=== PATIENT | male | born 1965 | race Caucasian/White ===

== ENCOUNTER 2018-02-07 19:16 | Inpatient (IN) | payer OTHER ==
[~2018-02-07] VITALS: Ht 180.3 cm; Wt 134.0 kg
--- NOTE | 2018-02-07 19:42 | ED GENERAL ADULT ---
See Addendum History of Present Illness General Chief Complaint: General Adult Stated Complaint: SWOLLEN FEET/DISTENDED ABDOMEN,SOB,DIZZY Source: patient, family Exam Limitations: no limitations Vital Signs & Intake/Output Vital Signs & Intake/Output Vital Signs Date Time Temp Pulse Resp B/P B/P Pulse O2 O2 Flow FiO2 Mean Ox Delivery Rate 02/07 1959 Room Air 02/07 1938 97.9 79 18 172/99 92 Room Air Allergies Coded Allergies: No Known Allergies (02/07/18) Triage Note: PT TO ROOM 1 FROM EKG [place] FOR AFIB/AFLUTTER. PATIENT TO ER C/C 1 DAY HX OF N/V AND 3-4 DAY HX OF CONGESTION AND SOB. PATIENT APPEARS PALE. ABD DISTENDED. PT RECENTLY STARTED ON COUMADIN FOR AFIB DIAGOSED BY PCP Triage Nurses Notes Reviewed? yes HPI: Patient presents with increasing weakness and fatigue, occasional nausea and vomiting, occasional shortness of breath and occasional dyspnea on exertion, increasing pedal edema and occasional cough which is sometimes productive. Symptoms started a few days ago and have been increasing. The patient states he does. He just vomits everything that he eats or drinks. The last time he vomited was yesterday. Patient chronically sleeps on 2 pillows but has not had to increase those lately. Patient denies any chest pain or chest tightness. Patient's sister states that yesterday his legs were pain with edema and today they're slightly better but still not at their baseline. Patient was diagnosed with A. fib a few months ago and was recently started on Coumadin. His sisters noticed that he has been very pale lately. Patient has not noticed any dark color to his stool. Past History Travel History Traveled to [place] past 21 day No Medical History Any Pertinent Medical History? see below for history Cardiovascular: AFIB, hypertension, ?CHF Renal: "PROBLEMS" Psychiatric: depression Surgical History Surgical History: non-contributory Psychosocial History What is your primary language Ma[place] Tobacco Use: Never used ETOH Use: occasional use Illicit Drug Use: denies illicit drug use Family History Hx Contributory? No Review of Systems Review of Systems Constitutional: Reports: no symptoms. EENTM: Reports: no symptoms. Respiratory: Reports: see HPI, cough, short of breath. Cardiovascular: Reports: no symptoms. GI: Reports: see HPI, nausea, vomiting. Genitourinary: Reports: no symptoms. Musculoskeletal: Reports: see HPI. Skin: Reports: no symptoms. Neurological/Psychological: Reports: no symptoms. Hematologic/Endocrine: Reports: no symptoms. Immunologic/Allergic: Reports: no symptoms. All Other Systems: Reviewed and Negative Physical Exam Physical Exam General Appearance: well developed/nourished, alert, awake, anxious, moderate distress Head: atraumatic Eyes: Bilateral: PERRL, EOMI, pale conjunctivae. Ears, Nose, Throat: normal pharynx, normal ENT inspection, hearing grossly normal Neck: normal inspection, supple, full range of motion Respiratory: normal breath sounds, chest non-tender, no respiratory distress, lungs clear Cardiovascular: regular rate/rhythm, normal peripheral pulses Gastrointestinal: normal bowel sounds, soft, non-tender, no organomegaly Rectal: normal rectal tone, heme negative stool, BROWN STOOL Back: normal inspection Extremities: normal capillary refill, pedal edema Neurologic/Psych: no motor/sensory deficits, awake, alert, oriented x 3, normal mood/affect Skin: warm/dry, pallor Lymphatic: no anterior cervical bina Core Measures ACS in differential dx? Yes No ASA d/t Medical Contraindication CVA/TIA Diagnosis: No Sepsis Present: No Sepsis Focused Exam Completed? No Progress Differential Diagnoses I considered the following diagnoses in my evaluation of the patient: [ANEMIA, GI BLEED, AMI, ELECTROLYTE ABNORMALITY] Plan of Care: Orders Procedure Date/time Status Heart Healthy Diet 02/[address] ABD & PELVIS W/O IV CONTRAS 02/07 2049 Active ED Holding Orders 02/08 2044 Active Admit to inpatient 02/08 2044 Active Vital Signs 02/08 2044 Active Code Status 02/08 2044 Active Add-on Test (ER Only) 02/07 2031 Active TYPE & SCREEN (NOT X-MATCH) 02/07 1941 Active XRY-PORTABLE CHEST XRAY 02/07 1938 Active Telemetry/Technical Inspector 02/07 1938 Active TROPONIN LEVEL 02/07 1938 Complete PARTIAL THROMBOPLASTIN TIME 02/07 1938 Complete PROTHROMBIN TIME 02/07 1938 Complete COMPREHENSIVE METABOLIC PANEL 02/07 1938 Complete CBC WITHOUT DIFFERENTIAL 02/07 1938 Complete EKG 02/07 1923 Active Laboratory Tests 02/07/18 194: Anion Gap 22 H, Estimated GFR 5 L, BUN/Creatinine Ratio 12.4, Glucose 117 H, Calcium 7.4 L, Total Bilirubin 0.4, AST 11 L, ALT 31, Alkaline Phosphatase 63, Troponin I 0.02, Total Protein 5.7 L, Albumin 3.3 L, Globulin 2.4, Albumin/ Globulin Ratio 1.4, PT 24.8 H, INR 2.26 H, APTT 44 H, CBC w Diff NO MAN DIFF REQ, RBC 3.09 L, MCV 82.4, MCH 28.0, MCHC 33.9, RDW 16.3 H, MPV 8.5, Gran % 85.1 H, Lymphocytes % 5.5 L, Monocytes % 6.9, Eosinophils % 2.4, Basophils % 0.1, Absolute Granulocytes 10.3 H, Absolute Lymphocytes 0.7 L, Absolute Monocytes 0.8 H, Absolute Eosinophils 0.3, Absolute Basophils 0 Diagnostic Imaging: Viewed by Me: Radiology Read. Discussed w/RAD: Radiology Read. Initial ED EKG: SR, PACs, MISSED BEATS, NO ISCHEMIC CHANGES, NO OLD TO COMPARE Rhythm Strip: normal sinus rhythm Comments: Patient states that he had his kidney function checked a few weeks ago and it was not as high as it currently is. Patient has never required blood before. Departure Departure Disposition: STILL A PATIENT Condition: Guarded Clinical Impression Primary Impression: Symptomatic anemia Secondary Impressions: Acute on chronic renal failure Referrals: Rachael CANNON,Seth Melara (PCP/Family) Departure Forms: Customer Survey General Discharge Information Admission Note Spoke With: Kristie Stone MD Documentation of Exam: Documentation of any treatments & extenuating circumstances including Concerns Regarding Discharge (functional status, medication knowledge or non-compliance, living conditions, etc.) that warrant an admission rather than observation: [ TRANSFUSION, RENAL CONSULT, IV FLUIDS, OBTAIN OLD RECORDS, LIKE ADMISSION FOR > 48 HOURS] Critical Care Note Critical Care Note Critical Care Time: non-applicable
[2018-02-07 19:51] LABS: ABSOLUTE BASOPHIL COUNT 0 /CUMM (0.0-0.2); ABSOLUTE EOSINOPHIL COUNT 0.3 /CUMM (0.0-0.7); ABSOLUTE GRANULOCYTE CT 10.3 /CUMM (1.4-6.5); ABSOLUTE LYMPH COUNT 0.7 /CUMM (1.2-3.4); ABSOLUTE MONOCYTE COUNT 0.8 /CUMM (0.10-0.60); BASOPHIL % 0.1 % (0.0-2.0); EOSINOPHIL % 2.4 % (0-5); GRANULOCYTE % 85.1 % (42.2-75.2); HEMATOCRIT 25.4 % (42-52); MEAN CORPUSCULAR HGB CONC 33.9 G/DL (33.0-37.0); MEAN CORPUSCULAR VOLUME 82.4 FL (80.0-94.0); MEAN PLATELET VOLUME 8.5 FL (7.4-10.4); PLATELET COUNT 235 /CUMM (130-400); RBC DISTRIBUTION WIDTH 16.3 % (11.5-14.5); RED BLOOD CELL CT 3.09 /CUMM (4.70-6.10); WHITE BLOOD CELL COUNT 12.1 /CUMM (4.8-10.8)
[2018-02-07 19:59] LABS: PT 24.8 SEC (9.4-12.5); PTT 44 SEC (25-37)
--- NOTE | 2018-02-07 21:23 | History & Physical ---
ManishOrtega 02/07/182121: General Information and HPI MD Statement: I have seen and personally examined SAMRA PERALTA and documented this H&P. The patient is a 52 year old M who presented with a patient stated chief complaint of lethargy, lightheadedness, palpitation and short of breath for last couple of days.[]. Source of Information: patient, family Exam Limitations: no limitations History of Present Illness: 52 YO M with PMH of A.fib on coumadine, HTN, CKD and depression brought to ED by his sister with chief complain of lethargic, lightheadedness, palpitation and shortness of breath for last couple of days. Patient was accompanied with her sister who gave us most of his history. He reported that patient developed cold symptoms for 2 months back (in November 2017) and he traveled to [place]. On his way back from [place] he drove for 5 days. Since the patient developed a common cold symptoms he is feeling lethargic, short of breath and its progressively worsening. Patient also reported having dry cough intermittently since then. According to her sister for last couple of days he is feeling lightheaded and palpitation. Patient also reported that the last couple of days his leg swelling is progressively increasing. Patient also reported that he is using 3 pillows at nighttime for a long time otherwise he become short of breath if he sleeps flat. He also reported that he snores at night but he never been diagnosed with obstructive sleep apnea. Patient also endorsed that he can eat and drink but if he tried to drink water quickly he throws up. Patient also reported having bloating sensation for last couple of. Patient denied any chest pain, fever, chills, nausea, vomiting, sick contacts, lumps or bumps in neck, body rash, trauma, abdominal pain, diarrhea, constipation, melena, hematemesis and dysuria. Patient reported that he was diagnosed with A. fib 3 months back by his primary care physician and was sent to Dr. Small who put the patient on Coumadin. Patient also reported having bruise on the back. Patient is seen his [facility] Dr. Sky, [facility] for last couple of years due to kidney disease secondary to hypertension. Patient denied any blood transfusions in the past. ED course: Vitals: Temperature 97.9, pulse 79, respiratory rate 18, blood pressure 172/99, oxygen saturation 92% on room air Labs: WBC count 12.1, hemoglobin 8.6, hematocrit 25.4, please let count 235, sodium 145, potassium 4.6, BUN 133, creatinine 10.7, anion gap 22, BUN/ creatinine ratio 12.4, glucose 117, calcium 7.4, AST 11, ALT 31, alkaline phosphatase 63, troponin 0.02, total protein 5.7, albumin 3.3, globulin 2.4, PTT 24.8, INR 2.26, proBNP 68580 Allergies/Medications Allergies: Coded Allergies: No Known Allergies (02/07/18) Home Med list Amlodipine Besylate 10 MG TABLET 1 TAB PO DAILY HIGH BLOOD PRESSURE (Reported ) Citalopram Hydrobromide (Citalopram HBr) 10 MG TABLET 1 TAB PO DAILY ANXIETY (Reported) Clonidine HCl 0.1 MG TABLET 1 TAB PO QPM HIGH BLOOD PRESSURE (Reported) Metolazone 2.5 MG TABLET 1 TAB PO DAILY KIDNEY HEALTH (Reported) Metoprolol Tartrate 50 MG TABLET 1 TAB PO BID HIGH BLOOD PRESSURE (Reported) Torsemide 20 MG TABLET 1 TAB PO DAILY DIURETIC (Reported) Warfarin Sodium (Coumadin) 1 MG TABLET 1 TAB PO DAILY BLOOD THINNER (Reported ) 1 TAB THU- THURSDAY 0.5 TAB THU AND Past History Travel History Traveled to [place] past 21 day No Medical History Cardiovascular: AFIB, hypertension, ?CHF Renal: "PROBLEMS" Psychiatric: depression Surgical History Surgical History: non-contributory Past Family/Social History Psychosocial History ETOH Use: occasional use Illicit Drug Use: denies illicit drug use Review of Systems Review of Systems Constitutional: Reports: weakness. EENTM: Reports: no symptoms. Cardiovascular: Reports: see HPI. Respiratory: Reports: cough, short of breath. GI: Reports: bloating. Genitourinary: Reports: no symptoms. Musculoskeletal: Reports: no symptoms. Skin: Reports: see HPI. Neurological/Psychological: Reports: no symptoms. Hematologic/Endocrine: Reports: bruising. Exam & Diagnostic Data Last 24 Hrs of Vital Signs/I&O Vital Signs Date Time Temp Pulse Resp B/P B/P Pulse O2 O2 Flow FiO2 Mean Ox Delivery Rate 02/07 1959 Room Air 02/07 1938 97.9 79 18 172/99 92 Room Air Physical Exam General Appearance Alert, Oriented X3, Cooperative Skin No Rashes Skin Temp/Moisture Exam: Warm/Dry Sepsis Skin Exam (color): Normal for Ethnicity HEENT Atraumatic, PERRLA, EOMI Neck Supple Cardiovascular Normal S1, Normal S2 Lungs Normal Air Movement, B/L ronchi Abdomen Soft, No Tenderness Neurological Normal Speech, Strength at 5/5 X4 Ext, Normal Tone Extremities B/L pedal edema Last 24 Hrs of Labs/Jorden: Laboratory Tests 02/07/181940: Anion Gap 22 H, Estimated GFR 5 L, BUN/Creatinine Ratio 12.4, Glucose 117 H, Calcium 7.4 L, Total Bilirubin 0.4, AST 11 L, ALT 31, Alkaline Phosphatase 63, Troponin I 0.02, Total Protein 5.7 L, Albumin 3.3 L, Globulin 2.4, Albumin/ Globulin Ratio 1.4, PT 24.8 H, INR 2.26 H, APTT 44 H, CBC w Diff NO MAN DIFF REQ, RBC 3.09 L, MCV 82.4, MCH 28.0, MCHC 33.9, RDW 16.3 H, MPV 8.5, Gran % 85.1 H, Lymphocytes % 5.5 L, Monocytes % 6.9, Eosinophils % 2.4, Basophils % 0.1, Absolute Granulocytes 10.3 H, Absolute Lymphocytes 0.7 L, Absolute Monocytes 0.8 H, Absolute Eosinophils 0.3, Absolute Basophils 0 Assessment/Plan Assessment: 52 YO M with PMH of Denise on coumadine, HTN, CKD and depression brought to ED by his sister with chief complain of lethargic, lightheadedness, palpitation and shortness of breath for last couple of days. We will admit the patient on general medicine floor to treat for acute on chronic kidney injury, pneumonia and symptomatic anemia. Acute on chronic kidney injury: -Possibly due to dehydration considering low oral intake and use of diuretics. -Although the patient was given IV fluid in ED but we will start fluids considering his elevated proBNP although there is no clinical evidence of CHF and we can't give diuretics because of kidney injury. -Input and output -Avoid any nephrotoxic medications -Hold diuretics -Monitor BEP for greater BUN -Consult nephrology -Urine lites, urinalysis -Renal ultrasound to rule out obstructive uropathy -Metabolic acidosis due to acute on chronic kidney injury. -Get record from his [facility] Acute hypoxic respiratory failure due to CAP: -Patient's daughter reported that he desaturated to 80s, patient is maintaining saturation 92% on room air. -Supplemental oxygen to maintain saturation above 92% as needed -TRC nebulization as needed -IV ceftriaxone and azithromycin -Follow-up with blood culture -PE we'll be ruled out with bilateral leg Doppler study. Symptomatic anemia: -Could be multifactorial considering CKD and low intake or could be GI loss. -We'll guaiac all stools -CBC to monitor H&H -We will keep hemoglobin above 8 considering his cardiac status -Blood group and crossmatched. Transfuse if hemoglobin drops below 8. -Iron studies -Get records from his primary care physician -If his H&H drops significantly we will call GI to rule out upper or lower GI bleed. Bilateral leg swelling: -Could be multifactorial considering acute on chronic kidney, use of amlodipine, questionable CHF. -We will get record for his echocardiogram from his phlebotomy coordinator office -We will rule out DVT with Doppler study -Check TSH/free T4 History of A. fib: -We'll hold Coumadin for now until GI bleed is ruled out. -We will check INR -We will get records from his phlebotomy coordinator History of hypertension: -We will continue metoprolol, clonidine and amlodipine. History of anxiety/depression: -We will continue home medications DVT prophylaxis: -Mechanical and subcutaneous heparin CODE STATUS: -Full code As Ranked By This Provider Problem List: 1. Acute on chronic renal failure 2. Symptomatic anemia 3. Pneumonia 4. Acute respiratory failure with hypoxia Core Measures/Misc (08/09) Acute Coronary Syndrome ACS Diagnosis: No Congestive Heart Failure Congestive Heart Failure Diagnosis No Cerebrovascular Accident CVA/TIA Diagnosis: No VTE (View Protocol) VTE Risk Factors Age>40 No Mechanical VTE Prophylaxis d/t N/A MechProphylax Ordered No VTE Pharm Prophylaxis d/t NA PharmProphylax ordered Sepsis (View protocol) Sepsis Present: No Marilia Bond 02/08/18 0020: Resident Review Statement Resident Statement: examined this patient, discussed with financial services internship, agreed with financial services internship Other Findings: Patient is 52-year-old morbidly obese gentleman with past medical history significant for hypertension, CK D, chronic bilateral lower extremity edema , atrial fibrillation on anticoagulation and anxiety came in with chief complaint of worsening fatigue, shortness of breath, lethargy, dizziness and slightly worsening bilateral lower extremity edema, cough and cold-like symptoms for last couple of days. Patient traveled to [place] almost 3 months ago. He flew over third packed controlled back in 3-4 days. He had cold prior to that traveled. He was recently diagnosed with atrial fibrillation by his PCP and was started on Coumadin by Dr. Small. He also noticing easy bruising. He denied fever, chills, any significant weight changes, nausea, vomiting, abdominal pain, headache, blood in urine or stool or dark colored stools. He endorses that he is urinating fine without any complaints. He might be slightly dehydrated and drinking enough last couple of days. He uses 2 glucose to sleep on a denied any history of sleep apnea. He is compliant with his medications but never been admitted to hospital in the past. He had recent blood work with his [facility] Dr. Winters's but did not get a chance to revisit to discuss his labs. He's not sure of his creatinine. He has chronic kidney disease for almost 3-4 years but he was never been told that he is anemic. He never had colonoscopy done. Vital signs on admission were temperature 97.9, pulse 79, respiratory rate 18, blood pressure 172/99 and he was saturating 92% on room air. Labs were significant for WBC count 12.1, hemoglobin 8.6, hematocrit 25.4, platelet count 235, sodium 145, potassium 4.6, bicarbonate 16, anion gap 22, BUNs 133, creatinine 10.7, glucose 117, bilirubin 0.4, negative troponin, ABG showed 7.33/29/30/15 EKG showed atrial fibrillation with no acute ST-T wave changes Chest x-ray showed left upper lobe infiltrate and possible bibasilar area of infiltrate. CT abdomen and pelvis showed no suspicious fluid collection. Renal lesion represents cystic changes but solid lesions cannot be excluded. On examination Alert and oriented 3 Head atraumatic Neck supple no JVD Chest clear to auscultate Heart S1-S2 normal, irregularly irregular with no added sounds Abdomen obese, protuberant, nontender with normal bowel sounds Extremities showed bilateral 2+ pitting edema above knee No neurological deficit noted Assessment and plan 52-year-old morbidly rupees male with history of CK D, hypertension, atrial fibrillation and anxiety came in with worsening fatigue, dizziness, shortness of breath and cough. We will admit patient on general medical floor and we will address following problems Problem list 1. AK I CK D. At this point we don't have patient's baseline creatinine 2. Shortness of breath which could be multifactorial attributed by pneumonia, PE needs to be ruled out less likely and his anemia 3. Metabolic acidosis most likely due to trans-chronic renal failure 4. Symptomatic anemia most likely due to CK D but GI bleed needs to be ruled out 5. History of hypertension 6. History of atrial fibrillation on anticoagulation 7. History of anxiety Plan 1. We will admit patient on general medical floor. 2. Patient has elevated creatinine of 10.7 most likely is a KI on CK D but we don't have any baseline creatinine at this point. Patient was given IV fluid in emergency room to correct if any perianal cause as clinically he looks slightly dehydrated but given his very elevated proBNP we will hold off further fluids. We will check his urine lites and protein for renal causes.We will monitor strict intake and output and will check renal ultrasound to rule out any obstruction. We will also hold off any diuresis given very elevated creatinine and will watch him closely with daily basic electrolyte panel. 3 .We will request nephrology evaluation in a.m. 4. We will treat him with IV ceftriaxone and azithromycin for pneumonia. TRC and nebulization. We will keep oxygen saturation more than 90% and if needed supplemental oxygen. 5. We will hold any sick medications and we'll hold metolazone and torsemide. 6. Guaiac all stools. 7. We will hold warfarin for now till GI bleed we'll rule out. We will check INR daily. Patient already took his warfarin at home today. 8. We will request records from his PCP. 9. We will request recent echocardiogram for Dr. Small office at will request cardiology evaluation in a.m. 10. We will check iron studies, folate, vitamin B12 look for definitive cause of anemia. 11. Given his recent long travel and worsening shortness of breath it could be due to PE. We will do bilateral Doppler to rule out DVT. As his creatinine is elevated and we cannot give him contrast we can consider VQ scan to rule out PE which is less likely given his continue anticoagulation and therapeutic INR. Patient is full code Heart healthy diet We will hold anticoagulation given GI bleed but once is rule out we will start him on pharmacological DVT prophylaxis with Coumadin Chase CANNON, [facility] 02/08/18 0021: Attending MD Review Statement Attending Statement Attending MD Statement: examined this patient, discuss w/resident/PA/PARTS SALVAGER, agreed w/resident/PA/PARTS SALVAGER, discussed with family, reviewed images, amended to note Attending Assessment/Plan: 52 yo morbidly obese M with h/o HTN, CKD, Afib on coumadin, severe anxiety, is here for evaluation of worsening exertional dyspnea, weakness, fatigue and dizziness. Sister Laura at bedside provides details along with patient. Symptoms date back to November 2017 when he developed cold/congestion symptoms. He was treated with Z-jose, pro-air, medrol dose pack for bronchitis. His symptoms did not resolve completely. 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 Around that time, he traveled to [place] (5-hour flight) and drove cross country. Patient reports, he noticed his right leg was more swollen then his left leg at one point. He is on diuretics (torsemide, metolazone) which he reports taking for his leg swelling (unclear h/o CHF). He is compliant with his medications, urinates well, no hesitancy, frequency, dysuria or hematuria. Over the past 1 week, he has been more lethargic, fatigued and dizzy. He has a poor appetite. Continues to have an occasional dry cough and has noticed worsening exertional dyspnea. Sister checked O2 sats at home 80's on RA. He sleeps with 3 pillows, denies orthopnea or PND. His lower extremity edema had increased but seems better today. Sister notes he is more pale. Patient denies melena, heartburn, hematemesis or BRBPR. He did notice dried blood in his nares today. He denies nausea or vomiting, he feels nauseous only if he eats/ drinks too fast. He is at the age for colonoscopy, never had one prior. Reports easy bruising while on coumadin. Denies weight loss, fever or chills. C/o cramping sensation to his calf muscles. Denies trauma. He follows with Dr. Sky ([facility]). He is aware of 'kidney problems' but is unable to tell me about his baseline renal functions. He has been worked up with renal ultrasound, 24 hour urine testing, etc many years ago. He has never been anemic and has not received any blood transfusions. He had recent echo with Dr. Small was apparently normal. Vitals: afebrile, HR 60-70's, BP 141/82, sats 92% RA --> 96% on 3L. Exam: AAO, in no distress, pallor+, dry mucous membranes, Neck supple, Chest bibasilar rhonchi (R>L), Heart S1S2 regular, Abd soft, distended, obese, nontender, LE: 2-3+ pitting edema upto knees. Back: bruise noted to the left lower back. Labs: WBC 12.1, H/H 8.6/25.4 (Baseline not known), normocytic anemia, INR 2.26, K 4.6, bicarb 16, AG 22, BUN 133, creat 10.7 (baseline not known), glucose 117, Ca 7.4, LFTs normal, trop neg. ProBNP 12352. AB.33/29/70/15. Rectal exam: guaiac negative CXR: left upper lobe infiltrate and possible bibasilar areas of infiltrate. CT abd/pelvis: lung bases shows infiltrate of RML and bilateral lower lobes, small effusion on right, trace effusion on left. Areas of low density in the kidneys - ?cysts but solid lesion cannot be excluded. EKG: sinus rhythm with skipped beats and PACs, difficult to interpret cannot rule out underlying aflutter/fib. Assessment and plan: 1. Acute hypoxic respiratory failure in the setting of multilobar pneumonia (CAP ). Small pleural effusions with b/l LE edema and elevated proBNP, not in florid pulmonary edema however I cannot rule out CHF at this point. Clinically patient has dry mucous membranes and unable to assess JVD due to body habitus. Given recent travel and worsening LE edema, PE remains a concern patient is currently anticoagulated with coumadin. 2. MARJAN on CKD (baseline creatinine unknown) in the setting of diuretics, poor PO intake, cannot rule out CHF. 3. Symptomatic normocytic anemia 2/2 CKD vs iron deficiency 4. High AG metabolic acidosis with superimposed respiratory alkalosis 5. Hypocalcemia - corrected calcium is 8.0 6. Atrial fibrillation on coumadin (therapeutic INR) 7. Essential hypertension - Admit to General medicine - TRC nebs - Blood and sputum cultures - Check urine legionella and strep antigen - IV ceftriaxone and azithro - LE dopplers to rule out DVT - Unable to get CTA, consider VQ scan if suspicion for PE remains high. - Patient received 1 L normal saline in the ER. Clinically patient has dry mucous membranes but bilateral lower extremity edema and b/l small pleural effusions. We will hold off on further IV fluids, recheck renal functions. Holding off on diuresis given renal functions. - Monitor intake and output, daily weights - Hold torsemide and metolazone - Obtain renal ultrasound - Check urinalysis and urine lytes - Nephro consult - Avoid nephrotoxic meds - Obtain records from Dr. Sky (nephro) and Dr. Cano (PCP) - Check CK levels - Check TSH, free T4, HbA1c - Work up anemia guaiac all stools, check iron studies, B12, folic acid, retic count. - Type and crossmatch, transfuse if Hb < 8.0 - Consider GI consult in AM - Check EKG and troponin in AM. - Cardio consult (Dr. Small), please obtain most recent Echo results - Patient took his dose of coumadin today, recheck INR in AM. Will hold coumadin given anemia. - Resume metoprolol, clonidine, amlodipine and citalopram. DVT ppx therapeutic INR/ Alps. Full code.
--- NOTE | 2018-02-07 21:27 | CT SCAN REPORT ---
EXAMINATION: CT ABDOMEN AND PELVIS WITHOUT CONTRAST CLINICAL INFORMATION: Vomiting COMPARISON: None TECHNIQUE: Multidetector volumetric imaging was performed from the superior aspect of the liver through the pubic symphysis. Sagittal and coronal reformatted images were obtained on the technologist's workstation. Lung bases show areas of infiltrate right middle lobe and bilateral lower lobes. Small effusion on the right. Trace effusion on the left. This is a noncontrast study but the liver and spleen are grossly normal in morphology. Small amount of pericardial fluid is noted. Region the pancreas is within normal limits. The adrenal glands within normal limits. The bowel pattern appears nonobstructing here. No free fluid. There is no bulky adenopathy. Areas of low density in the kidneys. These may represent cysts but a solid lesion cannot be excluded especially in the lower pole on the right posterior and mid pole left anterior. Ultrasound would be recommended to exclude a solid lesion. In the pelvis there is no free fluid. Bowel pattern is nonobstructing. The appendix is felt to be within normal limits. IMPRESSION: No acute finding here. Bowel pattern is felt to be within normal limits. No suspicious fluid collection. Renal lesions as described which may represent cystic change but solid lesions cannot be excluded. Ultrasound would be recommended for definitive evaluation.
--- NOTE | 2018-02-07 22:17 | RADIOLOGY REPORT ---
EXAMINATION: XR PORTABLE CHEST CLINICAL INFORMATION: Chest pain COMPARISON: 12/17/2017 TECHNIQUE: Portable frontal view of the chest was obtained. FINDINGS: Left upper lobe infiltrate. Limited from body habitus. Basilar process on the left could not be excluded. Right lung demonstrating some mild medial basilar opacity. IMPRESSION: Findings consistent with Left upper lobe infiltrate and possible by basilar areas of infiltrate but evaluation here is limited due to patient body habitus. Continued follow-up recommended.
--- NOTE | 2018-02-07 22:50 | Admission Certification ---
Admission Certification Certification Statement - As attending physician, I certify that at the time of - admission, based on clinical presentation, severity of - symptoms, need for further diagnostic testing and - therapeutic interventions, and risk of adverse outcomes - without in-hospital treatment, in my clinical assessment, - this patient requires an acute hospital stay for a minimum - of two nights or longer. I have also considered psychsocial - factors such as support system, advanced age, financial - issues, cognitive issues, and failed out-patient treatments, - past re-admission history, safety of patient, and lack of - compliance as applicable. Specific rationale supporting this admission is: MARJAN on CKD, symptomatic anemia, acute hypoxic respiratory failure, multilobar pneumonia.
[2018-02-07] MEDS ORDERED: CITALOPRAM HBR10 MG PO (23:24)
[2018-02-07] MEDS ORDERED: COUMADIN1 M1 PO (23:25)
[2018-02-07] MEDS ORDERED: CLONIDINE HCL0.1 MG PO (23:26)
[2018-02-07] MEDS ORDERED: METOLAZONE2.5 M1 PO (23:27)
[2018-02-07] MEDS ORDERED: METOPROLOL TART50 M1 PO (23:27)
[2018-02-07] MEDS ORDERED: TORSEMIDE20 M1 PO (23:27)
[2018-02-07] MEDS ORDERED: AMLODIPINE BESY10 M1 PO (23:28)
[2018-02-08 00:23] VITALS: BP 130/80
[2018-02-08 06:51] VITALS: BP 140/88
--- NOTE | 2018-02-08 07:47 | PN- Housestaff ---
Kaitlin CANNON,Annetta 02/08/18 0747: Subjective Follow-up For: CKD Pneumonia Elevated ProBNP Inflammatory anemia HTN A.fib on anticoagulation Subjective: Seen and examined Patient reports feeling well. Denies any shortness of breath, chest pain. able to breath well on 3L of oxygen Review of Systems Constitutional: Reports: see HPI. Objective Last 24 Hrs of Vital Signs/I&O Vital Signs Date Time Temp Pulse Resp B/P B/P Pulse O2 O2 Flow FiO2 Mean Ox Delivery Rate 02/08 0651 97.7 107 22 140/88 94 Nasal 3.0L Cannula 02/08 0023 97.9 68 22 130/80 96 Nasal 3.0L Cannula 02/07 2330 95 Nasal 3.0L Cannula 02/07 2250 97.0 76 22 141/82 95 Room Air 02/07 1959 Room Air 02/07 1938 97.9 79 18 172/99 92 Room Air Intake & Output 02/08 0800 02/08 0000 02/07 1600 Intake Total 660 0 Output Total 725 Balance -65 0 Intake, IV 300 Intake, Oral 360 0 Output, Urine 725 Patient 132.024 kg 134.263 kg Weight Weight Bed scale Bed scale Measurement Method Physical Exam General Appearance: Alert, Oriented X3, Cooperative Skin: No Rashes, No Breakdown HEENT: Atraumatic, PERRLA, EOMI Neck: Supple Cardiovascular: Normal S1, Normal S2, No Murmurs Lungs: Normal Air Movement, decreased breath sounds at bases Abdomen: Normal Bowel Sounds, Soft, No Tenderness Neurological: Normal Speech, Strength at 5/5 X4 Ext, Normal Tone Extremities: No Clubbing, No Cyanosis, 4+ pitting edema Current Medications: Current Medications Sig/Milagros Start time Last Medication Dose Route Stop Time Status Admin Amlodipine Besylate 10 MG DAILY 02/08 1000 AC PO Azithromycin 500 MG DAILY 02/08 1000 AC Dextrose/Water 250 ML IV Azithromycin 500 MG ONCE ONE 02/07 2200 DC 02/07 Dextrose/Water 250 ML IV 02/07 Ceftriaxone Sodium 1,000 MG DAILY 02/08 1000 AC IV Ceftriaxone Sodium 0 .STK-MED ONE 02/07 2241 DC .ROUTE Ceftriaxone Sodium 1,000 MG ONCE ONE 02/07 2200 DC 02/07 IV 02/07 Citalopram 10 MG DAILY 02/08 1000 AC Hydrobromide PO Citalopram 10 MG ONCE ONE 02/085 DC 02/08 Hydrobromide PO 02/086 0327 Clonidine 0.1 MG QPM 02/08 2200 AC PO Influenza Virus 0.5 ML ONCE ONE 02/08 1000 CAN Vaccine IM 02/08 1001 Metoprolol Tartrate 50 MG BID 02/08 1000 AC PO Ramelteon 8 MG AT BEDTIME 02/07 2330 AC 02/08 PO 0014 Sodium Chloride 1,000 ML Q20H 02/07 2330 DC 02/08 IV 02/08 1929 0015 Sodium Chloride 1,000 ML BOLUS ONE 02/07 2200 DC 02/07 IV 02/07 225 224 Last 24 Hrs of Lab/Jorden Results Last 24 Hrs of Labs/Mics: Laboratory Tests 02/08/189: Urinalysis LIGHT H, Urine Color YEL, Urine Clarity CLEAR, Urine pH 6.0, Ur Specific [place] 1.020, Urine Protein >=300 H, Urine Ketones NEG, Urine Nitrite NEG, Urine Bilirubin NEG, Urine Urobilinogen 0.2, Ur Leukocyte Esterase NEG, Ur Microscopic SEDIMENT EXAMINED, Urine RBC 5-10 H, Urine WBC 5-10 H, Ur Epithelial Cells RARE, Hyaline Casts RARE H, Urine Mucus FEW, Micro UA Comment BUDDING YEAST H, Urine Hemoglobin SMALL H, Urine Glucose NEG 02/08/189: Ur Random Creatinine 70.9, Ur Random Sodium 57, Ur Random Potassium 27.8, Fraction Sodium Excret 5.9 H 02/07/182249: pH 7.33 L, pCO2 29 L, pO2 70 L, HCO3 15 L, ABG O2 Sat (Measured) 92.0 L, Carboxyhemoglobin 0.3 L, O2 Concentration % RA, O2 Delivery Method RA, Phlebotomy Draw Site LEFT RADIAL 02/07/181940: Anion Gap 22 H, Estimated GFR 5 L, BUN/Creatinine Ratio 12.4, Glucose 117 H, Hemoglobin A1c Pending, Calcium 7.4 L, Iron 35 L, TIBC 310, Ferritin 116.0, Total Bilirubin 0.4, AST 11 L, ALT 31, Alkaline Phosphatase 63, Creatine Kinase 145, Troponin I 0.02, Hoj-J-Wdnoctuycpk Pept 96486 H, Total Protein 5.7 L, Albumin 3.3 L, Globulin 2.4, Albumin/Globulin Ratio 1.4, Vitamin B12 842, Folate 12.0, PT 24.8 H, INR 2.26 H, APTT 44 H, D-Dimer High Sensitivty 306 H , CBC w Diff NO MAN DIFF REQ, RBC 3.09 L, MCV 82.4, MCH 28.0, MCHC 33.9, RDW 16.3 H, MPV 8.5, Gran % 85.1 H, Lymphocytes % 5.5 L, Monocytes % 6.9, Eosinophils % 2.4, Basophils % 0.1, Absolute Granulocytes 10.3 H, Absolute Lymphocytes 0.7 L, Absolute Monocytes 0.8 H, Absolute Eosinophils 0.3, Absolute Basophils 0 Microbiology 02/07 2242 BLOOD: Blood Culture - RECD 02/07 2242 BLOOD: Blood Culture - RECD Assessment/Plan Assessment: Patient is 52-year-old morbidly obese gentleman with past medical history significant for hypertension, CK D, chronic bilateral lower extremity edema , atrial fibrillation on anticoagulation and anxiety came in with chief complaint of worsening fatigue, shortness of breath, lethargy, dizziness and slightly worsening bilateral lower extremity edema, cough and cold-like symptoms for last couple of days. Patient traveled to [place] almost 3 months ago. He flew over third packed controlled back in 3-4 days. He had cold prior to that traveled. He was recently diagnosed with atrial fibrillation by his PCP and was started on Coumadin by Dr. Small. Vital signs on admission were temperature 97.9, pulse 79, respiratory rate 18, blood pressure 172/99 and he was saturating 92% on room air. Labs were significant for WBC count 12.1, hemoglobin 8.6, hematocrit 25.4, platelet count 235, sodium 145, potassium 4.6, bicarbonate 16, anion gap 22, BUNs 133, creatinine 10.7, glucose 117, bilirubin 0.4, negative troponin, ABG showed 7.33//30/15 EKG showed atrial fibrillation with no acute ST-T wave changes Chest x-ray showed left upper lobe infiltrate and possible bibasilar area of infiltrate. CT abdomen and pelvis showed no suspicious fluid collection. Renal lesion represents cystic changes but solid lesions cannot be excluded. Problem list 1. MARJAN on CKD. 2. PNA 3. Metabolic acidosis most likely due to trans-chronic renal failure 4. Inflammatory anemia 5. History of hypertension 6. History of atrial fibrillation on anticoagulation 7. 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 Requested records. we will monitor for now, given this has been going on chronically and patient had been adamant about dialysis. His renal ultrasound did reveal simple renal cysts without any obstruction. IV diuresis as needed, if oxygen requirement increases. * HbSAb * EPO and IV Iron for anemia * Monitor bep * IV lasix as needed PNA No smoking/h/o lung disease. On IV ceftriaxone and IV Azithromycin for now. F/u cultures. Low threshold to diuretics and repeat CXR if worsens. HTN continue amlodipine 10mg daily A.fib Continue Warfarin 1mg for anticoagulation. Continue metoprolol tartarate 50mg BID. NO fluids for now DVT prophylaxis warfarin code status full code Problem List: 1. Pneumonia 2. Acute on chronic renal failure 3. Symptomatic anemia Pain Ratin Pain Location: n/a Pain Goal: Pain 4 or less Pain Plan: tylenol Tomorrow's Labs & Rationales: bep, HbSAb Adam CANNON,Chastity 02/08/18 1116: Attending MD Review Statement Attending Statement Attending MD Statement: examined this patient, discuss w/resident/PA/MD DO [facility], agreed w/resident/PA/MD DO [facility], discussed with family, reviewed EMR data (avail), discussed with nursing, discussed with case mgmt, reviewed images, amended to note Attending Assessment/Plan: Patient seen and examined, still feels exhausted. Denies any aches or pains. Patient is a AO 3. Sister and on sitting at the bedside. Vital Signs Date Time Temp Pulse Resp B/P B/P Pulse O2 O2 Flow FiO2 Mean Ox Delivery Rate 02/08 1059 97.7 107 22 140/88 02/08 1059 97.7 107 22 140/88 02/08 0651 97.7 107 22 140/88 94 Nasal 3.0L Cannula 02/08 0023 97.9 68 22 130/80 96 Nasal 3.0L Cannula 02/07 2330 95 Nasal 3.0L Cannula 02/070 97.0 76 22 141/82 95 Room Air 02/07 1959 Room Air 02/07 1938 97.9 79 18 172/99 92 Room Air on exam; aox3, nad. cv; s1,s2, irregular resp; decreased bs at b/l bases. abd; soft, nt, bs+ ext; 1+ edema b/l Laboratory Tests 02/08 02/08 0745 0010 Chemistry Sodium (137 - 145 mmol/L) 143 Potassium (3.5 - 5.1 mmol/L) 4.6 Chloride (98 - 107 mmol/L) 108 H Carbon Dioxide (22 - 30 mmol/L) 14 L Anion Gap (5 - 16) 21 H BUN (9 - 20 mg/dL) 129 *H Creatinine (0.7 - 1.2 mg/dL) 10.4 *H Estimated GFR (>60 ml/min) 5 L BUN/Creatinine Ratio (7 - 25 %) 12.4 Troponin I (<0.11 ng/ml) < 0.01 Triglycerides (<150 mg/dL) 220 H Cholesterol (< 200 MG/DL) 199 LDL Cholesterol, Calc (65 - 129 mg/dL) 134 H HDL Cholesterol (40 - 60 mg/dL) 21 L Cholesterol/HDL Ratio (0.00 - 4.88 %) 9 H TSH (0.270 - 4.200 uIU/mL) 3.420 Free T4 (0.64 - 1.79 ng/dL) 0.73 Coagulation PT (9.4 - 12.5 SEC) 30.4 H INR (0.90 - 1.17) 2.76 H Hematology CBC w Diff NO MAN DIFF REQ WBC (4.8 - 10.8 /CUMM) 10.4 RBC (4.70 - 6.10 /CUMM) 2.75 L Hgb (14.0 - 18.0 G/DL) 7.6 L Hct (42 - 52 %) 22.6 L MCV (80.0 - 94.0 FL) 82.3 MCH (27.0 - 31.0 PG) 27.6 MCHC (33.0 - 37.0 G/DL) 33.5 RDW (11.5 - 14.5 %) 16.6 H Plt Count (130 - 400 /CUMM) 201 MPV (7.4 - 10.4 FL) 8.9 Gran % (42.2 - 75.2 %) 85.1 H Lymphocytes % (20.5 - 51.1 %) 6.1 L Monocytes % (1.7 - 9.3 %) 6.4 Eosinophils % (0 - 5 %) 2.1 Basophils % (0.0 - 2.0 %) 0.3 Absolute Granulocytes (1.4 - 6.5 /CUMM) 8.9 H Absolute Lymphocytes (1.2 - 3.4 /CUMM) 0.6 L Absolute Monocytes (0.10 - 0.60 /CUMM) 0.7 H Absolute Eosinophils (0.0 - 0.7 /CUMM) 0.2 Absolute Basophils (0.0 - 0.2 /CUMM) 0 Urines Urinalysis LIGHT H Urine Color (YEL,AMB,STR) YEL Urine Clarity (CLEAR) CLEAR Urine pH (5.0 - 8.0) 6.0 Ur Specific [place] (1.001 - 1.035) 1.020 Urine Protein (NEG,<30 MG/DL) >=300 H Urine Ketones (NEG) NEG Urine Nitrite (NEG) NEG Urine Bilirubin (NEG) NEG Urine Urobilinogen (0.1 - 1.0 EU/dl) 0.2 Ur Leukocyte Esterase (NEG) NEG Ur Microscopic SEDIMENT EXAMINED Urine RBC (0 - 5 /HPF) 5-10 H Urine WBC (0 - 2 /HPF) 5-10 H Ur Epithelial Cells (NONE,FEW) RARE Hyaline Casts (0/LPF) RARE H Urine Mucus (FEW,NONE) FEW Micro UA Comment BUDDING YEAST H Urine Hemoglobin (NEG) SMALL H Urine Glucose (N MG/DL) NEG 02/08 02/07 02/07 0010 0 1940 Blood Gas pH (7.35 - 7.45 PH) 7.33 L pCO2 (35 - 45 TORR) 29 L pO2 (80 - 100 TORR) 70 L HCO3 (21 - 28 MEQ/L) 15 L ABG O2 Sat (Measured) (>96.0 %) 92.0 L Carboxyhemoglobin (1.5 - 5.0 %) 0.3 L O2 Concentration % RA O2 Delivery Method RA Chemistry Sodium (137 - 145 mmol/L) 145 Potassium (3.5 - 5.1 mmol/L) 4.6 Chloride (98 - 107 mmol/L) 107 Carbon Dioxide (22 - 30 mmol/L) 16 L Anion Gap (5 - 16) 22 H BUN (9 - 20 mg/dL) 133 *H Creatinine (0.7 - 1.2 mg/dL) 10.7 *H Estimated GFR (>60 ml/min) 5 L BUN/Creatinine Ratio (7 - 25 %) 12.4 Glucose (65 - 99 mg/dL) 117 H Hemoglobin A1c (4.2 - 5.8 %) 5.7 Calcium (8.4 - 10.2 mg/dL) 7.4 L Iron (49 - 181 ug/dL) 35 L TIBC (261 - 462 ug/dL) 310 Ferritin (17.9 - 464 ng/mL) 116.0 Total Bilirubin (0.2 - 1.3 mg/dL) 0.4 AST (17 - 59 U/L) 11 L ALT (21 - 72 U/L) 31 Alkaline Phosphatase (< 127 U/L) 63 Creatine Kinase (55 - 170 U/L) 145 Troponin I (<0.11 ng/ml) 0.02 Jhz-R-Mjljghkedgl Pept (<125 pg/mL) 39056 H Total Protein (6.3 - 8.2 g/dL) 5.7 L Albumin (3.5 - 5.0 g/dL) 3.3 L Globulin (1.9 - 4.2 gm/dL) 2.4 Albumin/Globulin Ratio (1.1 - 2.2 %) 1.4 Vitamin B12 (239 - 931 pg/mL) 842 Folate (2.76 - 20.0 ng/mL) 12.0 Coagulation PT (9.4 - 12.5 SEC) 24.8 H INR (0.90 - 1.17) 2.26 H APTT (25 - 37 SEC) 44 H D-Dimer High Sensitivty (0 - 243 ng/ml) 306 H Hematology CBC w Diff NO MAN DIFF REQ WBC (4.8 - 10.8 /CUMM) 12.1 H RBC (4.70 - 6.10 /CUMM) 3.09 L Hgb (14.0 - 18.0 G/DL) 8.6 L Hct (42 - 52 %) 25.4 L MCV (80.0 - 94.0 FL) 82.4 MCH (27.0 - 31.0 PG) 28.0 MCHC (33.0 - 37.0 G/DL) 33.9 RDW (11.5 - 14.5 %) 16.3 H Plt Count (130 - 400 /CUMM) 235 MPV (7.4 - 10.4 FL) 8.5 Gran % (42.2 - 75.2 %) 85.1 H Lymphocytes % (20.5 - 51.1 %) 5.5 L Monocytes % (1.7 - 9.3 %) 6.9 Eosinophils % (0 - 5 %) 2.4 Basophils % (0.0 - 2.0 %) 0.1 Absolute Granulocytes (1.4 - 6.5 /CUMM) 10.3 H Absolute Lymphocytes (1.2 - 3.4 /CUMM) 0.7 L Absolute Monocytes (0.10 - 0.60 /CUMM) 0.8 H Absolute Eosinophils (0.0 - 0.7 /CUMM) 0.3 Absolute Basophils (0.0 - 0.2 /CUMM) 0 Miscellaneous Phlebotomy Draw Site LEFT RADIAL Urines Ur Random Creatinine (mg/dL) 70.9 Ur Random Sodium (30 - 90 mmol/L) 57 Ur Random Potassium (mmol/L) 27.8 Fraction Sodium Excret (<1% %) 5.9 H A/P; 52 y/o M with pmh sig for A.fib on coumadin, HTN, CKD and depression, presented with multiple complaints including dizziness, shortness of breath, lethargy and admitted with acute on chronic renal failure, need to look for possible venous thrombi embolism, bilateral extremity edema, anemia and community acquired pneumonia. Baseline creatinine and H&H unknown. 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 Nephrology consult is called. Currently getting treated with antibiotics. We'll follow-up on lower extremity venous Doppler ultrasound as well as VQ scan. Will monitor H&H. Please check stool for guaiac. Currently INR therapeutic. We'll dose Coumadin per home dosing. Patient will be seen by physical therapy. DVT px; INR therapeutic, pt on coumadin. D/W patient's sister at bedside.
[2018-02-08 08:30] LABS: ABSOLUTE BASOPHIL COUNT 0 /CUMM (0.0-0.2); ABSOLUTE EOSINOPHIL COUNT 0.2 /CUMM (0.0-0.7); ABSOLUTE GRANULOCYTE CT 8.9 /CUMM (1.4-6.5); ABSOLUTE LYMPH COUNT 0.6 /CUMM (1.2-3.4); ABSOLUTE MONOCYTE COUNT 0.7 /CUMM (0.10-0.60); BASOPHIL % 0.3 % (0.0-2.0); EOSINOPHIL % 2.1 % (0-5); GRANULOCYTE % 85.1 % (42.2-75.2); HEMATOCRIT 22.6 % (42-52); MEAN CORPUSCULAR HGB 27.6 PG (27.0-31.0); MEAN CORPUSCULAR HGB CONC 33.5 G/DL (33.0-37.0); MEAN CORPUSCULAR VOLUME 82.3 FL (80.0-94.0); MEAN PLATELET VOLUME 8.9 FL (7.4-10.4); PLATELET COUNT 201 /CUMM (130-400); PT 30.4 SEC (9.4-12.5); RBC DISTRIBUTION WIDTH 16.6 % (11.5-14.5); RED BLOOD CELL CT 2.75 /CUMM (4.70-6.10); WHITE BLOOD CELL COUNT 10.4 /CUMM (4.8-10.8)
--- NOTE | 2018-02-08 13:21 | Cons- Nephrology ---
General Information and HPI Consulting Request Date of Consult: 02/08/18 Requested By: Adam CANNON,Chastity History of Present Illness: Mr. Ponce is a 52 yo gentleman with longstanding HTN, chronic kidney disease ( probably stage 4-[address] Cano's office) who was admitted last night with 2-3 weeks of couph , increased edema, pneumonia and renal failure with a creatinine of 10.4. He is followed by Dr. Louie Sky (I have placed a call to him) from a renal standpoint and Dr. Cano as his PCP. I called Dr. Cano's office and he had a creatinine of 5.4 last August and 7.8 This past December ( Jan 19). He recently flew to [place] to drive his father back to [place] ( his mother about 9 mths ago). He wasn't feeling well with cough when he left and continued with the same on his return. His sister has been trying to get him to go to the hospital but he had been refusing. SHe finally convinced him to come to the hospital last night. Mr. Ponce denies NSAID use. He denies appetite change or N/V/D. Allergies/Medications Allergies: Coded Allergies: No Known Allergies (02/07/18) Home Med List: Amlodipine Besylate 10 MG TABLET 1 TAB PO DAILY HIGH BLOOD PRESSURE (Reported ) Citalopram Hydrobromide (Citalopram HBr) 10 MG TABLET 1 TAB PO DAILY ANXIETY (Reported) Clonidine HCl 0.1 MG TABLET 1 TAB PO QPM HIGH BLOOD PRESSURE (Reported) Metolazone 2.5 MG TABLET 1 TAB PO DAILY KIDNEY HEALTH (Reported) Metoprolol Tartrate 50 MG TABLET 1 TAB PO BID HIGH BLOOD PRESSURE (Reported) Torsemide 20 MG TABLET 1 TAB PO DAILY DIURETIC (Reported) Warfarin Sodium (Coumadin) 1 MG TABLET 1 TAB PO DAILY BLOOD THINNER (Reported ) 1 TAB THU- THURSDAY 0.5 TAB THU AND Current Medications: Current Medications Sig/Milagros Start time Last Medication Dose Route Stop Time Status Admin Amlodipine Besylate 10 MG DAILY 02/08 1000 AC 02/08 PO 1059 Azithromycin 500 MG DAILY 02/08 1000 AC 02/08 Dextrose/Water 250 ML IV 1101 Azithromycin 500 MG ONCE ONE 02/07 2200 DC 02/07 Dextrose/Water 250 ML IV 02/07 Ceftriaxone Sodium 1,000 MG DAILY 02/08 1000 AC 02/08 IV 1100 Ceftriaxone Sodium 0 .STK-MED ONE 02/07 2241 DC .ROUTE Ceftriaxone Sodium 1,000 MG ONCE ONE 02/070 DC 02/07 IV 02/07 Citalopram 10 MG DAILY 02/08 1000 AC 02/08 Hydrobromide PO 1059 Citalopram 10 MG ONCE ONE 02/08 0315 DC 02/08 Hydrobromide PO 02/08 0316 0327 Clonidine 0.1 MG QPM 02/08 2200 AC PO Influenza Virus 0.5 ML ONCE ONE 02/08 1000 CAN Vaccine IM 02/08 1001 Lorazepam 0.5 MG ONE ONE 02/08 1215 DC PO 02/08 1216 Metoprolol Tartrate 50 MG BID 02/08 1000 AC 02/08 PO 1059 Ramelteon 8 MG AT BEDTIME 02/07 2330 AC 02/08 PO 0014 Sodium Chloride 1,000 ML Q20H 02/07 2330 DC 02/08 IV 02/08 1929 0015 Sodium Chloride 1,000 ML BOLUS ONE 02/07 2200 DC 02/07 IV 02/07 Review of Systems Review of Systems: As in HPI cough SOB increased edema weakness no dysguesia, no N/V/D no fevers, chills, other systems negative. 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 Home Services at Home: None Smoking Status: Never Smoked ETOH Use: occasional use Illicit Drug Use: denies illicit drug use Exam & Diagnostic Data Vital Signs and I&O Pleasant M NAD 140/88 T 97.7 P 107 Wt 291 Skin neg rash Eyes anicteric ENT moist Lungs diminished bases, occ rhonchi Cor RRR Abd soft obsese Ext 1+edema Results Pertinent Lab Results: 143 / 108 / 129 / 4.6 / 14 / 10.4 \ Hg 7.6 MCV 82 Imaging/Other Studies: CXR NOE infiltrate CT Abd pelvis hypodense areas kidneys ? cysts no hydro Assessment/Plan Assessment/Recommendations Assessment: Mr. Ponce has advanced CKD V with a creatinine of 10.4 now. I placed a call to Dr. Sky and will discuss this with him when he returns my call but given a creatinine of 5.4 last August and 7.8 a month ago, I suspect much of the renal failure is chronic from hypertensive renal disease. That said, his uremic symtoms are mild (appetite preserved) and his main issue is his cough and NOE infiltrate for which he has been started on antibiotics. He is not dehydrated and I wonder if he is actually somewhat fluid overloaded. I discussed the possiblility of dialysis and dialysis modality with the patient (he is leaning toward center hemodialysis). I suspect much of his anemia is related to his kidney disease. He should have stool guiacs and his iron saturation is low (10%) although Ferritin is okay. Recommend: (A) Kidney disease Please send Hepatitis B S Ag/Ab with next bloodwork (AM labs okay) Will discuss with Dr. Sky and depending on clinical course may need to start dialysis in next few days (vs outpt f/u). (B) Anemia suspect much of this is related to CKD. Iron stores equivocal (low Fe sat, lowish MCV, nl ferritin). Guiac stools ? GI w/u - he is 52 in any case and should as some point have colonoscopy Start darbopoeitin 60 mcg SQ weekly Consider IV iron (Ferlicit 125 mg IV daily or Venofer 100 mg IV daily) x 1 gram (C) Volume - doubt volume depleted. No need for IVF. Okay to use lasix as needed. Thanks will follow. Chidi Pierre MD. Recommendations: .
[2018-02-08 14:26] VITALS: BP 132/60
--- NOTE | 2018-02-08 16:00 | ULTRASOUND REPORT ---
EXAMINATION: US RETROPERITONEAL COMPLETE (RENAL) CLINICAL INFORMATION: Acute renal failure.. COMPARISON: CT scan of the abdomen and pelvis dated 02/07/2018 TECHNIQUE: Real-time imaging of the kidneys and bladder. FINDINGS: RIGHT KIDNEY: 13.5 x 7.5 x 7.1 cm (SAG x AP x TRV). The kidney is normal in size, contour, and echogenicity. Renal cortical thickness is normal. No calculi or focal parenchymal lesions. No hydronephrosis. A cystic structure is present in the mid pole of the right kidney measuring 2.6 x 3.0 x 2.7 cm with an additional structure present in the lower pole measuring 1.3 x 1.2 x 1.6 cm, neither structure demonstrates vascular flow. LEFT KIDNEY: 11.5 x 6.8 x 6.4 cm (SAG x AP x TRV). The kidney is normal in size, contour, and echogenicity. Renal cortical thickness is normal. No calculi or focal parenchymal lesions. No hydronephrosis. Anechoic cystic structures are present in the mid region measuring 1.2 x 0.9 x 1.1 cm and in the lower pole measuring 2.4 x 2.6 x 1.9 cm, neither structure demonstrates vascular flow. BLADDER: Well-distended and normal. Bilateral ureteral jets are not observed. Prevoid bladder volume is 102 mL. Postvoid bladder volume is 0 mL. IMPRESSION: Simple bilateral renal cysts.
--- NOTE | 2018-02-08 16:25 | ULTRASOUND REPORT ---
EXAMINATION: US TRIPLEX OF LOWER EXTREMITIES, BILATERAL CLINICAL INFORMATION: Bilateral leg edema swelling COMPARISON: None TECHNIQUE: Color-flow triplex imaging with spectral analysis and compression Doppler were performed on the lower extremities. FINDINGS: Exam limited by patient's body habitus. Respiratory variation, normal compression and augmented flow are noted throughout the lower extremities. The visualized common femoral vein, superficial femoral vein, profunda femoral vein, popliteal vein and midcalf peroneal and posterior tibial venous segments show no evidence of deep venous thrombosis. There is no Lemos's cyst. IMPRESSION: Exam limited by patient's body habitus. Normal triplex scan without evidence of deep venous thrombosis involving the lower extremities.
[2018-02-08 21:45] VITALS: BP 126/82
[2018-02-09 05:59] VITALS: BP 100/60
--- NOTE | 2018-02-09 07:21 | PN- Housestaff ---
Kaitlin CANNON,Annetta 02/09/18 0721: Subjective Follow-up For: Pneumonia Subjective: Feels better today. Able to communicate well. 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 at bedside, discussed about various options for renal disease. Review of Systems Constitutional: Reports: see HPI. Objective Last 24 Hrs of Vital Signs/I&O Vital Signs Date Time Temp Pulse Resp B/P B/P Pulse O2 O2 Flow FiO2 Mean Ox Delivery Rate 02/09 0559 97.8 106 20 100/60 92 Room Air 02/09 0000 Nasal 3.0L Cannula 02/08 2145 97.6 108 20 126/82 93 02/08 2100 108 126/82 02/08 2100 108 126/82 02/08 1600 Nasal 3.0L Cannula 02/08 1426 97.7 100 20 132/60 98 Nasal 3.0L Cannula 02/08 1059 97.7 107 22 140/88 02/08 1059 97.7 107 22 140/88 02/08 0800 100 Nasal 3.0L Cannula Intake & Output 02/09 0800 02/09 0000 02/08 1600 Intake Total 100 350 Output Total 300 150 400 Balance -300 -50 -50 Intake, IV 290 Intake, Oral 100 60 Output, Urine 300 150 400 Physical Exam General Appearance: Alert, Oriented X3, Cooperative Skin: No Rashes, No Breakdown HEENT: Atraumatic, PERRLA, EOMI Neck: Supple Cardiovascular: Normal S1, Normal S2 Lungs: Normal Air Movement Abdomen: Normal Bowel Sounds, Soft, No Tenderness Neurological: Normal Speech Current Medications: Current Medications Sig/Milagros Start time Last Medication Dose Route Stop Time Status Admin Amlodipine Besylate 10 MG DAILY 02/08 1000 AC 02/09 PO 1012 Azithromycin 500 MG DAILY 02/08 1000 AC 02/09 Dextrose/Water 250 ML IV 1013 Ceftriaxone Sodium 1,000 MG DAILY 02/08 1000 AC 02/09 IV 1009 Citalopram 10 MG DAILY 02/08 1000 AC 02/09 Hydrobromide PO 1012 Clonidine 0.1 MG QPM 02/08 2200 AC 02/08 PO 2100 Epoetin Toribio 10,000 UNITS ONCE A WEEK 02/15 1000 AC SC Ferric Sodium 125 MG Q24H 02/08 1600 AC 02/08 Gluconate Complex IV 02/15 1659 1657 Sodium Chloride 100 ML Ferric Sodium 125 MG Q24H 02/08 1500 DC Gluconate Complex IV Sodium Chloride 100 ML Ferric Sodium 125 MG DAILY 02/08 1418 CAN Gluconate Complex IV Lorazepam 2 MG .STK-MED ONE 02/08 1304 DC IM 02/08 1305 Lorazepam 0.5 MG ONE ONE 02/08 1215 DC 02/08 PO 02/08 1216 1330 Melatonin 3 MG ONCE ONE 02/08 2330 DC 02/08 PO 02/08 2331 2322 Metoprolol Tartrate 50 MG BID 02/08 1000 AC 02/09 PO 1012 Ramelteon 8 MG AT BEDTIME 02/07 2330 AC 02/08 PO 2100 Warfarin Sodium 1 MG COUMADIN 1700 ONE 02/08 1815 DC 02/08 PO 02/08 181 1832 Last 24 Hrs of Lab/Jorden Results Last 24 Hrs of Labs/Mics: Laboratory Tests 02/09/18 0750: Anion Gap 20 H, Estimated GFR 5 L, BUN/Creatinine Ratio 12.1, PT 32.2 H, INR 2.92 H, CBC w Diff NO MAN DIFF REQ, RBC 2.71 L, MCV 82.3, MCH 27.5, MCHC 33.4, RDW 16.3 H, MPV 9.3, Gran % 82.8 H, Lymphocytes % 6.8 L, Monocytes % 8.0, Eosinophils % 2.0, Basophils % 0.4, Absolute Granulocytes 7.3 H, Absolute Lymphocytes 0.6 L, Absolute Monocytes 0.7 H, Absolute Eosinophils 0.2, Absolute Basophils 0, Hep Bs Antibody NONREACTIVE Assessment/Plan Assessment: Patient is 52-year-old morbidly obese gentleman with past medical history significant for hypertension, CK D, chronic bilateral lower extremity edema , atrial fibrillation on anticoagulation and anxiety came in with chief complaint of worsening fatigue, shortness of breath, lethargy, dizziness and slightly worsening bilateral lower extremity edema, cough and cold-like symptoms for last couple of days. Patient traveled to [place] almost 3 months ago. He flew over third packed controlled back in 3-4 days. He had cold prior to that traveled. He was recently diagnosed with atrial fibrillation by his PCP and was started on Coumadin by Dr. Small. Vital signs on admission were temperature 97.9, pulse 79, respiratory rate 18, blood pressure 172/99 and he was saturating 92% on room air. Labs were significant for WBC count 12.1, hemoglobin 8.6, hematocrit 25.4, platelet count 235, sodium 145, potassium 4.6, bicarbonate 16, anion gap 22, BUNs 133, creatinine 10.7, glucose 117, bilirubin 0.4, negative troponin, ABG showed 7./// EKG showed atrial fibrillation with no acute ST-T wave changes Chest x-ray showed left upper lobe infiltrate and possible bibasilar area of infiltrate. CT abdomen and pelvis showed no suspicious fluid collection. Renal lesion represents cystic changes but solid lesions cannot be excluded. Problem list 1. MARJAN on CKD. 2. PNA 3. Metabolic acidosis most likely due to trans-chronic renal failure 4. Inflammatory anemia 5. History of hypertension 6. History of atrial fibrillation on anticoagulation 7. 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 Requested records. we will monitor for now, given this has been going on chronically and patient had been adamant about dialysis. His renal ultrasound did reveal simple renal cysts without any obstruction. HbSab negative. Started on IV Iron and Epogen for inflammatory anemia. * He needs AVF placement as outpatient with . (he knew this ahead of time) * Monitor bep * Restarted on home diuretic regimen Torasemide 20mg daily and Metolazone 2.5mg daily. PNA No smoking/h/o lung disease. On IV ceftriaxone and IV Azithromycin for now. F/u cultures. Low threshold to diuretics and repeat CXR if worsens. HTN continue amlodipine 10mg daily A.fib Continue Warfarin 1mg for anticoagulation. Continue metoprolol tartarate 50mg BID. NO fluids for now DVT prophylaxis warfarin code status full code Problem List: 1. Pneumonia 2. Acute on chronic renal failure 3. Symptomatic anemia Pain Ratin Pain Location: n/a Pain Goal: Pain 4 or less Pain Plan: tylenol prn Tomorrow's Labs & Rationales: CBC to monitor H&H, BEP Chastity Medina MD 02/09/18 1159: Attending MD Review Statement Attending Statement Attending Statement: examined this patient, discuss w/resident/PA/MANAGER IN HOME, agreed w/resident/PA/MANAGER IN HOME, discussed with family, reviewed EMR data (avail), discussed with nursing, discussed with case mgmt, reviewed images, amended to note Attending Assessment/Plan: Patient seen and examined, overall feeling better. Patient's brother and aunt at bedside. Seen by nephrology and they recommended no emergent need for dialysis. Vital Signs Date Time Temp Pulse Resp B/P B/P Pulse O2 O2 Flow FiO2 Mean Ox Delivery Rate 02/09 0559 97.8 106 20 100/60 92 Room Air 02/09 0000 Nasal 3.0L Cannula 02/08 2145 97.6 108 20 126/82 93 02/08 2100 108 126/82 02/08 2100 108 126/82 02/08 1600 Nasal 3.0L Cannula 02/08 1426 97.7 100 20 132/60 98 Nasal 3.0L Cannula on exam; aox3, nad. cv; s1,s2, rrr resp; clear abd; soft, nt, bs+ ext; no edema. Laboratory Tests 02/09 0750 Chemistry Sodium (137 - 145 mmol/L) 144 Potassium (3.5 - 5.1 mmol/L) 4.6 Chloride (98 - 107 mmol/L) 109 H Carbon Dioxide (22 - 30 mmol/L) 15 L Anion Gap (5 - 16) 20 H BUN (9 - 20 mg/dL) 129 *H Creatinine (0.7 - 1.2 mg/dL) 10.7 *H Estimated GFR (>60 ml/min) 5 L BUN/Creatinine Ratio (7 - 25 %) 12.1 Coagulation PT (9.4 - 12.5 SEC) 32.2 H INR (0.90 - 1.17) 2.92 H Hematology CBC w Diff NO MAN DIFF REQ WBC (4.8 - 10.8 /CUMM) 8.9 RBC (4.70 - 6.10 /CUMM) 2.71 L Hgb (14.0 - 18.0 G/DL) 7.4 *L Hct (42 - 52 %) 22.3 L MCV (80.0 - 94.0 FL) 82.3 MCH (27.0 - 31.0 PG) 27.5 MCHC (33.0 - 37.0 G/DL) 33.4 RDW (11.5 - 14.5 %) 16.3 H Plt Count (130 - 400 /CUMM) 193 MPV (7.4 - 10.4 FL) 9.3 Gran % (42.2 - 75.2 %) 82.8 H Lymphocytes % (20.5 - 51.1 %) 6.8 L Monocytes % (1.7 - 9.3 %) 8.0 Eosinophils % (0 - 5 %) 2.0 Basophils % (0.0 - 2.0 %) 0.4 Absolute Granulocytes (1.4 - 6.5 /CUMM) 7.3 H Absolute Lymphocytes (1.2 - 3.4 /CUMM) 0.6 L Absolute Monocytes (0.10 - 0.60 /CUMM) 0.7 H Absolute Eosinophils (0.0 - 0.7 /CUMM) 0.2 Absolute Basophils (0.0 - 0.2 /CUMM) 0 Serology Hep Bs Antibody (NONREACTIVE) NONREACTIVE A/P; 52 y/o M with pmh sig for A.fib on coumadin, HTN, CKD and depression, presented with multiple complaints including dizziness, shortness of breath, lethargy and admitted with acute on chronic renal failure, need to look for possible venous thrombi embolism, bilateral extremity edema, anemia and community acquired pneumonia. As noted, nephrology recommends no emergent need for dialysis. Patient can follow-up with his own soft boarder and have the fistula placed as an outpatient. Creatinine remains in the 10 range. There is slight dropping H&H but almost at baseline. Lower extremity Doppler negative. We will follow-up on the VQ scan. Will continue IV antibiotics for the 24 hours and reassess in the morning. We'll follow-up on the cultures. Please try to taper her oxygen. PT evaluation has been ordered. If V/Q scan negative, will DC the heparin drip and start the patient on heparin subcutaneous for DVT prophylaxis.
[2018-02-09 09:34] LABS: PT 32.2 SEC (9.4-12.5)
[2018-02-09 09:37] LABS: ABSOLUTE BASOPHIL COUNT 0 /CUMM (0.0-0.2); ABSOLUTE EOSINOPHIL COUNT 0.2 /CUMM (0.0-0.7); ABSOLUTE GRANULOCYTE CT 7.3 /CUMM (1.4-6.5); ABSOLUTE LYMPH COUNT 0.6 /CUMM (1.2-3.4); ABSOLUTE MONOCYTE COUNT 0.7 /CUMM (0.10-0.60); HEMATOCRIT 22.3 % (42-52); PLATELET COUNT 193 /CUMM (130-400); RED BLOOD CELL CT 2.71 /CUMM (4.70-6.10)
[2018-02-09 09:51] LABS: BASOPHIL % 0.4 % (0.0-2.0); MEAN CORPUSCULAR HGB 27.5 PG (27.0-31.0); MEAN CORPUSCULAR HGB CONC 33.4 G/DL (33.0-37.0); MEAN CORPUSCULAR VOLUME 82.3 FL (80.0-94.0); MEAN PLATELET VOLUME 9.3 FL (7.4-10.4); RBC DISTRIBUTION WIDTH 16.3 % (11.5-14.5); WHITE BLOOD CELL COUNT 8.9 /CUMM (4.8-10.8)
--- NOTE | 2018-02-09 10:08 | PN- Nephrology ---
Assessment/Plan Nephrology Assessment: Doing better. No emergent need for dialysis. Doing better. Spoke to patient and brothers at length about his kidney disease (CKD 5) and need for dialysis in the near future with dialysis planning (fistula). Plans for discharge later this week noted. Without need for emergent dialysis okay to discharge when finished with IV treatment for pneumonia with f/u with Dr. Cano and Jose Daniel. Brothers or sister to go with patient when he sees Dr. Sky. Chidi Pierre MD. Suggestion: . Subjective Subjective: Pt comfortable feels better today. 2 brothers with patient today. I spoke with Dr. Sky yesterday. He had been speaking with Mr. Ponce about the need for dialyssis planning since last fall !!! (Mr Ponce told me he had never been told about dialysis before). Dr. Sky confirms that he would probably do better on HD given his reluctance to do things himself (as would be needed for PD). Objective Vital Signs and I&Os M NAD 126/82 106 97.8 Lungs clear Cor RRR Abd soft Ext tr edema Results Pertinent Lab Results: Laboratory Tests 02/09 02/08 0750 0745 Chemistry Sodium (137 - 145 mmol/L) Pending 143 Potassium (3.5 - 5.1 mmol/L) Pending 4.6 Chloride (98 - 107 mmol/L) Pending 108 H Carbon Dioxide (22 - 30 mmol/L) Pending 14 L Anion Gap (5 - 16) Pending 21 H BUN (9 - 20 mg/dL) Pending 129 *H Creatinine (0.7 - 1.2 mg/dL) Pending 10.4 *H Estimated GFR (>60 ml/min) 5 L BUN/Creatinine Ratio (7 - 25 %) Pending 12.4 Troponin I (<0.11 ng/ml) < 0.01 Triglycerides (<150 mg/dL) 220 H Cholesterol (< 200 MG/DL) 199 LDL Cholesterol, Calc (65 - 129 mg/dL) 134 H HDL Cholesterol (40 - 60 mg/dL) 21 L Cholesterol/HDL Ratio (0.00 - 4.88 %) 9 H TSH (0.270 - 4.200 uIU/mL) 3.420 Free T4 (0.64 - 1.79 ng/dL) 0.73 Coagulation PT (9.4 - 12.5 SEC) 32.2 H 30.4 H INR (0.90 - 1.17) 2.92 H 2.76 H Hematology CBC w Diff NO MAN DIFF REQ NO MAN DIFF REQ WBC (4.8 - 10.8 /CUMM) 8.9 10.4 RBC (4.70 - 6.10 /CUMM) 2.71 L 2.75 L Hgb (14.0 - 18.0 G/DL) 7.4 *L 7.6 L Hct (42 - 52 %) 22.3 L 22.6 L MCV (80.0 - 94.0 FL) 82.3 82.3 MCH (27.0 - 31.0 PG) 27.5 27.6 MCHC (33.0 - 37.0 G/DL) 33.4 33.5 RDW (11.5 - 14.5 %) 16.3 H 16.6 H Plt Count (130 - 400 /CUMM) 193 201 MPV (7.4 - 10.4 FL) 9.3 8.9 Gran % (42.2 - 75.2 %) 82.8 H 85.1 H Lymphocytes % (20.5 - 51.1 %) 6.8 L 6.1 L Monocytes % (1.7 - 9.3 %) 8.0 6.4 Eosinophils % (0 - 5 %) 2.0 2.1 Basophils % (0.0 - 2.0 %) 0.4 0.3 Absolute Granulocytes (1.4 - 6.5 /CUMM) 7.3 H 8.9 H Absolute Lymphocytes (1.2 - 3.4 /CUMM) 0.6 L 0.6 L Absolute Monocytes (0.10 - 0.60 /CUMM) 0.7 H 0.7 H Absolute Eosinophils (0.0 - 0.7 /CUMM) 0.2 0.2 Absolute Basophils (0.0 - 0.2 /CUMM) 0 0 Serology Hep Bs Antibody (NONREACTIVE) NONREACTIVE 02/08 02/08 02/07 0010 0010 2250 Blood Gas pH (7.35 - 7.45 PH) 7.33 L pCO2 (35 - 45 TORR) 29 L pO2 (80 - 100 TORR) 70 L HCO3 (21 - 28 MEQ/L) 15 L ABG O2 Sat (Measured) (>96.0 %) 92.0 L Carboxyhemoglobin (1.5 - 5.0 %) 0.3 L O2 Concentration % RA O2 Delivery Method RA Miscellaneous Phlebotomy Draw Site LEFT RADIAL Urines Urinalysis LIGHT H Urine Color (YEL,AMB,STR) YEL Urine Clarity (CLEAR) CLEAR Urine pH (5.0 - 8.0) 6.0 Ur Specific [place] (1.001 - 1.035) 1.020 Urine Protein (NEG,<30 MG/DL) >=300 H Urine Ketones (NEG) NEG Urine Nitrite (NEG) NEG Urine Bilirubin (NEG) NEG Urine Urobilinogen (0.1 - 1.0 EU/dl) 0.2 Ur Leukocyte Esterase (NEG) NEG Ur Microscopic SEDIMENT EXAMINED Urine RBC (0 - 5 /HPF) 5-10 H Urine WBC (0 - 2 /HPF) 5-10 H Ur Epithelial Cells (NONE,FEW) RARE Hyaline Casts (0/LPF) RARE H Urine Mucus (FEW,NONE) FEW Micro UA Comment BUDDING YEAST H Urine Hemoglobin (NEG) SMALL H Ur Random Creatinine (mg/dL) 70.9 Ur Random Sodium (30 - 90 mmol/L) 57 Ur Random Potassium (mmol/L) 27.8 Fraction Sodium Excret (<1% %) 5.9 H Urine Glucose (N MG/DL) NEG 02/07 1941 Chemistry Sodium (137 - 145 mmol/L) 145 Potassium (3.5 - 5.1 mmol/L) 4.6 Chloride (98 - 107 mmol/L) 107 Carbon Dioxide (22 - 30 mmol/L) 16 L Anion Gap (5 - 16) 22 H BUN (9 - 20 mg/dL) 133 *H Creatinine (0.7 - 1.2 mg/dL) 10.7 *H Estimated GFR (>60 ml/min) 5 L BUN/Creatinine Ratio (7 - 25 %) 12.4 Glucose (65 - 99 mg/dL) 117 H Hemoglobin A1c (4.2 - 5.8 %) 5.7 Calcium (8.4 - 10.2 mg/dL) 7.4 L Iron (49 - 181 ug/dL) 35 L TIBC (261 - 462 ug/dL) 310 Ferritin (17.9 - 464 ng/mL) 116.0 Total Bilirubin (0.2 - 1.3 mg/dL) 0.4 AST (17 - 59 U/L) 11 L ALT (21 - 72 U/L) 31 Alkaline Phosphatase (< 127 U/L) 63 Creatine Kinase (55 - 170 U/L) 145 Troponin I (<0.11 ng/ml) 0.02 [id number] Pept (<125 pg/mL) 98330 H Total Protein (6.3 - 8.2 g/dL) 5.7 L Albumin (3.5 - 5.0 g/dL) 3.3 L Globulin (1.9 - 4.2 gm/dL) 2.4 Albumin/Globulin Ratio (1.1 - 2.2 %) 1.4 Vitamin B12 (239 - 931 pg/mL) 842 Folate (2.76 - 20.0 ng/mL) 12.0 Coagulation PT (9.4 - 12.5 SEC) 24.8 H INR (0.90 - 1.17) 2.26 H APTT (25 - 37 SEC) 44 H D-Dimer High Sensitivty (0 - 243 ng/ml) 306 H Hematology CBC w Diff NO MAN DIFF REQ WBC (4.8 - 10.8 /CUMM) 12.1 H RBC (4.70 - 6.10 /CUMM) 3.09 L Hgb (14.0 - 18.0 G/DL) 8.6 L Hct (42 - 52 %) 25.4 L MCV (80.0 - 94.0 FL) 82.4 MCH (27.0 - 31.0 PG) 28.0 MCHC (33.0 - 37.0 G/DL) 33.9 RDW (11.5 - 14.5 %) 16.3 H Plt Count (130 - 400 /CUMM) 235 MPV (7.4 - 10.4 FL) 8.5 Gran % (42.2 - 75.2 %) 85.1 H Lymphocytes % (20.5 - 51.1 %) 5.5 L Monocytes % (1.7 - 9.3 %) 6.9 Eosinophils % (0 - 5 %) 2.4 Basophils % (0.0 - 2.0 %) 0.1 Absolute Granulocytes (1.4 - 6.5 /CUMM) 10.3 H Absolute Lymphocytes (1.2 - 3.4 /CUMM) 0.7 L Absolute Monocytes (0.10 - 0.60 /CUMM) 0.8 H Absolute Eosinophils (0.0 - 0.7 /CUMM) 0.3 Absolute Basophils (0.0 - 0.2 /CUMM) 0
[2018-02-09 11:53] LABS: GRANULOCYTE % 82.8 % (42.2-75.2)
[2018-02-09 14:20] VITALS: BP 136/80
--- NOTE | 2018-02-09 14:57 | NUCLEAR MEDICINE REPORT ---
EXAMINATION: PULMONARY VENTILATION PERFUSION STUDY CLINICAL INFORMATION: Elevated d-dimer, immobility. COMPARISON: No previous lung scan is available for comparison. A radiograph of the chest dated 02/07/2018 is available for comparison. TECHNIQUE: Serial gamma scintillation camera images were obtained over the posterior chest during the single breath, equilibrium rebreathing and washout of 23 mCi Xe 133 gas. The patient then received 3.8 mCi Tc-99m MAA intravenously and a 6-view perfusion study was performed. FINDINGS: Ventilation images: On the single breath and equilibrium images there is homogeneous distribution of gas bilaterally. During the washout phase there is no abnormal retention. Perfusion images: No segmental perfusion defects are present. There is homogeneous distribution of activity bilaterally. There are no focal anatomic appearing perfusion defects present. The cardiac silhouette appears dilated. IMPRESSION: Very low probability of pulmonary embolism. Cardiomegaly.
[2018-02-09 22:38] VITALS: BP 132/70
[2018-02-10 06:06] VITALS: BP 126/72
--- NOTE | 2018-02-10 07:18 | PN- Housestaff ---
Kaitlin CANNON,Annetta 02/10/18 0718: Subjective Follow-up For: Pneumonia MARJAN on CKD Subjective: seen and examined Feels better. Agreeable with follow up as outpatient. No pain/overnight issues. No bleeding. Review of Systems Constitutional: Reports: see HPI. Objective Last 24 Hrs of Vital Signs/I&O Vital Signs Date Time Temp Pulse Resp B/P B/P Pulse O2 O2 Flow FiO2 Mean Ox Delivery Rate 02/10 0606 98.0 108 20 126/72 92 Nasal 2.0L Cannula 02/10 0000 93 Nasal 2.0L Cannula 02/09 2332 102 18 93 Nasal 2.0L Cannula 02/09 2238 98.5 110 20 132/70 92 Room Air 02/09 2134 110 132/70 02/09 2134 110 132/70 02/09 1420 97.8 107 20 136/80 94 Room Air Intake & Output 02/10 0800 02/10 0000 02/09 1600 Intake Total 307 585 7280 Output Total 800 Balance 200 360 240 Intake, IV 120 Intake, Oral 378 738 5217 Number 0 Bowel Movements Output, Urine 800 Patient 87.09 kg Weight Physical Exam General Appearance: Alert, Oriented X3, Cooperative Skin: No Rashes, No Breakdown Skin Temp/Moisture Exam: Warm/Dry HEENT: Atraumatic, PERRLA, EOMI Neck: Supple, No JVD Cardiovascular: Normal S1, Normal S2 Lungs: Normal Air Movement, decrased breath sounds at bases Abdomen: Normal Bowel Sounds, Soft, No Tenderness Current Medications: Current Medications Sig/Milagros Start time Last Medication Dose Route Stop Time Status Admin Amlodipine Besylate 10 MG DAILY 02/08 1000 AC 02/10 PO 1016 Azithromycin 500 MG DAILY 02/08 1000 AC 02/10 Dextrose/Water 250 ML IV 1016 Ceftriaxone Sodium 1,000 MG DAILY 02/08 1000 AC 02/10 IV 1015 Citalopram 10 MG DAILY 02/08 1000 AC 02/10 Hydrobromide PO 1016 Clonidine 0.1 MG QPM 02/08 2200 AC 02/09 PO 2134 Epoetin Toribio 10,000 UNITS ONCE A WEEK 02/15 1000 AC SC Ferric Sodium 125 MG Q24H 02/08 1600 AC 02/09 Gluconate Complex IV 02/15 1659 1817 Sodium Chloride 100 ML Metolazone 2.5 MG DAILY 02/09 1545 AC 02/10 PO 1016 Metoprolol Tartrate 50 MG BID 02/08 1000 02/10 PO 1016 Patient Medication 1 ED ONE ONE 02/10 1030 RI Teaching ED 02/10 1031 Patient Medication 1 ED ONE ONE 02/09 1545 RI 02/09 [facility] ED 02/09 1546 1817 Ramelteon 8 MG AT BEDTIME 02/07 2330 AC 02/09 PO 2134 Torsemide 20 MG DAILY 02/09 1546 02/10 PO 1016 Warfarin Sodium 0.5 MG COUMADIN 1700 ONE 02/09 1700 RI 02/09 PO 02/09 1701 1701 Last 24 Hrs of Lab/Jorden Results Last 24 Hrs of Labs/Mics: Laboratory Tests 02/10/18 0800: Anion Gap 20 H, Estimated GFR 5 L, BUN/Creatinine Ratio 12.0, PT 28.6 H, INR 2.60 H, CBC w Diff NO MAN DIFF REQ, RBC 2.66 L, MCV 82.1, MCH 27.5, MCHC 33.5, RDW 16.0 H, MPV 9.1, Gran % 82.3 H, Lymphocytes % 6.3 L, Monocytes % 8.1, Eosinophils % 3.0, Basophils % 0.3, Absolute Granulocytes 7.1 H, Absolute Lymphocytes 0.5 L, Absolute Monocytes 0.7 H, Absolute Eosinophils 0.3, Absolute Basophils 0 Assessment/Plan Assessment: Patient is 52-year-old morbidly obese gentleman with PMH significant for HTN, CKD, chronic bilateral lower extremity edema , A.fib on anticoagulation and anxiety came in with chief complaint of worsening fatigue, shortness of breath, lethargy, dizziness and slightly worsening bilateral lower extremity edema, cough and cold-like symptoms for last couple of days. Patient traveled to [place] almost 3 months ago. [place] [facility] back in 3[place]4 days. He had cold prior to that traveled. He was recently diagnosed with atrial fibrillation by his PCP and was started on Coumadin by Dr. Small. Vital signs on admission were temperature 97.9, pulse 79, respiratory rate 18, blood pressure 172/99 and he was saturating 92% on room air. Labs were significant for WBC count 12.1, hemoglobin 8.6, hematocrit 25.4, platelet count 235, sodium 145, potassium 4.6, bicarbonate 16, anion gap 22, BUNs 133, creatinine 10.7, glucose 117, bilirubin 0.4, negative troponin. ABG showed 7.33/// EKG showed atrial fibrillation with no acute ST-T wave changes Chest x-ray showed left upper lobe infiltrate and possible bibasilar area of infiltrate. CT abdomen and pelvis showed no suspicious fluid collection. Renal lesion represents cystic changes but solid lesions cannot be excluded. Problem list 1. MARJAN on CKD. 2. PNA 3. Symptomatic anemia (secondary to chronic kidney disease) 4. History of hypertension 5. History of atrial fibrillation on anticoagulation 6. History of anxiety Plan Patient is 52-year-old morbidly obese gentleman with past medical history significant for hypertension, CK D, chronic bilateral lower extremity edema , atrial fibrillation on anticoagulation and anxiety came in with chief complaint of worsening fatigue, shortness of breath, lethargy, dizziness and slightly worsening bilateral lower extremity edema, cough and cold-like symptoms for last couple of days. Patient traveled to [place] almost 3 months ago. He flew over [facility] back in 3-4 days. He had cold prior to that traveled. He was recently diagnosed with atrial fibrillation by his PCP and was started on Coumadin by Dr. Small. Vital signs on admission were temperature 97.9, pulse 79, respiratory rate 18, blood pressure 172/99 and he was saturating 92% on room air. Labs were significant for WBC count 12.1, hemoglobin 8.6, hematocrit 25.4, platelet count 235, sodium 145, potassium 4.6, bicarbonate 16, anion gap 22, BUNs 133, creatinine 10.7, glucose 117, bilirubin 0.4, negative troponin, ABG showed 7.33// EKG showed atrial fibrillation with no acute ST-T wave changes Chest x-ray showed left upper lobe infiltrate and possible bibasilar area of infiltrate. CT abdomen and pelvis showed no suspicious fluid collection. Renal lesion represents cystic changes but solid lesions cannot be excluded. Problem list 1. MARJAN on CKD. 2. PNA 3. Metabolic acidosis most likely due to trans-chronic renal failure 4. Inflammatory anemia 5. History of hypertension 6. History of atrial fibrillation on anticoagulation 7. 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 Requested records. we will monitor for now, given this has been going on chronically and patient had been adamant about dialysis. His renal ultrasound did reveal simple renal cysts without any obstruction. HbSab negative. Started on IV Iron and Epogen for inflammatory anemia. * He needs AVF placement as outpatient with . (he knew this ahead of time) * Monitor bep * Restarted on home diuretic regimen Torasemide 20mg daily and Metolazone 2.5mg daily. Symtomatic Anemia He is desaturating to 86% on RA with ambulation requiring 2L, tachycardic. Iron studies represent inflammatory anemia. We will type and cross match, transfuse 1 unit of transfuse today. Recheck CBC tomorrow. We will recheck ambulatory saturations tomorrow. Possibly discharge. PNA No smoking/h/o lung disease. On IV ceftriaxone and IV Azithromycin day 4. F/u cultures. Low threshold to diuretics and repeat CXR if worsens. HTN continue amlodipine 10mg daily A.fib Continue Warfarin 1mg for anticoagulation. Continue metoprolol tartarate 50mg BID. NO fluids for now DVT prophylaxis warfarin code status full code Problem List: 1. Symptomatic anemia 2. Acute on chronic renal failure 3. Pneumonia Pain Ratin Pain Location: n/a Pain Goal: Pain 4 or less Pain Plan: tylenol prn Tomorrow's Labs & Rationales: cbc to monitor H&H BEP to monitor Electrolytes Adam CANNON,[facility] 02/10/18 1129: Attending MD Review Statement Attending Statement Attending MD Statement: examined this patient, discuss w/resident/PA/LIFE INSURANCE SALESPERSON, agreed w/resident/PA/LIFE INSURANCE SALESPERSON, reviewed EMR data (avail), discussed with nursing, discussed with case mgmt, reviewed images, amended to note Attending Assessment/Plan: Patient seen and examined, overall feeling much better. Still on oxygen. Denies any shortness of breath. Vital Signs Date Time Temp Pulse Resp B/P B/P Pulse O2 O2 Flow FiO2 Mean Ox Delivery Rate 02/10 1016 98.0 108 20 126/72 02/10 1016 98.0 108 20 126/72 02/10 0606 98.0 108 20 126/72 92 Nasal 2.0L Cannula 02/10 0000 93 Nasal 2.0L Cannula 02/09 2332 102 18 93 Nasal 2.0L Cannula 02/098 98.5 110 20 132/70 92 Room Air 02/094 110 132/70 02/09 2134 110 132/70 02/09 1420 97.8 107 20 136/80 94 Room Air on exam; aox3, nad. cv; s1,s2, rrr resp; clear abd; soft, nt, bs+ ext; trace edema. Laboratory Tests 02/10 0800 Chemistry Sodium (137 - 145 mmol/L) 142 Potassium (3.5 - 5.1 mmol/L) 4.5 Chloride (98 - 107 mmol/L) 108 H Carbon Dioxide (22 - 30 mmol/L) 15 L Anion Gap (5 - 16) 20 H BUN (9 - 20 mg/dL) 127 *H Creatinine (0.7 - 1.2 mg/dL) 10.6 *H Estimated GFR (>60 ml/min) 5 L BUN/Creatinine Ratio (7 - 25 %) 12.0 Coagulation PT (9.4 - 12.5 SEC) 28.6 H INR (0.90 - 1.17) 2.60 H Hematology CBC w Diff NO MAN DIFF REQ WBC (4.8 - 10.8 /CUMM) 8.6 RBC (4.70 - 6.10 /CUMM) 2.66 L Hgb (14.0 - 18.0 G/DL) 7.3 *L Hct (42 - 52 %) 21.8 L MCV (80.0 - 94.0 FL) 82.1 MCH (27.0 - 31.0 PG) 27.5 MCHC (33.0 - 37.0 G/DL) 33.5 RDW (11.5 - 14.5 %) 16.0 H Plt Count (130 - 400 /CUMM) 188 MPV (7.4 - 10.4 FL) 9.1 Gran % (42.2 - 75.2 %) 82.3 H Lymphocytes % (20.5 - 51.1 %) 6.3 L Monocytes % (1.7 - 9.3 %) 8.1 Eosinophils % (0 - 5 %) 3.0 Basophils % (0.0 - 2.0 %) 0.3 Absolute Granulocytes (1.4 - 6.5 /CUMM) 7.1 H Absolute Lymphocytes (1.2 - 3.4 /CUMM) 0.5 L Absolute Monocytes (0.10 - 0.60 /CUMM) 0.7 H Absolute Eosinophils (0.0 - 0.7 /CUMM) 0.3 Absolute Basophils (0.0 - 0.2 /CUMM) 0 A/P; 52 y/o M with pmh sig for A.fib on coumadin, HTN, CKD and depression, presented with multiple complaints including dizziness, shortness of breath, lethargy and admitted with acute on chronic renal failure, need to look for possible venous thrombi embolism, bilateral extremity edema, anemia and community acquired pneumonia. Will check ambulatory O2 sat. Determine if patient needs to go home with oxygen. Patient has chronic anemia from chronic disease. Guaiac stools have been negative. Patient currently getting IV infusion as well as Epogen shots which she should continue with his own tannery gummer. No evidence of active bleeding. INR therapeutic on Coumadin. Patient to follow-up with his own tannery gummer to get the dialysis process started. He will need an access for dialysis is also. Otherwise he can be discharged home today on oral antibiotics and will determine if he needs to be discharged on home oxygen. bleeding. INR therapeutic on Coumadin. Patient to follow-up with his own tannery gummer to get the dialysis process started. He will need an access for dialysis is also. Otherwise he can be discharged home today on oral antibiotics and will determine if he needs to be discharged on home oxygen.
--- NOTE | 2018-02-10 07:22 | Patient Discharge Instructions ---
Discharge Instructions General Discharge Information You were seen/treated for: Pneumonia Special Instructions: Please follow up with your PCP in a week Please follow up with your in a week Please follow up regarding obtaining AVfistula as outpatient Diet Recommended Diet: Renal Dialysis Activity Activity Self Limited: Yes Acute Coronary Syndrome Inclusion Criteria At DC or during hospital stay patient has or had the following: ACS DIAGNOSIS No Discharge Core Measures Meds if any: Prescribed or Continued at Discharge Meds if any: NOT Prescribed or Continued at Discharge Congestive Heart Failure Inclusion Criteria At DC or during hospital stay patient has or had the following: CHF DIAGNOSIS No Discharge Core Measures Meds if any: Prescribed or Continued at Discharge Meds if any: NOT Prescribed or Continued at Discharge Cerebrovascular accident Inclusion Criteria At DC or during hospital stay patient has or had the following: CVA/TIA Diagnosis No Discharge Core Measures Meds if any: Prescribed or Continued at Discharge Meds if any: NOT Prescribed or Continued at Discharge Venous thromboembolism Inclusion Criteria VTE Diagnosis No VTE Type NONE VTE Confirmed by (Test) NONE Discharge Core Measures - Per Current guidelines, there needs to be overlap - treatment for the first 5 days of Warfarin therapy. - If discharged on Warfarin prior to 5 days of - overlap therapy, the patient will need to be - assessed for post discharge needs including - *Post discharge parental anticoagulation - *Warfarin and/or parental anticoagulation education - *Follow up date to check INR post discharge At least 5 days overlap therapy as Inpatient No Meds if any: Prescribed or Continued at Discharge Note: Overlap Therapy is Warfarin and Anticoagulant Meds if any: NOT Prescribed or Continued at Discharge
--- NOTE | 2018-02-10 08:34 | PN- Nephrology ---
Assessment/Plan Nephrology Assessment: CKD 5 but without significant uremic symptoms Pneumonia better. He does not require dialysis now but will need it in the near future. Pt to f/u with Dr. Sky. He will need AVF creation and dialysis planning. Chidi Pierre MD Suggestion: . Subjective Subjective: Pt comfortable. Objective Vital Signs and I&Os M NAD 126/72 108 98 Lungs clear Cor RRR Abd soft N/T Ext neg edema Results Pertinent Lab Results: Laboratory Tests 02/10 02/09 0800 0750 Chemistry Sodium (137 - 145 mmol/L) Pending 144 Potassium (3.5 - 5.1 mmol/L) Pending 4.6 Chloride (98 - 107 mmol/L) Pending 109 H Carbon Dioxide (22 - 30 mmol/L) Pending 15 L Anion Gap (5 - 16) Pending 20 H BUN (9 - 20 mg/dL) Pending 129 *H Creatinine (0.7 - 1.2 mg/dL) Pending 10.7 *H Estimated GFR (>60 ml/min) 5 L BUN/Creatinine Ratio (7 - 25 %) Pending 12.1 Coagulation PT (9.4 - 12.5 SEC) Pending 32.2 H INR (0.90 - 1.17) Pending 2.92 H Hematology CBC w Diff Pending NO MAN DIFF REQ WBC (4.8 - 10.8 /CUMM) Pending 8.9 RBC (4.70 - 6.10 /CUMM) Pending 2.71 L Hgb (14.0 - 18.0 G/DL) Pending 7.4 *L Hct (42 - 52 %) Pending 22.3 L MCV (80.0 - 94.0 FL) Pending 82.3 MCH (27.0 - 31.0 PG) Pending 27.5 MCHC (33.0 - 37.0 G/DL) Pending 33.4 RDW (11.5 - 14.5 %) Pending 16.3 H Plt Count (130 - 400 /CUMM) Pending 193 MPV (7.4 - 10.4 FL) Pending 9.3 Gran % (42.2 - 75.2 %) 82.8 H Lymphocytes % (20.5 - 51.1 %) 6.8 L Monocytes % (1.7 - 9.3 %) 8.0 Eosinophils % (0 - 5 %) 2.0 Basophils % (0.0 - 2.0 %) 0.4 Absolute Granulocytes (1.4 - 6.5 /CUMM) 7.3 H Absolute Lymphocytes (1.2 - 3.4 /CUMM) 0.6 L Absolute Monocytes (0.10 - 0.60 /CUMM) 0.7 H Absolute Eosinophils (0.0 - 0.7 /CUMM) 0.2 Absolute Basophils (0.0 - 0.2 /CUMM) 0 Serology Hep Bs Antibody (NONREACTIVE) NONREACTIVE 02/08 02/08 0745 0010 Chemistry Sodium (137 - 145 mmol/L) 143 Potassium (3.5 - 5.1 mmol/L) 4.6 Chloride (98 - 107 mmol/L) 108 H Carbon Dioxide (22 - 30 mmol/L) 14 L Anion Gap (5 - 16) 21 H BUN (9 - 20 mg/dL) 129 *H Creatinine (0.7 - 1.2 mg/dL) 10.4 *H Estimated GFR (>60 ml/min) 5 L BUN/Creatinine Ratio (7 - 25 %) 12.4 Troponin I (<0.11 ng/ml) < 0.01 Triglycerides (<150 mg/dL) 220 H Cholesterol (< 200 MG/DL) 199 LDL Cholesterol, Calc (65 - 129 mg/dL) 134 H HDL Cholesterol (40 - 60 mg/dL) 21 L Cholesterol/HDL Ratio (0.00 - 4.88 %) 9 H TSH (0.270 - 4.200 uIU/mL) 3.420 Free T4 (0.64 - 1.79 ng/dL) 0.73 Coagulation PT (9.4 - 12.5 SEC) 30.4 H INR (0.90 - 1.17) 2.76 H Hematology CBC w Diff NO MAN DIFF REQ WBC (4.8 - 10.8 /CUMM) 10.4 RBC (4.70 - 6.10 /CUMM) 2.75 L Hgb (14.0 - 18.0 G/DL) 7.6 L Hct (42 - 52 %) 22.6 L MCV (80.0 - 94.0 FL) 82.3 MCH (27.0 - 31.0 PG) 27.6 MCHC (33.0 - 37.0 G/DL) 33.5 RDW (11.5 - 14.5 %) 16.6 H Plt Count (130 - 400 /CUMM) 201 MPV (7.4 - 10.4 FL) 8.9 Gran % (42.2 - 75.2 %) 85.1 H Lymphocytes % (20.5 - 51.1 %) 6.1 L Monocytes % (1.7 - 9.3 %) 6.4 Eosinophils % (0 - 5 %) 2.1 Basophils % (0.0 - 2.0 %) 0.3 Absolute Granulocytes (1.4 - 6.5 /CUMM) 8.9 H Absolute Lymphocytes (1.2 - 3.4 /CUMM) 0.6 L Absolute Monocytes (0.10 - 0.60 /CUMM) 0.7 H Absolute Eosinophils (0.0 - 0.7 /CUMM) 0.2 Absolute Basophils (0.0 - 0.2 /CUMM) 0 Urines Urinalysis LIGHT H Urine Color (YEL,AMB,STR) YEL Urine Clarity (CLEAR) CLEAR Urine pH (5.0 - 8.0) 6.0 Ur Specific [place] (1.001 - 1.035) 1.020 Urine Protein (NEG,<30 MG/DL) >=300 H Urine Ketones (NEG) NEG Urine Nitrite (NEG) NEG Urine Bilirubin (NEG) NEG Urine Urobilinogen (0.1 - 1.0 EU/dl) 0.2 Ur Leukocyte Esterase (NEG) NEG Ur Microscopic SEDIMENT EXAMINED Urine RBC (0 - 5 /HPF) 5-10 H Urine WBC (0 - 2 /HPF) 5-10 H Ur Epithelial Cells (NONE,FEW) RARE Hyaline Casts (0/LPF) RARE H Urine Mucus (FEW,NONE) FEW Micro UA Comment BUDDING YEAST H Urine Hemoglobin (NEG) SMALL H Urine Glucose (N MG/DL) NEG 02/08 02/07 02/07 0010 6940 1940 Blood Gas pH (7.35 - 7.45 PH) 7.33 L pCO2 (35 - 45 TORR) 29 L pO2 (80 - 100 TORR) 70 L HCO3 (21 - 28 MEQ/L) 15 L ABG O2 Sat (Measured) (>96.0 %) 92.0 L Carboxyhemoglobin (1.5 - 5.0 %) 0.3 L O2 Concentration % RA O2 Delivery Method RA Chemistry Sodium (137 - 145 mmol/L) 145 Potassium (3.5 - 5.1 mmol/L) 4.6 Chloride (98 - 107 mmol/L) 107 Carbon Dioxide (22 - 30 mmol/L) 16 L Anion Gap (5 - 16) 22 H BUN (9 - 20 mg/dL) 133 *H Creatinine (0.7 - 1.2 mg/dL) 10.7 *H Estimated GFR (>60 ml/min) 5 L BUN/Creatinine Ratio (7 - 25 %) 12.4 Glucose (65 - 99 mg/dL) 117 H Hemoglobin A1c (4.2 - 5.8 %) 5.7 Calcium (8.4 - 10.2 mg/dL) 7.4 L Iron (49 - 181 ug/dL) 35 L TIBC (261 - 462 ug/dL) 310 Ferritin (17.9 - 464 ng/mL) 116.0 Total Bilirubin (0.2 - 1.3 mg/dL) 0.4 AST (17 - 59 U/L) 11 L ALT (21 - 72 U/L) 31 Alkaline Phosphatase (< 127 U/L) 63 Creatine Kinase (55 - 170 U/L) 145 Troponin I (<0.11 ng/ml) 0.02 [id number] Pept (<125 pg/mL) 55133 H Total Protein (6.3 - 8.2 g/dL) 5.7 L Albumin (3.5 - 5.0 g/dL) 3.3 L Globulin (1.9 - 4.2 gm/dL) 2.4 Albumin/Globulin Ratio (1.1 - 2.2 %) 1.4 Vitamin B12 (239 - 931 pg/mL) 842 Folate (2.76 - 20.0 ng/mL) 12.0 Coagulation PT (9.4 - 12.5 SEC) 24.8 H INR (0.90 - 1.17) 2.26 H APTT (25 - 37 SEC) 44 H D-Dimer High Sensitivty (0 - 243 ng/ml) 306 H Hematology CBC w Diff NO MAN DIFF REQ WBC (4.8 - 10.8 /CUMM) 12.1 H RBC (4.70 - 6.10 /CUMM) 3.09 L Hgb (14.0 - 18.0 G/DL) 8.6 L Hct (42 - 52 %) 25.4 L MCV (80.0 - 94.0 FL) 82.4 MCH (27.0 - 31.0 PG) 28.0 MCHC (33.0 - 37.0 G/DL) 33.9 RDW (11.5 - 14.5 %) 16.3 H Plt Count (130 - 400 /CUMM) 235 MPV (7.4 - 10.4 FL) 8.5 Gran % (42.2 - 75.2 %) 85.1 H Lymphocytes % (20.5 - 51.1 %) 5.5 L Monocytes % (1.7 - 9.3 %) 6.9 Eosinophils % (0 - 5 %) 2.4 Basophils % (0.0 - 2.0 %) 0.1 Absolute Granulocytes (1.4 - 6.5 /CUMM) 10.3 H Absolute Lymphocytes (1.2 - 3.4 /CUMM) 0.7 L Absolute Monocytes (0.10 - 0.60 /CUMM) 0.8 H Absolute Eosinophils (0.0 - 0.7 /CUMM) 0.3 Absolute Basophils (0.0 - 0.2 /CUMM) 0 Miscellaneous Phlebotomy Draw Site LEFT RADIAL Urines Ur Random Creatinine (mg/dL) 70.9 Ur Random Sodium (30 - 90 mmol/L) 57 Ur Random Potassium (mmol/L) 27.8 Fraction Sodium Excret (<1% %) 5.9 H
[2018-02-10 08:48] LABS: PT 28.6 SEC (9.4-12.5)
[2018-02-10 09:04] LABS: ABSOLUTE BASOPHIL COUNT 0 /CUMM (0.0-0.2); ABSOLUTE MONOCYTE COUNT 0.7 /CUMM (0.10-0.60); GRANULOCYTE % 82.3 % (42.2-75.2); MEAN PLATELET VOLUME 9.1 FL (7.4-10.4)
[2018-02-10] MEDS ORDERED: AUGMENTIN 875-1 EACH PO (09:11)
[2018-02-10 09:15] LABS: ABSOLUTE EOSINOPHIL COUNT 0.3 /CUMM (0.0-0.7); ABSOLUTE GRANULOCYTE CT 7.1 /CUMM (1.4-6.5); ABSOLUTE LYMPH COUNT 0.5 /CUMM (1.2-3.4); BASOPHIL % 0.3 % (0.0-2.0); HEMATOCRIT 21.8 % (42-52); MEAN CORPUSCULAR HGB 27.5 PG (27.0-31.0); MEAN CORPUSCULAR HGB CONC 33.5 G/DL (33.0-37.0); MEAN CORPUSCULAR VOLUME 82.1 FL (80.0-94.0); PLATELET COUNT 188 /CUMM (130-400); RED BLOOD CELL CT 2.66 /CUMM (4.70-6.10); WHITE BLOOD CELL COUNT 8.6 /CUMM (4.8-10.8)
--- NOTE | 2018-02-10 10:22 | Discharge Summary ---
Visit Information Visit Dates Admission Date: 02/07/18 Discharge Date: 02/15/18 Hospital Course Course Attending Physician: Chastity Medina MD Primary Care Physician: Seth Cano MD Hospital Course: Patient is 52-year-old morbidly obese gentleman with PMH significant for HTN, CKD, chronic bilateral lower extremity edema , A.fib on anticoagulation and anxiety came in with chief complaint of worsening fatigue, shortness of breath, lethargy, dizziness and slightly worsening bilateral lower extremity edema, cough and cold-like symptoms for last couple of days. Patient traveled to [place] almost 3 months ago. He had cold prior to that traveled. He was recently diagnosed with atrial fibrillation by his PCP and was started on Coumadin by Dr. Small. Problem list 1. Community acquired pneumonia 2. Symptomatic anemia secondary to inflammatory anemia 3. MARJAN on CKD 4. Hypertension 5. Atrial fibrillation on anticoagulation 6. 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 Requested records. we will monitor for now, given this has been going on chronically and patient had been adamant about dialysis. His renal ultrasound did reveal simple renal cysts without any obstruction. HbSab negative. Started on IV Iron and Epogen for inflammatory anemia. Diuresed with IV lasix 100mg BID for the past few days as he got worse after 1 unit of transfusion. stable for discharge today. He needs AVF placement as outpatient with . (he knew this ahead of time). He is scheduled tomorrow. I personally called his office and informed that he got discharged. Symtomatic Anemia He is desaturating to 86% on RA with ambulation requiring 2L, tachycardic. Iron studies represent inflammatory anemia. Transfused 1 unit PRBC. H&H improved from 7.3/21 to 8.2/24. Community acquired pneumonia No smoking/h/o lung disease.. Negative cultures. Restarted home diuretic regimen. Increased oxygen requirement after a unit of transfusion. Completed 7 day course of antibiotics in the hospital. Despite treatment of pneumonia his oxygen requirement is really high, so discharged with home oxygen. HTN continue amlodipine 10mg daily A.fib Continue Warfarin 2mg for anticoagulation INR - 1.8 today. Continue metoprolol tartarate 50mg BID. DVT prophylaxis warfarin - INR-1.8. received 3mg dose today in the hospital. code status full code Complications: Pulmonary edema on day of discharge requiring IV lasix high dose for several days. Allergies: Coded Allergies: No Known Allergies (02/07/18) Significant Procedures: CT abdomen and pelvis on 02/07/18 IMPRESSION: No acute finding here. Bowel pattern is felt to be within normal limits. No suspicious fluid collection. Renal lesions as described which may represent cystic change but solid lesions cannot be excluded. Ultrasound would be recommended for definitive evaluation. CXR on 02/07/18 IMPRESSION: Findings consistent with Left upper lobe infiltrate and possible by basilar areas of infiltrate but evaluation here is limited due to patient body habitus. Continued follow-up recommended. VQ scan on 02/09/18 IMPRESSION: Very low probability of pulmonary embolism. Cardiomegaly. venous doppler on 02/08/18 IMPRESSION: Exam limited by patient's body habitus. Normal triplex scan without evidence of deep venous thrombosis involving the lower extremities. CXR on 02/11/18 IMPRESSION: Interval worsening of cardiogenic pulmonary edema. CXR on 02/12/18 IMPRESSION: Interval improvement since 02/11/2018, without complete resolution of presumed pulmonary edema. No new abnormalities Renal ultrasound on 02/08/18 FINDINGS: RIGHT KIDNEY: 13.5 x 7.5 x 7.1 cm (SAG x AP x TRV). The kidney is normal in size , contour, and echogenicity. Renal cortical thickness is normal. No calculi or focal parenchymal lesions. No hydronephrosis. A cystic structure is present in the mid pole of the right kidney measuring 2.6 x 3.0 x 2.7 cm with an additional structure present in the lower pole measuring 1.3 x 1.2 x 1.6 cm, neither structure demonstrates vascular flow. LEFT KIDNEY: 11.5 x 6.8 x 6.4 cm (SAG x AP x TRV). The kidney is normal in size, contour, and echogenicity. Renal cortical thickness is normal. No calculi or focal parenchymal lesions. No hydronephrosis. Anechoic cystic structures are present in the mid region measuring 1.2 x 0.9 x 1.1 cm and in the lower pole measuring 2.4 x 2.6 x 1.9 cm, neither structure demonstrates vascular flow. BLADDER: Well-distended and normal. Bilateral ureteral jets are not observed. Prevoid bladder volume is 102 mL. Postvoid bladder volume is 0 mL. IMPRESSION: Simple bilateral renal cysts. Disposition Summary Disposition Principal Diagnosis: Community acquired pneumonia Symptomatic anemia secondary to inflammatory anemia Additional Diagnosis: MARJAN on CKD Hypertension Atrial fibrillation on anticoagulation Anxiety Discharge Disposition: SNF Discharge Instructions General Discharge Information Code Status: Full Code Patient's Diet: renal dialysis diet Patient's Activity: as tolerated Follow-Up Instructions/Appts: Please follow up with your PCP in a week Please follow up with your Healthcare Liaison on thursday for AVF palcement Please follow up with INR levels as outpatient Medications at Discharge Discharge Medications: Continue taking these medications: Citalopram Hydrobromide (Citalopram HBr) 10 MG TABLET 1 Tablet ORAL DAILY Comments: Last Taken:02/15/18 Time:9am Warfarin Sodium (Coumadin) 1 MG TABLET 1 Tablet ORAL DAILY Instructions: 1 TAB THU- THURSDAY 0.5 TAB THU AND Comments: not given Clonidine HCl (Clonidine HCl) 0.1 MG TABLET 1 Tablet ORAL Every night Comments: Last Taken:02/14/18 Time:9pm Metoprolol Tartrate (Metoprolol Tartrate) 50 MG TABLET 1 Tablet ORAL TWICE DAILY Comments: Last Taken:02/15/18 Time:9am Torsemide (Torsemide) 20 MG TABLET 1 Tablet ORAL DAILY Comments: not given Metolazone (Metolazone) 2.5 MG TABLET 1 Tablet ORAL DAILY Comments: Last Taken:02/15/18 Time:9am Amlodipine Besylate (Amlodipine Besylate) 10 MG TABLET 1 Tablet ORAL DAILY Comments: Last Taken:02/15/18 Time:9am Start taking the following new medications: Ferrous Sulfate (Ferrous Sulfate) 325 MG (65 MG IRON) TABLET 1 Tablet ORAL DAILY Qty = 30 No Refills Comments: not given Copies To: Rachael CANNON,Seth Sky MD,Louie Martin Attending MD Review Statement Documenting Attending: Sean Harman MD Other Findings: The patient was seen by me only on the day of discharge. Agree with the plan of care as outlined.
[2018-02-10] MEDS ORDERED: AUGMENTIN 500-1 EACH PO (14:01)
[2018-02-10 14:48] VITALS: BP 137/83
[2018-02-10 18:45] VITALS: BP 130/88
[2018-02-10 19:07] VITALS: BP 120/86
[2018-02-10 22:39] VITALS: BP 128/76
[2018-02-11 06:33] VITALS: BP 130/70
--- NOTE | 2018-02-11 07:27 | PN- Housestaff ---
Kaitlin CANNON,Annetta 02/11/18 0727: Subjective Follow-up For: Community acquired pnumonia Symptomatic anemia MARJAN on CKD Subjective: seen and examined He is sleeping. Reports feeling congested and required more oxygen overnight. Denies any chest pain/runny nose. Review of Systems Constitutional: Reports: see HPI. Objective Last 24 Hrs of Vital Signs/I&O Vital Signs Date Time Temp Pulse Resp B/P B/P Pulse O2 O2 Flow FiO2 Mean Ox Delivery Rate 02/11 0633 97.5 73 20 130/70 94 Nasal 3.0L Cannula 02/11 0000 93 Nasal 3.0L Cannula 02/10 2239 97.6 105 20 128/76 93 Nasal 3.0L Cannula 02/10 212 101 120/86 02/10 212 101 120/86 02/10 1907 97.7 101 18 120/86 94 Nasal 2.0L Cannula 02/10 1845 98.3 100 18 130/88 95 Nasal 2.0L Cannula 02/10 1600 Nasal 2.0L Cannula 02/10 1448 97.5 83 20 137/83 95 Nasal 2.0L Cannula 02/10 1016 98.0 108 20 126/72 02/10 1016 98.0 108 20 126/72 02/10 0800 93 Nasal 2.0L Cannula Intake & Output 02/11 0800 02/11 0000 02/10 1600 Intake Total 360 710 250 Output Total Balance 360 710 250 Intake, Blood 350 Product Intake, IV 250 Intake, Oral 360 360 Number 1 Bowel Movements Patient 132.903 kg Weight Weight Bed scale Measurement Method Physical Exam General Appearance: Alert, Oriented X3, Cooperative, No Acute Distress Skin: No Rashes, No Breakdown HEENT: Atraumatic, PERRLA, EOMI Neck: Supple, No JVD Cardiovascular: Normal S1, Normal S2 Lungs: Clear to Auscultation, Normal Air Movement, fine crakles and decreased breath sounds at bases Abdomen: Normal Bowel Sounds, Soft, No Tenderness Neurological: Normal Gait, Normal Speech, Strength at 5/5 X4 Ext, Normal Tone, Sensation Intact Current Medications: Current Medications Sig/Milagros Start time Last Medication Dose Route Stop Time Status Admin Amlodipine Besylate 10 MG DAILY 02/08 1000 AC 02/10 PO 1016 Azithromycin 500 MG DAILY 02/08 1000 AC 02/10 Dextrose/Water 250 ML IV 1016 Ceftriaxone Sodium 1,000 MG DAILY 02/08 1000 AC 02/10 IV 1015 Citalopram 10 MG DAILY 02/08 1000 AC 02/10 Hydrobromide PO 1016 Clonidine 0.1 MG QPM 02/08 2200 AC 02/10 PO 212 Epoetin Toribio 10,000 UNITS ONCE A WEEK 02/15 1000 AC SC Ferric Sodium 125 MG Q24H 02/08 1600 AC 02/10 Gluconate Complex IV 02/15 1659 1632 Sodium Chloride 100 ML Metolazone 2.5 MG DAILY 02/09 1545 AC 02/10 PO 1016 Metoprolol Tartrate 50 MG BID 02/08 1000 AC 02/10 PO 2125 Patient Medication 1 ED ONE ONE 02/10 1030 DC Teaching ED 02/10 1031 Ramelteon 8 MG AT BEDTIME 02/07 2330 AC 02/11 PO 0200 Torsemide 20 MG DAILY 02/09 1546 AC 02/10 PO 1016 Last 24 Hrs of Lab/Jorden Results Last 24 Hrs of Labs/Mics: Laboratory Tests 02/11/18 0725: Sodium Pending, Potassium Pending, Chloride Pending, Carbon Dioxide Pending, Anion Gap Pending, BUN Pending, Creatinine Pending, BUN/Creatinine Ratio Pending , CBC w Diff NO MAN DIFF REQ, RBC 2.95 L, MCV 82.4, MCH 27.9, MCHC 33.9, RDW 15.4 H, MPV 8.9, Gran % 82.3 H, Lymphocytes % 6.0 L, Monocytes % 8.6, Eosinophils % 2.9, Basophils % 0.2, Absolute Granulocytes 7.9 H, Absolute Lymphocytes 0.6 L, Absolute Monocytes 0.8 H, Absolute Eosinophils 0.3, Absolute Basophils 0 Assessment/Plan Assessment: Patient is 52-year-old morbidly obese gentleman with PMH significant for HTN, CKD, chronic bilateral lower extremity edema , A.fib on anticoagulation and anxiety came in with chief complaint of worsening fatigue, shortness of breath, lethargy, dizziness and slightly worsening bilateral lower extremity edema, cough and cold-like symptoms for last couple of days. Patient traveled to [place] almost 3 months ago. He flew over [employer] [facility] back in 3-4 days. He had cold prior to that traveled. He was recently diagnosed with atrial fibrillation by his PCP and was started on Coumadin by Dr. Small. Vital signs on admission were temperature 97.9, pulse 79, respiratory rate 18, blood pressure 172/99 and he was saturating 92% on room air. Labs were significant for WBC count 12.1, hemoglobin 8.6, hematocrit 25.4, platelet count 235, sodium 145, potassium 4.6, bicarbonate 16, anion gap 22, BUNs 133, creatinine 10.7, glucose 117, bilirubin 0.4, negative troponin. ABG showed 7.33/29/30/15 EKG showed atrial fibrillation with no acute ST-T wave changes Chest x-ray showed left upper lobe infiltrate and possible bibasilar area of infiltrate. CT abdomen and pelvis showed no suspicious fluid collection. Renal lesion represents cystic changes but solid lesions cannot be excluded. Problem list 1. Community acquired pneumonia 2. Symptomatic anemia secondary to inflammatory anemia 3. MARJAN on CKD 4. History of hypertension 5. History of atrial fibrillation on anticoagulation 6. 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 Requested records. we will monitor for now, given this has been going on chronically and patient had been adamant about dialysis. His renal ultrasound did reveal simple renal cysts without any obstruction. HbSab negative. Started on IV Iron and Epogen for inflammatory anemia. * He needs AVF placement as outpatient with . (he knew this ahead of time) * Monitor bep * Cotinuing diuretic regimen Torasemide 20mg daily and Metolazone 2.5mg daily. * CXR did show increasing fluid in the lungs, additional dose of torasemide given one time. * Will keep in the hospital today. Symtomatic Anemia He is desaturating to 86% on RA with ambulation requiring 2L, tachycardic. Iron studies represent inflammatory anemia. * Transfused 1 unit PRBC * H&H improved from 7.3/21 to 8.2/24 * We will recheck ambulatory saturations today Community acquired pneumonia No smoking/h/o lung disease.. Negative cultures. Restarted home diuretic regimen. Increased oxygen requirement after a unit of transfusion. * On IV ceftriaxone and IV Azithromycin day 4 * Repeat CXR did show overload HTN continue amlodipine 10mg daily A.fib Continue Warfarin 1mg for anticoagulation. Continue metoprolol tartarate 50mg BID. NO fluids for now DVT prophylaxis warfarin code status full code Problem List: 1. Symptomatic anemia 2. Pneumonia 3. Acute on chronic renal failure Pain Ratin Pain Location: n/a Pain Goal: Pain 4 or less Pain Plan: tylenol prn Tomorrow's Labs & Rationales: pt for INR Chastity Medina MD 02/11/18 1300: Attending MD Review Statement Attending Statement Attending MD Statement: examined this patient, discuss w/resident/PA/ENTRY LEVEL ACCOUNT MANAGER, agreed w/resident/PA/ENTRY LEVEL ACCOUNT MANAGER, reviewed EMR data (avail), discussed with nursing, discussed with case mgmt, reviewed images, amended to note Attending Assessment/Plan: Patient seen and examined, he was feeling short of breath. According slightly more oxygen. Chest x-ray shows worsening pulmonary edema. Vital Signs Date Time Temp Pulse Resp B/P B/P Pulse O2 O2 Flow FiO2 Mean Ox Delivery Rate 02/11 1111 97.5 73 20 130/70 02/11 1111 97.5 73 20 130/70 02/11 0633 97.5 73 20 130/70 94 Nasal 3.0L Cannula 02/11 0000 93 Nasal 3.0L Cannula 02/10 2239 97.6 105 20 128/76 93 Nasal 3.0L Cannula 02/10 2125 101 120/86 02/10 212 101 120/86 02/10 1907 97.7 101 18 120/86 94 Nasal 2.0L Cannula 02/10 1845 98.3 100 18 130/88 95 Nasal 2.0L Cannula 02/10 1600 Nasal 2.0L Cannula 02/10 1448 97.5 83 20 137/83 95 Nasal 2.0L Cannula on exam; aox3, nad. cv; s1,s2, rrr resp; mild b/l basal crackles. abd; soft, nt, bs+ ext; trace edema. Laboratory Tests 02/11 02/11 0933 0725 Chemistry Sodium (137 - 145 mmol/L) 143 Potassium (3.5 - 5.1 mmol/L) 4.3 Chloride (98 - 107 mmol/L) 106 Carbon Dioxide (22 - 30 mmol/L) 15 L Anion Gap (5 - 16) 22 H BUN (9 - 20 mg/dL) 128 *H Creatinine (0.7 - 1.2 mg/dL) 10.8 *H Estimated GFR (>60 ml/min) 5 L BUN/Creatinine Ratio (7 - 25 %) 11.9 Coagulation PT (9.4 - 12.5 SEC) 22.7 H INR (0.90 - 1.17) 2.07 H Hematology CBC w Diff NO MAN DIFF REQ WBC (4.8 - 10.8 /CUMM) 9.6 RBC (4.70 - 6.10 /CUMM) 2.95 L Hgb (14.0 - 18.0 G/DL) 8.2 L Hct (42 - 52 %) 24.3 L MCV (80.0 - 94.0 FL) 82.4 MCH (27.0 - 31.0 PG) 27.9 MCHC (33.0 - 37.0 G/DL) 33.9 RDW (11.5 - 14.5 %) 15.4 H Plt Count (130 - 400 /CUMM) 183 MPV (7.4 - 10.4 FL) 8.9 Gran % (42.2 - 75.2 %) 82.3 H Lymphocytes % (20.5 - 51.1 %) 6.0 L Monocytes % (1.7 - 9.3 %) 8.6 Eosinophils % (0 - 5 %) 2.9 Basophils % (0.0 - 2.0 %) 0.2 Absolute Granulocytes (1.4 - 6.5 /CUMM) 7.9 H Absolute Lymphocytes (1.2 - 3.4 /CUMM) 0.6 L Absolute Monocytes (0.10 - 0.60 /CUMM) 0.8 H Absolute Eosinophils (0.0 - 0.7 /CUMM) 0.3 Absolute Basophils (0.0 - 0.2 /CUMM) 0 A/P; 52 y/o M with pmh sig for A.fib on coumadin, HTN, CKD and depression, presented with multiple complaints including dizziness, shortness of breath, lethargy and admitted with acute on chronic renal failure, need to look for possible venous thrombi embolism, bilateral extremity edema, anemia and community acquired pneumonia. Patient did receive a unit of transfusion yesterday secondary to dropping H&H. This morning he was feeling slightly short of breath and oxygen requirement increased. Chest x-ray showing worsening pulmonary edema. Patient will be given extra dose of diuretic. We'll keep him one more day because of this. We' ll continue to try to taper her oxygen. Continue the rest of the management. If improved and stable by tomorrow likely discharge home tomorrow. Please dose Coumadin according to INR today. Absolute Granulocytes (1.4 - 6.5 /CUMM) 7.9 H Absolute Lymphocytes (1.2 - 3.4 /CUMM) 0.6 L Absolute Monocytes (0.10 - 0.60 /CUMM) 0.8 H Absolute Eosinophils (0.0 - 0.7 /CUMM) 0.3 Absolute Basophils (0.0 - 0.2 /CUMM) 0 A/P; 52 y/o M with pmh sig for A.fib on coumadin, HTN, CKD and depression, presented with multiple complaints including dizziness, shortness of breath, lethargy and admitted with acute on chronic renal failure, need to look for possible venous thrombi embolism, bilateral extremity edema, anemia and community acquired pneumonia. Patient did receive a unit of transfusion yesterday secondary to dropping H&H. This morning he was feeling slightly short of breath and oxygen requirement increased. Chest x-ray showing worsening pulmonary edema. Patient will be given extra dose of diuretic. We'll keep him one more day because of this. We' ll continue to try to taper her oxygen. Continue the rest of the management. If improved and stable by tomorrow likely discharge home tomorrow. Please dose Coumadin according to INR today.
[2018-02-11 08:33] LABS: ABSOLUTE BASOPHIL COUNT 0 /CUMM (0.0-0.2); ABSOLUTE EOSINOPHIL COUNT 0.3 /CUMM (0.0-0.7); ABSOLUTE GRANULOCYTE CT 7.9 /CUMM (1.4-6.5); ABSOLUTE LYMPH COUNT 0.6 /CUMM (1.2-3.4); ABSOLUTE MONOCYTE COUNT 0.8 /CUMM (0.10-0.60); BASOPHIL % 0.2 % (0.0-2.0); EOSINOPHIL % 2.9 % (0-5); GRANULOCYTE % 82.3 % (42.2-75.2); HEMATOCRIT 24.3 % (42-52); MEAN CORPUSCULAR HGB 27.9 PG (27.0-31.0); MEAN CORPUSCULAR HGB CONC 33.9 G/DL (33.0-37.0); MEAN CORPUSCULAR VOLUME 82.4 FL (80.0-94.0); MEAN PLATELET VOLUME 8.9 FL (7.4-10.4); PLATELET COUNT 183 /CUMM (130-400); RBC DISTRIBUTION WIDTH 15.4 % (11.5-14.5); RED BLOOD CELL CT 2.95 /CUMM (4.70-6.10); WHITE BLOOD CELL COUNT 9.6 /CUMM (4.8-10.8)
[2018-02-11 09:58] LABS: PT 22.7 SEC (9.4-12.5)
[2018-02-11] MEDS ORDERED: FERROUS SULFAT325 M3 PO (10:29)
[2018-02-11] MEDS ORDERED: AUGMENTIN 500-1 EACH PO (10:30)
--- NOTE | 2018-02-11 10:33 | RADIOLOGY REPORT ---
EXAMINATION: XR CHEST CLINICAL INFORMATION: Increased oxygen requirement. Chest congestion. Evaluate for fluid overload or worsening pneumonia. COMPARISON: 02/07/2018 TECHNIQUE: 2 views of the chest were obtained. FINDINGS: Cardiomegaly. Interval worsening of bilateral perihilar airspace opacity, peribronchial interstitial thickening and septal thickening in both lungs. Findings are consistent with worsening pulmonary edema. There is a trace right pleural effusion. No pneumothorax or other significant interval change. IMPRESSION: Interval worsening of cardiogenic pulmonary edema.
[2018-02-11 14:08] VITALS: BP 130/60
[2018-02-11 22:50] VITALS: BP 112/60
[2018-02-12 06:44] VITALS: BP 100/70
--- NOTE | 2018-02-12 07:23 | PN- Housestaff ---
Kaitlin CANNON,Annetta 02/12/18 0723: Subjective Follow-up For: Community acquired pnumonia Symptomatic anemia MARJAN on CKD Subjective: seen and examined Sleeping after breakfast. No concerns, pain. Still feels congested. Review of Systems Constitutional: Reports: see HPI. Objective Last 24 Hrs of Vital Signs/I&O Vital Signs Date Time Temp Pulse Resp B/P B/P Pulse O2 O2 Flow FiO2 Mean Ox Delivery Rate 02/12 0644 97.6 104 20 100/70 95 Nasal 3.0L Cannula 02/12 0000 95 Nasal 3.0L Cannula 02/11 2250 98.3 102 20 112/60 95 Nasal 3.0L Cannula 02/11 2206 102 112/60 02/11 2206 102 112/60 02/11 1408 98.0 100 20 130/60 92 Nasal 3.0L Cannula 02/11 1111 97.5 73 20 130/70 02/11 1111 97.5 73 20 130/70 02/11 0800 93 Nasal 3.0L Cannula Intake & Output 02/12 0800 02/12 0000 02/11 1600 Intake Total 600 590 Output Total 550 Balance 600 590 -550 Intake, IV 110 Intake, Oral 600 480 Output, Urine 550 Patient 133.356 kg Weight Weight Bed scale Measurement Method Physical Exam General Appearance: Alert, Oriented X3, Cooperative Skin: No Rashes, No Breakdown Skin Temp/Moisture Exam: Warm/Dry HEENT: Atraumatic, PERRLA, EOMI Neck: Supple Cardiovascular: Normal S1, Normal S2, No Murmurs Lungs: Clear to Auscultation, Normal Air Movement Abdomen: Normal Bowel Sounds, Soft, No Tenderness Neurological: Normal Speech, Strength at 5/5 X4 Ext, Normal Tone Extremities: No Clubbing, No Cyanosis, No Edema Current Medications: Current Medications Sig/Milagros Start time Last Medication Dose Route Stop Time Status Admin Acetaminophen 650 MG ONCE ONE 02/12 0045 DC 02/12 PO 02/12 0046 0103 Amlodipine Besylate 10 MG DAILY 02/08 1000 AC 02/12 PO 1049 Citalopram 10 MG DAILY 02/08 1000 AC 02/12 Hydrobromide PO 1049 Clonidine 0.1 MG QPM 02/08 2200 AC 02/11 PO 220 Epoetin Toribio 10,000 UNITS ONCE A WEEK 02/15 1000 AC SC Ferric Sodium 125 MG Q24H 02/08 1600 AC 02/11 Gluconate Complex IV 02/15 1659 1743 Sodium Chloride 100 ML Furosemide 100 MG 7:30 AM, & 4:30 PM 02/12 1630 AC IV Metolazone 2.5 MG DAILY 02/09 1545 DC 02/12 PO 1049 Metoprolol Tartrate 50 MG BID 02/08 1000 AC 02/12 PO 1049 Ramelteon 8 MG AT BEDTIME 02/07 2330 AC 02/11 PO 2206 Torsemide 20 MG DAILY 02/09 1546 DC 02/12 PO 1049 Warfarin Sodium 1 MG COUMADIN 1700 ONE 02/11 1700 DC 02/11 PO 02/11 1701 1619 Last 24 Hrs of Lab/Jorden Results Last 24 Hrs of Labs/Mics: Laboratory Tests 02/12/18 0716: PT 21.0 H, INR 1.91 H Assessment/Plan Assessment: Patient is 52-year-old morbidly obese gentleman with PMH significant for HTN, CKD, chronic bilateral lower extremity edema , A.fib on anticoagulation and anxiety came in with chief complaint of worsening fatigue, shortness of breath, lethargy, dizziness and slightly worsening bilateral lower extremity edema, cough and cold-like symptoms for last couple of days. Patient traveled to [place] almost 3 months ago. He flew over [facility] back in 3-4 days. He had cold prior to that traveled. He was recently diagnosed with atrial fibrillation by his PCP and was started on Coumadin by Dr. Small. Vital signs on admission were temperature 97.9, pulse 79, respiratory rate 18, blood pressure 172/99 and he was saturating 92% on room air. Labs were significant for WBC count 12.1, hemoglobin 8.6, hematocrit 25.4, platelet count 235, sodium 145, potassium 4.6, bicarbonate 16, anion gap 22, BUNs 133, creatinine 10.7, glucose 117, bilirubin 0.4, negative troponin. ABG showed 7.33/// EKG showed atrial fibrillation with no acute ST-T wave changes Chest x-ray showed left upper lobe infiltrate and possible bibasilar area of infiltrate. CT abdomen and pelvis showed no suspicious fluid collection. Renal lesion represents cystic changes but solid lesions cannot be excluded. Problem list 1. Community acquired pneumonia 2. Symptomatic anemia secondary to inflammatory anemia 3. MARJAN on CKD 4. History of hypertension 5. History of atrial fibrillation on anticoagulation 6. 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 Requested records. we will monitor for now, given this has been going on chronically and patient had been adamant about dialysis. His renal ultrasound did reveal simple renal cysts without any obstruction. HbSab negative. Started on IV Iron and Epogen for inflammatory anemia. * He needs AVF placement as outpatient with . (he knew this ahead of time) * Monitor bep * Given pulm edema on CXR although improving, we will diurese patient with IV lasix 100mg BID for the next few days. Symtomatic Anemia He is desaturating to 86% on RA with ambulation requiring 2L, tachycardic. Iron studies represent inflammatory anemia. * Transfused 1 unit PRBC * H&H improved from 7.3/21 to 8.2/24 * We will recheck ambulatory saturations today Community acquired pneumonia No smoking/h/o lung disease.. Negative cultures. Restarted home diuretic regimen. Increased oxygen requirement after a unit of transfusion. * IV ceftriaxone and azithromycin - day 5. * Repeat CXR did show overload HTN continue amlodipine 10mg daily A.fib Continue Warfarin 2mg for anticoagulation INR - 1.91 today. Continue metoprolol tartarate 50mg BID. NO fluids for now DVT prophylaxis warfarin code status full code Problem List: 1. Symptomatic anemia 2. Acute on chronic renal failure 3. Pneumonia Pain Ratin Pain Location: n/a Pain Goal: Pain 4 or less Pain Plan: tylenol prn Tomorrow's Labs & Rationales: cbc, bep, PT to monitor H&H, renal function, INR Adam CANNON,Chastity 02/12/18 1110: Attending MD Review Statement Attending Statement Attending MD Statement: examined this patient, discuss w/resident/PA/HEAT AND FROST INSULATOR HELPER, agreed w/resident/PA/HEAT AND FROST INSULATOR HELPER, discussed with family, reviewed EMR data (avail), discussed with nursing, discussed with case mgmt, reviewed images, amended to note Attending Assessment/Plan: Patient seen and examined, still having difficulty with breathing. Still requiring quite a bit of oxygen. Seen by nephrology and they recommended starting the patient on IV Lasix. We'll stop the torsemide but will continue the metolazone as discussed with Dr. Pierre along with IV lasix. Vital Signs Date Time Temp Pulse Resp B/P B/P Pulse O2 O2 Flow FiO2 Mean Ox Delivery Rate 02/12 1049 97.6 104 20 100/02/12 1049 97.6 104 20 100/70 02/12 0644 97.6 104 20 100/ 95 Nasal 3.0L Cannula 02/12 0000 95 Nasal 3.0L Cannula 02/11 2250 98.3 102 20 112/60 95 Nasal 3.0L Cannula 02/11 2206 102 112/60 02/11 2206 102 112/60 02/11 1408 98.0 100 20 130/60 92 Nasal 3.0L Cannula on exam; aox3, nad. cv; s1,s2, rrr resp; b/l basal crackles. abd; soft, nt, bs+ ext; 2+ edema b/l Laboratory Tests 02/12 0716 Coagulation PT (9.4 - 12.5 SEC) 21.0 H INR (0.90 - 1.17) 1.91 H A/P; 52 y/o M with pmh sig for A.fib on coumadin, HTN, CKD and depression, presented with multiple complaints including dizziness, shortness of breath, lethargy and admitted with acute on chronic renal failure, need to look for possible venous thrombi embolism, bilateral extremity edema, anemia and community acquired pneumonia. Patient has developed fluid overload. Still requiring significant amount of O2. As discussed with nephrology, patient be started on IV Lasix in addition to by mouth metolazone.. The torsemide for now. Patient completed the course of his antibiotics. But monitor his renal function with increased diuretics. Continue other current meds and Ativan infusion. H&H was improved. Please dose Coumadin at 2 mg today and recheck INR in the morning. D/W patient's family at bedside.
--- NOTE | 2018-02-12 09:55 | PN- Nephrology ---
Assessment/Plan Nephrology Assessment: CKD 5. Fluid overloaded by exam and CXR. Rec: would use IV lasix (e.g. 100 mg IV bid) for a few days to correct volume overload then transition to oral diuretics (will need in vicinity of 80 mg lasix or 100 mg torsemide to see response given advanced kidney disease. If he does not respond to this (he should) he may require initiation of dialysis Chidi Pierre MD. Suggestion: . Subjective Subjective: Pt comfortable. Still desats without O2. Pt started on torsemide and metolazone. Objective Vital Signs and I&Os M NAD 100/70 104 97.4 Lung diminished bases Cor RRR Abd soft Ext 1+edema Results Pertinent Lab Results: Laboratory Tests 02/12 02/11 02/11 0716 0933 0725 Chemistry Sodium (137 - 145 mmol/L) 143 Potassium (3.5 - 5.1 mmol/L) 4.3 Chloride (98 - 107 mmol/L) 106 Carbon Dioxide (22 - 30 mmol/L) 15 L Anion Gap (5 - 16) 22 H BUN (9 - 20 mg/dL) 128 *H Creatinine (0.7 - 1.2 mg/dL) 10.8 *H Estimated GFR (>60 ml/min) 5 L BUN/Creatinine Ratio (7 - 25 %) 11.9 Coagulation PT (9.4 - 12.5 SEC) 21.0 H 22.7 H INR (0.90 - 1.17) 1.91 H 2.07 H Hematology CBC w Diff NO MAN DIFF REQ WBC (4.8 - 10.8 /CUMM) 9.6 RBC (4.70 - 6.10 /CUMM) 2.95 L Hgb (14.0 - 18.0 G/DL) 8.2 L Hct (42 - 52 %) 24.3 L MCV (80.0 - 94.0 FL) 82.4 MCH (27.0 - 31.0 PG) 27.9 MCHC (33.0 - 37.0 G/DL) 33.9 RDW (11.5 - 14.5 %) 15.4 H Plt Count (130 - 400 /CUMM) 183 MPV (7.4 - 10.4 FL) 8.9 Gran % (42.2 - 75.2 %) 82.3 H Lymphocytes % (20.5 - 51.1 %) 6.0 L Monocytes % (1.7 - 9.3 %) 8.6 Eosinophils % (0 - 5 %) 2.9 Basophils % (0.0 - 2.0 %) 0.2 Absolute Granulocytes (1.4 - 6.5 /CUMM) 7.9 H Absolute Lymphocytes (1.2 - 3.4 /CUMM) 0.6 L Absolute Monocytes (0.10 - 0.60 /CUMM) 0.8 H Absolute Eosinophils (0.0 - 0.7 /CUMM) 0.3 Absolute Basophils (0.0 - 0.2 /CUMM) 0 02/10 0800 Chemistry Sodium (137 - 145 mmol/L) 142 Potassium (3.5 - 5.1 mmol/L) 4.5 Chloride (98 - 107 mmol/L) 108 H Carbon Dioxide (22 - 30 mmol/L) 15 L Anion Gap (5 - 16) 20 H BUN (9 - 20 mg/dL) 127 *H Creatinine (0.7 - 1.2 mg/dL) 10.6 *H Estimated GFR (>60 ml/min) 5 L BUN/Creatinine Ratio (7 - 25 %) 12.0 Coagulation PT (9.4 - 12.5 SEC) 28.6 H INR (0.90 - 1.17) 2.60 H Hematology CBC w Diff NO MAN DIFF REQ WBC (4.8 - 10.8 /CUMM) 8.6 RBC (4.70 - 6.10 /CUMM) 2.66 L Hgb (14.0 - 18.0 G/DL) 7.3 *L Hct (42 - 52 %) 21.8 L MCV (80.0 - 94.0 FL) 82.1 MCH (27.0 - 31.0 PG) 27.5 MCHC (33.0 - 37.0 G/DL) 33.5 RDW (11.5 - 14.5 %) 16.0 H Plt Count (130 - 400 /CUMM) 188 MPV (7.4 - 10.4 FL) 9.1 Gran % (42.2 - 75.2 %) 82.3 H Lymphocytes % (20.5 - 51.1 %) 6.3 L Monocytes % (1.7 - 9.3 %) 8.1 Eosinophils % (0 - 5 %) 3.0 Basophils % (0.0 - 2.0 %) 0.3 Absolute Granulocytes (1.4 - 6.5 /CUMM) 7.1 H Absolute Lymphocytes (1.2 - 3.4 /CUMM) 0.5 L Absolute Monocytes (0.10 - 0.60 /CUMM) 0.7 H Absolute Eosinophils (0.0 - 0.7 /CUMM) 0.3 Absolute Basophils (0.0 - 0.2 /CUMM) 0
--- NOTE | 2018-02-12 13:46 | RADIOLOGY REPORT ---
EXAMINATION: XR CHEST CLINICAL INFORMATION: Follow up pulmonary edema. COMPARISON: Chest done on 02/11/2018. TECHNIQUE: 2 views of the chest were obtained. FINDINGS: There is improved aeration noted throughout both lung cha. There is, however, significant residual airspace disease identified at bilateral perihilar regions and both lower lobes. No new abnormalities. Persistent stable trace right-sided pleural effusion is noted. The cardiomediastinal silhouette is enlarged but stable. The visualized upper abdomen is unremarkable. IMPRESSION: Interval improvement since 02/11/2018, without complete resolution of presumed pulmonary edema. No new abnormalities.
[2018-02-12 14:58] VITALS: BP 118/64
[2018-02-12 22:29] VITALS: BP 130/80
[2018-02-13 06:20] VITALS: BP 124/68
[2018-02-13 08:47] LABS: PT 18.9 SEC (9.4-12.5)
[2018-02-13 08:48] LABS: ABSOLUTE BASOPHIL COUNT 0 /CUMM (0.0-0.2); ABSOLUTE EOSINOPHIL COUNT 0.4 /CUMM (0.0-0.7); ABSOLUTE GRANULOCYTE CT 9.4 /CUMM (1.4-6.5); ABSOLUTE LYMPH COUNT 0.6 /CUMM (1.2-3.4); BASOPHIL % 0.2 % (0.0-2.0); EOSINOPHIL % 3.8 % (0-5); GRANULOCYTE % 82.3 % (42.2-75.2); HEMATOCRIT 24.2 % (42-52); MEAN CORPUSCULAR HGB 28.3 PG (27.0-31.0); MEAN CORPUSCULAR VOLUME 83.2 FL (80.0-94.0); MEAN PLATELET VOLUME 8.9 FL (7.4-10.4); PLATELET COUNT 197 /CUMM (130-400); RBC DISTRIBUTION WIDTH 15.3 % (11.5-14.5); WHITE BLOOD CELL COUNT 11.5 /CUMM (4.8-10.8)
--- NOTE | 2018-02-13 09:11 | PN- Housestaff ---
[facility] Subjective Follow-up For: Acute on chronic kidney injury CAP Symptomatic anemia Complaints: no complaints Subjective: He was seen and examined today, lying on the bed, with no acute distress, and is a conical in place He reports that his overall status improving specially his breathing He knows that he needs dialysis at some point but he wants to discuss this option with his patient observer Review of Systems Constitutional: Reports: no symptoms. EENTM: Reports: no symptoms. Cardiovascular: Reports: no symptoms. Respiratory: Reports: no symptoms. Gastrointestinal: Reports: no symptoms. Genitourinary: Reports: no symptoms. Musculoskeletal: Reports: no symptoms. Skin: Reports: no symptoms. Neurological/Psychological: Reports: no symptoms. Objective Last 24 Hrs of Vital Signs/I&O Vital Signs Date Time Temp Pulse Resp B/P B/P Pulse O2 O2 Flow FiO2 Mean Ox Delivery Rate 02/14 620 98.4 103 20 124/68 95 Nasal Cannula 02/13 0000 96 Nasal 3.0L Cannula 02/129 98.6 100 20 130/80 96 Nasal Cannula 02/12 2050 100 130/80 02/12 2050 100 130/80 02/12 1555 Nasal 3.0L Cannula 02/12 1458 97.7 101 20 118/64 95 Nasal 3.0L Cannula 02/12 1049 97.6 104 20 100/70 02/12 1049 97.6 104 20 100/70 Intake & Output 02/13 1600 02/13 0800 02/13 0000 Intake Total 380 950 Output Total Balance 380 950 Intake, IV 250 Intake, Oral 380 700 Patient 295 lb Weight Weight Bed scale Measurement Method Physical Exam General Appearance: Alert, Oriented X3, Cooperative, No Acute Distress Cardiovascular: Regular Rate, Normal S1, Normal S2 Lungs: Normal Air Movement, bilateral expiratory wheezing Abdomen: Normal Bowel Sounds, Soft, No Tenderness Extremities: Normal Pulses, +1 edema Current Medications: Current Medications Sig/Milagros Start time Last Medication Dose Route Stop Time Status Admin Acetaminophen 650 MG ONCE ONE 02/12 2100 DC 02/12 PO 02/12 Amlodipine Besylate 10 MG DAILY 02/08 1000 AC 02/12 PO 1049 Azithromycin 500 MG Q24H 02/13 1600 AC Dextrose/Water 250 ML IV Azithromycin 500 MG Q24H 02/12 1358 DC 02/12 Dextrose/Water 250 ML IV 1540 Ceftriaxone Sodium 1,000 MG Q24H 02/13 1600 AC IV Ceftriaxone Sodium 1,000 MG DAILY 02/12 1358 DC 02/12 IV 1539 Citalopram 10 MG DAILY 02/08 1000 AC 02/12 Hydrobromide PO 1049 Clonidine 0.1 MG QPM 02/08 2200 AC 02/12 PO 205 Epoetin Toribio 10,000 UNITS ONCE A WEEK 02/15 1000 AC SC Ferric Sodium 125 MG Q24H 02/08 1600 AC 02/12 Gluconate Complex IV 02/15 1659 1728 Sodium Chloride 100 ML Furosemide 100 MG 7:30 AM, & 4:30 PM 02/12 1630 AC 02/13 IV 0818 Metolazone 2.5 MG DAILY 02/09 1545 DC 02/12 PO 1049 Metoprolol Tartrate 50 MG BID 02/08 1000 AC 02/12 PO 2049 Patient Medication 1 ED ONE ONE 02/12 1500 DC 02/12 Teaching ED 02/12 1501 1539 Ramelteon 8 MG ONCE ONE 02/13 0045 DC 02/13 PO 02/13 0046 0046 Ramelteon 8 MG AT BEDTIME 02/07 2330 AC 02/11 PO 2206 Torsemide 20 MG DAILY 02/09 1546 DC 02/12 PO 1049 Warfarin Sodium 2 MG COUMADIN 1700 02/12 1700 DC 02/12 PO 02/12 2359 1647 Last 24 Hrs of Lab/Jorden Results Last 24 Hrs of Labs/Mics: Laboratory Tests 02/13/18 0730: Sodium Pending, Potassium Pending, Chloride Pending, Carbon Dioxide Pending, Anion Gap Pending, BUN Pending, Creatinine Pending, BUN/Creatinine Ratio Pending , PT 18.9 H, INR 1.72 H, CBC w Diff Pending, WBC Pending, RBC Pending, Hgb Pending, Hct Pending, MCV Pending, MCH Pending, MCHC Pending, RDW Pending, Plt Count Pending, MPV Pending Assessment/Plan Assessment: Patient is 52-year-old morbidly obese gentleman with PMH significant for HTN, CKD, chronic bilateral lower extremity edema , A.fib on anticoagulation and anxiety came in with chief complaint of worsening fatigue, shortness of breath, lethargy, dizziness and slightly worsening bilateral lower extremity edema, cough and cold-like symptoms for last couple of days. Patient traveled to [place] almost 3 months ago. He [facility] back [facility]-4 days. He had cold prior to that traveled. He was recently diagnosed with atrial fibrillation by his PCP and was started on Coumadin by Dr. Small. Problem list 1. Community acquired pneumonia 2. Symptomatic anemia secondary to inflammatory anemia 3. MARJAN on CKD 4. History of hypertension 5. History of atrial fibrillation on anticoagulation 6. 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 Requested records. we will monitor for now, given this has been going on chronically and patient had been adamant about dialysis. His renal ultrasound did reveal simple renal cysts without any obstruction. HbSab negative. Started on IV Iron and Epogen for inflammatory anemia. * He needs AVF placement as outpatient with . (he knew this ahead of time) * Creatinine today is 10.7, BUN 1:30, which is remain elevated over the last few days. We'll check BEP tomorrow * Will continue diureses with IV lasix 100mg BID for now and assess the need based on his clinical status and nephrology recommendation. Symtomatic Anemia He is desaturating to 86% on RA with ambulation requiring 2L, tachycardic. Iron studies represent inflammatory anemia. * Transfused 1 unit PRBC * H&H improved from 7.3/ to 8.2/ * We will recheck ambulatory saturations today Community acquired pneumonia No smoking/h/o lung disease.. Negative cultures. Restarted home diuretic regimen. Increased oxygen requirement after a unit of transfusion. * IV ceftriaxone and azithromycin - day 5. * Repeat CXR did show overload HTN continue amlodipine 10mg daily A.fib Continue Warfarin 2mg for anticoagulation INR - 1.91 today. Continue metoprolol tartarate 50mg BID. NO fluids for now DVT prophylaxis warfarin code status full code Problem List: 1. Pneumonia 2. Acute on chronic renal failure 3. Symptomatic anemia Pain Ratin Pain Location: - Alt Method for Pain Treatment: Other(free text) Pain Goal: Remain pain free Pain Plan: - Tomorrow's Labs & Rationales: bep, cbc DVT/Prophylaxis: mechanical, pharmacological Adam CANNON,[facility] 02/13/18 1259: Attending MD Review Statement Attending Statement Attending MD Statement: examined this patient, discuss w/resident/PA/PRIMER BOXER, agreed w/resident/PA/PRIMER BOXER, reviewed EMR data (avail), discussed with nursing, discussed with case mgmt, reviewed images, amended to note Attending Assessment/Plan: Patient seen and examined, feels okay. Still requiring oxygen. Feels congested in the nose. Has a slight leukocytosis today. Afebrile. Remains on IV Lasix. We should continue his metolazone also. We will check strict intake and output. Patient remains on antibiotics and will complete her total of seven-day course. Continue the rest of the medications. Creatinine remained stable on current dose of diuretics, will continue to monitor. INR is subtherapeutic. Please dose Coumadin at 3 mg today and check INR in the morning. H&H remained stable.
[2018-02-13 14:31] VITALS: BP 144/80
[2018-02-13 22:34] VITALS: BP 156/90
[2018-02-14 06:20] VITALS: BP 148/80
[2018-02-14 08:29] LABS: ABSOLUTE BASOPHIL COUNT 0 /CUMM (0.0-0.2); ABSOLUTE EOSINOPHIL COUNT 0.4 /CUMM (0.0-0.7); ABSOLUTE GRANULOCYTE CT 7.9 /CUMM (1.4-6.5); ABSOLUTE LYMPH COUNT 0.7 /CUMM (1.2-3.4); ABSOLUTE MONOCYTE COUNT 0.9 /CUMM (0.10-0.60); BASOPHIL % 0.3 % (0.0-2.0); EOSINOPHIL % 3.9 % (0-5); GRANULOCYTE % 79.3 % (42.2-75.2); HEMATOCRIT 23.5 % (42-52); MEAN CORPUSCULAR HGB 28.7 PG (27.0-31.0); MEAN CORPUSCULAR HGB CONC 34.2 G/DL (33.0-37.0); MEAN CORPUSCULAR VOLUME 83.9 FL (80.0-94.0); MEAN PLATELET VOLUME 8.6 FL (7.4-10.4); PLATELET COUNT 183 /CUMM (130-400); RED BLOOD CELL CT 2.81 /CUMM (4.70-6.10); WHITE BLOOD CELL COUNT 9.9 /CUMM (4.8-10.8)
[2018-02-14 09:01] LABS: PT 19.7 SEC (9.4-12.5)
--- NOTE | 2018-02-14 10:11 | PN- Housestaff ---
[facility] 02/14/18 1010: Subjective Follow-up For: Acute on chronic kidney injury CAP Symptomatic anemia Complaints: no complaints Subjective: He was seen and examined today, lying on the bed, with no acute distress. He reports that his overall status improving specially his breathing. He knows that he needs dialysis at some point but he wants to discuss this option with his surveillance supervisor Review of Systems Constitutional: Reports: no symptoms. EENTM: Reports: no symptoms. Cardiovascular: Reports: no symptoms. Respiratory: Reports: short of breath. Gastrointestinal: Reports: no symptoms. Genitourinary: Reports: no symptoms. Musculoskeletal: Reports: no symptoms. Skin: Reports: no symptoms. Neurological/Psychological: Reports: no symptoms. Objective Last 24 Hrs of Vital Signs/I&O Vital Signs Date Time Temp Pulse Resp B/P B/P Pulse O2 O2 Flow FiO2 Mean Ox Delivery Rate 02/14 1006 64 128/64 02/14 1006 64 128/64 02/14 0620 98.1 87 20 148/80 92 Nasal Cannula 02/14 0000 92 Nasal 3.0L Cannula 02/13 2234 97.8 91 20 156/90 92 Nasal 3.0L Cannula 02/13 2128 91 156/90 02/13 1431 98.7 114 20 144/80 96 02/13 1044 124/68 02/13 1044 125/68 Intake & Output 02/14 1600 02/14 0800 02/14 0000 Intake Total 250 610 Output Total Balance 250 610 Intake, IV 10 10 Intake, Oral 240 600 Patient 134.518 kg Weight Physical Exam General Appearance: Alert, Oriented X3, Cooperative, No Acute Distress Skin: No Rashes, No Breakdown Skin Temp/Moisture Exam: Warm/Dry Sepsis Skin Exam (color): Normal for Ethnicity HEENT: Atraumatic, PERRLA, EOMI, NASAL CANNULA Neck: Supple, No JVD Lymphatic: Cervical nl Cardiovascular: Regular Rate, Normal S1, Normal S2 Lungs: Clear to Auscultation, Normal Air Movement, OCCASIONAL WHEEZES Abdomen: Normal Bowel Sounds Neurological: Normal Speech Extremities: 1+ EDEMA Last 24 Hrs of Lab/Jorden Results Last 24 Hrs of Labs/Mics: Laboratory Tests 02/14/18 0741: Anion Gap 20 H, Estimated GFR 5 L, BUN/Creatinine Ratio 12.1, PT 19.7 H, INR 1.80 H, CBC w Diff NO MAN DIFF REQ, RBC 2.81 L, MCV 83.9, MCH 28.7, MCHC 34.2, RDW 16.0 H, MPV 8.6, Gran % 79.3 H, Lymphocytes % 7.2 L, Monocytes % 9.3, Eosinophils % 3.9, Basophils % 0.3, Absolute Granulocytes 7.9 H, Absolute Lymphocytes 0.7 L, Absolute Monocytes 0.9 H, Absolute Eosinophils 0.4, Absolute Basophils 0 Assessment/Plan Assessment: Patient is 52-year-old morbidly obese gentleman with PMH significant for HTN, CKD, chronic bilateral lower extremity edema , A.fib on anticoagulation and anxiety came in with chief complaint of worsening fatigue, shortness of breath, lethargy, dizziness and slightly worsening bilateral lower extremity edema, cough and cold-like symptoms for last couple of days. Patient traveled to [place] almost 3 months ago. He flew over [facility] back in 3-4 days. He had cold prior to that traveled. He was recently diagnosed with atrial fibrillation by his PCP and was started on Coumadin by Dr. Small. Problem list 1. Community acquired pneumonia 2. Symptomatic anemia secondary to inflammatory anemia 3. MARJAN on CKD 4. History of hypertension 5. History of atrial fibrillation on anticoagulation 6. History of anxiety MARJAN on CKD He had been following since 2009 for HTNsive nephropathy. Requested records. we will monitor for now, given this has been going on chronically and patient had been adamant about dialysis. His renal ultrasound did reveal simple renal cysts without any obstruction. HbSab negative. Started on IV Iron and Epogen for inflammatory anemia. * He needs AVF placement as outpatient with . (he knew this ahead of time) * Will continue diureses with IV lasix 100mg BID and metolazone for now and assess the need based on his clinical status and nephrology recommendation. * Nephrology input appreciated Symtomatic Anemia He is desaturating to 86% on RA with ambulation requiring 2L, tachycardic. Iron studies represent inflammatory anemia. * Transfused 1 unit PRBC * H&H improved from 7.3/21 to 8.2/24 * We will recheck ambulatory saturations today Community acquired pneumonia No smoking/h/o lung disease.. Negative cultures. Restarted home diuretic regimen. Increased oxygen requirement after a unit of transfusion. * IV ceftriaxone and azithromycin - finished 5 days of abx * Repeat CXR did show overload HTN continue amlodipine 10mg daily A.fib Continue Warfarin 2mg for anticoagulation INR - 1.91 today. Continue metoprolol tartarate 50mg BID. NO fluids for now DVT prophylaxis warfarin code status full code Problem List: 1. Pneumonia 2. Acute respiratory failure with hypoxia 3. Symptomatic anemia Pain Ratin Pain Location: NA Pain Goal: Remain pain free Pain Plan: PRN TYLENOL Tomorrow's Labs & Rationales: CBC.. ANEMIA CMP..RENAL FAILURE Adam CANNON,[facility] 02/14/18 1232: Attending MD Review Statement Attending Statement Attending MD Statement: examined this patient, discuss w/resident/PA/[employer]PERINT[employer]ENT [employer], agreed w/resident/PA/[employer], reviewed EMR data (avail), discussed with nursing, discussed with case mgmt, reviewed images, amended to note Attending Assessment/Plan: Patient seen and examined, feeling better today with his breathing. Vital Signs Date Time Temp Pulse Resp B/P B/P Pulse O2 O2 Flow FiO2 Mean Ox Delivery Rate 02/14 1006 64 128/64 02/14 1006 64 128/64 02/14 0620 98.1 87 20 148/80 92 Nasal Cannula 02/14 0000 92 Nasal 3.0L Cannula 02/13 2234 97.8 91 20 156/90 92 Nasal 3.0L Cannula 02/13 2128 91 156/90 02/13 1431 98.7 114 20 144/80 96 on exam; aox3, nad. cv; s1,s2, rrr resp; clear but decraesed at b/l bases. abd; soft, nt, bs+ ext; 1+ edema. Laboratory Tests 02/14 0741 Chemistry Sodium (137 - 145 mmol/L) 143 Potassium (3.5 - 5.1 mmol/L) 4.2 Chloride (98 - 107 mmol/L) 106 Carbon Dioxide (22 - 30 mmol/L) 17 L Anion Gap (5 - 16) 20 H BUN (9 - 20 mg/dL) 131 *H Creatinine (0.7 - 1.2 mg/dL) 10.8 *H Estimated GFR (>60 ml/min) 5 L BUN/Creatinine Ratio (7 - 25 %) 12.1 Coagulation PT (9.4 - 12.5 SEC) 19.7 H INR (0.90 - 1.17) 1.80 H Hematology CBC w Diff NO MAN DIFF REQ WBC (4.8 - 10.8 /CUMM) 9.9 RBC (4.70 - 6.10 /CUMM) 2.81 L Hgb (14.0 - 18.0 G/DL) 8.1 L Hct (42 - 52 %) 23.5 L MCV (80.0 - 94.0 FL) 83.9 MCH (27.0 - 31.0 PG) 28.7 MCHC (33.0 - 37.0 G/DL) 34.2 RDW (11.5 - 14.5 %) 16.0 H Plt Count (130 - 400 /CUMM) 183 MPV (7.4 - 10.4 FL) 8.6 Gran % (42.2 - 75.2 %) 79.3 H Lymphocytes % (20.5 - 51.1 %) 7.2 L Monocytes % (1.7 - 9.3 %) 9.3 Eosinophils % (0 - 5 %) 3.9 Basophils % (0.0 - 2.0 %) 0.3 Absolute Granulocytes (1.4 - 6.5 /CUMM) 7.9 H Absolute Lymphocytes (1.2 - 3.4 /CUMM) 0.7 L Absolute Monocytes (0.10 - 0.60 /CUMM) 0.9 H Absolute Eosinophils (0.0 - 0.7 /CUMM) 0.4 Absolute Basophils (0.0 - 0.2 /CUMM) 0 A/P: 52 y/o M with pmh sig for A.fib on coumadin, HTN, CKD and depression, presented with multiple complaints including dizziness, shortness of breath, lethargy and admitted with acute on chronic renal failure, bilateral lower extremity edema, fluid overload and community-acquired pneumonia. Patient will be completing total of seven-day course of antibiotics. He was started on IV Lasix per nephrology recommendations secondary to patient developing fluid overload and hypoxia. So far diuresing well and creatinine remaining stable. Keep him on IV diuresis for another 24 hours. We'll continue the metolazone. Continue the rest of the medications. Please dose Coumadin at 4 mg today and recheck INR in the morning.
[2018-02-14 15:09] VITALS: BP 146/72
[2018-02-14 22:15] VITALS: BP 130/60
[2018-02-15 06:20] VITALS: BP 146/78
--- NOTE | 2018-02-15 07:35 | PN- Housestaff ---
See Addendum Subjective Follow-up For: Acute on chronic kidney injury CAP Symptomatic anemia Subjective: seen and examined Feeling much better. No overnight issues. Ready to go home. Review of Systems Constitutional: Reports: see HPI. Objective Last 24 Hrs of Vital Signs/I&O Vital Signs Date Time Temp Pulse Resp B/P B/P Pulse O2 O2 Flow FiO2 Mean Ox Delivery Rate 02/16 620 98.5 109 20 146/78 95 Nasal Cannula 02/15 0000 96 Nasal 2.5L Cannula 02/145 98.2 110 20 130/60 96 02/14 2151 110 130/60 02/14 1509 97.8 112 20 146/72 97 02/14 1006 64 128/64 02/14 1006 64 128/64 02/14 0800 95 Nasal 2.5L Cannula Intake & Output 02/15 0800 02/15 0000 02/14 1600 Intake Total 250 900 Output Total Balance 250 900 Intake, IV 10 100 Intake, Oral 240 800 Patient 133.98 kg Weight Weight Bed scale Measurement Method Physical Exam General Appearance: Alert, Oriented X3, Cooperative, No Acute Distress Skin: No Rashes, No Breakdown Skin Temp/Moisture Exam: Warm/Dry HEENT: Atraumatic, PERRLA, EOMI Neck: Supple, No JVD Cardiovascular: Normal S1, Normal S2, No Murmurs Lungs: Clear to Auscultation, Normal Air Movement Abdomen: Normal Bowel Sounds, Soft, No Tenderness Neurological: Normal Gait, Normal Speech, Strength at 5/5 X4 Ext, Normal Tone, Sensation Intact Extremities: No Clubbing, No Cyanosis Current Medications: Current Medications Sig/Milagros Start time Last Medication Dose Route Stop Time Status Admin Amlodipine Besylate 10 MG DAILY 02/08 1000 DCD 02/15 PO 0829 Azithromycin 500 MG Q24H 02/13 1600 DC 02/14 Dextrose/Water 250 ML IV 1848 Ceftriaxone Sodium 1,000 MG Q24H 02/13 1600 DC 02/14 IV 1721 Citalopram 10 MG DAILY 02/08 1000 DCD 02/15 Hydrobromide PO 0828 Clonidine 0.1 MG QPM 02/08 2200 DCD 02/14 PO 2151 Epoetin Toribio 10,000 UNIT ONCE A WEEK 02/15 1000 DCD 02/15 SC 0958 Ferric Sodium 125 MG Q24H 02/08 1600 DCD 02/14 Gluconate Complex IV 02/15 1659 1719 Sodium Chloride 100 ML Furosemide 100 MG 7:30 AM, & 4:30 PM 02/12 1630 DCD 02/15 IV 0828 Metolazone 2.5 MG DAILY 02/13 1259 DCD 02/15 PO 0828 Metoprolol Tartrate 50 MG BID 02/08 1000 DCD 02/15 PO 0829 Ramelteon 8 MG AT BEDTIME 02/07 2330 DCD 02/11 PO 2206 Warfarin Sodium 3 MG ONCE ONE 02/15 1300 DC 02/15 PO 02/15 1301 1346 Warfarin Sodium 4 MG COUMADIN 1700 ONE 02/14 1700 DC 02/14 PO 02/14 1701 1722 Last 24 Hrs of Lab/Jodren Results Last 24 Hrs of Labs/Mics: Laboratory Tests 02/15/18 0655: Anion Gap 19 H, Estimated GFR 5 L, BUN/Creatinine Ratio 12.6, PT 20.8 H, INR 1.90 H, CBC w Diff NO MAN DIFF REQ, RBC 2.80 L, MCV 83.5, MCH 28.9, MCHC 34.6, RDW 15.8 H, MPV 8.8, Gran % 77.9 H, Lymphocytes % 6.6 L, Monocytes % 10.1 H, Eosinophils % 5.0, Basophils % 0.4, Absolute Granulocytes 7.7 H, Absolute Lymphocytes 0.6 L, Absolute Monocytes 1.0 H, Absolute Eosinophils 0.5, Absolute Basophils 0 Assessment/Plan Assessment: Patient is 52-year-old morbidly obese gentleman with PMH significant for HTN, CKD, chronic bilateral lower extremity edema , A.fib on anticoagulation and anxiety came in with chief complaint of worsening fatigue, shortness of breath, lethargy, dizziness and slightly worsening bilateral lower extremity edema, cough and cold-like symptoms for last couple of days. Patient traveled to [place] almost 3 months ago. He flew over [facility] back in 3-4 days. He had cold prior to that traveled. He was recently diagnosed with atrial fibrillation by his PCP and was started on Coumadin by Dr. Small. Problem list 1. Community acquired pneumonia 2. Symptomatic anemia secondary to inflammatory anemia 3. MARJAN on CKD 4. History of hypertension 5. History of atrial fibrillation on anticoagulation 6. 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 Requested records. we will monitor for now, given this has been going on chronically and patient had been adamant about dialysis. His renal ultrasound did reveal simple renal cysts without any obstruction. HbSab negative. Started on IV Iron and Epogen for inflammatory anemia. Diuresed with IV lasix 100mg BID for the past few days. stable for discharge today. He needs AVF placement as outpatient with . (he knew this ahead of time). He is scheduled tomorrow. I personally called his office and informed that he got discharged. Symtomatic Anemia He is desaturating to 86% on RA with ambulation requiring 2L, tachycardic. Iron studies represent inflammatory anemia. Transfused 1 unit PRBC. H&H improved from 7.3/ to 8.2/ Community acquired pneumonia No smoking/h/o lung disease.. Negative cultures. Restarted home diuretic regimen. Increased oxygen requirement after a unit of transfusion. Completed 7 day course of antibiotics. HTN continue amlodipine 10mg daily A.fib Continue Warfarin 2mg for anticoagulation INR - 1.91 today. Continue metoprolol tartarate 50mg BID. DVT prophylaxis warfarin - INR-1.8. received 3mg dose today in the hospital. code status full code Problem List: 1. Acute on chronic renal failure 2. Symptomatic anemia 3. Pneumonia Pain Ratin Pain Location: n/a Pain Goal: Pain 4 or less Pain Plan: tyelnol prn Tomorrow's Labs & Rationales: none.
[2018-02-15 08:02] LABS: ABSOLUTE BASOPHIL COUNT 0 /CUMM (0.0-0.2); ABSOLUTE EOSINOPHIL COUNT 0.5 /CUMM (0.0-0.7); ABSOLUTE GRANULOCYTE CT 7.7 /CUMM (1.4-6.5); ABSOLUTE LYMPH COUNT 0.6 /CUMM (1.2-3.4); BASOPHIL % 0.4 % (0.0-2.0); GRANULOCYTE % 77.9 % (42.2-75.2); HEMATOCRIT 23.3 % (42-52); MEAN CORPUSCULAR HGB 28.9 PG (27.0-31.0); MEAN CORPUSCULAR HGB CONC 34.6 G/DL (33.0-37.0); MEAN CORPUSCULAR VOLUME 83.5 FL (80.0-94.0); MEAN PLATELET VOLUME 8.8 FL (7.4-10.4); PLATELET COUNT 187 /CUMM (130-400); RBC DISTRIBUTION WIDTH 15.8 % (11.5-14.5); WHITE BLOOD CELL COUNT 9.9 /CUMM (4.8-10.8)
[2018-02-15 08:20] LABS: PT 20.8 SEC (9.4-12.5)
[2018-02-15 08:29] VITALS: BP 146/78
== END 2018-02-15 14:32 | disposition home health service (06) | DRG 193 ==
LOC: ERH 19:16 → 2NA 20:44 → ERHI 20:44 → ENRESERV 21:59 → ENTRNSPT 22:34 → EDTRNSPTSTS 22:39 → EDTRNSPT 22:44 → 2NA 22:58 → CMPTRNSPT 23:08 → 2NA 02-08 08:32 → ENPENDDIS 02-15 12:02 → ENTRNSPT 02-15 14:06 → EDTRNSPT 02-15 14:10 → EDTRNSPTSTS 02-15 14:10 → CMPTRNSPT 02-15 14:28 → 2NA 02-15 14:32
PROVIDERS: Emergency Medicine; Internal Medicine; Student in an Organized Health Care Education/Training Program
PROC: 30233N1 Transfusion of Nonautologous Red Blood Cells into Peripheral Vein, Percutaneous Approach (ICD-10-PCS; principal; 2018-02-10)
DX: J18.9 Pneumonia, unspecified organism (principal); J96.01 Acute respiratory failure with hypoxia; I12.0 Hypertensive chronic kidney disease with stage 5 chronic kidney disease or end stage renal disease; N17.9 Acute kidney failure, unspecified; E87.3 Alkalosis; I48.2 Chronic atrial fibrillation; E66.01 Morbid (severe) obesity due to excess calories; E87.2 Acidosis; E83.51 Hypocalcemia; N18.5 Chronic kidney disease, stage 5; Z68.41 Body mass index [BMI] 40.0-44.9, adult; Z79.01 Long term (current) use of anticoagulants; F32.9 Major depressive disorder, single episode, unspecified; D64.9 Anemia, unspecified; R22.43 Localized swelling, mass and lump, lower limb, bilateral; E87.70 Fluid overload, unspecified; D63.1 Anemia in chronic kidney disease
CPT/HCPCS: 2NAP; 84133; 84300; 36415; 36592; 71045; 71046; 74176; 76775; 78582; 81001; 82436; 82570; 86920; 87040; 93005; 93010; 93970; A9540; A9558; J0456; J0696; J0885-EC; J1940; J3490; J7060; P9016

== ENCOUNTER 2018-02-28 02:59 | Inpatient (IN) | payer OTHER ==
[~2018-02-28] VITALS: Ht 180.3 cm; Wt 119.5 kg
[~2018-02-28 02:59] MED LIST: AMLODIPINE BESY10 M1 PO; AUGMENTIN 500-1 EACH PO; AUGMENTIN 875-1 EACH PO; CITALOPRAM HBR10 MG PO; CLONIDINE HCL0.1 MG PO; COUMADIN1 M1 PO; FERROUS SULFAT325 M3 PO; METOLAZONE2.5 M1 PO; METOPROLOL TART50 M1 PO; TORSEMIDE20 M1 PO
--- NOTE | 2018-02-28 03:19 | ED DYSPNEA/ASTHMA COMPLAINT ---
History of Present Illness General Chief Complaint: Chest Pain Stated Complaint: CP,DIFF BREATHING Source: patient, family, old records Exam Limitations: no limitations Vital Signs & Intake/Output Vital Signs & Intake/Output Vital Signs Date Time Temp Pulse Resp B/P B/P Pulse O2 O2 Flow FiO2 Mean Ox Delivery Rate 02/28 0510 140 02/287 129 136/68 02/29 312 97.6 123 28 149/90 88 Room Air Room Air 02/28 031 88 Room Air Allergies Coded Allergies: No Known Allergies (02/07/18) Reconcile Medications Amlodipine Besylate 10 MG TABLET 1 TAB PO DAILY HIGH BLOOD PRESSURE (Reported ) Citalopram Hydrobromide (Citalopram HBr) 10 MG TABLET 1 TAB PO DAILY ANXIETY (Reported) Clonidine HCl 0.1 MG TABLET 1 TAB PO QPM HIGH BLOOD PRESSURE (Reported) Ferrous Sulfate 325 MG (65 MG IRON) TABLET 1 TAB PO DAILY BLOOD HEALTH Metolazone 2.5 MG TABLET 1 TAB PO DAILY KIDNEY HEALTH (Reported) Metoprolol Tartrate 50 MG TABLET 1 TAB PO BID HIGH BLOOD PRESSURE (Reported) Sevelamer Carbonate (Renvela) 800 MG TABLET 2 TAB PO TID ESRD (Reported) Torsemide 20 MG TABLET 1 TAB PO DAILY DIURETIC (Reported) Warfarin Sodium (Coumadin) 1 MG TABLET 1 TAB PO DAILY BLOOD THINNER (Reported ) 1 TAB THU- THURSDAY 0.5 TAB THU AND Core Measure Meds Pre-Hospital coumadin Triage Note: 52yo MALE TO RM 2 FROM [place] W/CO SOB, CP THAT BEGAN 20MIN AGO. STATES SOB BEGAN 1999 AND HE "TRIED HIS HOME . "RECENT ADMISSION FOR CHF AND HAS BEEN OFF O2 SINCE GOING HOME" Triage Nurses Notes Reviewed? yes Onset: Just prior to arrival Duration: hour(s):, constant, continues in ED Timing: recent history Severity: moderate, severe Activities at Onset: rest Prior Episodes/Possible Cause: occasional episodes Modifying Factors: Improves With: rest, other (oxygen). Worsens With: movement. Associated Symptoms: cough, chest pain, weakness HPI: 4 days prior to admission patient reports recurrence of productive cough. 1 day prior to admission patient reports not taking his daily meds. 5 hours prior to admission patient complains of increasing shortness of breath substernal chest discomfort described as tight nonradiating constant. Shortness of breath is improved with use of oxygen that he discontinue 10 days ago. He denies fever chills nausea vomiting diarrhea abdominal pain headache dysuria rash bleeding.. Past History Travel History Traveled to [place] past 21 day No Medical History Any Pertinent Medical History? 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 No Review of Systems Review of Systems Constitutional: Reports: see HPI. EENTM: Reports: no symptoms. Respiratory: Reports: see HPI, cough, short of breath, sputum production. Cardiovascular: Reports: see HPI, chest pain. GI: Reports: no symptoms. Genitourinary: Reports: no symptoms. Musculoskeletal: Reports: no symptoms. Skin: Reports: no symptoms. Neurological/Psychological: Reports: no symptoms. Hematologic/Endocrine: Reports: no symptoms. Immunologic/Allergic: Reports: no symptoms. All Other Systems: Reviewed and Negative Physical Exam Physical Exam General Appearance: well developed/nourished, alert, awake, moderate distress, obese Head: atraumatic, normal appearance Eyes: Bilateral: normal appearance, PERRL, EOMI. Ears, Nose, Throat: normal pharynx, normal ENT inspection, hearing grossly normal Neck: normal inspection, supple, full range of motion, no midline tenderness Respiratory: normal breath sounds, chest non-tender, decreased breath sounds, crackles Cardiovascular: regular rate/rhythm, normal peripheral pulses, tachycardia, norml femoral pulses equa Peripheral Pulses: 4+ carotid (R), 4+ carotid (L) Gastrointestinal: normal bowel sounds, soft, non-tender, no organomegaly Extremities: normal capillary refill, pedal edema, no ligament instability Neurologic/Psych: no motor/sensory deficits, awake, alert, oriented x 3, normal mood/affect, accountant budget II-XII nml as tested Skin: intact, normal color, warm/dry Lymphatic: no anterior cervical bina Core Measures ACS in differential dx? Yes No ASA d/t Pharmacological CI CVA/TIA Diagnosis No Sepsis Present: No Sepsis Focused Exam Completed? No Progress Differential Diagnosis: bronchitis, CHF, COPD, pneumonia Plan of Care: Orders Procedure Date/time Status Renal Dialysis Diet 02/28 B Active TROPONIN LEVEL 02/28 1500 Active EKG 02/28 1500 Active TROPONIN LEVEL 02/28 0900 Active EKG 02/28 0900 Active Intake & Output 02/28 0551 Active RAPID VIRAL INFLUENZA A 02/28 0530 Active Lab Add-on Test 02/28 0450 Active Pathway - chart 02/28 044 Active House Staff 02/28 0445 Active LOWER RESPIRATORY CULTURE 02/28 044 Active URINALYSIS 02/28 0445 Complete Code Status 02/28 0445 Active Patient Data 02/28 0439 Active OXYGEN SETUP (GEN) 02/28 0416 Active Saline Lock 02/28 0416 Active Admit to inpatient 02/28 0416 Active Vital Signs 02/28 0416 Active Activity/Ambulation 02/28 0416 Active BLOOD CULTURE 02/28 0416 Active Code Status 02/28 0416 Complete BLOOD CULTURE 02/28 0322 Active PHOSPHORUS 02/28 0313 Complete XRY-PORTABLE CHEST XRAY 02/28 0310 Complete TROPONIN LEVEL 02/28 0310 Complete PROTHROMBIN TIME 02/28 0310 Complete MAGNESIUM 02/28 0310 Complete LIPASE 02/28 0310 Complete D-DIMER 02/28 0310 Complete COMPREHENSIVE METABOLIC PANEL 02/28 0310 Complete CBC WITHOUT DIFFERENTIAL 02/28 0310 Complete B-TYPE NATRIURETIC PEP (BNP) 02/28 0310 Complete AMYLASE 02/28 0310 Complete EKG 02/28 0300 Active TRC EVALUATION (GEN) 02/28 UNK Active VTE Mechanical Prophylaxis 02/28 UNK Active Current Medications Sig/Milagros Start time Last Medication Dose Stop Time Status Admin Azithromycin 500 MG ONCE ONE 02/28 615 UNVr (Zithromax) 02/28 0714 Dextrose/Water 250 ML (D5W) Diltiazem HCl 125 MG Q24H 02/28 0615 UNVr (Cardizem DRIP) Sodium Chloride 100 ML (Normal Saline 0.9%) Laboratory Tests 02/28/18 0550: Urine Color YEL, Urine Clarity CLEAR, Urine pH 6.0, Ur Specific Social Circle 1.025, Urine Protein >=300 H, Urine Ketones NEG, Urine Nitrite NEG, Urine Bilirubin NEG, Urine Urobilinogen 0.2, Ur Leukocyte Esterase NEG, Ur Microscopic SEDIMENT EXAMINED, Urine RBC 1-3, Urine WBC 5-10 H, Urine Bacteria MANY H, Urine Hemoglobin SMALL H, Urine Glucose NEG 02/28/18 0313: Anion Gap 24 H, Estimated GFR 5 L, BUN/Creatinine Ratio 13.1, Glucose 104 H, Calcium 7.7 L, Phosphorus > 13.0 H, Magnesium 1.9, Total Bilirubin 0.6, AST 18 , ALT 45, Alkaline Phosphatase 101, Troponin I 0.01, [id number] Pept 11074.0 H, Total Protein 6.4, Albumin 3.3 L, Globulin 3.1, Albumin/Globulin Ratio 1.1, Amylase 170 H, Lipase 752 H, PT 19.8 H, INR 1.81 H, D-Dimer High Sensitivty 472 H, CBC w Diff NO MAN DIFF REQ, RBC 2.99 L, MCV 84.4, MCH 27.6, MCHC 32.7 L, RDW 16.4 H, MPV 8.1, Gran % 82.6 H, Lymphocytes % 5.7 L, Monocytes % 7.6, Eosinophils % 3.9, Basophils % 0.2, Absolute Granulocytes 9.5 H, Absolute Lymphocytes 0.7 L, Absolute Monocytes 0.9 H, Absolute Eosinophils 0.5, Absolute Basophils 0 Microbiology 02/28 0530 NASOPHARYN: Influenza Virus A & B Rapid Smear - ORD 02/28 045 BLOOD: Blood Culture - RECD 02/28 445 LOWER RESP: Respiratory Culture - ORD 02/28 445 LOWER RESP: Gram Stain - ORD 02/28 0340 BLOOD: Blood Culture - RECD Diagnostic Imaging: Viewed by Me: Radiology Read. Discussed w/RAD: Radiology Read. CXR Impression: Interstitial prominence with increased bibasilar opacities. This could represent interstitial edema with alveolar edema. Pneumonia also a consideration. Initial ED EKG: AFIB, nonspecific ST T wave chg Prior EKG: changed Rhythm Strip: atrial fibrillation Departure Departure Time of Disposition: 438 Disposition: STILL A PATIENT Condition: Fair Clinical Impression Primary Impression: ESRD needing dialysis Secondary Impressions: Atrial fibrillation with rapid ventricular response, Elevated amylase and lipase, Pneumonia Referrals: Rachael CANNON,Seth Melara (PCP/Family) Departure Forms: Customer Survey General Discharge Information Admission Note Spoke With: Hever Webber MD Documentation of Exam: Documentation of any treatments & extenuating circumstances including Concerns Regarding Discharge (functional status, medication knowledge or non-compliance, living conditions, etc.) that warrant an admission rather than observation: Cardiac monitoring supplemental oxygen serial lab exam follow cultures IV antibiotics IV diuresis renal evaluation medication adjustment continuing care discharge planning Critical Care Note Critical Care Note Critical Care Time: 30-74 min (45)
[2018-02-28 03:24] LABS: ABSOLUTE BASOPHIL COUNT 0 /CUMM (0.0-0.2); ABSOLUTE EOSINOPHIL COUNT 0.5 /CUMM (0.0-0.7); ABSOLUTE GRANULOCYTE CT 9.5 /CUMM (1.4-6.5); ABSOLUTE LYMPH COUNT 0.7 /CUMM (1.2-3.4); ABSOLUTE MONOCYTE COUNT 0.9 /CUMM (0.10-0.60); BASOPHIL % 0.2 % (0.0-2.0); EOSINOPHIL % 3.9 % (0-5); GRANULOCYTE % 82.6 % (42.2-75.2); HEMATOCRIT 25.3 % (42-52); MEAN CORPUSCULAR HGB 27.6 PG (27.0-31.0); MEAN CORPUSCULAR HGB CONC 32.7 G/DL (33.0-37.0); MEAN CORPUSCULAR VOLUME 84.4 FL (80.0-94.0); MEAN PLATELET VOLUME 8.1 FL (7.4-10.4); PLATELET COUNT 264 /CUMM (130-400); RBC DISTRIBUTION WIDTH 16.4 % (11.5-14.5); RED BLOOD CELL CT 2.99 /CUMM (4.70-6.10); WHITE BLOOD CELL COUNT 11.5 /CUMM (4.8-10.8)
[2018-02-28 03:35] LABS: PT 19.8 SEC (9.4-12.5)
--- NOTE | 2018-02-28 04:10 | RADIOLOGY REPORT ---
EXAMINATION: XR PORTABLE CHEST CLINICAL INFORMATION: Shortness of breath. COMPARISON: 02/12/2018 TECHNIQUE: Portable frontal view of the chest was obtained. FINDINGS: Lung volumes are low. There are bibasilar opacities present which appear increased from prior. Interstitial prominence. No pleural effusion or pneumothorax. The cardiomediastinal silhouette remains prominent. IMPRESSION: Interstitial prominence with increased bibasilar opacities. This could represent interstitial edema with alveolar edema. Pneumonia also a consideration.
--- NOTE | 2018-02-28 04:42 | History & Physical ---
Will Willis MD 02/28/18 0441: General Information and HPI MD Statement: I have seen and personally examined SAMRA PERALTA and documented this H&P. The patient is a 52 year old M who presented with a patient stated chief complaint of chest pain, cough, and dyspnea. Source of Information: patient, old records Exam Limitations: no limitations History of Present Illness: 52 year old male with past medical history significant for morbid obesity, hypertension, end stage renal disease from hypertensive nephropathy, atrial fibrillation on coumadin, chronic bilateral lower extremity edema, and recently discharged for community acquired pneumonia and symptomatic anemia requiring one unit blood transfusion presents with complaints of chest pain, cough, shortness of breath and hypoxia. The patient was doing well after discharge. He was discharged on supplemental oxygen but responded well to diuresis and was able to wean off oxygen a week after discharge. His lower extremity edema was improving until Thursday morning, the patient forgot to take his daily medications because he had company over. He subsequently developed dyspnea at rest, productive cough, and chest pain. The describes the chest pain originally at right sided mid axillary line and pleuritic in nature worsened with coughing and deep breathing. He developed a cough was productive of clear/white mucous suddenly today. He states he had two episodes of emesis today, vomited up mucous he was coughing. After vomiting, his chest pain moved from right sided to retrosternal , described as sharp, nonradiating, similar to indigestion. He denies any nausea or abdominal pain. He denies any orthopnea, fevers, chills, rhinorrhea, sore throat, nasal congestion or post nasal drip. In the emergency department, he went into rapid atrial fibrillation and was given 10mg IV cardizem, in addition to sublingual nitroglycerin, vancomycin, ceftazidime, pepcid, reglan, furosemide, and metolazone. The patient was admitted to telemetry for further management. Allergies/Medications Allergies: Coded Allergies: No Known Allergies (02/07/18) Compliance With Home Meds: FAIR Past History Travel History Traveled to [place] past 21 day No Medical History Neurological: NONE EENT: NONE Cardiovascular: AFIB, hypertension, ?CHF Respiratory: NONE Gastrointestinal: NONE Hepatic: NONE Renal: ESRD Musculoskeletal: NONE Psychiatric: depression Endocrine: NONE Blood Disorders: NONE Cancer(s): NONE HOG GRADER/Reproductive: NONE History of MRSA: No History of VRE: No History of CDIFF: No Surgical History Surgical History: none Past Family/Social History Psychosocial History Services at Home: None Functional Ability ADLs Independent: dressing, eating, toileting, bathing. Ambulation: independent Review of Systems Review of Systems Constitutional: Denies: chills, diaphoresis, fever, malaise. EENTM: Reports: no symptoms. Cardiovascular: Reports: chest pain, peripheral edema. Denies: palpitations, syncope. Respiratory: Reports: cough, short of breath, sputum production. GI: Reports: bloating, distention, vomiting. Denies: constipation, diarrhea, nausea. Genitourinary: Reports: frequency. Denies: dysuria. Musculoskeletal: Reports: no symptoms. Skin: Reports: no symptoms. Neurological/Psychological: Reports: no symptoms. Hematologic/Endocrine: Reports: no symptoms. Immunologic/Allergic: Reports: no symptoms. All Other Systems: Reviewed and Negative Exam & Diagnostic Data Last 24 Hrs of Vital Signs/I&O Vital Signs Date Time Temp Pulse Resp B/P B/P Pulse O2 O2 Flow FiO2 Mean Ox Delivery Rate 02/28 0357 129 136/68 02/28 031 97.6 123 28 149/90 88 Room Air Room Air 02/28 0310 88 Room Air Intake & Output 02/28 0800 02/28 0000 02/27 1600 Intake Total Output Total Balance Patient 129.274 kg Weight Physical Exam General Appearance Alert, Oriented X3, Cooperative, Moderate Distress, moderate respiratory distress, tachypnea RR 26, on 2.5L NC o2 Skin Temp/Moisture Exam: Warm/Dry Sepsis Skin Exam (color): Normal for Ethnicity Neck Supple, No JVD Cardiovascular irregularly irregular, tachycardic, no murmurs, exam limited by RVR Lungs diminished bibasilar, transmitted upper airway sounds Abdomen Normal Bowel Sounds, Soft, No Tenderness, No Masses, distended but soft, tympany on percussion Extremities No Clubbing, No Cyanosis, Normal Pulses, some lower extremity edema but mild pitting Sepsis Peripheral Pulse Location: Radial Sepsis Peripheral Pulse Exam: Normal Sepsis Cap Refill Exam: <2 Sec Last 24 Hrs of Labs/Jorden: Laboratory Tests 02/28/18 0313: Anion Gap 24 H, Estimated GFR 5 L, BUN/Creatinine Ratio 13.1, Glucose 104 H, Calcium 7.7 L, Magnesium 1.9, Total Bilirubin 0.6, AST 18, ALT 45, Alkaline Phosphatase 101, Troponin I 0.01, Kdz-[id number]-Cudrdmjgjza Pept 58390.0 H, Total Protein 6.4, Albumin 3.3 L, Globulin 3.1, Albumin/Globulin Ratio 1.1, Amylase 170 H, Lipase 752 H, PT 19.8 H, INR 1.81 H, D-Dimer High Sensitivty 472 H, CBC w Diff NO MAN DIFF REQ, RBC 2.99 L, MCV 84.4, MCH 27.6, MCHC 32.7 L, RDW 16.4 H, MPV 8.1, Gran % 82.6 H, Lymphocytes % 5.7 L, Monocytes % 7.6, Eosinophils % 3.9, Basophils % 0.2, Absolute Granulocytes 9.5 H, Absolute Lymphocytes 0.7 L, Absolute Monocytes 0.9 H, Absolute Eosinophils 0.5, Absolute Basophils 0 Microbiology 02/28 0416 BLOOD: Blood Culture - ORD 02/28 034 BLOOD: Blood Culture - RECD Diagnostic Data EKG Results sinus tachycardia, HR 140s, qtc 490 CXR Results Lung volumes are low. There are bibasilar opacities present which appear increased from prior. Interstitial prominence. No pleural effusion or pneumothorax. The cardiomediastinal silhouette remains prominent. Assessment/Plan Assessment: 52 year old male with past medical history significant for morbid obesity, hypertension, end stage renal disease from hypertensive nephropathy, atrial fibrillation on coumadin, chronic bilateral lower extremity edema, and recently discharged for community acquired pneumonia and symptomatic anemia requiring one unit blood transfusion presents with complaints of chest pain, cough, shortness of breath and hypoxia for one day after missing his daily medications. Atypical pleuritic chest pain: Check serial troponins and EKGs to evaluate for myocardial ischemia Cardiology consultation (Staci) Check echocardiogram or obtain records if performed recently Rapid atrial fibrillation: Given 10mg diltiazem in the ED with improved rate control Start diltiazem gtt at 2.5mg/hr Resume metoprolol 50mg PO BID Continue coumadin, goal INR 2-3 High anion gap metabolic acidosis: Likely secondary to renal insufficiency Serum bicarbonate 12, lower than all previous blood work Patient refusing arterial blood gas Check VBG for pH Start sodium bicarbonate Discussed with nephrology Acute hypoxemic respiratory failure: Multifactorial-health care associated pneumonia, volume overload, and atrial fibrillation Probable respiratory compensation for severe metabolic acidosis Given ceftazidime and vancomycin (renally dosed) in the ED Pneumonia less likely-afebrile, nonpurulent, recently treated with azithro/ ceftriaxone Low threshold to discontinue antibiotics Follow up blood and sputum cultures Check strep pneumo and legionella urinary antigens Check x-ray two views vs CT chest-previous chest x-rays more suggestive of overload Continue supplemental oxygen TRC evaluation/nebulizers ESRD: Nephrology consultation Start phosphate binder and sodium bicarbonate Awaiting fistula surgery with vascular surgery in [place] for planned hemodialysis May need inpatient HD for refractory metabolic acidosis and tachypnea with overload Continue diuresis with Abdominal distention: Amylase and lipase elevated No complaints of abdominal pain currently Repeats LFTs, amylase, and lipase Consider RUQ ultrasound Hypertension: Continue clonidine and metoprolol Continue diuretics-torsemide and metolazone Renal dialysis diet DVT ppx-on coumadin Full code As Ranked By This Provider Problem List: 1. Acute respiratory failure with hypoxia 2. ESRD needing dialysis Core Measures/Misc (08/09) Acute Coronary Syndrome ACS Diagnosis: No Congestive Heart Failure Congestive Heart Failure Diagnosis Yes Last Known EF % 0 (unknown) No KIA/ARB d/t Renal Failure/Azotemia Cerebrovascular Accident CVA/TIA Diagnosis: No VTE (View Protocol) VTE Risk Factors Age>40 No Mechanical VTE Prophylaxis d/t N/A MechProphylax Ordered No VTE Pharm Prophylaxis d/t NA PharmProphylax ordered Sepsis (View protocol) Sepsis Present: No Hever Webber MD 02/28/18 0524: General Information and HPI Allergies/Medications Home Med list Amlodipine Besylate 10 MG TABLET 1 TAB PO DAILY HIGH BLOOD PRESSURE (Reported ) Citalopram Hydrobromide (Citalopram HBr) 10 MG TABLET 1 TAB PO DAILY ANXIETY (Reported) Clonidine HCl 0.1 MG TABLET 1 TAB PO QPM HIGH BLOOD PRESSURE (Reported) Ferrous Sulfate 325 MG (65 MG IRON) TABLET 1 TAB PO DAILY BLOOD HEALTH Metolazone 2.5 MG TABLET 1 TAB PO DAILY KIDNEY HEALTH (Reported) Metoprolol Tartrate 50 MG TABLET 1 TAB PO BID HIGH BLOOD PRESSURE (Reported) Sevelamer Carbonate (Renvela) 800 MG TABLET 2 TAB PO TID ESRD (Reported) Torsemide 20 MG TABLET 1 TAB PO DAILY DIURETIC (Reported) Warfarin Sodium (Coumadin) 1 MG TABLET 1 TAB PO DAILY BLOOD THINNER (Reported ) 1 TAB THU- THURSDAY 0.5 TAB THU AND Attending MD Review Statement Attending Statement Attending MD Statement: examined this patient, discuss w/resident/PA/BALCONY WORKER, agreed w/resident/PA/BALCONY WORKER, reviewed EMR data (avail) Attending Assessment/Plan: Mr. Peralta is a 52 year old morbidly obese male with hypertension, ESRD (patient is supposed to be evaluated by vas sx for fistula), A. Fib on metoprolol and coumadin, chronic bilateral lower extremity edema, and recently discharged for community acquired pneumonia and symptomatic anemia requiring one unit blood transfusion 2 weeks ago presents with complaints of chest pain, cough, shortness of breath and hypoxia. Found to be in rapid A. Fib. Patient appears to be overwhelmed and has not been taking any medications for the past 2 days. On examination - BP - 148/90, HR of 130, RR of 28. patient appears to be in mild respiratory distress. Awake, alert. Cardiovascular - s1, s2 tachycardic irregular, Bilateral expiratory wheeze on respiratory examination, no focal neurological deficits noted, abdomen soft, non tender, pulses bilaterally intact Assessment 1. Acute Hypoxic respiratory failure - HCAP/ Volume overload 2. A. fib with a rapid ventricular rate with chest pain - on coumadin 3. Elevated anion gap metabolic acidosis 4. ESRD - waiting for Vascular surgery evaluation for fistula 5. Anxiety Plan Continue with oxygen supplementation. Low threshold for Bipap initiation and ICU transfer Recommend ABG, patient refuses - will obtain VBG to assess for compensation. Trend serial troponins and EKG - Cardiology consultation Initiate Cardizem infusion. Continue with current diuretic doses of Metolazone and Torsemide Treat HCAP and cover for atypicals for now - Vanc, Ceftaz and Azithro. Abx can be dc'd once more stable. TRC evaluation Will discuss with Nephrology - start NaHCO3 tablets Continue with coumadin. Respiratory distress provoked by anxiety - low doses ativan helpful [facility] 02/28/[facility] 0708: Resident Review Statement Resident Statement: examined this patient, discussed with manager international, agreed with manager international Other Findings: HPI 52/M with PMHx of HTN, ESRD, A.fib on warfarin, who was discharged 2 weeks ago after he was treated for CAP with ceftriaxone and azithromycin, presented today complaining of one day of SOB, cough productive of white-yellow sputum and substernal chest pain. Pain is sharp, nonradiating, worse with cough and to watch and does not change with change in position. The patient had 2 episodes of nonbloody mucousy vomiting one prior to ED visit and the second one while in the ED. The patient reports feeling anxious and had a panic attack while in the ED. Vitals and physical exam on admission: BP 140s/90s, HR 120s-140s, RR 28, saturating lower 90 on 2 L oxygen. Physical Exam: A & O X3, mildly distressed and morbid obese. CVS: Regular, normal S1/S2, 2/6 systolic murmur without rubs or gallops. Resp diffuse scattered wheezing and rhonchi with diminished air entry over lung bilaterally. Abd soft, nondistended, nontender X4. LE no edema or cyanosis Labs and imaging on admission: Leukocytosis up to 11.5, H&H 8.3 and 25, INR 1.8(subtherapeutic). Sodium, potassium, and magnesium are within normal limits. Very mild corrected calcium 8.1. Creatinine 11.2 and BUN 147. Anion gap 24 and carbon dioxide 12. BNP 54257 (but ESRD), amylase 170 and lipase 752. CXR: Interstitial prominence with increased bibasilar opacities. This could represent interstitial edema with alveolar edema. Pneumonia also a consideration. Assessment: Patient presents with a pleuritic sharp chest pain, he has cough productive of white-yellow sputum. Based on chest pain quality it's unlikely to be ACS. X- ray cannot exclude pneumonia. He was given 1 dose of IV vancomycin and cefazolin in the ED. The patient is a afebrile with mild leukocytosis and indeterminant chest x-ray. He is in A. fib with RVR. Unlikely volume overloaded as he reports significant polyuria and resolved lower extremity edema. Pulmonary edema on x-ray possibly secondary to A. fib with RVR. By controlling A.fib pulmonary edema should resolved and if not, he still makes urine and diuretics can be employed until dialysis recommended by nephrology( HD was planed in 2 weeks). Tachypnea most likely is a respiratory compensation for anion gap metabolic acidosis (ESRD). Even hard to accomplish in the presence of pulmonary edema ( less Co2 wash out), in turn more tachypnea. By administrating bicarb blood Ph should correct, less need for compensation, tachypnea improves, so respiratory failure improves. The patient may be has infection process going, If hospital HAP pneumonia to be consider, we may need CT chest to further evaluate presenting indeterminant chest x-ray, in order to justify placing ESRD patient on the risk of side effects that comes with such strong antibiotics (eg vanco on ESRD). The pleuritic chest pain may be 2/2 infection process or possibly just costochondritis caused by cough. Pericarditis is possible but unlikely given no rub on physical exam and position independent chest pain, however uremia pericarditis need to be ruled out, so echo and cardio consult warranted. Plan #Atypical pleuritic chest pain * Monitoring telemetry and rule out ACS * Echocardiogram * Cardiology consult * Pain management as needed #Acute hypoxemic respiratory failure * Already received IV Vanco, ceftaz, and azithromycin in the ED * May benefit from CT chest given indeterminant chest x-ray before continuing abx * Flu, strep and Legionella urine * TRC evaluation/nebulizers * Check Vanco level before continuing vancomycin if the plan is to continue #Atrial fibrillation with RVR with subtherapeutic INR * Patient did not take his medication on the day prior to admission * Cardizem drip at straight 5 mg * Continue metoprolol 50 mg twice a day * Dose coumadin 1.5 mg once followed by 1 mg daily dose after confirming the need for brandy cath placement in am first. * INR daily ESRD with high anion gap metabolic acidosis * VBG bc pt refused ABG * Continue diuretics-torsemide 20mg/d and metolazone * Strict I/Os and daily weights * Sodium bicarbonate 150 meq in D5W @ rate of 60 ml/h as understood from nephrology over the phon * Continue sevelamer carbonate * Repeat BEP in 12 hours * Nephrology consult placed #Hypertension * Continue clonidine * Continue amlodipine #And anxiety/panic attacks * Received Ativan in the ED for panic attack * Continue home dose of citalopram -NPO -DVT ppx-on coumadin -Full code
[2018-02-28] MEDS ORDERED: RENVELA800 M1 PO (05:49)
[2018-02-28 07:08] VITALS: BP 154/90
--- NOTE | 2018-02-28 08:47 | PN- Housestaff ---
Maira Armenta 02/28/18 0846: Subjective Follow-up For: ESRD with anion gap metabolic acidosis ACute hypoxic resp failure A fib with RVR HTN anxiety Subjective: Patient feels better than yesterday however his numbers look worse. He has a pericardial rub on examination, a suspicion for uremic pericarditis. Plan is to urgently place yomaira cath today and do hemodialysis. Patient denies any SOB, Chest pain, abdominal discomfort etc. Review of Systems Constitutional: Reports: see HPI. Cardiovascular: Reports: see HPI. Respiratory: Reports: see HPI. Objective Last 24 Hrs of Vital Signs/I&O Vital Signs Date Time Temp Pulse Resp B/P B/P Pulse O2 O2 Flow FiO2 Mean Ox Delivery Rate 02/28 1756 98.7 121 20 162/94 97 Nasal 3.5L Cannula 02/28 1345 98.0 107 22 158/90 93 Nasal Cannula 02/28 1100 Nasal 3.0L Cannula 02/28 1000 107 158/90 02/28 0800 94 Nasal 3.0L Cannula 02/28 0708 98.3 125 24 154/90 92 Nasal 2.0L Cannula 02/28 0705 Nasal 3.0L Cannula 02/28 0510 140 02/28 0357 129 136/68 02/28 0312 97.6 123 28 149/90 88 Room Air Room Air 02/28 0310 88 Room Air Intake & Output 02/28 1600 08 0800 02/28 0000 Intake Total 200 350 Output Total 450 350 Balance -250 0 Intake, IV 150 Intake, Oral 200 200 Output, Urine 450 350 Patient 133.356 kg Weight Weight Reported by Patient Measurement Method Physical Exam General Appearance: Alert, Oriented X3, Mild Distress Skin: No Rashes HEENT: Atraumatic Neck: Supple Cardiovascular: irregular, cardiac rub Lungs: b/l crackles Abdomen: Normal Bowel Sounds, Soft, No Tenderness Extremities: b/llower ext edema Current Medications: Current Medications Sig/Milagros Start time Last Medication Dose Route Stop Time Status Admin Amlodipine Besylate 10 MG DAILY 02/28 1000 AC PO Azithromycin 500 MG ONCE ONE 02/28 615 DC 02/28 Dextrose/Water 250 ML IV 02/28 0714 1121 Ceftazidime 0 .STK-MED ONE 02/29 440 DC .ROUTE Ceftazidime 1,000 MG ONCE ONE 02/28 430 DC 02/28 IV 02/28 043 0519 Citalopram 10 MG DAILY 02/28 1000 AC 02/28 Hydrobromide PO 1035 Clonidine 0.1 MG QPM 02/28 2200 AC PO Diltiazem HCl 0 .STK-MED ONE 02/28 0628 DC .ROUTE Diltiazem HCl 0 .STK-MED ONE 02/28 06 DC .ROUTE Diltiazem HCl 125 MG Q24H 02/28 0615 AC 02/28 Sodium Chloride 100 ML IV 0635 Diltiazem HCl 0 .STK-MED ONE 02/28 0514 DC .ROUTE Diltiazem HCl 10 MG ONCE ONE 02/28 0445 DC 02/28 IV PUSH 02/28 044 0510 Epoetin Toribio 6,000 UNIT ONE ONE 02/28 1500 DC IV 02/28 1501 Famotidine 0 .STK-MED ONE 02/28 0441 DC IV Famotidine 20 MG ONCE ONE 02/28 0430 DC 02/28 IV 02/28 043 0442 Fentanyl Citrate 0 .STK-MED ONE 02/28 1237 DC .ROUTE Ferrous Sulfate 325 MG DAILY 02/28 1000 AC 02/28 PO 1035 Furosemide 100 MG ONCE ONE 02/28 0930 CAN IV 02/28 0931 Furosemide 0 .STK-MED ONE 02/28 0440 DC IV Furosemide 80 MG ONCE ONE 02/28 0430 DC 02/28 IV 02/28 0431 0445 Guaifenesin 600 MG Q12 02/28 1000 AC 02/28 PO 1035 Heparin Sodium 0 .STK-MED ONE 02/28 1213 DC (Porcine) IV Lidocaine 0 .STK-MED ONE 02/28 1232 DC .ROUTE Lidocaine 0 .STK-MED ONE 02/28 1213 DC .ROUTE Lorazepam 1 MG ONCE ONE 02/28 0500 DC 02/28 IV 02/28 0501 0446 Lorazepam 0 .STK-MED ONE 02/28 0454 DC .ROUTE Metoclopramide HCl 0 .STK-MED ONE 02/28 044 DC .ROUTE Metoclopramide HCl 10 MG ONCE ONE 02/28 0430 DC 02/28 IV 02/28 0431 0442 Metolazone 2.5 MG DAILY 02/28 1000 AC PO Metolazone 5 MG ONCE ONE 02/28 0430 DC 02/28 PO 02/28 043 0510 Metoprolol Tartrate 50 MG BID 02/28 1000 AC PO Nitroglycerin 0.4 MG ONCE ONE 02/28 0345 DC 02/28 SL 02/28 034 0333 Ondansetron HCl 4 MG ONCE ONE 02/28 0345 DC 02/28 IV 02/28 034 0338 Ondansetron HCl 0 .STK-MED ONE 02/28 0342 DC .ROUTE Phytonadione 5 MG DAILY 02/28 1100 DC 02/28 PO 02/28 1101 1119 Phytonadione 10 MG ONCE ONE 02/28 1000 CAN IM 02/28 1001 Sevelamer Carbonate 1,600 MG TID 02/28 1000 AC 02/28 PO 1035 Sodium Bicarbonate 150 MEQ Q16H 02/28 0630 AC 02/28 Dextrose/Water 1,000 ML IV 1122 Torsemide 20 MG DAILY 02/28 1000 AC PO Vancomycin HCl 0 .STK-MED ONE 02/28 0441 DC .ROUTE Vancomycin HCl 1,500 MG ONCE ONE 02/28 0430 DC 02/28 Dextrose/Water 250 ML IV 02/28 0559 0535 Last 24 Hrs of Lab/Jorden Results Last 24 Hrs of Labs/Mics: Laboratory Tests 02/28/18 1821: CBC w Diff Pending, WBC Pending, RBC Pending, Hgb Pending, Hct Pending, MCV Pending, MCH Pending, MCHC Pending, RDW Pending, Plt Count Pending, MPV Pending 02/28/18 1500: Anion Gap 20 H, Estimated GFR 5 L, BUN/Creatinine Ratio 13.0, Calcium 7.3 L, CBC w Diff Cancelled, WBC Cancelled, RBC Cancelled, Hgb Cancelled, Hct Cancelled , MCV Cancelled, MCH Cancelled, MCHC Cancelled, RDW Cancelled, Plt Count Cancelled, MPV Cancelled 02/28/18 1500: Sodium Cancelled, Potassium Cancelled, Chloride Cancelled, Carbon Dioxide Cancelled, Anion Gap Cancelled, BUN Cancelled, Creatinine Cancelled, BUN/ Creatinine Ratio Cancelled, Phosphorus Cancelled, Troponin I Cancelled, CBC w Diff NO MAN DIFF REQ, RBC 2.55 L, MCV 84.3, MCH 28.0, MCHC 33.2, RDW 16.3 H, MPV 8.6, Gran % 86.1 H, Lymphocytes % 3.7 L, Monocytes % 9.7 H, Eosinophils % 0, Basophils % 0.5, Absolute Granulocytes 8.5 H, Absolute Lymphocytes 0.4 L, Absolute Monocytes 0.9 H, Absolute Eosinophils 0, Absolute Basophils 0 02/28/18 1030: Bicarbonate Actual 11 L, Mixed VBG pH 7.22 L, Mixed VBG pCO2 26 L, Mixed VBG O2 Saturation 47 H, O2 Concentration % 3L, O2 Delivery Method NC, Phlebotomy Draw Site RIGHT RADIAL 02/28/18 0910: Troponin I 0.01 02/28/18 0550: Urine Color YEL, Urine Clarity CLEAR, Urine pH 6.0, Ur Specific [place] 1.025, Urine Protein >=300 H, Urine Ketones NEG, Urine Nitrite NEG, Urine Bilirubin NEG, Urine Urobilinogen 0.2, Ur Leukocyte Esterase NEG, Ur Microscopic SEDIMENT EXAMINED, Urine RBC 1-3, Urine WBC 5-10 H, Urine Bacteria MANY H, Urine Hemoglobin SMALL H, Urine Glucose NEG 02/28/18 0313: Anion Gap 24 H, Estimated GFR 5 L, BUN/Creatinine Ratio 13.1, Glucose 104 H, Calcium 7.7 L, Phosphorus 13.1 H, Magnesium 1.9, Total Bilirubin 0.6, AST 18, ALT 45, Alkaline Phosphatase 101, Troponin I 0.01, Pdy-U-Rcjzwsfdqko Pept 90918.0 H, Total Protein 6.4, Albumin 3.3 L, Globulin 3.1, Albumin/Globulin Ratio 1.1, Amylase 170 H, Lipase 752 H, PT 19.8 H, INR 1.81 H, D-Dimer High Sensitivty 472 H, CBC w Diff NO MAN DIFF REQ, RBC 2.99 L, MCV 84.4, MCH 27.6, MCHC 32.7 L, RDW 16.4 H, MPV 8.1, Gran % 82.6 H, Lymphocytes % 5.7 L, Monocytes % 7.6, Eosinophils % 3.9, Basophils % 0.2, Absolute Granulocytes 9.5 H, Absolute Lymphocytes 0.7 L, Absolute Monocytes 0.9 H, Absolute Eosinophils 0.5, Absolute Basophils 0, Hep Bs Antigen NONREACTIVE Microbiology 02/28 0620 NASOPHARYN: Influenza Virus A & B Rapid Smear - COMP 02/28 450 BLOOD: Blood Culture - RECD 02/28 445 LOWER RESP: Respiratory Culture - COLB 04/08 0445 LOWER RESP: Gram Stain - COLB 02/28 0340 BLOOD: Blood Culture - RECD Assessment/Plan Assessment: Patient is 52 year old with PMH of HTN, ESRD, Hypertensive nephropathy, a fib on coumadein, b/l lower ext edema, was recently discharged for CAP and anemia requiring blood transfusion. He recently was hospitalized for pneumonia here at [facility]. He was also noted to be volume overloaded at that time. He was discharged on metolazone and torsemide to control his volume status. Likewise, he saw Dr. Sky within the last week with regards to planning for dialysis. Assessment and Plan Patient will have urgent dialysis done today, will continue cardizem and bicarb drip for now. Nephrology and Cardiology consult service on board, Will continue broad spectruma ntibiotics for now Patient had elevated lipases which was concerning, he has no recent etoh intake history, discussed with nephrology regarding starting of ringer lactate but the optimum treatment would be to continue with the current fluids right now. Tylenol for pain prn Will continue torsemide, sevelamer, metoprolol 50 BID, Metolazone tab, clonidine , citalopram, amlodipine Continue to monitor closely. DVT ppx ALPS Full code Problem List: 1. Acute on chronic renal failure 2. Pneumonia Pain Ratin Pain Location: abdomen Pain Goal: Pain 4 or less Pain Plan: tylenol prn Tomorrow's Labs & Rationales: cbc bep Nerissa Linton 02/28/18 1057: Attending MD Review Statement Attending Statement Attending MD Statement: examined this patient, discuss w/resident/PA/[employer]UFACT[employer]ING MILLWRIGHT, agreed w/resident/PA/MANUFACTURING MILLWRIGHT, discussed with family, reviewed EMR data (avail), discussed with nursing, discussed with case mgmt, reviewed images, amended to note Attending Assessment/Plan: 52 o/m with Acute renal failure with ESRD needing emergent dialysis. Nephrology consulted and patient found to have pericardial friction rub. Cr 11.2 and BUN 147. K 4.7 INR 1.8 on coumadin. Patient received vit K 5 mg. IR consulted for emergent dialysis catheter placement. Plan is to obtain dialysis today. Follow nephrology recommendation.
--- NOTE | 2018-02-28 09:04 | Cons- Nephrology ---
General Information and HPI Consulting Request Date of Consult: 02/28/18 Requested By: Hever Webber MD Reason for Consult: Worsening chronic kidney disease Source of Information: patient, old records Exam Limitations: poor historian History of Present Illness: This 52-year-old gentleman has a history of chronic kidney disease for which he is followed by Dr. Louie Sky. He says he is aware of his progressive kidney failure for the last 2 years. He recently was hospitalized for pneumonia here at [facility]. He was also noted to be volume overloaded at that time. He was discharged on metolazone and torsemide to control his volume status. Likewise, he saw Dr. Sky within the last week with regards to planning for dialysis. He had been seen by Dr. Chidi Pierre on his previous visit to [facility]. Dr. Pierre had discussed the patient's case with Dr. Sky. Apparently, the patient's serum creatinine was 5.4 last fall. In spite of assertions to the contrary by the patient, Dr. Sky has been speaking to the patient about dialysis since last fall. The patient has an appointment in the near future for placement of an aVF. He now arrives, his chief complaint being of shortness of breath. He likewise was found to be tachycardic with atrial fibrillation and a rapid ventricular response. He is been on anticoagulation for the atrial fibrillation which was discovered when he went for a [employer] examination. He also complains of flank pain that then radiated to his chest. It is mild in character nothing seems to make it worse nor nothing seems to make it better. He otherwise denies nausea or vomiting. He tells me he ate breakfast this morning. He denies shortness of breath. With regards to the chest pain he denies any initiating or exacerbating factors nor any relieving factors. In speaking with the patient's sister as well as Dr. Sky, the patient does minimize symptoms. Allergies/Medications Allergies: Coded Allergies: No Known Allergies (02/07/18) Home Med List: Amlodipine Besylate 10 MG TABLET 1 TAB PO DAILY HIGH BLOOD PRESSURE (Reported ) Citalopram Hydrobromide (Citalopram HBr) 10 MG TABLET 1 TAB PO DAILY ANXIETY (Reported) Clonidine HCl 0.1 MG TABLET 1 TAB PO QPM HIGH BLOOD PRESSURE (Reported) Ferrous Sulfate 325 MG (65 MG IRON) TABLET 1 TAB PO DAILY BLOOD HEALTH Metolazone 2.5 MG TABLET 1 TAB PO DAILY KIDNEY HEALTH (Reported) Metoprolol Tartrate 50 MG TABLET 1 TAB PO BID HIGH BLOOD PRESSURE (Reported) Sevelamer Carbonate (Renvela) 800 MG TABLET 2 TAB PO TID ESRD (Reported) Torsemide 20 MG TABLET 1 TAB PO DAILY DIURETIC (Reported) Warfarin Sodium (Coumadin) 1 MG TABLET 1 TAB PO DAILY BLOOD THINNER (Reported ) 1 TAB THU- THURSDAY 0.5 TAB THU AND Current Medications: Current Medications Sig/Milagros Start time Last Medication Dose Route Stop Time Status Admin Amlodipine Besylate 10 MG DAILY 02/28 1000 AC PO Azithromycin 500 MG ONCE ONE 02/28 615 DC Dextrose/Water 250 ML IV 02/28 714 Ceftazidime 0 .STK-MED ONE 02/29 440 DC .ROUTE Ceftazidime 1,000 MG ONCE ONE 02/28 430 DC 02/28 IV 02/28 431 0519 Citalopram 10 MG DAILY 02/28 1000 AC Hydrobromide PO Clonidine 0.1 MG QPM 02/28 2200 AC PO Diltiazem HCl 0 .STK-MED ONE 02/29 628 DC .ROUTE Diltiazem HCl 0 .STK-MED ONE 02/28 627 DC .ROUTE Diltiazem HCl 125 MG Q24H 02/28 615 AC 02/28 Sodium Chloride 100 ML IV 0635 Diltiazem HCl 0 .STK-MED ONE 02/28 514 DC .ROUTE Diltiazem HCl 10 MG ONCE ONE 02/28 445 DC 02/28 IV PUSH 02/28 446 05 Famotidine 0 .STK-MED ONE 02/28 441 DC IV Famotidine 20 MG ONCE ONE 02/28 430 DC 02/28 IV 02/28 431 044 Ferrous Sulfate 325 MG DAILY 02/28 1000 AC PO Furosemide 0 .STK-MED ONE 02/29 440 DC IV Furosemide 80 MG ONCE ONE 02/28 430 DC 02/28 IV 02/28 431 044 Guaifenesin 600 MG Q12 02/28 1000 AC PO Lorazepam 1 MG ONCE ONE 02/28 0500 DC 02/28 IV 02/28 501 044 Lorazepam 0 .STK-MED ONE 02/28 454 DC .ROUTE Metoclopramide HCl 0 .STK-MED ONE 02/28 441 DC .ROUTE Metoclopramide HCl 10 MG ONCE ONE 02/28 430 DC 02/28 IV 02/28 431 044 Metolazone 2.5 MG DAILY 02/28 1000 AC PO Metolazone 5 MG ONCE ONE 02/28 430 DC 02/28 PO 02/28 431 0510 Metoprolol Tartrate 50 MG BID 02/28 1000 AC PO Nitroglycerin 0.4 MG ONCE ONE 02/28 034 DC 02/28 SL 02/28 346 0333 Ondansetron HCl 4 MG ONCE ONE 02/28 345 DC 02/28 IV 02/28 346 0338 Ondansetron HCl 0 .STK-MED ONE 02/28 342 DC .ROUTE Sevelamer Carbonate 1,600 MG TID 02/28 1000 AC PO Sodium Bicarbonate 150 MEQ Q16H 02/28 0630 AC Dextrose/Water 1,000 ML IV Torsemide 20 MG DAILY 02/28 1000 AC PO Vancomycin HCl 0 .STK-MED ONE 02/28 441 DC .ROUTE Vancomycin HCl 1,500 MG ONCE ONE 02/28 430 DC 02/28 Dextrose/Water 250 ML IV 02/28 0559 0535 Past History Travel History Traveled to [place] past 21 day No Medical History Blood Transfusion Hx: Yes Neurological: NONE EENT: NONE Cardiovascular: AFIB, hypertension, ?CHF Respiratory: NONE Gastrointestinal: NONE Hepatic: NONE Renal: ESRD Musculoskeletal: NONE Psychiatric: depression Endocrine: NONE Blood Disorders: NONE Cancer(s): NONE UPPER DOUBLER/Reproductive: NONE Surgical History Surgical History: 1 Psychosocial History Where Do You Live? Home Services at Home: None Smoking Status: Never Smoked Functional Ability ADLs Independent: dressing, eating, toileting, bathing. Ambulation: independent Exam & Diagnostic Data Vital Signs and I&O Vital Signs Date Time Temp Pulse Resp B/P B/P Pulse O2 O2 Flow FiO2 Mean Ox Delivery Rate 02/29 708 98.3 125 24 154/90 92 Nasal 2.0L Cannula 02/28 705 Nasal 3.0L Cannula 02/28 510 140 02/28 357 129 136/68 02/29 312 97.6 123 28 149/90 88 Room Air Room Air 02/28 031 88 Room Air Intake & Output 02/28 02/28 0400 Intake Total 350 Output Total 350 Balance 0 Intake, IV 150 Intake, Oral 200 Output, Urine 350 Patient 294 lb 285 lb Weight Weight Reported by Patient Measurement Method Physical Exam General Appearance: well developed/nourished, alert, awake, mild distress, obese Head: atraumatic, normal appearance Eyes: Bilateral: PERRL, EOMI, pale conjunctivae, abnormal EOM, lid inflammation. Neck: normal inspection, supple, because of his anatomy it is difficult to assess JVD Respiratory: normal breath sounds Cardiovascular: regular rate/rhythm, edema, murmur, normal peripheral pulses, tachycardia, femoral pulses palpitated, Rub Gastrointestinal: normal bowel sounds, soft, obese protuberant Back: normal inspection, normal range of motion Extremities: normal inspection, normal range of motion, no edema Neurologic/Psych: no motor/sensory deficits, awake, alert Cranial Nerves: normal hearing, normal speech, PERRL Skin: intact, pallor Lymphatic: adenopathy Results Pertinent Lab Results: Laboratory Tests 02/28 02/28 0550 0313 Chemistry Sodium (137 - 145 mmol/L) 144 Potassium (3.5 - 5.1 mmol/L) 4.4 Chloride (98 - 107 mmol/L) 109 H Carbon Dioxide (22 - 30 mmol/L) 12 L Anion Gap (5 - 16) 24 H BUN (9 - 20 mg/dL) 147 *H Creatinine (0.7 - 1.2 mg/dL) 11.2 *H Estimated GFR (>60 ml/min) 5 L BUN/Creatinine Ratio (7 - 25 %) 13.1 Glucose (65 - 99 mg/dL) 104 H Calcium (8.4 - 10.2 mg/dL) 7.7 L Phosphorus (2.5 - 4.5 mg/dL) > 13.0 H Magnesium (1.6 - 2.3 mg/dL) 1.9 Total Bilirubin (0.2 - 1.3 mg/dL) 0.6 AST (17 - 59 U/L) 18 ALT (21 - 72 U/L) 45 Alkaline Phosphatase (< 127 U/L) 101 Troponin I (<0.11 ng/ml) 0.01 Sdy-L-Tvcoqxytlsm Pept (<125 pg/mL) 66916.0 H Total Protein (6.3 - 8.2 g/dL) 6.4 Albumin (3.5 - 5.0 g/dL) 3.3 L Globulin (1.9 - 4.2 gm/dL) 3.1 Albumin/Globulin Ratio (1.1 - 2.2 %) 1.1 Amylase (30 - 110 U/L) 170 H Lipase (23 - 300 U/L) 752 H Coagulation PT (9.4 - 12.5 SEC) 19.8 H INR (0.90 - 1.17) 1.81 H D-Dimer High Sensitivty (0 - 243 ng/ml) 472 H Hematology CBC w Diff NO MAN DIFF REQ WBC (4.8 - 10.8 /CUMM) 11.5 H RBC (4.70 - 6.10 /CUMM) 2.99 L Hgb (14.0 - 18.0 G/DL) 8.3 L Hct (42 - 52 %) 25.3 L MCV (80.0 - 94.0 FL) 84.4 MCH (27.0 - 31.0 PG) 27.6 MCHC (33.0 - 37.0 G/DL) 32.7 L RDW (11.5 - 14.5 %) 16.4 H Plt Count (130 - 400 /CUMM) 264 MPV (7.4 - 10.4 FL) 8.1 Gran % (42.2 - 75.2 %) 82.6 H Lymphocytes % (20.5 - 51.1 %) 5.7 L Monocytes % (1.7 - 9.3 %) 7.6 Eosinophils % (0 - 5 %) 3.9 Basophils % (0.0 - 2.0 %) 0.2 Absolute Granulocytes (1.4 - 6.5 /CUMM) 9.5 H Absolute Lymphocytes (1.2 - 3.4 /CUMM) 0.7 L Absolute Monocytes (0.10 - 0.60 /CUMM) 0.9 H Absolute Eosinophils (0.0 - 0.7 /CUMM) 0.5 Absolute Basophils (0.0 - 0.2 /CUMM) 0 Serology Hep Bs Antigen (NONREACTIVE) NONREACTIVE Urines Urine Color (YEL,AMB,STR) YEL Urine Clarity (CLEAR) CLEAR Urine pH (5.0 - 8.0) 6.0 Ur Specific [place] (1.001 - 1.035) 1.025 Urine Protein (NEG,<30 MG/DL) >=300 H Urine Ketones (NEG) NEG Urine Nitrite (NEG) NEG Urine Bilirubin (NEG) NEG Urine Urobilinogen (0.1 - 1.0 EU/dl) 0.2 Ur Leukocyte Esterase (NEG) NEG Ur Microscopic SEDIMENT EXAMINED Urine RBC (0 - 5 /HPF) 1-3 Urine WBC (0 - 2 /HPF) 5-10 H Urine Bacteria (NEG/NONE) MANY H Urine Hemoglobin (NEG) SMALL H Urine Glucose (N MG/DL) NEG Assessment/Plan Assessment/Recommendations Assessment: 1. Chronic kidney disease stage V not yet on hemodialysis presenting now with rapid atrial fibrillation. He also now has a rub although,very faint. This would mandate dialysis today. 2. Volume status. Although concerns are raised with regards to a pneumonic process in his lungs, to me this appears to be fluid overload. We'll plan 2 L of ultrafiltration along with his dialysis. 3. Atrial fibrillation on warfarin. Currently, would hold any warfarin at this point and given the fact he has a rough would not be in favor of beginning heparin for now Recommendations: 1. Hold Coumadin 2. He will require dialysis today. 3. He will then require daily hemodialysis. 4. Please save his left arm for creation of an access. 5. Patient was to see Dr. Balta Antonio with regards to creation of an access. It is not certain as to whether or not he has privileges here, will check.
[2018-02-28 13:45] VITALS: BP 158/90
--- NOTE | 2018-02-28 14:39 | ULTRASOUND REPORT ---
PROCEDURE: ULTRASOUND AND FLUOROSCOPICALLY GUIDED RIGHT INTERNAL JUGULAR VEIN TEMPORARY HEMODIALYSIS CATHETER PLACEMENT INTERVENTIONAL RADIOLOGIST: Karl Castro M.D. CLINICAL HISTORY: 52-year-old male with significantly elevated creatinine. Emergent dialysis is required. COMPARISON: Same day chest x-ray MEDICATION: - 1% lidocaine was used for local anesthetic. - 50 mg of fentanyl was administered intravenously by dedicated radiology nurse under my direct supervision. FLUOROSCOPY TIME: 1.7 minutes DOSE AREA PRODUCT: 32.6 mGy-m2 (milligray-meter squared) TECHNIQUE: Informed consent was obtained from the patient and his prior to the procedure. During this process, the procedure and potential alternatives were explained along with the intended outcome and benefits. The risks of the procedure, including the possibility of an unsuccessful procedure, as well as the risk of not doing the procedure were discussed. The patient and his were given the opportunity to ask questions regarding the procedure. A signed consent form which documents this discussion was placed in the medical record. Following informed consent the patient was placed supine on the fluoroscopic table. A timeout procedure was performed. The right neck and chest were prepped and draped in usual sterile fashion. All elements of maximal sterile barrier technique were followed including use of cap, mask, sterile gown, sterile gloves, a sterile full body drape and hand hygiene. The skin was prepared with 2% chlorhexidine for cutaneous antisepsis and sterile ultrasound preparation with sterile gel and probe cover was performed when applicable. Using ultrasound guidance the right internal jugular vein was localized. Ultrasound was utilized to assess the vascular structures for access. A standard puncture into the right internal jugular vein was performed with a Micro-Stick system. Over the wire dilatation was performed and a temporary hemodialysis catheter was advanced over the wire. Catheter terminates at the cavoatrial junction. Silk suture was utilized for catheter securement. A sterile dressing was placed. Both lumens flushed and aspirated easily. Hep-Lock was infused into both lumens. The patient tolerated the procedure well. The patient was transferred back to the floor in stable condition. ULTRASOUND-GUIDED VASCULAR ACCESS: Ultrasound was used to identify the right internal jugular vein. The right internal jugular vein was confirmed to be patent. Real time imaging confirmed needle access into the right internal jugular vein. An image was saved for permanent recording in PACS. IMPRESSION: Successful placement of temporary hemodialysis catheter via the right internal jugular vein.
--- NOTE | 2018-02-28 15:07 | Cons- Cardiology ---
General Information and HPI Consulting Request Date of Consult: 02/28/18 Requested By: Hever Webber MD Reason for Consult: Atrial fibrillation and atrial flutter History of Present Illness: The patient is a 52-year-old male with history of hypertension, end-stage renal disease from hypertensive nephropathy, paroxysmal atrial fibrillation on Coumadin, chronic diastolic heart failure who is followed in the office by Dr. Small. He presented with complaint of shortness of breath, cough and chest pain. The cough was productive of clear white sputum. The chest pain was a sharp substernal pain with no radiation which was moderate in severity. In the emergency department he was noted to be in atrial fibrillation with rapid ventricular rate. A diltiazem drip was started, for rate control, and he subsequently was noted to be in atrial flutter on telemetry. He was noted to have a pericardial friction rub. Given the presence of the wrap with his stage V chronic kidney disease, immediate dialysis was recommended by nephrology. A dialysis catheter was placed, and initial dialysis was performed today. He is currently feeling better and is pain-free. Allergies/Medications Allergies: Coded Allergies: No Known Allergies (02/07/18) Home Med List: Amlodipine Besylate 10 MG TABLET 1 TAB PO DAILY HIGH BLOOD PRESSURE (Reported ) Citalopram Hydrobromide (Citalopram HBr) 10 MG TABLET 1 TAB PO DAILY ANXIETY (Reported) Clonidine HCl 0.1 MG TABLET 1 TAB PO QPM HIGH BLOOD PRESSURE (Reported) Ferrous Sulfate 325 MG (65 MG IRON) TABLET 1 TAB PO DAILY BLOOD HEALTH Metolazone 2.5 MG TABLET 1 TAB PO DAILY KIDNEY HEALTH (Reported) Metoprolol Tartrate 50 MG TABLET 1 TAB PO BID HIGH BLOOD PRESSURE (Reported) Sevelamer Carbonate (Renvela) 800 MG TABLET 2 TAB PO TID ESRD (Reported) Torsemide 20 MG TABLET 1 TAB PO DAILY DIURETIC (Reported) Warfarin Sodium (Coumadin) 1 MG TABLET 1 TAB PO DAILY BLOOD THINNER (Reported ) 1 TAB THU- THURSDAY 0.5 TAB THU AND Current Medications: Current Medications Sig/Milagros Start time Last Medication Dose Route Stop Time Status Admin Acetaminophen 650 MG Q8P PRN 02/28 1830 AC PO Amlodipine Besylate 10 MG DAILY 02/28 1000 AC 02/28 PO 1822 Azithromycin 500 MG ONCE ONE 02/28 615 DC 02/28 Dextrose/Water 250 ML IV 02/28 0714 1121 Ceftazidime 0 .STK-MED ONE 02/28 0440 DC .ROUTE Ceftazidime 1,000 MG ONCE ONE 02/28 0430 DC 02/28 IV 02/28 043 0519 Citalopram 10 MG DAILY 02/28 1000 AC 02/28 Hydrobromide PO 1035 Clonidine 0.1 MG QPM 02/28 2200 AC PO Diltiazem HCl 0 .STK-MED ONE 02/28 06 DC .ROUTE Diltiazem HCl 0 .STK-MED ONE 02/28 06 DC .ROUTE Diltiazem HCl 125 MG Q24H 02/28 0615 AC 02/28 Sodium Chloride 100 ML IV 0635 Diltiazem HCl 0 .STK-MED ONE 02/28 0514 DC .ROUTE Diltiazem HCl 10 MG ONCE ONE 02/28 0445 DC 02/28 IV PUSH 02/28 0446 0510 Epoetin Toribio 6,000 UNIT ONE ONE 02/28 1500 DC IV 02/28 1501 Famotidine 0 .STK-MED ONE 02/28 0441 DC IV Famotidine 20 MG ONCE ONE 02/28 0430 DC 02/28 IV 02/28 0431 0442 Fentanyl Citrate 0 .STK-MED ONE 02/28 1237 DC .ROUTE Ferrous Sulfate 325 MG DAILY 02/28 1000 AC 02/28 PO 1035 Furosemide 100 MG ONCE ONE 02/28 0930 CAN IV 02/28 0931 Furosemide 0 .STK-MED ONE 02/28 0440 DC IV Furosemide 80 MG ONCE ONE 02/28 0430 DC 02/28 IV 02/28 0431 0445 Guaifenesin 600 MG Q12 02/28 1000 AC 02/28 PO 1035 Heparin Sodium 0 .STK-MED ONE 02/28 1213 DC (Porcine) IV Lidocaine 0 .STK-MED ONE 02/28 1232 DC .ROUTE Lidocaine 0 .STK-MED ONE 02/28 1213 DC .ROUTE Lorazepam 1 MG ONCE ONE 02/28 0500 DC 02/28 IV 02/28 0501 0446 Lorazepam 0 .STK-MED ONE 02/28 0454 DC .ROUTE Metoclopramide HCl 0 .STK-MED ONE 02/28 0441 DC .ROUTE Metoclopramide HCl 10 MG ONCE ONE 02/28 0430 DC 02/28 IV 02/28 0431 0442 Metolazone 2.5 MG DAILY 02/28 1000 AC 02/28 PO 1821 Metolazone 5 MG ONCE ONE 02/28 0430 DC 02/28 PO 02/28 0431 0510 Metoprolol Tartrate 50 MG BID 02/28 1000 AC PO Nitroglycerin 0.4 MG ONCE ONE 02/28 0345 DC 02/28 SL 02/28 0346 0333 Ondansetron HCl 4 MG ONCE ONE 02/28 0345 DC 02/28 IV 02/28 0346 0338 Ondansetron HCl 0 .STK-MED ONE 02/28 0342 DC .ROUTE Phytonadione 5 MG DAILY 02/28 1100 DC 02/28 PO 02/28 1101 1119 Phytonadione 10 MG ONCE ONE 02/28 1000 CAN IM 02/28 1001 Sevelamer Carbonate 1,600 MG TID 02/28 1000 AC 02/28 PO 1821 Sodium Bicarbonate 150 MEQ Q16H 02/28 0630 AC 02/28 Dextrose/Water 1,000 ML IV 1122 Torsemide 20 MG DAILY 02/28 1000 AC 02/28 PO 1821 Vancomycin HCl 0 .STK-MED ONE 02/28 0441 DC .ROUTE Vancomycin HCl 1,500 MG ONCE ONE 02/28 0430 DC 02/28 Dextrose/Water 250 ML IV 02/28 0559 0535 Review of Systems Review of Systems: No hemoptysis. No hematemesis. No nausea or vomiting Past History Travel History Traveled to [place] past 21 day No Medical History Blood Transfusion Hx: Yes Neurological: NONE EENT: NONE Cardiovascular: AFIB, hypertension, ?CHF Respiratory: NONE Gastrointestinal: NONE Hepatic: NONE Renal: ESRD Musculoskeletal: NONE Psychiatric: depression Endocrine: NONE Blood Disorders: NONE Cancer(s): NONE CAR EXAMINER/Reproductive: NONE Surgical History Surgical History: 1 Family History Relations & Conditions If Any: FATHER Coronary artery bypass graft MOTHER Pacemaker Psychosocial History Where Do You Live? Home Services at Home: None Smoking Status: Never Smoked Functional Ability ADLs Independent: dressing, eating, toileting, bathing. Ambulation: independent Exam & Diagnostic Data Vital Signs and I&O Vital Signs Date Time Temp Pulse Resp B/P B/P Pulse O2 O2 Flow FiO2 Mean Ox Delivery Rate 02/28 1822 120 162/94 02/28 1756 98.7 121 20 162/94 97 Nasal 3.5L Cannula 02/28 1345 98.0 107 22 158/90 93 Nasal Cannula 02/28 1100 Nasal 3.0L Cannula 02/28 1000 107 158/90 02/28 0800 94 Nasal 3.0L Cannula 02/28 0708 98.3 125 24 154/90 92 Nasal 2.0L Cannula 02/28 0705 Nasal 3.0L Cannula 02/28 0510 140 02/28 0357 129 136/68 02/28 0312 97.6 123 28 149/90 88 Room Air Room Air 02/28 0310 88 Room Air Intake & Output 02/28 1600 02/28 0802/28 0000 02/27 1600 02/27 0802/27 0000 Intake Total 200 350 Output Total 450 350 Balance -250 0 Intake, IV 150 Intake, Oral 200 200 Output, Urine 450 350 Patient 294 lb Weight Weight Reported by Patient Measurement Method Physical Exam: Gen: The patient is in no acute distress HEENT: Normal nose, ears, and oropharynx. Pupils equal bilaterally. Conjunctiva normal. Neck: Supple with no JVD, no masses, and no thyromegaly Lungs: Decreased breath sound with normal respiratory effort Heart: Irregular, S1, S2, 2/6 systolic, pericardial rub noted. 1+ peripheral edema, 2+ pulses in the lower extremities bilaterally Abdomen: Soft, nontender, no masses. No hepatomegaly. No splenomegaly Extremities: No clubbing or cyanosis. Normal muscle strength in the upper and lower extremities Skin: Normal skin turgor with no skin ulcers or lesions noted. Neuro: Cranial nerves intact. Sensation intact Psych: Alert and oriented x 3 with appropriate affect Labs/Jorden Results: Laboratory Tests 02/28 02/28 1821 1500 Chemistry Sodium (137 - 145 mmol/L) 143 Potassium (3.5 - 5.1 mmol/L) 4.5 Chloride (98 - 107 mmol/L) 107 Carbon Dioxide (22 - 30 mmol/L) 15 L Anion Gap (5 - 16) 20 H BUN (9 - 20 mg/dL) 146 *H Creatinine (0.7 - 1.2 mg/dL) 11.2 *H Estimated GFR (>60 ml/min) 5 L BUN/Creatinine Ratio (7 - 25 %) 13.0 Calcium (8.4 - 10.2 mg/dL) 7.3 L Hematology CBC w Diff NO MAN DIFF REQ Cancelled WBC (4.8 - 10.8 /CUMM) 9.6 Cancelled RBC (4.70 - 6.10 /CUMM) 2.66 L Cancelled Hgb (14.0 - 18.0 G/DL) 7.5 L Cancelled Hct (42 - 52 %) 22.5 L Cancelled MCV (80.0 - 94.0 FL) 84.5 Cancelled MCH (27.0 - 31.0 PG) 28.1 Cancelled MCHC (33.0 - 37.0 G/DL) 33.3 Cancelled RDW (11.5 - 14.5 %) 16.1 H Cancelled Plt Count (130 - 400 /CUMM) 210 Cancelled MPV (7.4 - 10.4 FL) 8.2 Cancelled Gran % (42.2 - 75.2 %) 83.8 H Lymphocytes % (20.5 - 51.1 %) 4.2 L Monocytes % (1.7 - 9.3 %) 10.6 H Eosinophils % (0 - 5 %) 1.1 Basophils % (0.0 - 2.0 %) 0.3 Absolute Granulocytes (1.4 - 6.5 /CUMM) 8.0 H Absolute Lymphocytes (1.2 - 3.4 /CUMM) 0.4 L Absolute Monocytes (0.10 - 0.60 /CUMM) 1.0 H Absolute Eosinophils (0.0 - 0.7 /CUMM) 0.1 Absolute Basophils (0.0 - 0.2 /CUMM) 0 02/28 02/28 02/28 1500 1030 0910 Blood Gas Bicarbonate Actual (22 - 26 MEQ/L) 11 L Mixed VBG pH (7.31 - 7.41 PH) 7.22 L Mixed VBG pCO2 (41 - 51 TORR) 26 L Mixed VBG O2 Saturation (35 - 45 TORR) 47 H O2 Concentration % 3L O2 Delivery Method NC Chemistry Sodium Cancelled Potassium Cancelled Chloride Cancelled Carbon Dioxide Cancelled Anion Gap Cancelled BUN Cancelled Creatinine Cancelled BUN/Creatinine Ratio Cancelled Phosphorus Cancelled Troponin I (<0.11 ng/ml) Cancelled 0.01 Hematology CBC w Diff NO MAN DIFF REQ WBC (4.8 - 10.8 /CUMM) 9.8 RBC (4.70 - 6.10 /CUMM) 2.55 L Hgb (14.0 - 18.0 G/DL) 7.1 *L Hct (42 - 52 %) 21.5 L MCV (80.0 - 94.0 FL) 84.3 MCH (27.0 - 31.0 PG) 28.0 MCHC (33.0 - 37.0 G/DL) 33.2 RDW (11.5 - 14.5 %) 16.3 H Plt Count (130 - 400 /CUMM) 180 MPV (7.4 - 10.4 FL) 8.6 Gran % (42.2 - 75.2 %) 86.1 H Lymphocytes % (20.5 - 51.1 %) 3.7 L Monocytes % (1.7 - 9.3 %) 9.7 H Eosinophils % (0 - 5 %) 0 Basophils % (0.0 - 2.0 %) 0.5 Absolute Granulocytes (1.4 - 6.5 /CUMM) 8.5 H Absolute Lymphocytes (1.2 - 3.4 /CUMM) 0.4 L Absolute Monocytes (0.10 - 0.60 /CUMM) 0.9 H Absolute Eosinophils (0.0 - 0.7 /CUMM) 0 Absolute Basophils (0.0 - 0.2 /CUMM) 0 Miscellaneous Phlebotomy Draw Site RIGHT RADIAL 02/28 02/28 0567 1849 Chemistry Sodium (137 - 145 mmol/L) 144 Potassium (3.5 - 5.1 mmol/L) 4.4 Chloride (98 - 107 mmol/L) 109 H Carbon Dioxide (22 - 30 mmol/L) 12 L Anion Gap (5 - 16) 24 H BUN (9 - 20 mg/dL) 147 *H Creatinine (0.7 - 1.2 mg/dL) 11.2 *H Estimated GFR (>60 ml/min) 5 L BUN/Creatinine Ratio (7 - 25 %) 13.1 Glucose (65 - 99 mg/dL) 104 H Calcium (8.4 - 10.2 mg/dL) 7.7 L Phosphorus (2.5 - 4.5 mg/dL) 13.1 H Magnesium (1.6 - 2.3 mg/dL) 1.9 Total Bilirubin (0.2 - 1.3 mg/dL) 0.6 AST (17 - 59 U/L) 18 ALT (21 - 72 U/L) 45 Alkaline Phosphatase (< 127 U/L) 101 Troponin I (<0.11 ng/ml) 0.01 Bzo-N-Lasizdgbiqe Pept (<125 pg/mL) 83100.0 H Total Protein (6.3 - 8.2 g/dL) 6.4 Albumin (3.5 - 5.0 g/dL) 3.3 L Globulin (1.9 - 4.2 gm/dL) 3.1 Albumin/Globulin Ratio (1.1 - 2.2 %) 1.1 Amylase (30 - 110 U/L) 170 H Lipase (23 - 300 U/L) 752 H Coagulation PT (9.4 - 12.5 SEC) 19.8 H INR (0.90 - 1.17) 1.81 H D-Dimer High Sensitivty (0 - 243 ng/ml) 472 H Hematology CBC w Diff NO MAN DIFF REQ WBC (4.8 - 10.8 /CUMM) 11.5 H RBC (4.70 - 6.10 /CUMM) 2.99 L Hgb (14.0 - 18.0 G/DL) 8.3 L Hct (42 - 52 %) 25.3 L MCV (80.0 - 94.0 FL) 84.4 MCH (27.0 - 31.0 PG) 27.6 MCHC (33.0 - 37.0 G/DL) 32.7 L RDW (11.5 - 14.5 %) 16.4 H Plt Count (130 - 400 /CUMM) 264 MPV (7.4 - 10.4 FL) 8.1 Gran % (42.2 - 75.2 %) 82.6 H Lymphocytes % (20.5 - 51.1 %) 5.7 L Monocytes % (1.7 - 9.3 %) 7.6 Eosinophils % (0 - 5 %) 3.9 Basophils % (0.0 - 2.0 %) 0.2 Absolute Granulocytes (1.4 - 6.5 /CUMM) 9.5 H Absolute Lymphocytes (1.2 - 3.4 /CUMM) 0.7 L Absolute Monocytes (0.10 - 0.60 /CUMM) 0.9 H Absolute Eosinophils (0.0 - 0.7 /CUMM) 0.5 Absolute Basophils (0.0 - 0.2 /CUMM) 0 Serology Hep Bs Antigen (NONREACTIVE) NONREACTIVE Urines Urine Color (YEL,AMB,STR) YEL Urine Clarity (CLEAR) CLEAR Urine pH (5.0 - 8.0) 6.0 Ur Specific [place] (1.001 - 1.035) 1.025 Urine Protein (NEG,<30 MG/DL) >=300 H Urine Ketones (NEG) NEG Urine Nitrite (NEG) NEG Urine Bilirubin (NEG) NEG Urine Urobilinogen (0.1 - 1.0 EU/dl) 0.2 Ur Leukocyte Esterase (NEG) NEG Ur Microscopic SEDIMENT EXAMINED Urine RBC (0 - 5 /HPF) 1-3 Urine WBC (0 - 2 /HPF) 5-10 H Urine Bacteria (NEG/NONE) MANY H Urine Hemoglobin (NEG) SMALL H Urine Glucose (N MG/DL) NEG Diagnostic Data EKG Results EKG tracings independently reviewed, and reveals atrial fibrillation with nuclear response of 115 CXR Results Interstitial prominence with increased bibasilar opacities. This could represent interstitial edema with alveolar edema. Pneumonia also a consideration. Assessment/Plan Assessment/Plan 52-year-old male with history of chronic kidney disease presenting in atrial fibrillation and atrial flutter with rapid ventricular rate. He was noted to have a pericardial rub, and dialysis has been initiated. He is noted to have evidence of acute on chronic diastolic heart failure. Recommendations: * Agree with dialysis as per nephrology * Anticoagulation on hold for now as recommended by nephrology. Once cleared by nephrology, would restart warfarin, and bridge with IV heparin until INR therapeutic * Increase metoprolol to 100 mg p.o. twice daily for additional rate control * Wean off IV diltiazem if possible * Continue other cardiac medication Consult Acknowledgment - Thank you for your consult request.
[2018-02-28 15:48] LABS: ABSOLUTE BASOPHIL COUNT 0 /CUMM (0.0-0.2); ABSOLUTE EOSINOPHIL COUNT 0 /CUMM (0.0-0.7); ABSOLUTE GRANULOCYTE CT 8.5 /CUMM (1.4-6.5); ABSOLUTE LYMPH COUNT 0.4 /CUMM (1.2-3.4); ABSOLUTE MONOCYTE COUNT 0.9 /CUMM (0.10-0.60); BASOPHIL % 0.5 % (0.0-2.0); EOSINOPHIL % 0 % (0-5); GRANULOCYTE % 86.1 % (42.2-75.2); HEMATOCRIT 21.5 % (42-52); MEAN CORPUSCULAR HGB CONC 33.2 G/DL (33.0-37.0); MEAN CORPUSCULAR VOLUME 84.3 FL (80.0-94.0); MEAN PLATELET VOLUME 8.6 FL (7.4-10.4); PLATELET COUNT 180 /CUMM (130-400); RBC DISTRIBUTION WIDTH 16.3 % (11.5-14.5); RED BLOOD CELL CT 2.55 /CUMM (4.70-6.10); WHITE BLOOD CELL COUNT 9.8 /CUMM (4.8-10.8)
[2018-02-28 17:56] VITALS: BP 162/94
[2018-02-28 18:50] LABS: ABSOLUTE BASOPHIL COUNT 0 /CUMM (0.0-0.2); ABSOLUTE EOSINOPHIL COUNT 0.1 /CUMM (0.0-0.7); ABSOLUTE LYMPH COUNT 0.4 /CUMM (1.2-3.4); BASOPHIL % 0.3 % (0.0-2.0); EOSINOPHIL % 1.1 % (0-5); GRANULOCYTE % 83.8 % (42.2-75.2); HEMATOCRIT 22.5 % (42-52); MEAN CORPUSCULAR HGB 28.1 PG (27.0-31.0); MEAN CORPUSCULAR HGB CONC 33.3 G/DL (33.0-37.0); MEAN CORPUSCULAR VOLUME 84.5 FL (80.0-94.0); MEAN PLATELET VOLUME 8.2 FL (7.4-10.4); PLATELET COUNT 210 /CUMM (130-400); RBC DISTRIBUTION WIDTH 16.1 % (11.5-14.5); RED BLOOD CELL CT 2.66 /CUMM (4.70-6.10); WHITE BLOOD CELL COUNT 9.6 /CUMM (4.8-10.8)
[2018-02-28 22:01] VITALS: BP 140/70
[2018-03-01 07:15] VITALS: BP 126/86
[2018-03-01 07:59] LABS: ABSOLUTE BASOPHIL COUNT 0.1 /CUMM (0.0-0.2); ABSOLUTE EOSINOPHIL COUNT 0.3 /CUMM (0.0-0.7); ABSOLUTE GRANULOCYTE CT 7.2 /CUMM (1.4-6.5); ABSOLUTE LYMPH COUNT 0.5 /CUMM (1.2-3.4); ABSOLUTE MONOCYTE COUNT 1.1 /CUMM (0.10-0.60); EOSINOPHIL % 3.1 % (0-5); GRANULOCYTE % 77.9 % (42.2-75.2); HEMATOCRIT 21.4 % (42-52); MEAN CORPUSCULAR HGB 28.5 PG (27.0-31.0); MEAN CORPUSCULAR HGB CONC 33.8 G/DL (33.0-37.0); MEAN CORPUSCULAR VOLUME 84.1 FL (80.0-94.0); MEAN PLATELET VOLUME 8.7 FL (7.4-10.4); PLATELET COUNT 197 /CUMM (130-400); RBC DISTRIBUTION WIDTH 16.3 % (11.5-14.5); RED BLOOD CELL CT 2.54 /CUMM (4.70-6.10); WHITE BLOOD CELL COUNT 9.3 /CUMM (4.8-10.8)
[2018-03-01 08:11] LABS: ABSOLUTE LYMPH COUNT 0.5 /CUMM (1.2-3.4); MEAN CORPUSCULAR HGB CONC 33.4 G/DL (33.0-37.0); RBC DISTRIBUTION WIDTH 16.3 % (11.5-14.5)
[2018-03-01 08:15] LABS: ABSOLUTE BASOPHIL COUNT 0 /CUMM (0.0-0.2); ABSOLUTE EOSINOPHIL COUNT 0.2 /CUMM (0.0-0.7); ABSOLUTE GRANULOCYTE CT 6.1 /CUMM (1.4-6.5); BASOPHIL % 0.5 % (0.0-2.0); EOSINOPHIL % 2.8 % (0-5); GRANULOCYTE % 77.5 % (42.2-75.2); HEMATOCRIT 20.1 % (42-52); MEAN CORPUSCULAR VOLUME 83.9 FL (80.0-94.0); MEAN PLATELET VOLUME 8.9 FL (7.4-10.4); PLATELET COUNT 173 /CUMM (130-400); WHITE BLOOD CELL COUNT 7.9 /CUMM (4.8-10.8)
--- NOTE | 2018-03-01 08:19 | PN- Housestaff ---
Neha Herr MD,Andrés 03/01/18 0819: Subjective Follow-up For: ESRD with anion gap metabolic acidosis ACute hypoxic resp failure A fib with RVR HTN anxiety Complaints: no complaints Tele-Events Since Last Visit: Atrial fibrillation, heart rate mostly in 80s, one nonsustained V. tach noticed Subjective: Patient has improved significantly from yesterday. He had another round of dialysis today. He denies any shortness of breath chest pain. Review of Systems Constitutional: Denies: chills, fever. Cardiovascular: Denies: chest pain, palpitations. Gastrointestinal: Denies: abdominal pain, nausea, vomiting. Musculoskeletal: Denies: back pain. Objective Last 24 Hrs of Vital Signs/I&O Vital Signs Date Time Temp Pulse Resp B/P B/P Pulse O2 O2 Flow FiO2 Mean Ox Delivery Rate 03/01 1114 98 140/84 03/01 0800 94 Nasal 3.0L Cannula 03/01 0715 98.0 119 20 126/86 95 Nasal 3.0L Cannula 03/01 0000 Nasal 3.0L Cannula 02/28 2201 99.1 125 20 140/70 93 Nasal 2.5L Cannula 02/28 2116 102 140/70 02/28 2116 102 140/70 02/28 1822 120 162/94 02/28 1756 98.7 121 20 162/94 97 Nasal 3.5L Cannula Intake & Output 03/01 1600 03/01 0800 03/01 0000 Intake Total 900 530 480 Output Total 2500 300 420 Balance -1600 230 60 Intake, Blood 350 Product Intake, IV 430 Intake, Oral 550 100 480 Output, 2500 Dialysate Output, Urine 300 420 Patient 285 lb Weight Weight Bed scale Measurement Method Physical Exam General Appearance: Alert, Oriented X3, Cooperative, No Acute Distress Skin: No Rashes HEENT: RIGHT INTERNAL JUGULAR HEMODIALYSIS CATHETER Neck: No JVD Cardiovascular: IRREGULARLY IRREGULAR, Lungs: DECREASED AIR ENTRY AT THE LUNG BASES Neurological: Normal Speech, Normal Tone, Sensation Intact Extremities: No Edema Current Medications: Current Medications Sig/Milagros Start time Last Medication Dose Route Stop Time Status Admin Acetaminophen 650 MG Q8P PRN 02/28 1830 AC 02/28 PO 2259 Amlodipine Besylate 10 MG DAILY 02/28 1000 AC 03/01 PO 1115 Citalopram 10 MG DAILY 02/28 1000 AC 03/01 Hydrobromide PO 1114 Clonidine 0.1 MG QPM 02/28 2200 AC 02/28 PO 2116 Diltiazem HCl 125 MG Q24H 02/28 0615 DC 03/01 Sodium Chloride 100 ML IV 0109 Epoetin Toribio 6,000 UNIT TUES THURS SAT PRN 03/02 1000 AC IV Ferrous Sulfate 325 MG DAILY 02/28 1000 AC 03/01 PO 1115 Guaifenesin 600 MG Q12 02/28 1000 AC 03/01 PO 1115 Metolazone 2.5 MG DAILY 02/28 1000 DC 02/28 PO 1821 Metoprolol Tartrate 100 MG BID 03/01 1000 AC 03/01 PO 1114 Metoprolol Tartrate 50 MG BID 02/28 1000 DC 02/28 PO 2116 Multivitamins 1 TAB DAILY 03/01 1000 AC 03/01 PO 1115 Patient Medication 1 ED ONE ONE 03/01 1515 MO Teaching ED 03/01 1516 Sevelamer Carbonate 1,600 MG 0800,1200,1700 03/01 1700 AC 03/01 PO 1716 Sevelamer Carbonate 1,600 MG TID 02/28 1000 DC 03/01 PO 1115 Sodium Bicarbonate 150 MEQ Q16H 02/28 0630 DC 03/01 Dextrose/Water 1,000 ML IV 0109 Torsemide 20 MG DAILY 02/28 1000 AC 03/01 PO 111 Zolpidem Tartrate 5 MG AT BEDTIME 02/28 2200 AC 02/28 PO 2116 Last 24 Hrs of Lab/Jorden Results Last 24 Hrs of Labs/Mics: Laboratory Tests 03/01/18 0745: Anion Gap 15, Estimated GFR 6 L, BUN/Creatinine Ratio 11.9, Calcium 7.7 L, CBC w Diff NO MAN DIFF REQ, RBC 2.40 L, MCV 83.9, MCH 28.0, MCHC 33.4, RDW 16.3 H, MPV 8.9, Gran % 77.5 H, Lymphocytes % 6.0 L, Monocytes % 13.2 H, Eosinophils % 2.8, Basophils % 0.5, Absolute Granulocytes 6.1, Absolute Lymphocytes 0.5 L, Absolute Monocytes 1.0 H, Absolute Eosinophils 0.2, Absolute Basophils 0 03/01/18 0707: Anion Gap 18 H, Estimated GFR 6 L, BUN/Creatinine Ratio 11.7, CBC w Diff NO MAN DIFF REQ, RBC 2.54 L, MCV 84.1, MCH 28.5, MCHC 33.8, RDW 16.3 H, MPV 8.7, Gran % 77.9 H, Lymphocytes % 5.8 L, Monocytes % 12.2 H, Eosinophils % 3.1, Basophils % 1.0, Absolute Granulocytes 7.2 H, Absolute Lymphocytes 0.5 L, Absolute Monocytes 1.1 H, Absolute Eosinophils 0.3, Absolute Basophils 0.1 02/28/181: CBC w Diff NO MAN DIFF REQ, RBC 2.66 L, MCV 84.5, MCH 28.1, MCHC 33.3, RDW 16.1 H, MPV 8.2, Gran % 83.8 H, Lymphocytes % 4.2 L, Monocytes % 10.6 H, Eosinophils % 1.1, Basophils % 0.3, Absolute Granulocytes 8.0 H, Absolute Lymphocytes 0.4 L, Absolute Monocytes 1.0 H, Absolute Eosinophils 0.1, Absolute Basophils 0 Lines/Diet/Fluids Lines: peripheral lines, RIGHT INTERNAL JUGULAR HEMODIALYSIS CATHETER Restraints: none Assessment/Plan Assessment: 52 year old with PMH of HTN, ESRD, Hypertensive nephropathy, a fib on coumadein, b/l lower ext edema, was recently discharged for CAP and anemia requiring blood transfusion. He recently was hospitalized for pneumonia here at [facility]. He was also noted to be volume overloaded at that time. He was discharged on metolazone and torsemide to control his volume status. Patient came back to emergency department and was admitted on telemetry floor for the management of acute hypoxemic respiratory failure/volume overload and elevated anion gap metabolic acidosis. Patient also found to be in atrial fibrillation with rapid ventricular rate. MARJAN on CKD/and end-stage renal disease on hemodialysis/elevated anion gap metabolic acidosis Patient is following following since 2009 for hypertensive nephropathy. He needs AVF placement as outpatient with . The patient has an appointment in the near future for placement of an aVF. Patient was dialyzed yesterday by nephrology on an urgent basis secondary to a faint pericardial rub yesterday. Patient received another round of dialysis today. He feels much better and there is no pericardial rub on examination. Patient was also started on bicarbonate drip which was discontinued. We'll continue to follow-up with nephrology. Patient was also started on erythropoietin and Sevelamer. We're awaiting vascular surgery evaluation for fistula creation. A.fib with rapid regular rate Patient has past medical history significant for atrial fibrillation. He was noted to have increased heart rate during this admission. He was initially started on Cardizem drip that was titrated and then stopped today. His beta randall dose has been increased by cardiology 100 mg twice a day. Patient's anticoagulation is Coumadin. It is on hold as per nephrology and will restart the medication as cleared by nephro. Acute hypoxemic respiratory failure Likely secondary to volume overload. Patient received broad-spectrum antibiotics on admission which were discontinued during hospitalization. History of hypertension Patient is currently on clonidine 0.1 mg and amlodipine 10 mg. DVT prophylaxis Alps Patient is full code Patient is on renal dialysis diet Problem List: 1. Atrial fibrillation with rapid ventricular response 2. Acute respiratory failure with hypoxia 3. ESRD needing dialysis Pain Ratin Pain Location: NA Pain Goal: Pain 4 or less Pain Plan: Continue current pain medications Tomorrow's Labs & Rationales: BEP as per dialysis CBC to rule out any infectious process DVT/Prophylaxis: Nerissa Go 03/01/18 1204: Attending MD Review Statement Attending Statement Attending MD Statement: examined this patient, discuss w/resident/PA/SLOT MACHINE KEY PERSON, agreed w/resident/PA/SLOT MACHINE KEY PERSON, discussed with family, reviewed EMR data (avail), discussed with nursing, discussed with case mgmt, reviewed images, amended to note Attending Assessment/Plan: 52 o/m with Acute renal failure with ESRD and fluid overlaod needing emergent dialysis. Nephrology consulted and patient found to have pericardial friction rub. Cr 11.2 and BUN 147. K 4.7 INR 1.8 on coumadin on admission. Patient received vit K 5 mg. Patient no new complaints. Vitals stable. IR consulted for emergent dialysis catheter placement. Patient underwent emergent dialysis yesterday and plan for today as well. Access for dialysis as per nephro, consult vascualr surgery for fistula. Follow nephrology recommendation. Anemia of chronic disease Transfuse 1 unit of prbc and recheck hb.
--- NOTE | 2018-03-01 10:00 | PN- Nephrology ---
Assessment/Plan Nephrology Assessment: 1. ESRD: 2nd HD in progress - UF 2.5 liters 2. Anemia: Tx 1 unit prbc w HD; EPO w HD Suggestion: 1. d/c IV Na biacrb 2. EPO 6000 units IV TuTHSat w HD 3. needs IR consult to change IJ HD cath --> tunneled line 4. needs vasc surg consult AVF creation 5. repeat HD tomorrow Subjective Subjective: Doing better Hungry Denies SOB or CP Tolerated 1st HD yesterday w/o complication Objective Vital Signs and I&Os Vital Signs Date Time Temp Pulse Resp B/P B/P Pulse O2 O2 Flow FiO2 Mean Ox Delivery Rate 03/01 0800 94 Nasal 3.0L Cannula 03/01 0715 98.0 119 20 126/86 95 Nasal 3.0L Cannula 03/01 0000 Nasal 3.0L Cannula 02/28 2201 99.1 125 20 140/70 93 Nasal 2.5L Cannula 02/28 2116 102 140/70 02/28 2116 102 140/70 02/28 1822 120 162/94 02/28 1756 98.7 121 20 162/94 97 Nasal 3.5L Cannula 02/28 1600 Nasal 3.0L Cannula 02/28 1345 98.0 107 22 158/90 93 Nasal Cannula 02/28 1100 Nasal 3.0L Cannula 02/28 1000 107 158/90 Intake & Output 03/01 1600 03/01 0400 02/28 1600 02/28 0400 02/27 1600 02/27 0400 Intake Total 530 480 550 Output Total 300 420 800 Balance 230 60 -250 Intake, IV 430 150 Intake, Oral 100 480 400 Output, Urine 300 420 800 Patient 285 lb 294 lb 285 lb Weight Weight Bed scale Reported by Patient Measurement Method Physical Exam General Appearance: well developed/nourished, no apparent distress Head: atraumatic, normal appearance Neck: R IJ HD cath Respiratory: normal breath sounds, no respiratory distress, quiet respiration, lungs clear Cardiovascular: friction rub (not heard), irregularly irregular Abdomen: soft, non-tender Extremities: no edema Neurologic/Psychiatric: awake, alert Current Medications: Current Medications Sig/Milagros Start time Last Medication Dose Route Stop Time Status Admin Acetaminophen 650 MG Q8P PRN 02/28 1830 AC 02/28 PO 2259 Amlodipine Besylate 10 MG DAILY 02/28 1000 AC 02/28 PO 1822 Citalopram 10 MG DAILY 02/28 1000 AC 02/28 Hydrobromide PO 1035 Clonidine 0.1 MG QPM 02/28 2200 AC 02/28 PO 211 Diltiazem HCl 125 MG Q24H 02/28 0615 AC 03/01 Sodium Chloride 100 ML IV 0109 Epoetin Toribio 6,000 UNIT ONE ONE 02/28 1500 DC IV 02/28 1501 Fentanyl Citrate 0 .STK-MED ONE 02/28 1237 DC .ROUTE Ferrous Sulfate 325 MG DAILY 02/28 1000 AC 02/28 PO 1035 Furosemide 100 MG ONCE ONE 02/28 0930 CAN IV 02/28 0931 Guaifenesin 600 MG Q12 02/28 1000 AC 02/28 PO 2116 Heparin Sodium 0 .STK-MED ONE 02/28 1213 DC (Porcine) IV Lidocaine 0 .STK-MED ONE 02/28 1232 DC .ROUTE Lidocaine 0 .STK-MED ONE 02/28 1213 DC .ROUTE Metolazone 2.5 MG DAILY 02/28 1000 AC 02/28 PO 1821 Metoprolol Tartrate 100 MG BID 03/01 1000 AC PO Metoprolol Tartrate 50 MG BID 02/28 1000 DC 02/28 PO 2116 Phytonadione 5 MG DAILY 02/28 1100 DC 02/28 PO 02/28 1101 1119 Phytonadione 10 MG ONCE ONE 02/28 1000 CAN IM 02/28 1001 Sevelamer Carbonate 1,600 MG TID 02/28 1000 AC 02/28 PO 2116 Sodium Bicarbonate 150 MEQ Q16H 02/28 0630 AC 03/01 Dextrose/Water 1,000 ML IV 0109 Torsemide 20 MG DAILY 02/28 1000 AC 02/28 PO 1821 Zolpidem Tartrate 5 MG AT BEDTIME 02/28 2200 AC 02/28 PO 2116 Results Pertinent Lab Results: Laboratory Tests 03/01 03/01 0745 0707 Chemistry Sodium (137 - 145 mmol/L) 142 143 Potassium (3.5 - 5.1 mmol/L) 4.2 4.4 Chloride (98 - 107 mmol/L) 104 103 Carbon Dioxide (22 - 30 mmol/L) 23 22 Anion Gap (5 - 16) 15 18 H BUN (9 - 20 mg/dL) 112 *H 108 *H Creatinine (0.7 - 1.2 mg/dL) 9.4 *H 9.2 *H Estimated GFR (>60 ml/min) 6 L 6 L BUN/Creatinine Ratio (7 - 25 %) 11.9 11.7 Calcium (8.4 - 10.2 mg/dL) 7.7 L Hematology CBC w Diff NO MAN DIFF REQ NO MAN DIFF REQ WBC (4.8 - 10.8 /CUMM) 7.9 9.3 RBC (4.70 - 6.10 /CUMM) 2.40 L 2.54 L Hgb (14.0 - 18.0 G/DL) 6.7 *L 7.2 *L Hct (42 - 52 %) 20.1 L 21.4 L MCV (80.0 - 94.0 FL) 83.9 84.1 MCH (27.0 - 31.0 PG) 28.0 28.5 MCHC (33.0 - 37.0 G/DL) 33.4 33.8 RDW (11.5 - 14.5 %) 16.3 H 16.3 H Plt Count (130 - 400 /CUMM) 173 197 MPV (7.4 - 10.4 FL) 8.9 8.7 Gran % (42.2 - 75.2 %) 77.5 H 77.9 H Lymphocytes % (20.5 - 51.1 %) 6.0 L 5.8 L Monocytes % (1.7 - 9.3 %) 13.2 H 12.2 H Eosinophils % (0 - 5 %) 2.8 3.1 Basophils % (0.0 - 2.0 %) 0.5 1.0 Absolute Granulocytes (1.4 - 6.5 /CUMM) 6.1 7.2 H Absolute Lymphocytes (1.2 - 3.4 /CUMM) 0.5 L 0.5 L Absolute Monocytes (0.10 - 0.60 /CUMM) 1.0 H 1.1 H Absolute Eosinophils (0.0 - 0.7 /CUMM) 0.2 0.3 Absolute Basophils (0.0 - 0.2 /CUMM) 0 0.1 02/28 02/28 1821 1500 Chemistry Sodium (137 - 145 mmol/L) 143 Potassium (3.5 - 5.1 mmol/L) 4.5 Chloride (98 - 107 mmol/L) 107 Carbon Dioxide (22 - 30 mmol/L) 15 L Anion Gap (5 - 16) 20 H BUN (9 - 20 mg/dL) 146 *H Creatinine (0.7 - 1.2 mg/dL) 11.2 *H Estimated GFR (>60 ml/min) 5 L BUN/Creatinine Ratio (7 - 25 %) 13.0 Calcium (8.4 - 10.2 mg/dL) 7.3 L Hematology CBC w Diff NO MAN DIFF REQ Cancelled WBC (4.8 - 10.8 /CUMM) 9.6 Cancelled RBC (4.70 - 6.10 /CUMM) 2.66 L Cancelled Hgb (14.0 - 18.0 G/DL) 7.5 L Cancelled Hct (42 - 52 %) 22.5 L Cancelled MCV (80.0 - 94.0 FL) 84.5 Cancelled MCH (27.0 - 31.0 PG) 28.1 Cancelled MCHC (33.0 - 37.0 G/DL) 33.3 Cancelled RDW (11.5 - 14.5 %) 16.1 H Cancelled Plt Count (130 - 400 /CUMM) 210 Cancelled MPV (7.4 - 10.4 FL) 8.2 Cancelled Gran % (42.2 - 75.2 %) 83.8 H Lymphocytes % (20.5 - 51.1 %) 4.2 L Monocytes % (1.7 - 9.3 %) 10.6 H Eosinophils % (0 - 5 %) 1.1 Basophils % (0.0 - 2.0 %) 0.3 Absolute Granulocytes (1.4 - 6.5 /CUMM) 8.0 H Absolute Lymphocytes (1.2 - 3.4 /CUMM) 0.4 L Absolute Monocytes (0.10 - 0.60 /CUMM) 1.0 H Absolute Eosinophils (0.0 - 0.7 /CUMM) 0.1 Absolute Basophils (0.0 - 0.2 /CUMM) 0 02/28 02/28 02/28 1500 1030 0910 Blood Gas Bicarbonate Actual (22 - 26 MEQ/L) 11 L Mixed VBG pH (7.31 - 7.41 PH) 7.22 L Mixed VBG pCO2 (41 - 51 TORR) 26 L Mixed VBG O2 Saturation (35 - 45 TORR) 47 H O2 Concentration % 3L O2 Delivery Method NC Chemistry Sodium Cancelled Potassium Cancelled Chloride Cancelled Carbon Dioxide Cancelled Anion Gap Cancelled BUN Cancelled Creatinine Cancelled BUN/Creatinine Ratio Cancelled Phosphorus Cancelled Troponin I (<0.11 ng/ml) Cancelled 0.01 Hematology CBC w Diff NO MAN DIFF REQ WBC (4.8 - 10.8 /CUMM) 9.8 RBC (4.70 - 6.10 /CUMM) 2.55 L Hgb (14.0 - 18.0 G/DL) 7.1 *L Hct (42 - 52 %) 21.5 L MCV (80.0 - 94.0 FL) 84.3 MCH (27.0 - 31.0 PG) 28.0 MCHC (33.0 - 37.0 G/DL) 33.2 RDW (11.5 - 14.5 %) 16.3 H Plt Count (130 - 400 /CUMM) 180 MPV (7.4 - 10.4 FL) 8.6 Gran % (42.2 - 75.2 %) 86.1 H Lymphocytes % (20.5 - 51.1 %) 3.7 L Monocytes % (1.7 - 9.3 %) 9.7 H Eosinophils % (0 - 5 %) 0 Basophils % (0.0 - 2.0 %) 0.5 Absolute Granulocytes (1.4 - 6.5 /CUMM) 8.5 H Absolute Lymphocytes (1.2 - 3.4 /CUMM) 0.4 L Absolute Monocytes (0.10 - 0.60 /CUMM) 0.9 H Absolute Eosinophils (0.0 - 0.7 /CUMM) 0 Absolute Basophils (0.0 - 0.2 /CUMM) 0 Miscellaneous Phlebotomy Draw Site RIGHT RADIAL 02/28 02/28 1967 4302 Chemistry Sodium (137 - 145 mmol/L) 144 Potassium (3.5 - 5.1 mmol/L) 4.4 Chloride (98 - 107 mmol/L) 109 H Carbon Dioxide (22 - 30 mmol/L) 12 L Anion Gap (5 - 16) 24 H BUN (9 - 20 mg/dL) 147 *H Creatinine (0.7 - 1.2 mg/dL) 11.2 *H Estimated GFR (>60 ml/min) 5 L BUN/Creatinine Ratio (7 - 25 %) 13.1 Glucose (65 - 99 mg/dL) 104 H Calcium (8.4 - 10.2 mg/dL) 7.7 L Phosphorus (2.5 - 4.5 mg/dL) 13.1 H Magnesium (1.6 - 2.3 mg/dL) 1.9 Total Bilirubin (0.2 - 1.3 mg/dL) 0.6 AST (17 - 59 U/L) 18 ALT (21 - 72 U/L) 45 Alkaline Phosphatase (< 127 U/L) 101 Troponin I (<0.11 ng/ml) 0.01 [id number] Pept (<125 pg/mL) 79064.0 H Total Protein (6.3 - 8.2 g/dL) 6.4 Albumin (3.5 - 5.0 g/dL) 3.3 L Globulin (1.9 - 4.2 gm/dL) 3.1 Albumin/Globulin Ratio (1.1 - 2.2 %) 1.1 Amylase (30 - 110 U/L) 170 H Lipase (23 - 300 U/L) 752 H Coagulation PT (9.4 - 12.5 SEC) 19.8 H INR (0.90 - 1.17) 1.81 H D-Dimer High Sensitivty (0 - 243 ng/ml) 472 H Hematology CBC w Diff NO MAN DIFF REQ WBC (4.8 - 10.8 /CUMM) 11.5 H RBC (4.70 - 6.10 /CUMM) 2.99 L Hgb (14.0 - 18.0 G/DL) 8.3 L Hct (42 - 52 %) 25.3 L MCV (80.0 - 94.0 FL) 84.4 MCH (27.0 - 31.0 PG) 27.6 MCHC (33.0 - 37.0 G/DL) 32.7 L RDW (11.5 - 14.5 %) 16.4 H Plt Count (130 - 400 /CUMM) 264 MPV (7.4 - 10.4 FL) 8.1 Gran % (42.2 - 75.2 %) 82.6 H Lymphocytes % (20.5 - 51.1 %) 5.7 L Monocytes % (1.7 - 9.3 %) 7.6 Eosinophils % (0 - 5 %) 3.9 Basophils % (0.0 - 2.0 %) 0.2 Absolute Granulocytes (1.4 - 6.5 /CUMM) 9.5 H Absolute Lymphocytes (1.2 - 3.4 /CUMM) 0.7 L Absolute Monocytes (0.10 - 0.60 /CUMM) 0.9 H Absolute Eosinophils (0.0 - 0.7 /CUMM) 0.5 Absolute Basophils (0.0 - 0.2 /CUMM) 0 Serology Hep Bs Antigen (NONREACTIVE) NONREACTIVE Urines Urine Color (YEL,AMB,STR) YEL Urine Clarity (CLEAR) CLEAR Urine pH (5.0 - 8.0) 6.0 Ur Specific Dexter (1.001 - 1.035) 1.025 Urine Protein (NEG,<30 MG/DL) >=300 H Urine Ketones (NEG) NEG Urine Nitrite (NEG) NEG Urine Bilirubin (NEG) NEG Urine Urobilinogen (0.1 - 1.0 EU/dl) 0.2 Ur Leukocyte Esterase (NEG) NEG Ur Microscopic SEDIMENT EXAMINED Urine RBC (0 - 5 /HPF) 1-3 Urine WBC (0 - 2 /HPF) 5-10 H Urine Bacteria (NEG/NONE) MANY H Urine Hemoglobin (NEG) SMALL H Urine Glucose (N MG/DL) NEG Imaging/Other Studies: CXR: IMPRESSION: Interstitial prominence with increased bibasilar opacities. This could represent interstitial edema with alveolar edema. Pneumonia also a consideration.
--- NOTE | 2018-03-01 19:08 | PN- Cardiology ---
Subjective Subjective: The patient is seen after his second dialysis. He reports that he is feeling much better. No chest pain. No shortness of breath. No diaphoresis. No palpitations Objective Vital Signs and I&Os Vital Signs Date Time Temp Pulse Resp B/P B/P Pulse O2 O2 Flow FiO2 Mean Ox Delivery Rate 03/01 1114 98 140/84 03/01 0800 94 Nasal 3.0L Cannula 03/01 715 98.0 119 20 126/86 95 Nasal 3.0L Cannula 03/01 0000 Nasal 3.0L Cannula 02/281 99.1 125 20 140/70 93 Nasal 2.5L Cannula 02/29 2116 102 140/70 02/29 2116 102 140/70 Intake & Output 03/01 1600 03/01 0000 02/28 1600 02/28 0000 Intake Total 900 530 480 200 350 Output Total 2500 300 420 450 350 Balance -1600 230 60 -250 0 Intake, Blood 350 Product Intake, IV 430 150 Intake, Oral 550 100 480 200 200 Output, 2500 Dialysate Output, Urine 300 420 450 350 Patient 285 lb 294 lb Weight Weight Bed scale Reported by Patient Measurement Method Physical Exam: Gen: The patient is in no acute distress HEENT: Normal nose, ears, and oropharynx. Pupils equal bilaterally. Conjunctiva normal. Neck: Supple with no JVD, no masses, and no thyromegaly Lungs: Decreased breath sound with normal respiratory effort Heart: Irregular, S1, S2, 2/6 systolic, pericardial rub noted. 1+ peripheral edema, 2+ pulses in the lower extremities bilaterally Abdomen: Soft, nontender, no masses. No hepatomegaly. No splenomegaly Extremities: No clubbing or cyanosis. Normal muscle strength in the upper and lower extremities Skin: Normal skin turgor with no skin ulcers or lesions noted. Current Medications: Current Medications Sig/Milagros Start time Last Medication Dose Route Stop Time Status Admin Acetaminophen 650 MG Q8P PRN 02/28 1830 AC 02/28 PO 2259 Amlodipine Besylate 10 MG DAILY 02/28 1000 AC 03/01 PO 1115 Citalopram 10 MG DAILY 02/28 1000 AC 03/01 Hydrobromide PO 1114 Clonidine 0.1 MG QPM 02/28 2200 AC 02/28 PO 2116 Diltiazem HCl 125 MG Q24H 02/28 615 DC 03/01 Sodium Chloride 100 ML IV 0109 Epoetin Toribio 6,000 UNIT SHIKHA FUNG SAT PRN 03/02 1000 AC IV Ferrous Sulfate 325 MG DAILY 02/28 1000 AC 03/01 PO 1115 Guaifenesin 600 MG Q12 02/28 1000 AC 03/01 PO 1115 Metolazone 2.5 MG DAILY 02/28 1000 DC 02/28 PO 1821 Metoprolol Tartrate 100 MG BID 03/01 1000 AC 03/01 PO 1114 Metoprolol Tartrate 50 MG BID 02/28 1000 DC 02/28 PO 2116 Multivitamins 1 TAB DAILY 03/01 1000 AC 03/01 PO 1115 Patient Medication 1 ED ONE ONE 03/01 1515 DC Teaching ED 03/01 1516 Sevelamer Carbonate 1,600 MG 0800,1200,1700 03/01 1700 AC 03/01 PO 1716 Sevelamer Carbonate 1,600 MG TID 02/28 1000 DC 03/01 PO 1115 Sodium Bicarbonate 150 MEQ Q16H 02/28 0630 DC 03/01 Dextrose/Water 1,000 ML IV 0109 Torsemide 20 MG DAILY 02/28 1000 AC 03/01 PO 1114 Zolpidem Tartrate 5 MG AT BEDTIME 02/28 2200 AC 02/28 PO 2116 Results Last 48 Hrs of Labs/Mics: Laboratory Tests 03/01/18 0745: Anion Gap 15, Estimated GFR 6 L, BUN/Creatinine Ratio 11.9, Calcium 7.7 L, CBC w Diff NO MAN DIFF REQ, RBC 2.40 L, MCV 83.9, MCH 28.0, MCHC 33.4, RDW 16.3 H, MPV 8.9, Gran % 77.5 H, Lymphocytes % 6.0 L, Monocytes % 13.2 H, Eosinophils % 2.8, Basophils % 0.5, Absolute Granulocytes 6.1, Absolute Lymphocytes 0.5 L, Absolute Monocytes 1.0 H, Absolute Eosinophils 0.2, Absolute Basophils 0 03/01/18 0707: Anion Gap 18 H, Estimated GFR 6 L, BUN/Creatinine Ratio 11.7, CBC w Diff NO MAN DIFF REQ, RBC 2.54 L, MCV 84.1, MCH 28.5, MCHC 33.8, RDW 16.3 H, MPV 8.7, Gran % 77.9 H, Lymphocytes % 5.8 L, Monocytes % 12.2 H, Eosinophils % 3.1, Basophils % 1.0, Absolute Granulocytes 7.2 H, Absolute Lymphocytes 0.5 L, Absolute Monocytes 1.1 H, Absolute Eosinophils 0.3, Absolute Basophils 0.1 02/28/18 1821: CBC w Diff NO MAN DIFF REQ, RBC 2.66 L, MCV 84.5, MCH 28.1, MCHC 33.3, RDW 16.1 H, MPV 8.2, Gran % 83.8 H, Lymphocytes % 4.2 L, Monocytes % 10.6 H, Eosinophils % 1.1, Basophils % 0.3, Absolute Granulocytes 8.0 H, Absolute Lymphocytes 0.4 L, Absolute Monocytes 1.0 H, Absolute Eosinophils 0.1, Absolute Basophils 0 02/28/18 1500: Anion Gap 20 H, Estimated GFR 5 L, BUN/Creatinine Ratio 13.0, Calcium 7.3 L, CBC w Diff Cancelled, WBC Cancelled, RBC Cancelled, Hgb Cancelled, Hct Cancelled , MCV Cancelled, MCH Cancelled, MCHC Cancelled, RDW Cancelled, Plt Count Cancelled, MPV Cancelled 02/28/18 1500: Sodium Cancelled, Potassium Cancelled, Chloride Cancelled, Carbon Dioxide Cancelled, Anion Gap Cancelled, BUN Cancelled, Creatinine Cancelled, BUN/ Creatinine Ratio Cancelled, Phosphorus Cancelled, Troponin I Cancelled, CBC w Diff NO MAN DIFF REQ, RBC 2.55 L, MCV 84.3, MCH 28.0, MCHC 33.2, RDW 16.3 H, MPV 8.6, Gran % 86.1 H, Lymphocytes % 3.7 L, Monocytes % 9.7 H, Eosinophils % 0, Basophils % 0.5, Absolute Granulocytes 8.5 H, Absolute Lymphocytes 0.4 L, Absolute Monocytes 0.9 H, Absolute Eosinophils 0, Absolute Basophils 0 02/28/18 1030: Bicarbonate Actual 11 L, Mixed VBG pH 7.22 L, Mixed VBG pCO2 26 L, Mixed VBG O2 Saturation 47 H, O2 Concentration % 3L, O2 Delivery Method NC, Phlebotomy Draw Site RIGHT RADIAL 02/28/18 0910: Troponin I 0.01 02/28/18 0550: Urine Color YEL, Urine Clarity CLEAR, Urine pH 6.0, Ur Specific [place]ull[place] 1.025, Urine Protein >=300 H, Urine Ketones NEG, Urine Nitrite NEG, Urine Bilirubin NEG, Urine Urobilinogen 0.2, Ur Leukocyte Esterase NEG, Ur Microscopic SEDIMENT EXAMINED, Urine RBC 1-3, Urine WBC 5-10 H, Urine Bacteria MANY H, Urine Hemoglobin SMALL H, Urine Glucose NEG 02/28/18 0313: Anion Gap 24 H, Estimated GFR 5 L, BUN/Creatinine Ratio 13.1, Glucose 104 H, Calcium 7.7 L, Phosphorus 13.1 H, Magnesium 1.9, Total Bilirubin 0.6, AST 18, ALT 45, Alkaline Phosphatase 101, Troponin I 0.01, [id number] Pept 08212.0 H, Total Protein 6.4, Albumin 3.3 L, Globulin 3.1, Albumin/Globulin Ratio 1.1, Amylase 170 H, Lipase 752 H, PT 19.8 H, INR 1.81 H, D-Dimer High Sensitivty 472 H, CBC w Diff NO MAN DIFF REQ, RBC 2.99 L, MCV 84.4, MCH 27.6, MCHC 32.7 L, RDW 16.4 H, MPV 8.1, Gran % 82.6 H, Lymphocytes % 5.7 L, Monocytes % 7.6, Eosinophils % 3.9, Basophils % 0.2, Absolute Granulocytes 9.5 H, Absolute Lymphocytes 0.7 L, Absolute Monocytes 0.9 H, Absolute Eosinophils 0.5, Absolute Basophils 0, Hep Bs Antigen NONREACTIVE Microbiology 02/28 0620 NASOPHARYN: Influenza Virus A & B Rapid Smear - COMP Assessment/Plan Assessment/Plan Assessment: 1. End-stage renal disease started on dialysis 2. Paroxysmal atrial fibrillation and atrial flutter 3. Pericardial rub with small pericardial effusion on telemetry reading of echocardiogram. Official reading of echocardiogram still pending Plan: * I agree with the increase in metoprolol dose to 100 mg p.o. twice daily for rate control * IV diltiazem discontinue * Dialysis as per nephrology * Anticoagulation on hold. Would start IV heparin for atrial fibrillation once cleared by nephrology Continue telemetry? Yes
--- NOTE | 2018-03-01 20:09 | ECHOCARDIOGRAM REPORT ---
SAMRA PERALTA Age: 52 : 1965 Gender: M Exam Date: 02/28/2018 14:07 Exam Location: 1 [address] Ht (in): 71 Wt (lb): 293 BSA: 2.64 BP: 154 / 90 Ordering Physician: Maira Armenta MD Referring Physician: Noah Murillo MD Technologist: Shelbi Brooks [facility] Room Number: 176 Indications: MURMUR/CLICK, PERICARDIAL FRICTION RUB Rhythm: Other Technical Quality: Fair, Technically difficult study FINDINGS Left Ventricle Normal size left ventricle. No obvious regional wall motion abnormalities. Normal left ventricular ejection fraction estimated at 55-60%. Left ventricular wall thickness increased. Abnormal septal motion. Right Ventricle Right ventricle not well visualized, grossly normal. Right Atrium Normal right atrial size. Left Atrium Left atrial dilatation. Mitral Valve Mitral valve thickened. Mitral annular calcification. Mild mitral regurgitation. Aortic Valve Trileaflet aortic valve. Diffuse thickening (sclerosis) of the aortic valve cusps without reduced excursion. No aortic stenosis. No aortic regurgitation. Tricuspid Valve Tricuspid valve not well visualized, grossly normal. Mild tricuspid regurgitation. Right ventricular systolic pressure estimated at 36 mmHg. Pulmonic Valve Pulmonic valve not well visualized, grossly normal. Trace to mild pulmonic regurgitation. Pericardium Small pericardial effusion. Great Vessels Normal size aortic root and proximal ascending aorta. CONCLUSIONS 1. This was a technically difficult examination. 2. Aortic sclerosis is present with no valvular stenosis or insufficiency. 3. Mitral leaflet thickening is present with minimal anular calcification and mild mitral insufficiency with mild left atrial enlargement. 4. A small pericardial effusion is present which is hemodynamically insignificant. 5. The left ventricular chamber size and systolic function appear normal. Mild concentric hypertophy is present. 6. Abnormal interventricular septal motion is present. 7. Mild tricuspid insufficiency is present with minimal to mild pulmonic insufficiency and an estimated RV systolic pressure of 36 mmHg. Sarthak Small M.D. (Electronically Signed) Final Date: 01 March 2018 20:09 MEASUREMENTS (Male / Female) Normal Values 2D ECHO LV Diastolic Diameter PLAX 4.9 cm 4.2 - 5.9 / 3.9 - 5.3 cm LV Systolic Diameter PLAX 3.0 cm 2.1 - 4.0 cm LV Fractional Shortening PLAX 38.8 % 25 - 46 % LV Ejection Fraction 2D Teich 69.0 % IVS Diastolic Thickness 1.3 cm LVPW Diastolic Thickness 1.3 cm LV Relative Wall Thickness 0.5 RV Internal Dim ED PLAX 3.0 cm 1.9 - 3.8 cm LVOT Diameter 2.5 cm Aortic Root Diameter 3.3 cm LA Systolic Diameter LX 4.7 cm 3.0 - 4.0 / 2.7 - 3.8 cm Ascending Aorta Diameter 3.0 cm DOPPLER AV Peak Velocity 120.0 cm/s AV Peak Gradient 5.8 mmHg AV Mean Velocity 82.7 cm/s AV Mean Gradient 3.0 mmHg AV Velocity Time Integral 17.5 cm LVOT Peak Velocity 88.4 cm/s LVOT Peak Gradient 3.1 mmHg LVOT Mean Velocity 61.7 cm/s LVOT Mean Gradient 2.0 mmHg LVOT Velocity Time Integral 16.4 cm LVOT Stroke Volume 80.5 cm AV Area Cont Eq vti 4.6 cm AV Area Cont Eq pk 3.6 cm MV Peak Velocity 154.0 cm/s MV Peak Gradient 9.5 mmHg MV Mean Velocity 52.2 cm/s MV Mean Gradient 2.0 mmHg Mitral E Point Velocity 94.3 cm/s Mitral A Point Velocity 52.3 cm/s Mitral E to A Ratio 1.8 MV PHT Velocity 160.0 cm/s MV Deceleration Otero 816.0 cm/s MV Pressure Half Time 58.8 ms MV Area PHT 3.7 cm MV Deceleration Time 183.0 ms TR Peak Velocity 259.0 cm/s TR Peak Gradient 26.8 mmHg Right Atrial Pressure 5.0 mmHg Pulmonary Artery Systolic Pressu 31.8 mmHg Right Ventricular Systolic Press 31.8 mmHg PV Peak Velocity 132.0 cm/s PV Peak Gradient 7.0 mmHg PV Mean Velocity 84.4 cm/s PV Mean Gradient 3.0 mmHg PV Velocity Time Integral 24.6 cm LV E' Lateral Velocity 10.7 cm/s Mitral E to LV E' Lateral Ratio 8.8 LV E' Septal Velocity 9.0 cm/s Mitral E to LV E' Septal Ratio 10.5
[2018-03-01 22:49] VITALS: BP 122/78
[2018-03-02 06:52] VITALS: BP 160/92
[2018-03-02 08:07] LABS: ABSOLUTE BASOPHIL COUNT 0.1 /CUMM (0.0-0.2); ABSOLUTE EOSINOPHIL COUNT 0.5 /CUMM (0.0-0.7); ABSOLUTE GRANULOCYTE CT 6.8 /CUMM (1.4-6.5); ABSOLUTE LYMPH COUNT 0.6 /CUMM (1.2-3.4); ABSOLUTE MONOCYTE COUNT 1.2 /CUMM (0.10-0.60); BASOPHIL % 0.7 % (0.0-2.0); EOSINOPHIL % 5.2 % (0-5); GRANULOCYTE % 74.4 % (42.2-75.2); HEMATOCRIT 22.2 % (42-52); MEAN CORPUSCULAR HGB 29.6 PG (27.0-31.0); MEAN CORPUSCULAR HGB CONC 34.6 G/DL (33.0-37.0); MEAN CORPUSCULAR VOLUME 85.6 FL (80.0-94.0); MEAN PLATELET VOLUME 8.6 FL (7.4-10.4); PLATELET COUNT 180 /CUMM (130-400); RBC DISTRIBUTION WIDTH 16.2 % (11.5-14.5); WHITE BLOOD CELL COUNT 9.2 /CUMM (4.8-10.8)
[2018-03-02 08:18] LABS: PT 17.2 SEC (9.4-12.5)
--- NOTE | 2018-03-02 08:54 | PN- Housestaff ---
Neha Herr MD,Andrés 03/02/18 0854: Subjective Follow-up For: ESRD with anion gap metabolic acidosis ACute hypoxic resp failure A fib with RVR HTN anxiety Complaints: right knee pain Tele-Events Since Last Visit: Patient was in atrial fibrillation and in some occasions atrial flutter heart rate well controlled 78-99 Subjective: Patient complaint of right knee pain this morning. He has had history of gout and was on allopurinol that he stopped one month ago. Patient currently does not have any acute chest pain or shortness of breath. He is due for another round of dialysis today. Review of Systems Constitutional: Denies: chills, fever. EENTM: Denies: visual changes. Cardiovascular: Denies: chest pain, palpitations. Respiratory: Denies: cough, short of breath. Gastrointestinal: Denies: abdominal pain, nausea, vomiting. Genitourinary: Denies: discharge. Objective Last 24 Hrs of Vital Signs/I&O Vital Signs Date Time Temp Pulse Resp B/P B/P Pulse O2 O2 Flow FiO2 Mean Ox Delivery Rate 03/02 0652 98.6 93 20 160/92 95 Nasal 2.0L Cannula 03/01 2249 98.4 86 16 122/78 95 Nasal Cannula 03/01 2113 100 132/62 03/01 2113 100 132/62 03/01 1950 4.0 Intake & Output 03/02 1600 03/02 0800 03/02 0000 Intake Total 120 240 Output Total 200 250 Balance -80 -10 Intake, Oral 120 240 Output, Urine 200 250 Patient 225 lb Weight Physical Exam General Appearance: Alert, Oriented X3, Cooperative Skin: No Rashes HEENT: Atraumatic Neck: No JVD, RIGHT INTERNAL JUGULAR HEMODIALYSIS CATHETER Cardiovascular: IRREGULARLY IRREGULAR Lungs: decreased air entry at the lung bases Abdomen: Normal Bowel Sounds, Soft, No Tenderness, No Hepatospenomegaly Neurological: Normal Speech, Normal Tone, Sensation Intact Extremities: right knee pain Vascular: Normal Pulses Current Medications: Current Medications Sig/Milagros Start time Last Medication Dose Route Stop Time Status Admin Acetaminophen 650 MG .STK-MED ONE 03/01 1950 DC PO 03/01 1951 Acetaminophen 650 MG Q8P PRN 02/28 1830 AC 03/02 PO 0545 Amlodipine Besylate 10 MG DAILY 02/28 1000 AC 03/01 PO 1115 Citalopram 10 MG DAILY 02/28 1000 AC 03/01 Hydrobromide PO 1114 Clonidine 0.1 MG QPM 02/28 2200 AC 03/01 PO 2113 Diclofenac Sodium 1 CAROLYNE 4 TIMES/DAY PRN 03/02 1030 AC 03/02 TOP 1126 Diltiazem HCl 125 MG Q24H 02/28 0615 DC 03/01 Sodium Chloride 100 ML IV 0109 Epoetin Toribio 6,000 UNIT TUES THURS SAT PRN 03/02 1000 AC IV Ferrous Sulfate 325 MG DAILY 02/28 1000 AC 03/01 PO 1115 Guaifenesin 600 MG Q12 02/28 1000 AC 03/01 PO 2111 Metoprolol Tartrate 100 MG BID 03/01 1000 AC 03/01 PO 2113 Multivitamins 1 TAB DAILY 03/01 1000 AC 03/01 PO 1115 Patient Medication 1 ED ONE ONE 03/01 1515 DC Teaching ED 03/01 1516 Sevelamer Carbonate 1,600 MG 0800,1200,1700 03/01 1700 AC 03/02 PO 0821 Sevelamer Carbonate 1,600 MG TID 02/28 1000 DC 03/01 PO 1115 Torsemide 20 MG DAILY 02/28 1000 AC 03/01 PO 1114 Tramadol HCl 50 MG Q8P PRN 03/02 1030 AC 03/02 PO 103 Tramadol HCl 25 MG ONCE ONE 03/01 2330 DC 03/01 PO 03/01 233 233 Zolpidem Tartrate 5 MG AT BEDTIME 02/280 AC 03/01 PO 211 Last 24 Hrs of Lab/Jorden Results Last 24 Hrs of Labs/Mics: Laboratory Tests 03/02/18 0650: PT 17.2 H, INR 1.57 H, CBC w Diff NO MAN DIFF REQ, RBC 2.60 L, MCV 85.6, MCH 29.6, MCHC 34.6, RDW 16.2 H, MPV 8.6, Gran % 74.4, Lymphocytes % 6.8 L, Monocytes % 12.9 H, Eosinophils % 5.2 H, Basophils % 0.7, Absolute Granulocytes 6.8 H, Absolute Lymphocytes 0.6 L, Absolute Monocytes 1.2 H, Absolute Eosinophils 0.5, Absolute Basophils 0.1 Lines/Diet/Fluids Lines: peripheral lines Restraints: none, RIGHT INTERNAL JUGULAR HEMODIALYSIS CATHETER Assessment/Plan Assessment: 52 year old with PMH of HTN, ESRD, Hypertensive nephropathy, a fib on coumadein, b/l lower ext edema, was recently discharged for CAP and anemia requiring blood transfusion. He recently was hospitalized for pneumonia here at [facility]. He was also noted to be volume overloaded at that time. He was discharged on metolazone and torsemide to control his volume status. Patient came back to emergency department and was admitted on telemetry floor for the management of acute hypoxemic respiratory failure/volume overload and elevated anion gap metabolic acidosis. Patient also found to be in atrial fibrillation with rapid ventricular rate. MARJAN on CKD/and end-stage renal disease on hemodialysis/elevated anion gap metabolic acidosis Patient is following following since 2009 for hypertensive nephropathy. He needs AVF placement as outpatient with . The patient has an appointment in the near future for placement of an aVF. Patient was dialyzed yesterday by nephrology on an urgent basis secondary to a faint pericardial rub yesterday. Patient will receive another round of dialysis today. He feels much better and there is no pericardial rub on examination. Patient was also started on bicarbonate drip which was discontinued. We'll continue to follow-up with nephrology. Patient was also started on erythropoietin and Sevelamer. We're awaiting vascular surgery evaluation for fistula creation. Plan is to get a TUNNELED catheter today or tomorrow from interventional radiology for future dialysis appointments. Spoke with interventional radiology about the plan and placed the order. A.fib with rapid regular rate Patient has past medical history significant for atrial fibrillation. He was noted to have increased heart rate during this admission. He was initially started on Cardizem drip that was titrated and then stopped today. His beta randall dose has been increased by cardiology 100 mg twice a day. Patient's anticoagulation was Coumadin. It was on hold as per nephrology for concerns of pericarditis and later on restarted after 2 days with IV heparin. Echocardiogram was also ordered to r/o any significant pericardial effusion. It showed small pericardial effusion is present which is hemodynamically insignificant. Acute hypoxemic respiratory failure Likely secondary to volume overload. Patient received broad-spectrum antibiotics on admission which were discontinued during hospitalization. Currently patient is off antibiotics and remained afebrile overnight. History of hypertension Patient is currently on clonidine 0.1 mg and amlodipine 10 mg. Right knee pain with history of gout Patient has history of gout and was on allopurinol she stopped a month ago because of concerns for his renal function. We will add on uric acid levels and start the patient on tramadol and when necessary or Celebrex. Avoid NSAID by mouth because of the concerns for GI bleeding. We will also obtain x-ray to rule out effusion. If effusion is present, patient needs to be tapped to r/o septic arthritis. DVT prophylaxis Alps Patient is full code Patient is on renal dialysis diet Problem List: 1. Atrial fibrillation with rapid ventricular response 2. ESRD needing dialysis Pain Ratin Pain Location: Right knee Pain Goal: Pain 4 or less Pain Plan: Added tramadol when necessary for right knee pain Tomorrow's Labs & Rationales: CBC and BMP as per nephrology recommendations DVT/Prophylaxis: mechanical SahilaAdykaren 03/02/18 1111: Attending MD Review Statement Attending Statement Attending MD Statement: examined this patient, discuss w/resident/PA/SENIOR FUND ACCOUNTANT, agreed w/resident/PA/SENIOR FUND ACCOUNTANT, discussed with family, reviewed EMR data (avail), discussed with nursing, discussed with case mgmt, reviewed images, amended to note Attending Assessment/Plan: 52 o/m with Acute renal failure with ESRD and fluid overlaod needing emergent dialysis. Nephrology consulted and patient found to have pericardial friction rub. Cr 11.2 and BUN 147. K 4.7 INR 1.8 on coumadin on admission. Patient received vit K 5 mg. Patient no new complaints. Vitals stable. Overall clinical improvement. IR consulted for emergent dialysis catheter placement. Patient underwent emergent dialysis and plan for dialysis as per Nephro. Access for dialysis as per nephro, consulted vascualr surgery for fistula. Follow nephrology recommendation. Anemia of chronic disease s/p transfusion of prbc. H/h stable. afib couamdin held initally, resume coumadin now. knee pain local gel application.
--- NOTE | 2018-03-02 11:22 | PN- Nephrology ---
See Addendum Assessment/Plan Nephrology Assessment: 1. ESRD: improving w HD; needs tunneled HD cath 2. Pericarditis: no rub heard today 3. Volume overload: improved 4. A fib: no objection to restarting anticoagulation after tunneled cath placed Suggestion: 1. HD again today 2. IR consult tunneled IJ HD cath 3. hold on inpt vasc surg consult --> has appt next week as outpt 4. d/c planning for later this week w outpt HD [facility] Subjective Subjective: No uremic sx No CP No SOB Feeling much better Objective Vital Signs and I&Os Vital Signs Date Time Temp Pulse Resp B/P B/P Pulse O2 O2 Flow FiO2 Mean Ox Delivery Rate 03/02 0652 98.6 93 20 160/92 95 Nasal 2.0L Cannula 03/01 2249 98.4 86 16 122/78 95 Nasal Cannula 03/01 2113 100 132/62 03/01 2113 100 132/62 03/01 1950 4.0 03/01 1114 98 140/84 Intake & Output 03/02 1600 03/02 0400 03/01 1600 03/01 0400 02/28 1600 02/28 0400 Intake Total 645 244 3699 480 550 Output Total 819 428 7606 420 800 Balance -80 -10 -1370 60 -250 Intake, Blood 350 Product Intake, IV 430 150 Intake, Oral 120 240 650 480 400 Output, 2500 Dialysate Output, Urine 200 250 300 420 800 Patient 225 lb 285 lb 294 lb 285 lb Weight Weight Bed scale Reported by Patient Measurement Method Physical Exam General Appearance: well developed/nourished, no apparent distress Head: atraumatic, normal appearance Ears, Nose, Throat: normal ENT inspection Neck: R IJ nontunneled HD cath Respiratory: normal breath sounds, no respiratory distress, quiet respiration, lungs clear Cardiovascular: friction rub (none heard), irregularly irregular Abdomen: soft, non-tender, no organomegaly Extremities: swelling (trace) Neurologic/Psychiatric: awake, alert Lymphatic: no anterior cervical bina Current Medications: Current Medications Sig/Milagros Start time Last Medication Dose Route Stop Time Status Admin Acetaminophen 650 MG .STK-MED ONE 03/01 1950 DC PO 03/01 1951 Acetaminophen 650 MG Q8P PRN 02/28 1830 AC 03/02 PO 0545 Amlodipine Besylate 10 MG DAILY 02/28 1000 AC 03/01 PO 1115 Citalopram 10 MG DAILY 02/28 1000 AC 03/01 Hydrobromide PO 1114 Clonidine 0.1 MG QPM 02/28 2200 AC 03/01 PO 2113 Diclofenac Sodium 1 CAROLYNE 4 TIMES/DAY PRN 03/02 1030 AC TOP Diltiazem HCl 125 MG Q24H 02/28 0615 DC 03/01 Sodium Chloride 100 ML IV 0109 Epoetin Toribio 6,000 UNIT TUES THURS SAT PRN 03/02 1000 AC IV Ferrous Sulfate 325 MG DAILY 02/28 1000 AC 03/01 PO 1115 Guaifenesin 600 MG Q12 02/28 1000 AC 03/01 PO 2111 Metoprolol Tartrate 100 MG BID 03/01 1000 AC 03/01 PO 2113 Multivitamins 1 TAB DAILY 03/01 1000 AC 03/01 PO 1115 Patient Medication 1 ED ONE ONE 03/01 1515 DC Teaching ED 03/01 1516 Sevelamer Carbonate 1,600 MG 0800,1200,1700 03/01 1700 AC 03/02 PO 0821 Sevelamer Carbonate 1,600 MG TID 02/28 1000 DC 03/01 PO 1115 Torsemide 20 MG DAILY 02/28 1000 AC 03/01 PO 1114 Tramadol HCl 50 MG Q8P PRN 03/02 1030 AC 03/02 PO 1033 Tramadol HCl 25 MG ONCE ONE 03/01 2330 DC 03/01 PO 03/01 2331 2336 Zolpidem Tartrate 5 MG AT BEDTIME 02/28 2200 AC 03/01 PO 211 Results Pertinent Lab Results: Laboratory Tests 03/02 03/01 0650 0745 Chemistry Sodium (137 - 145 mmol/L) 142 Potassium (3.5 - 5.1 mmol/L) 4.2 Chloride (98 - 107 mmol/L) 104 Carbon Dioxide (22 - 30 mmol/L) 23 Anion Gap (5 - 16) 15 BUN (9 - 20 mg/dL) 112 *H Creatinine (0.7 - 1.2 mg/dL) 9.4 *H Estimated GFR (>60 ml/min) 6 L BUN/Creatinine Ratio (7 - 25 %) 11.9 Calcium (8.4 - 10.2 mg/dL) 7.7 L Coagulation PT (9.4 - 12.5 SEC) 17.2 H INR (0.90 - 1.17) 1.57 H Hematology CBC w Diff NO MAN DIFF REQ NO MAN DIFF REQ WBC (4.8 - 10.8 /CUMM) 9.2 7.9 RBC (4.70 - 6.10 /CUMM) 2.60 L 2.40 L Hgb (14.0 - 18.0 G/DL) 7.7 L 6.7 *L Hct (42 - 52 %) 22.2 L 20.1 L MCV (80.0 - 94.0 FL) 85.6 83.9 MCH (27.0 - 31.0 PG) 29.6 28.0 MCHC (33.0 - 37.0 G/DL) 34.6 33.4 RDW (11.5 - 14.5 %) 16.2 H 16.3 H Plt Count (130 - 400 /CUMM) 180 173 MPV (7.4 - 10.4 FL) 8.6 8.9 Gran % (42.2 - 75.2 %) 74.4 77.5 H Lymphocytes % (20.5 - 51.1 %) 6.8 L 6.0 L Monocytes % (1.7 - 9.3 %) 12.9 H 13.2 H Eosinophils % (0 - 5 %) 5.2 H 2.8 Basophils % (0.0 - 2.0 %) 0.7 0.5 Absolute Granulocytes (1.4 - 6.5 /CUMM) 6.8 H 6.1 Absolute Lymphocytes (1.2 - 3.4 /CUMM) 0.6 L 0.5 L Absolute Monocytes (0.10 - 0.60 /CUMM) 1.2 H 1.0 H Absolute Eosinophils (0.0 - 0.7 /CUMM) 0.5 0.2 Absolute Basophils (0.0 - 0.2 /CUMM) 0.1 0 03/01 02/28 0707 1821 Chemistry Sodium (137 - 145 mmol/L) 143 Potassium (3.5 - 5.1 mmol/L) 4.4 Chloride (98 - 107 mmol/L) 103 Carbon Dioxide (22 - 30 mmol/L) 22 Anion Gap (5 - 16) 18 H BUN (9 - 20 mg/dL) 108 *H Creatinine (0.7 - 1.2 mg/dL) 9.2 *H Estimated GFR (>60 ml/min) 6 L BUN/Creatinine Ratio (7 - 25 %) 11.7 Hematology CBC w Diff NO MAN DIFF REQ NO MAN DIFF REQ WBC (4.8 - 10.8 /CUMM) 9.3 9.6 RBC (4.70 - 6.10 /CUMM) 2.54 L 2.66 L Hgb (14.0 - 18.0 G/DL) 7.2 *L 7.5 L Hct (42 - 52 %) 21.4 L 22.5 L MCV (80.0 - 94.0 FL) 84.1 84.5 MCH (27.0 - 31.0 PG) 28.5 28.1 MCHC (33.0 - 37.0 G/DL) 33.8 33.3 RDW (11.5 - 14.5 %) 16.3 H 16.1 H Plt Count (130 - 400 /CUMM) 197 210 MPV (7.4 - 10.4 FL) 8.7 8.2 Gran % (42.2 - 75.2 %) 77.9 H 83.8 H Lymphocytes % (20.5 - 51.1 %) 5.8 L 4.2 L Monocytes % (1.7 - 9.3 %) 12.2 H 10.6 H Eosinophils % (0 - 5 %) 3.1 1.1 Basophils % (0.0 - 2.0 %) 1.0 0.3 Absolute Granulocytes (1.4 - 6.5 /CUMM) 7.2 H 8.0 H Absolute Lymphocytes (1.2 - 3.4 /CUMM) 0.5 L 0.4 L Absolute Monocytes (0.10 - 0.60 /CUMM) 1.1 H 1.0 H Absolute Eosinophils (0.0 - 0.7 /CUMM) 0.3 0.1 Absolute Basophils (0.0 - 0.2 /CUMM) 0.1 0 04/08 04/08 1500 1500 Chemistry Sodium (137 - 145 mmol/L) 143 Cancelled Potassium (3.5 - 5.1 mmol/L) 4.5 Cancelled Chloride (98 - 107 mmol/L) 107 Cancelled Carbon Dioxide (22 - 30 mmol/L) 15 L Cancelled Anion Gap (5 - 16) 20 H Cancelled BUN (9 - 20 mg/dL) 146 *H Cancelled Creatinine (0.7 - 1.2 mg/dL) 11.2 *H Cancelled Estimated GFR (>60 ml/min) 5 L BUN/Creatinine Ratio (7 - 25 %) 13.0 Cancelled Calcium (8.4 - 10.2 mg/dL) 7.3 L Phosphorus Cancelled Troponin I Cancelled Hematology CBC w Diff Cancelled NO MAN DIFF REQ WBC (4.8 - 10.8 /CUMM) Cancelled 9.8 RBC (4.70 - 6.10 /CUMM) Cancelled 2.55 L Hgb (14.0 - 18.0 G/DL) Cancelled 7.1 *L Hct (42 - 52 %) Cancelled 21.5 L MCV (80.0 - 94.0 FL) Cancelled 84.3 MCH (27.0 - 31.0 PG) Cancelled 28.0 MCHC (33.0 - 37.0 G/DL) Cancelled 33.2 RDW (11.5 - 14.5 %) Cancelled 16.3 H Plt Count (130 - 400 /CUMM) Cancelled 180 MPV (7.4 - 10.4 FL) Cancelled 8.6 Gran % (42.2 - 75.2 %) 86.1 H Lymphocytes % (20.5 - 51.1 %) 3.7 L Monocytes % (1.7 - 9.3 %) 9.7 H Eosinophils % (0 - 5 %) 0 Basophils % (0.0 - 2.0 %) 0.5 Absolute Granulocytes (1.4 - 6.5 /CUMM) 8.5 H Absolute Lymphocytes (1.2 - 3.4 /CUMM) 0.4 L Absolute Monocytes (0.10 - 0.60 /CUMM) 0.9 H Absolute Eosinophils (0.0 - 0.7 /CUMM) 0 Absolute Basophils (0.0 - 0.2 /CUMM) 0 02/28 02/28 02/28 1030 0910 0550 Blood Gas Bicarbonate Actual (22 - 26 MEQ/L) 11 L Mixed VBG pH (7.31 - 7.41 PH) 7.22 L Mixed VBG pCO2 (41 - 51 TORR) 26 L Mixed VBG O2 Saturation (35 - 45 TORR) 47 H O2 Concentration % 3L O2 Delivery Method NC Chemistry Troponin I (<0.11 ng/ml) 0.01 Miscellaneous Phlebotomy Draw Site RIGHT RADIAL Urines Urine Color (YEL,AMB,STR) YEL Urine Clarity (CLEAR) CLEAR Urine pH (5.0 - 8.0) 6.0 Ur Specific [place] (1.001 - 1.035) 1.025 Urine Protein (NEG,<30 MG/DL) >=300 H Urine Ketones (NEG) NEG Urine Nitrite (NEG) NEG Urine Bilirubin (NEG) NEG Urine Urobilinogen (0.1 - 1.0 EU/dl) 0.2 Ur Leukocyte Esterase (NEG) NEG Ur Microscopic SEDIMENT EXAMINED Urine RBC (0 - 5 /HPF) 1-3 Urine WBC (0 - 2 /HPF) 5-10 H Urine Bacteria (NEG/NONE) MANY H Urine Hemoglobin (NEG) SMALL H Urine Glucose (N MG/DL) NEG 02/28 0313 Chemistry Sodium (137 - 145 mmol/L) 144 Potassium (3.5 - 5.1 mmol/L) 4.4 Chloride (98 - 107 mmol/L) 109 H Carbon Dioxide (22 - 30 mmol/L) 12 L Anion Gap (5 - 16) 24 H BUN (9 - 20 mg/dL) 147 *H Creatinine (0.7 - 1.2 mg/dL) 11.2 *H Estimated GFR (>60 ml/min) 5 L BUN/Creatinine Ratio (7 - 25 %) 13.1 Glucose (65 - 99 mg/dL) 104 H Calcium (8.4 - 10.2 mg/dL) 7.7 L Phosphorus (2.5 - 4.5 mg/dL) 13.1 H Magnesium (1.6 - 2.3 mg/dL) 1.9 Total Bilirubin (0.2 - 1.3 mg/dL) 0.6 AST (17 - 59 U/L) 18 ALT (21 - 72 U/L) 45 Alkaline Phosphatase (< 127 U/L) 101 Troponin I (<0.11 ng/ml) 0.01 [id number] Pept (<125 pg/mL) 68453.0 H Total Protein (6.3 - 8.2 g/dL) 6.4 Albumin (3.5 - 5.0 g/dL) 3.3 L Globulin (1.9 - 4.2 gm/dL) 3.1 Albumin/Globulin Ratio (1.1 - 2.2 %) 1.1 Amylase (30 - 110 U/L) 170 H Lipase (23 - 300 U/L) 752 H Coagulation PT (9.4 - 12.5 SEC) 19.8 H INR (0.90 - 1.17) 1.81 H D-Dimer High Sensitivty (0 - 243 ng/ml) 472 H Hematology CBC w Diff NO MAN DIFF REQ WBC (4.8 - 10.8 /CUMM) 11.5 H RBC (4.70 - 6.10 /CUMM) 2.99 L Hgb (14.0 - 18.0 G/DL) 8.3 L Hct (42 - 52 %) 25.3 L MCV (80.0 - 94.0 FL) 84.4 MCH (27.0 - 31.0 PG) 27.6 MCHC (33.0 - 37.0 G/DL) 32.7 L RDW (11.5 - 14.5 %) 16.4 H Plt Count (130 - 400 /CUMM) 264 MPV (7.4 - 10.4 FL) 8.1 Gran % (42.2 - 75.2 %) 82.6 H Lymphocytes % (20.5 - 51.1 %) 5.7 L Monocytes % (1.7 - 9.3 %) 7.6 Eosinophils % (0 - 5 %) 3.9 Basophils % (0.0 - 2.0 %) 0.2 Absolute Granulocytes (1.4 - 6.5 /CUMM) 9.5 H Absolute Lymphocytes (1.2 - 3.4 /CUMM) 0.7 L Absolute Monocytes (0.10 - 0.60 /CUMM) 0.9 H Absolute Eosinophils (0.0 - 0.7 /CUMM) 0.5 Absolute Basophils (0.0 - 0.2 /CUMM) 0 Serology Hep Bs Antigen (NONREACTIVE) NONREACTIVE Imaging/Other Studies: ECHO: 1. This was a technically difficult examination. 2. Aortic sclerosis is present with no valvular stenosis or insufficiency. 3. Mitral leaflet thickening is present with minimal anular calcification and mild mitral insufficiency with mild left atrial enlargement. 4. A small pericardial effusion is present which is hemodynamically insignificant. 5. The left ventricular chamber size and systolic function appear normal. Mild concentric hypertophy is present. 6. Abnormal interventricular septal motion is present. 7. Mild tricuspid insufficiency is present with minimal to mild pulmonic insufficiency and an estimated RV systolic pressure of 36 mmHg. CXR: Interstitial prominence with increased bibasilar opacities. This could represent interstitial edema with alveolar edema. Pneumonia also a consideration.
--- NOTE | 2018-03-02 12:17 | PN- Cardiology ---
Subjective Subjective: Feeling well. No chest pain. No shortness of breath. No palpitations. Dialysis is going well. Objective Vital Signs and I&Os Vital Signs Date Time Temp Pulse Resp B/P B/P Pulse O2 O2 Flow FiO2 Mean Ox Delivery Rate 03/02 800 95 Nasal 2.0L Cannula 03/02 652 98.6 93 20 160/92 95 Nasal 2.0L Cannula 03/01 2249 98.4 86 16 122/78 95 Nasal Cannula 03/01 2113 100 132/62 03/01 2113 100 132/62 03/01 1950 4.0 Intake & Output 03/02 1600 03/02 0803/02 0000 03/01 1600 03/01 0000 Intake Total 120 240 900 530 480 Output Total 288 482 4793 300 420 Balance - 230 60 Intake, Blood 350 Product Intake, IV 430 Intake, Oral 120 240 550 100 480 Output, 2500 Dialysate Output, Urine 200 250 300 420 Patient 225 lb 285 lb Weight Weight Bed scale Measurement Method Physical Exam: Gen: The patient is in no acute distress HEENT: Normal nose, ears, and oropharynx. Pupils equal bilaterally. Conjunctiva normal. Neck: Supple with no JVD, no masses, and no thyromegaly Lungs: Decreased breath sound with normal respiratory effort Heart: Irregular, S1, S2, 1/6 systolic murmur 1+ peripheral edema, 2+ pulses in the lower extremities bilaterally Abdomen: Soft, nontender, no masses. No hepatomegaly. No splenomegaly Extremities: No clubbing or cyanosis. Normal muscle strength in the upper and lower extremities Skin: Normal skin turgor with no skin ulcers or lesions noted. Current Medications: Current Medications Sig/Milagros Start time Last Medication Dose Route Stop Time Status Admin Acetaminophen 650 MG .STK-MED ONE 03/01 1950 DC PO 03/01 195 Acetaminophen 650 MG Q8P PRN 02/28 1830 AC 03/02 PO 0545 Amlodipine Besylate 10 MG DAILY 02/28 1000 AC 03/01 PO 1115 Citalopram 10 MG DAILY 02/28 1000 AC 03/01 Hydrobromide PO 1114 Clonidine 0.1 MG QPM 02/28 2200 AC 03/01 PO 2113 Diclofenac Sodium 1 CAROLYNE 4 TIMES/DAY PRN 03/02 1030 AC 03/02 TOP 1126 Diltiazem HCl 125 MG Q24H 02/28 0615 DC 03/01 Sodium Chloride 100 ML IV 0109 Epoetin Toribio 6,000 UNIT TUES THURS SAT PRN 03/02 1000 AC IV Ferrous Sulfate 325 MG DAILY 02/28 1000 AC 03/01 PO 111 Guaifenesin 600 MG Q12 02/28 1000 AC 03/01 PO 2111 Metoprolol Tartrate 100 MG BID 03/01 1000 AC 03/01 PO 211 Multivitamins 1 TAB DAILY 03/01 1000 AC 03/01 PO 1115 Patient Medication 1 ED ONE ONE 03/01 1515 DC Teaching ED 03/01 1516 Sevelamer Carbonate 1,600 MG 0800,1200,1700 03/01 1700 AC 03/02 PO 0821 Sevelamer Carbonate 1,600 MG TID 02/28 1000 DC 03/01 PO 111 Torsemide 20 MG DAILY 02/28 1000 AC 03/01 PO 111 Tramadol HCl 50 MG Q8P PRN 03/02 1030 AC 03/02 PO 1033 Tramadol HCl 25 MG ONCE ONE 03/01 233 DC 03/01 PO 03/01 2331 2336 Zolpidem Tartrate 5 MG AT BEDTIME 02/28 220 AC 03/01 PO 2111 Results Last 48 Hrs of Labs/Mics: Laboratory Tests 03/02/18 0650: PT 17.2 H, INR 1.57 H, CBC w Diff NO MAN DIFF REQ, RBC 2.60 L, MCV 85.6, MCH 29.6, MCHC 34.6, RDW 16.2 H, MPV 8.6, Gran % 74.4, Lymphocytes % 6.8 L, Monocytes % 12.9 H, Eosinophils % 5.2 H, Basophils % 0.7, Absolute Granulocytes 6.8 H, Absolute Lymphocytes 0.6 L, Absolute Monocytes 1.2 H, Absolute Eosinophils 0.5, Absolute Basophils 0.1 03/01/18 0745: Anion Gap 15, Estimated GFR 6 L, BUN/Creatinine Ratio 11.9, Uric Acid 10.2 H, Calcium 7.7 L, CBC w Diff NO MAN DIFF REQ, RBC 2.40 L, MCV 83.9, MCH 28.0, MCHC 33.4, RDW 16.3 H, MPV 8.9, Gran % 77.5 H, Lymphocytes % 6.0 L, Monocytes % 13.2 H, Eosinophils % 2.8, Basophils % 0.5, Absolute Granulocytes 6.1, Absolute Lymphocytes 0.5 L, Absolute Monocytes 1.0 H, Absolute Eosinophils 0.2 , Absolute Basophils 0 03/01/18 0707: Anion Gap 18 H, Estimated GFR 6 L, BUN/Creatinine Ratio 11.7, CBC w Diff NO MAN DIFF REQ, RBC 2.54 L, MCV 84.1, MCH 28.5, MCHC 33.8, RDW 16.3 H, MPV 8.7, Gran % 77.9 H, Lymphocytes % 5.8 L, Monocytes % 12.2 H, Eosinophils % 3.1, Basophils % 1.0, Absolute Granulocytes 7.2 H, Absolute Lymphocytes 0.5 L, Absolute Monocytes 1.1 H, Absolute Eosinophils 0.3, Absolute Basophils 0.1 02/28/18 1821: CBC w Diff NO MAN DIFF REQ, RBC 2.66 L, MCV 84.5, MCH 28.1, MCHC 33.3, RDW 16.1 H, MPV 8.2, Gran % 83.8 H, Lymphocytes % 4.2 L, Monocytes % 10.6 H, Eosinophils % 1.1, Basophils % 0.3, Absolute Granulocytes 8.0 H, Absolute Lymphocytes 0.4 L, Absolute Monocytes 1.0 H, Absolute Eosinophils 0.1, Absolute Basophils 0 02/28/18 1500: Anion Gap 20 H, Estimated GFR 5 L, BUN/Creatinine Ratio 13.0, Calcium 7.3 L, CBC w Diff Cancelled, WBC Cancelled, RBC Cancelled, Hgb Cancelled, Hct Cancelled , MCV Cancelled, MCH Cancelled, MCHC Cancelled, RDW Cancelled, Plt Count Cancelled, MPV Cancelled 02/28/18 1500: Sodium Cancelled, Potassium Cancelled, Chloride Cancelled, Carbon Dioxide Cancelled, Anion Gap Cancelled, BUN Cancelled, Creatinine Cancelled, BUN/ Creatinine Ratio Cancelled, Phosphorus Cancelled, Troponin I Cancelled, CBC w Diff NO MAN DIFF REQ, RBC 2.55 L, MCV 84.3, MCH 28.0, MCHC 33.2, RDW 16.3 H, MPV 8.6, Gran % 86.1 H, Lymphocytes % 3.7 L, Monocytes % 9.7 H, Eosinophils % 0, Basophils % 0.5, Absolute Granulocytes 8.5 H, Absolute Lymphocytes 0.4 L, Absolute Monocytes 0.9 H, Absolute Eosinophils 0, Absolute Basophils 0 Recent Imaging Studies: Echocardiogram 02/28/18: 1. This was a technically difficult examination. 2. Aortic sclerosis is present with no valvular stenosis or insufficiency. 3. Mitral leaflet thickening is present with minimal anular calcification and mild mitral insufficiency with mild left atrial enlargement. 4. A small pericardial effusion is present which is hemodynamically insignificant. 5. The left ventricular chamber size and systolic function appear normal. Mild concentric hypertophy is present. 6. Abnormal interventricular septal motion is present. 7. Mild tricuspid insufficiency is present with minimal to mild pulmonic insufficiency and an estimated RV systolic pressure of 36 mmHg. Assessment/Plan Assessment/Plan Assessment: 1. End-stage renal disease started on dialysis 2. Paroxysmal atrial fibrillation and atrial flutter, rate under control 3. Small pericardial effusion secondary to urine Plan: * Continue metoprolol for rate control * Dialysis as per nephrology * Start IV heparin per protocol. Restart warfarin once no further procedures are planned Continue telemetry? Yes
[2018-03-02 15:40] LABS: ABSOLUTE BASOPHIL COUNT 0 /CUMM (0.0-0.2); ABSOLUTE EOSINOPHIL COUNT 0.4 /CUMM (0.0-0.7); ABSOLUTE GRANULOCYTE CT 7.6 /CUMM (1.4-6.5); ABSOLUTE LYMPH COUNT 0.5 /CUMM (1.2-3.4); ABSOLUTE MONOCYTE COUNT 1.4 /CUMM (0.10-0.60); BASOPHIL % 0.5 % (0.0-2.0); EOSINOPHIL % 4.4 % (0-5); GRANULOCYTE % 76.6 % (42.2-75.2); HEMATOCRIT 23.3 % (42-52); MEAN CORPUSCULAR HGB CONC 33.8 G/DL (33.0-37.0); MEAN CORPUSCULAR VOLUME 85.8 FL (80.0-94.0); MEAN PLATELET VOLUME 8.9 FL (7.4-10.4); PLATELET COUNT 199 /CUMM (130-400); RBC DISTRIBUTION WIDTH 16.4 % (11.5-14.5); RED BLOOD CELL CT 2.71 /CUMM (4.70-6.10); WHITE BLOOD CELL COUNT 9.9 /CUMM (4.8-10.8)
[2018-03-02 16:47] VITALS: BP 160/98
--- NOTE | 2018-03-02 21:40 | RADIOLOGY REPORT ---
EXAMINATION: XR KNEE, RIGHT CLINICAL INFORMATION: Right knee pain. Presumptive diagnosis: Gout COMPARISON: None TECHNIQUE: AP and lateral portable views of the knee. FINDINGS: This limited exam shows a large suprapatellar joint effusion. No juxta-articular erosions are seen. IMPRESSION: Large right knee effusion confirmed.
[2018-03-02 21:43] VITALS: BP 150/90
--- NOTE | 2018-03-02 22:27 | Discharge Summary ---
Visit Information Visit Dates Admission Date: 02/28/18 Discharge Date: 03/04/18 Hospital Course Course Attending Physician: Nerissa Linton MD Primary Care Physician: Rachael CANNON,Seth Melara Consulting Request: 1 Consulting Specialty: Cardiology Consulting Request: 2 Consulting Specialty: Nephrology Hospital Course: 52 year old with PMH of HTN, CKD followed by Dr. Louie Sky, Hypertensive nephropathy, a fib on coumadin, b/l lower ext edema, was recently discharged for CAP and anemia requiring blood transfusion. He was also noted to be volume overloaded at that time. He was discharged on metolazone and torsemide to control his volume status. Patient came back to emergency department and was admitted on telemetry floor for the management of acute hypoxemic respiratory failure/volume overload and elevated anion gap metabolic acidosis. Patient also found to be in atrial fibrillation with rapid ventricular rate. Vitals in ED noted, BP 148/90, HR of 130, RR of 28. patient appears to be in mild respiratory distress. Awake, alert. Cardiovascular - S1, S2 tachycardic irregular, Bilateral expiratory wheeze on respiratory examination, no focal neurological deficits noted, abdomen soft, non tender, pulses bilaterally intact. Labs significant for Leukocytosis up to 11.5, H&H 8.3 and 25, INR 1.8( subtherapeutic). Sodium, potassium, and magnesium are within normal limits. Creatinine 11.2 and BUN 147. Anion gap 24 and carbon dioxide 12. BNP 32564, amylase 170 and lipase 752. CXR showed, Interstitial prominence with increased bibasilar opacities. Patient was admitted and managed on Telemetry for the following medical problems MARJAN on CKD/and end-stage renal disease on hemodialysis/elevated anion gap metabolic acidosis/ Patient is following following since 2009 for hypertensive nephropathy. He needed AVF placement as outpatient and had an appointment in the near future for placement of an aVF. Patient was dialyzed on admission by nephrology on an urgent basis with an emergent temporary hemodialysis catheter via the right internal jugular vein secondary to a faint pericardial rub and concerns for urmeic paricarditis. Patient received 4 round of dialysis while hospitalized with gradual improvement of his BUN and Cr numbers. Clinically he felt much better and there was no pericardial rub on examination the 2nd day of admission. Patient was also started on bicarbonate drip which was discontinued soon. Patient was also started on erythropoietin and Sevelamer. Patient got a Tunneled catheter and will follow up with vascular surgeon for AVF. A repeat Echo was done which showed no worsening of his pericardial effusion. He was discharged with plan for OP HDon Thursday03/06/18, with a , , Sat schedule in [place]. A.fib with rapid regular rate Patient has past medical history significant for atrial fibrillation. He was noted to have increased heart rate during this admission. He was initially started on Cardizem drip that was titrated and then stopped soon. His beta randall dose was increased by cardiology 100 mg twice a day. Patient's anticoagulation was Coumadin. It was on hold as per nephrology for concerns of pericarditis and later on restarted after 2 days with IV heparin. Echocardiogram was also ordered to r/o any significant pericardial effusion. It showed small pericardial effusion which present which is hemodynamically insignificant. His warfarin was subsequently resumed after bridging with heparin for 24 hrs. He is to have a repeat INR on Thu to maintain a goal INR of 2-3. Acute hypoxemic respiratory failure Likely secondary to volume overload. Patient received broad-spectrum antibiotics on admission which were discontinued during hospitalization. Patient remained off antibiotics and remained afebrile. History of hypertension Patient was on clonidine 0.1 mg and amlodipine 10 mg for hypertension. Right knee pain with history of gout Patient has history of gout and was on allopurinol she stopped a month ago because of concerns for his renal function. Because of GI bleeding concerns and nephrotoxicity, after discussing it with nephro, we added when necessary Celebrex. X-ray knee was ordered that confirmed effusion. Ortho consult was placed, who did not deem to tap th eknee as they were not overly concerned about spetic arthritis gien no leukocytosis, fevers, erythme, awarmth. He was advised to be on steroids however after discussing with nephro he was placed on celecoxib. Patient was on IV heaprin for DVT prophylaxis Patient was full code Patient was on renal dialysis diet Allergies: Coded Allergies: No Known Allergies (02/07/18) Significant Procedures: TTE 02/28/18 CONCLUSIONS 1. This was a technically difficult examination. 2. Aortic sclerosis is present with no valvular stenosis or insufficiency. 3. Mitral leaflet thickening is present with minimal anular calcification and mild mitral insufficiency with mild left atrial enlargement. 4. A small pericardial effusion is present which is hemodynamically insignificant. 5. The left ventricular chamber size and systolic function appear normal. Mild concentric hypertophy is present. 6. Abnormal interventricular septal motion is present. 7. Mild tricuspid insufficiency is present with minimal to mild pulmonic insufficiency and an estimated RV systolic pressure of 36 mmHg. Disposition Summary Disposition Principal Diagnosis: ESRD with anion gap metabolic acidosis ACute hypoxic resp failure A fib with RVR HTN anxiety Additional Diagnosis: H/o HTN, ESRD, Hypertensive nephropathy H/o atrial fibrillation on coumadin Discharge Disposition: home or self care Discharge Instructions General Discharge Information Code Status: Full Code Patient's Diet: Renal dialysis diet Patient's Activity: As tolerated Follow-Up Instructions/Appts: Follow up with Sql Consultant after discharge Follow up with Vascular Surgeon for creation of AVF after discharge Follow up with Vulcanizer Operator after discharge Follow up with PCP after discharge Medications at Discharge Discharge Medications: Stop taking the following medications: Metoprolol Tartrate (Metoprolol Tartrate) 50 MG TABLET ORAL TWICE DAILY Torsemide (Torsemide) 20 MG TABLET ORAL DAILY Metolazone (Metolazone) 2.5 MG TABLET ORAL DAILY Continue taking these medications: Citalopram Hydrobromide (Citalopram HBr) 10 MG TABLET 1 Tablet ORAL DAILY Comments: Last Taken:03/04/18 Time:9am Warfarin Sodium (Coumadin) 1 MG TABLET 1 Tablet ORAL DAILY Instructions: 1 TAB THU- THURSDAY 0.5 TAB THU AND Comments: Last Taken:5PM Time:03/03/18 Clonidine HCl (Clonidine HCl) 0.1 MG TABLET 1 Tablet ORAL Every night Comments: Last Taken:03/03/18 Time:9pm Amlodipine Besylate (Amlodipine Besylate) 10 MG TABLET 1 Tablet ORAL DAILY Comments: Last Taken:03/04/18 Time:9am Ferrous Sulfate (Ferrous Sulfate) 325 MG (65 MG IRON) TABLET 1 Tablet ORAL DAILY Qty = 30 Comments: Last Taken:03/04/18 Time:0900 Sevelamer Carbonate (Renvela) 800 MG TABLET 2 Tablet ORAL THREE TIMES DAILY Qty = 180 Comments: Last Taken:03/04/18 Time:1200 Start taking the following new medications: Celecoxib (Celebrex) 100 MG CAPSULE 100 Milligram ORAL TWICE DAILY Qty = 14 No Refills Instructions: . Comments: Last Taken:03/04/18 Time:0900 Diclofenac Sodium (Voltaren) 1 % GEL..GRAM. 1 Application On the skin 4 TIMES A DAY as needed for PAIN SCALE 7-10 ( SEVERE) Qty = 1 No Refills Instructions: . Epoetin Toribio (Procrit) 3,000 UNIT/ML VIAL 6,000 Unit INTRAVEN THURSDAY, THURSDAY, THURSDAY as needed for WITH HEMODIALYSIS Qty = 60 No Refills Metoprolol Tartrate (Metoprolol Tartrate) 50 MG TABLET 100 Milligram ORAL TWICE DAILY Qty = 120 No Refills Comments: Last Taken:03/04/18 Time:0900 Copies To: Rachael CANNON,Seth Melara; Jose Daniel CANNON,Louie Martin; Staci CANNON,Francis Toure Attending MD Review Statement Documenting Attending: Shaila CANNON,Nerissa Other Findings: Patient medically stable for discahrge. Patient needs outpatient follow up with nephrology and dialysis as [facility] at [facility]. Please see my progress note for further details.
[2018-03-02 22:57] LABS: PTT 45 SEC (25-37)
--- NOTE | 2018-03-03 07:23 | PN- Housestaff ---
See Addendum Subjective Follow-up For: ESRD with anion gap metabolic acidosis ACute hypoxic resp failure A fib with RVR HTN anxiety R knee pain with swelling Tele-Events Since Last Visit: Afib 93-115, PVCs Subjective: Patient seen and examined at [facility]. He was undergoing dialysis, when I saw him this AM. Continues to complain of pain in his R knee. Review of Systems Constitutional: Denies: chills, diaphoresis, fever, weakness. EENTM: Denies: visual changes. Cardiovascular: Denies: chest pain, orthopena, palpitations. Respiratory: Denies: cough, orthopnea, short of breath. Gastrointestinal: Denies: abdominal pain, nausea, vomiting. Genitourinary: Reports: no symptoms. Musculoskeletal: Reports: gout, joint pain, joint swelling. Neurological/Psychological: Denies: headache, numbness, tingling, tremors. Objective Last 24 Hrs of Vital Signs/I&O Vital Signs Date Time Temp Pulse Resp B/P B/P Pulse O2 O2 Flow FiO2 Mean Ox Delivery Rate 03/03 0000 95 Nasal 2.0L Cannula 03/02 2143 97.8 107 18 150/90 93 Nasal 2.0L Cannula 03/02 2037 110 146/88 03/02 203 110 146/88 03/02 1648 120 160/98 03/02 1648 122 160/98 03/02 1647 98.6 112 20 160/98 93 Room Air 03/02 1600 93 Room Air 03/02 0800 95 Nasal 2.0L Cannula Intake & Output 03/03 0800 03/03 0000 03/02 1600 Intake Total 800 360 Output Total 300 Balance 500 360 Intake, Oral 800 360 Output, Urine 300 Patient 278 lb Weight Weight Bed scale Measurement Method Physical Exam General Appearance: Alert, Oriented X3, Cooperative, No Acute Distress HEENT: Atraumatic, PERRLA, EOMI, Mucous Membr. moist/pink Neck: Supple, No LAD Cardiovascular: Normal S1, Normal S2, IRREGUALRLY IRREGULAR Lungs: Clear to Auscultation, Normal Air Movement Abdomen: Normal Bowel Sounds, Soft, No Tenderness Neurological: Normal Speech Extremities: HAS R KNEE THAT IS MORE SWOLLEN COMPARED TO THE LEFT; NO ERYTHEMA, OR PAIN Vascular: Normal Pulses, Pulses Symmetrical Current Medications: Current Medications Sig/Milagros Start time Last Medication Dose Route Stop Time Status Admin Acetaminophen 650 MG Q8P PRN 02/28 1830 AC 03/02 PO 0545 Amlodipine Besylate 10 MG DAILY 02/28 1000 AC 03/02 PO 1648 Celecoxib 100 MG ONCE ONE 03/02 1600 DC 03/02 PO 03/02 1601 1650 Citalopram 10 MG DAILY 02/28 1000 AC 03/02 Hydrobromide PO 1648 Clonidine 0.1 MG QPM 02/28 2200 AC 03/02 PO 203 Diclofenac Sodium 1 CAROLYNE 4 TIMES/DAY PRN 03/02 1030 AC 03/02 TOP 203 Epoetin Toribio 6,000 UNIT TUES THURS SAT PRN 03/02 1000 AC IV Ferrous Sulfate 325 MG DAILY 02/28 1000 AC 03/02 PO 1650 Guaifenesin 600 MG Q12 02/28 1000 AC 03/02 PO 203 Heparin Sodium 5,050 UNIT ONCE ONE 03/03 0030 DC 03/03 (Porcine) IV 03/03 0031 0048 Heparin Sodium 5,000 UNIT ONCE ONE 03/02 1330 DC 03/02 (Porcine) IV 03/02 1331 1650 Heparin Sodium 25,000 UNIT Q24H 03/02 1330 AC 03/02 (Porcine) IV 1649 Sodium Chloride 500 ML Metoprolol Tartrate 100 MG BID 03/01 1000 AC 03/02 PO 2037 Multivitamins 1 TAB DAILY 03/01 1000 AC 03/02 PO 1648 Sevelamer Carbonate 1,600 MG 0800,1200,1700 03/01 1700 AC 03/02 PO 1747 Torsemide 20 MG DAILY 02/28 1000 AC 03/02 PO 1648 Tramadol HCl 50 MG Q8P PRN 03/02 1030 AC 03/03 PO 0441 Zolpidem Tartrate 5 MG AT BEDTIME 02/28 2200 AC 03/02 PO 203 Last 24 Hrs of Lab/Jorden Results Last 24 Hrs of Labs/Mics: Laboratory Tests 03/03/18 0703: APTT Pending, CBC w Diff Pending, WBC Pending, RBC Pending, Hgb Pending, Hct Pending, MCV Pending, MCH Pending, MCHC Pending, RDW Pending, Plt Count Pending, MPV Pending 03/02/18 2229: APTT 45 H 03/02/18 1320: Anion Gap 17 H, Estimated GFR 7 L, BUN/Creatinine Ratio 10.6, Glucose 99, Calcium 8.1 L, CBC w Diff NO MAN DIFF REQ, RBC 2.71 L, MCV 85.8, MCH 29.0, MCHC 33.8, RDW 16.4 H, MPV 8.9, Gran % 76.6 H, Lymphocytes % 4.9 L, Monocytes % 13.6 H, Eosinophils % 4.4, Basophils % 0.5, Absolute Granulocytes 7.6 H, Absolute Lymphocytes 0.5 L, Absolute Monocytes 1.4 H, Absolute Eosinophils 0.4 , Absolute Basophils 0 Orders Radiology Findings: FINDINGS: This limited exam shows a large suprapatellar joint effusion. No juxta-articular erosions are seen. IMPRESSION: Large right knee effusion confirmed. Assessment/Plan Assessment: 52 year old with PMH of HTN, CKD followed by Dr. Louie Sky, Hypertensive nephropathy, a fib on coumadin, b/l lower ext edema, was recently discharged for CAP and anemia requiring blood transfusion. He was also noted to be volume overloaded at that time. He was discharged on metolazone and torsemide to control his volume status. Patient came back to emergency department and was admitted on telemetry floor for the management of acute hypoxemic respiratory failure/volume overload and elevated anion gap metabolic acidosis. Patient also found to be in atrial fibrillation with rapid ventricular rate. Vitals in ED noted, BP 148/90, HR of 130, RR of 28. patient appears to be in mild respiratory distress. Awake, alert. Cardiovascular - S1, S2 tachycardic irregular, Bilateral expiratory wheeze on respiratory examination, no focal neurological deficits noted, abdomen soft, non tender, pulses bilaterally intact. Labs significant for Leukocytosis up to 11.5, H&H 8.3 and 25, INR 1.8( subtherapeutic). Sodium, potassium, and magnesium are within normal limits. Creatinine 11.2 and BUN 147. Anion gap 24 and carbon dioxide 12. BNP 55057, amylase 170 and lipase 752. CXR showed, Interstitial prominence with increased bibasilar opacities. Patient was admitted and managed on Telemetry for the following medical problems MARJAN on CKD/and end-stage renal disease on hemodialysis/elevated anion gap metabolic acidosis/ Patient is following following since 2009 for hypertensive nephropathy. He needed AVF placement as outpatient and had an appointment in the near future for placement of an aVF. Patient was dialyzed on admission by nephrology on an urgent basis with an emergent temporary hemodialysis catheter via the right internal jugular vein secondary to a faint pericardial rub and concerns for urmeic paricarditis. Patient received another 3 round of dialysis while hospitalized with gradual improvement of his BUN and Cr numbers. Clinically he felt much better and there was no pericardial rub on examination the 2nd day of admission. Patient was also started on bicarbonate drip which was discontinued soon. Patient was also started on erythropoietin and Sevelamer. Patient is schheuled to get a tunneled catheter at 1:00pm today. Will D/C heparin 4 hrs prior and dose Coumadin onec he is back from IR. Outpatient F/U with vascular surgeon for AVF. Next HD on Thu as per Nephro. Needs OP dialysis slot in [place]. CM aware. A.fib with rapid regular rate Patient has past medical history significant for atrial fibrillation. He was noted to have increased heart rate during this admission. He was initially started on Cardizem drip that was titrated and then stopped soon. His beta randall dose was increased by cardiology 100 mg twice a day. Patient's anticoagulation was Coumadin. It was on hold as per nephrology for concerns of pericarditis and later on restarted after 2 days with IV heparin. Echocardiogram was also ordered to r/o any significant pericardial effusion. It showed small pericardial effusion is present which is hemodynamically insignificant. IV heparin to be on hold after 9:00am as pt is scheduled to get a tunneled catheter @ 1:00pm. Will dose Coumadin once patient si back. Acute hypoxemic respiratory failure Likely secondary to volume overload. Patient received broad-spectrum antibiotics on admission which were discontinued during hospitalization. Currently patient is off antibiotics and remains afebrile. History of hypertension Patient is on clonidine 0.1 mg and amlodipine 10 mg for hypertension. Right knee pain with history of gout Patient has history of gout and was on allopurinol he stopped a month ago because of concerns for his renal function. Because of GI bleeding concerns and nephrotoxicity, after discussing it with nephro, we added when Celebrex. X-ray knee was ordered that showed ,large right knee effusion, placed ortho consult for draininage. F/U recs. Meanwhile, patient received a dose of Clebrix yesterday which did not help his pain. Patient is on IV heparin for DVT prophylaxis Patient is full code Patient is NPO else renal dialysis diet Problem List: 1. Acute on chronic renal failure 2. Atrial fibrillation with rapid ventricular response 3. ESRD needing dialysis 4. Acute respiratory failure with hypoxia Pain Ratin Pain Location: R knee Pain Goal: Remain pain free Pain Plan: Steroids to help bring down inflammation Tomorrow's Labs & Rationales: cbc - H&H; WBC - infection; Cr: BEP; INR - On warfarin Consulting Request: Consulting Specialty: Nephrology
[2018-03-03 07:35] VITALS: BP 145/76
[2018-03-03 08:22] LABS: PTT 50 SEC (25-37)
[2018-03-03 08:44] LABS: ABSOLUTE BASOPHIL COUNT 0.1 /CUMM (0.0-0.2); ABSOLUTE EOSINOPHIL COUNT 0.4 /CUMM (0.0-0.7); ABSOLUTE LYMPH COUNT 0.6 /CUMM (1.2-3.4); ABSOLUTE MONOCYTE COUNT 1.5 /CUMM (0.10-0.60); BASOPHIL % 0.9 % (0.0-2.0); EOSINOPHIL % 4.4 % (0-5); GRANULOCYTE % 73.1 % (42.2-75.2); HEMATOCRIT 24.8 % (42-52); MEAN CORPUSCULAR HGB 28.9 PG (27.0-31.0); MEAN CORPUSCULAR HGB CONC 33.9 G/DL (33.0-37.0); MEAN CORPUSCULAR VOLUME 85.3 FL (80.0-94.0); MEAN PLATELET VOLUME 8.5 FL (7.4-10.4); PLATELET COUNT 209 /CUMM (130-400); RBC DISTRIBUTION WIDTH 16.1 % (11.5-14.5); RED BLOOD CELL CT 2.91 /CUMM (4.70-6.10); WHITE BLOOD CELL COUNT 9.6 /CUMM (4.8-10.8)
[2018-03-03 08:57] LABS: ABSOLUTE BASOPHIL COUNT 0 /CUMM (0.0-0.2); ABSOLUTE EOSINOPHIL COUNT 0.3 /CUMM (0.0-0.7); ABSOLUTE GRANULOCYTE CT 7.4 /CUMM (1.4-6.5); ABSOLUTE LYMPH COUNT 0.7 /CUMM (1.2-3.4); ABSOLUTE MONOCYTE COUNT 1.3 /CUMM (0.10-0.60); BASOPHIL % 0.4 % (0.0-2.0); EOSINOPHIL % 2.6 % (0-5); GRANULOCYTE % 76.3 % (42.2-75.2); HEMATOCRIT 24.3 % (42-52); MEAN CORPUSCULAR HGB 28.6 PG (27.0-31.0); MEAN CORPUSCULAR HGB CONC 33.5 G/DL (33.0-37.0); MEAN CORPUSCULAR VOLUME 85.4 FL (80.0-94.0); MEAN PLATELET VOLUME 8.6 FL (7.4-10.4); PLATELET COUNT 222 /CUMM (130-400); RBC DISTRIBUTION WIDTH 15.9 % (11.5-14.5); RED BLOOD CELL CT 2.84 /CUMM (4.70-6.10); WHITE BLOOD CELL COUNT 9.7 /CUMM (4.8-10.8)
[2018-03-03 09:08] LABS: PTT 92 SEC (25-37)
--- NOTE | 2018-03-03 09:26 | PN- Nephrology ---
Assessment/Plan Nephrology Assessment: 1. ESRD: repeat HD underway - UF 3 more liters as BP allows 2. Pericarditis: improved 3. Volume overload: improved 4. A fib: on heparin - no objection to warfarin per card 5. R knee arthritis: presumed gout - can't exclude pseudogout but infection unlikely --> continue Celebrex Suggestion: 1. Next HD Thu 2. Tunneled HD cath today 3. d/c planning ---> wants outpt HD [facility] --> need coordinate w them Subjective Subjective: No uremic sx No SOB R knee pain --> presumed gout & on Celebrex On heparin drip For tunneled IJ HD cath post dialysis today Objective Vital Signs and I&Os Vital Signs Date Time Temp Pulse Resp B/P B/P Pulse O2 O2 Flow FiO2 Mean Ox Delivery Rate 03/03 0000 95 Nasal 2.0L Cannula 03/02 2143 97.8 107 18 150/90 93 Nasal 2.0L Cannula 03/02 2037 110 146/88 03/02 2037 110 146/88 03/02 1648 120 160/98 03/02 1648 122 160/98 03/02 1647 98.6 112 20 160/98 93 Room Air 03/02 1600 93 Room Air Intake & Output 03/03 1600 03/03 0400 03/02 1600 03/02 0400 03/01 1600 03/01 0400 Intake Total 240 800 547 317 7764 480 Output Total 200 300 413 070 3547 420 Balance 40 500 60 Intake, Blood 350 Product Intake, IV 240 430 Intake, Oral 800 480 240 650 480 Output, 2500 Dialysate Output, Urine 200 300 200 250 300 420 Patient 278 lb 225 lb 285 lb Weight Weight Bed scale Bed scale Measurement Method Physical Exam General Appearance: well developed/nourished, no apparent distress, alert Head: atraumatic, normal appearance Neck: R IJ cath Respiratory: normal breath sounds, chest non-tender, no respiratory distress, quiet respiration, lungs clear Cardiovascular: irregularly irregular Abdomen: soft, non-tender Extremities: swelling (trace) Neurologic/Psychiatric: awake, alert Skin: normal color, warm/dry Current Medications: Current Medications Sig/Milagros Start time Last Medication Dose Route Stop Time Status Admin Acetaminophen 1,000 MG ONCE ONE 03/03 845 DC N/A 1 UNIT IV 04/11 0859 Acetaminophen 650 MG Q8P PRN 02/28 1830 AC 03/02 PO 0545 Amlodipine Besylate 10 MG DAILY 02/28 1000 AC 03/02 PO 1648 Celecoxib 100 MG ONCE ONE 03/02 1600 DC 03/02 PO 03/02 1601 1650 Citalopram 10 MG DAILY 02/28 1000 AC 03/02 Hydrobromide PO 1648 Clonidine 0.1 MG QPM 02/28 2200 AC 03/02 PO 203 Diclofenac Sodium 1 CAROLYNE 4 TIMES/DAY PRN 03/02 1030 AC 03/02 TOP 2038 Epoetin Toribio 6,000 UNIT TUES THURS SAT PRN 03/02 1000 AC IV Ferrous Sulfate 325 MG DAILY 02/28 1000 AC 03/02 PO 1650 Guaifenesin 600 MG Q12 02/28 1000 AC 03/02 PO 203 Heparin Sodium 5,050 UNIT ONCE ONE 03/03 0030 DC 03/03 (Porcine) IV 03/03 0031 0048 Heparin Sodium 5,000 UNIT ONCE ONE 03/02 1330 DC 03/02 (Porcine) IV 03/02 1331 1650 Heparin Sodium 25,000 UNIT Q24H 03/02 1330 DC 03/02 (Porcine) IV 03/03 0900 1649 Sodium Chloride 500 ML Metoprolol Tartrate 100 MG BID 03/01 1000 AC 03/02 PO 2037 Multivitamins 1 TAB DAILY 03/01 1000 AC 03/02 PO 1648 Sevelamer Carbonate 1,600 MG 0800,1200,1700 03/01 1700 AC 03/02 PO 1747 Torsemide 20 MG DAILY 02/28 1000 AC 03/02 PO 1648 Tramadol HCl 50 MG Q8P PRN 03/02 1030 AC 03/03 PO 0441 Zolpidem Tartrate 5 MG AT BEDTIME 02/28 2200 AC 03/02 PO 2035 Results Pertinent Lab Results: Laboratory Tests 03/03 03/03 0800 0703 Chemistry Sodium Pending Potassium Pending Chloride Pending Carbon Dioxide Pending Anion Gap Pending BUN Pending Creatinine Pending BUN/Creatinine Ratio Pending Glucose Pending Calcium Pending Phosphorus Pending Magnesium Pending Albumin Pending Coagulation APTT (25 - 37 SEC) Pending 50 H Hematology CBC w Diff NO MAN DIFF REQ NO MAN DIFF REQ WBC (4.8 - 10.8 /CUMM) 9.7 9.6 RBC (4.70 - 6.10 /CUMM) 2.84 L 2.91 L Hgb (14.0 - 18.0 G/DL) 8.1 L 8.4 L Hct (42 - 52 %) 24.3 L 24.8 L MCV (80.0 - 94.0 FL) 85.4 85.3 MCH (27.0 - 31.0 PG) 28.6 28.9 MCHC (33.0 - 37.0 G/DL) 33.5 33.9 RDW (11.5 - 14.5 %) 15.9 H 16.1 H Plt Count (130 - 400 /CUMM) 222 209 MPV (7.4 - 10.4 FL) 8.6 8.5 Gran % (42.2 - 75.2 %) 76.3 H 73.1 Lymphocytes % (20.5 - 51.1 %) 7.0 L 6.5 L Monocytes % (1.7 - 9.3 %) 13.7 H 15.1 H Eosinophils % (0 - 5 %) 2.6 4.4 Basophils % (0.0 - 2.0 %) 0.4 0.9 Absolute Granulocytes (1.4 - 6.5 /CUMM) 7.4 H 7.0 H Absolute Lymphocytes (1.2 - 3.4 /CUMM) 0.7 L 0.6 L Absolute Monocytes (0.10 - 0.60 /CUMM) 1.3 H 1.5 H Absolute Eosinophils (0.0 - 0.7 /CUMM) 0.3 0.4 Absolute Basophils (0.0 - 0.2 /CUMM) 0 0.1 03/02 03/02 2229 1320 Chemistry Sodium (137 - 145 mmol/L) 139 Potassium (3.5 - 5.1 mmol/L) 3.9 Chloride (98 - 107 mmol/L) 99 Carbon Dioxide (22 - 30 mmol/L) 23 Anion Gap (5 - 16) 17 H BUN (9 - 20 mg/dL) 85 H Creatinine (0.7 - 1.2 mg/dL) 8.0 *H Estimated GFR (>60 ml/min) 7 L BUN/Creatinine Ratio (7 - 25 %) 10.6 Glucose (65 - 99 mg/dL) 99 Calcium (8.4 - 10.2 mg/dL) 8.1 L Coagulation APTT (25 - 37 SEC) 45 H Hematology CBC w Diff NO MAN DIFF REQ WBC (4.8 - 10.8 /CUMM) 9.9 RBC (4.70 - 6.10 /CUMM) 2.71 L Hgb (14.0 - 18.0 G/DL) 7.9 L Hct (42 - 52 %) 23.3 L MCV (80.0 - 94.0 FL) 85.8 MCH (27.0 - 31.0 PG) 29.0 MCHC (33.0 - 37.0 G/DL) 33.8 RDW (11.5 - 14.5 %) 16.4 H Plt Count (130 - 400 /CUMM) 199 MPV (7.4 - 10.4 FL) 8.9 Gran % (42.2 - 75.2 %) 76.6 H Lymphocytes % (20.5 - 51.1 %) 4.9 L Monocytes % (1.7 - 9.3 %) 13.6 H Eosinophils % (0 - 5 %) 4.4 Basophils % (0.0 - 2.0 %) 0.5 Absolute Granulocytes (1.4 - 6.5 /CUMM) 7.6 H Absolute Lymphocytes (1.2 - 3.4 /CUMM) 0.5 L Absolute Monocytes (0.10 - 0.60 /CUMM) 1.4 H Absolute Eosinophils (0.0 - 0.7 /CUMM) 0.4 Absolute Basophils (0.0 - 0.2 /CUMM) 0 03/02 03/01 0650 0745 Chemistry Sodium (137 - 145 mmol/L) 142 Potassium (3.5 - 5.1 mmol/L) 4.2 Chloride (98 - 107 mmol/L) 104 Carbon Dioxide (22 - 30 mmol/L) 23 Anion Gap (5 - 16) 15 BUN (9 - 20 mg/dL) 112 *H Creatinine (0.7 - 1.2 mg/dL) 9.4 *H Estimated GFR (>60 ml/min) 6 L BUN/Creatinine Ratio (7 - 25 %) 11.9 Uric Acid (3.5 - 8.5 mg/dL) 10.2 H Calcium (8.4 - 10.2 mg/dL) 7.7 L Coagulation PT (9.4 - 12.5 SEC) 17.2 H INR (0.90 - 1.17) 1.57 H Hematology CBC w Diff NO MAN DIFF REQ NO MAN DIFF REQ WBC (4.8 - 10.8 /CUMM) 9.2 7.9 RBC (4.70 - 6.10 /CUMM) 2.60 L 2.40 L Hgb (14.0 - 18.0 G/DL) 7.7 L 6.7 *L Hct (42 - 52 %) 22.2 L 20.1 L MCV (80.0 - 94.0 FL) 85.6 83.9 MCH (27.0 - 31.0 PG) 29.6 28.0 MCHC (33.0 - 37.0 G/DL) 34.6 33.4 RDW (11.5 - 14.5 %) 16.2 H 16.3 H Plt Count (130 - 400 /CUMM) 180 173 MPV (7.4 - 10.4 FL) 8.6 8.9 Gran % (42.2 - 75.2 %) 74.4 77.5 H Lymphocytes % (20.5 - 51.1 %) 6.8 L 6.0 L Monocytes % (1.7 - 9.3 %) 12.9 H 13.2 H Eosinophils % (0 - 5 %) 5.2 H 2.8 Basophils % (0.0 - 2.0 %) 0.7 0.5 Absolute Granulocytes (1.4 - 6.5 /CUMM) 6.8 H 6.1 Absolute Lymphocytes (1.2 - 3.4 /CUMM) 0.6 L 0.5 L Absolute Monocytes (0.10 - 0.60 /CUMM) 1.2 H 1.0 H Absolute Eosinophils (0.0 - 0.7 /CUMM) 0.5 0.2 Absolute Basophils (0.0 - 0.2 /CUMM) 0.1 0 03/01 02/28 0707 1821 Chemistry Sodium (137 - 145 mmol/L) 143 Potassium (3.5 - 5.1 mmol/L) 4.4 Chloride (98 - 107 mmol/L) 103 Carbon Dioxide (22 - 30 mmol/L) 22 Anion Gap (5 - 16) 18 H BUN (9 - 20 mg/dL) 108 *H Creatinine (0.7 - 1.2 mg/dL) 9.2 *H Estimated GFR (>60 ml/min) 6 L BUN/Creatinine Ratio (7 - 25 %) 11.7 Hematology CBC w Diff NO MAN DIFF REQ NO MAN DIFF REQ WBC (4.8 - 10.8 /CUMM) 9.3 9.6 RBC (4.70 - 6.10 /CUMM) 2.54 L 2.66 L Hgb (14.0 - 18.0 G/DL) 7.2 *L 7.5 L Hct (42 - 52 %) 21.4 L 22.5 L MCV (80.0 - 94.0 FL) 84.1 84.5 MCH (27.0 - 31.0 PG) 28.5 28.1 MCHC (33.0 - 37.0 G/DL) 33.8 33.3 RDW (11.5 - 14.5 %) 16.3 H 16.1 H Plt Count (130 - 400 /CUMM) 197 210 MPV (7.4 - 10.4 FL) 8.7 8.2 Gran % (42.2 - 75.2 %) 77.9 H 83.8 H Lymphocytes % (20.5 - 51.1 %) 5.8 L 4.2 L Monocytes % (1.7 - 9.3 %) 12.2 H 10.6 H Eosinophils % (0 - 5 %) 3.1 1.1 Basophils % (0.0 - 2.0 %) 1.0 0.3 Absolute Granulocytes (1.4 - 6.5 /CUMM) 7.2 H 8.0 H Absolute Lymphocytes (1.2 - 3.4 /CUMM) 0.5 L 0.4 L Absolute Monocytes (0.10 - 0.60 /CUMM) 1.1 H 1.0 H Absolute Eosinophils (0.0 - 0.7 /CUMM) 0.3 0.1 Absolute Basophils (0.0 - 0.2 /CUMM) 0.1 0 /08 04/08 1500 1500 Chemistry Sodium (137 - 145 mmol/L) 143 Cancelled Potassium (3.5 - 5.1 mmol/L) 4.5 Cancelled Chloride (98 - 107 mmol/L) 107 Cancelled Carbon Dioxide (22 - 30 mmol/L) 15 L Cancelled Anion Gap (5 - 16) 20 H Cancelled BUN (9 - 20 mg/dL) 146 *H Cancelled Creatinine (0.7 - 1.2 mg/dL) 11.2 *H Cancelled Estimated GFR (>60 ml/min) 5 L BUN/Creatinine Ratio (7 - 25 %) 13.0 Cancelled Calcium (8.4 - 10.2 mg/dL) 7.3 L Phosphorus Cancelled Troponin I Cancelled Hematology CBC w Diff Cancelled NO MAN DIFF REQ WBC (4.8 - 10.8 /CUMM) Cancelled 9.8 RBC (4.70 - 6.10 /CUMM) Cancelled 2.55 L Hgb (14.0 - 18.0 G/DL) Cancelled 7.1 *L Hct (42 - 52 %) Cancelled 21.5 L MCV (80.0 - 94.0 FL) Cancelled 84.3 MCH (27.0 - 31.0 PG) Cancelled 28.0 MCHC (33.0 - 37.0 G/DL) Cancelled 33.2 RDW (11.5 - 14.5 %) Cancelled 16.3 H Plt Count (130 - 400 /CUMM) Cancelled 180 MPV (7.4 - 10.4 FL) Cancelled 8.6 Gran % (42.2 - 75.2 %) 86.1 H Lymphocytes % (20.5 - 51.1 %) 3.7 L Monocytes % (1.7 - 9.3 %) 9.7 H Eosinophils % (0 - 5 %) 0 Basophils % (0.0 - 2.0 %) 0.5 Absolute Granulocytes (1.4 - 6.5 /CUMM) 8.5 H Absolute Lymphocytes (1.2 - 3.4 /CUMM) 0.4 L Absolute Monocytes (0.10 - 0.60 /CUMM) 0.9 H Absolute Eosinophils (0.0 - 0.7 /CUMM) 0 Absolute Basophils (0.0 - 0.2 /CUMM) 0 02/28 1030 Blood Gas Bicarbonate Actual (22 - 26 MEQ/L) 11 L Mixed VBG pH (7.31 - 7.41 PH) 7.22 L Mixed VBG pCO2 (41 - 51 TORR) 26 L Mixed VBG O2 Saturation (35 - 45 TORR) 47 H O2 Concentration % 3L O2 Delivery Method NC Miscellaneous Phlebotomy Draw Site RIGHT RADIAL Imaging/Other Studies: R knee Xray: Large right knee effusion confirmed. SERVICE DATE: 02/28/18 EXAM TYPE: RAD - XRY-PORTABLE CHEST XRAY EXAMINATION: XR PORTABLE CHEST FINDINGS: Lung volumes are low. There are bibasilar opacities present which appear increased from prior. Interstitial prominence. No pleural effusion or pneumothorax. The cardiomediastinal silhouette remains prominent. IMPRESSION: Interstitial prominence with increased bibasilar opacities. This could represent interstitial edema with alveolar edema. Pneumonia also a consideration. ECHO: 1. This was a technically difficult examination. 2. Aortic sclerosis is present with no valvular stenosis or insufficiency. 3. Mitral leaflet thickening is present with minimal anular calcification and mild mitral insufficiency with mild left atrial enlargement. 4. A small pericardial effusion is present which is hemodynamically insignificant. 5. The left ventricular chamber size and systolic function appear normal. Mild concentric hypertophy is present. 6. Abnormal interventricular septal motion is present. 7. Mild tricuspid insufficiency is present with minimal to mild pulmonic insufficiency and an estimated RV systolic pressure of 36 mmHg.
--- NOTE | 2018-03-03 10:15 | Cons- Orthopedic ---
General Information and HPI Consulting Request Date of Consult: 03/03/18 Requested By: Nerissa Linton MD Reason for Consult: right knee pain swelling History of Present Illness: Patient is a 52-year-old male who has a long history of gout recently about a month or 2 ago they stopped his allopurinol. He was complaining to the medical staff about some pain in his right knee with some mild swelling. He did tell her medical status he thought this was his gout. He remains afebrile he has a normal white count and no signs of any infectious process. Allergies/Medications Allergies: Coded Allergies: No Known Allergies (02/07/18) Home Med List: Amlodipine Besylate 10 MG TABLET 1 TAB PO DAILY HIGH BLOOD PRESSURE (Reported ) Citalopram Hydrobromide (Citalopram HBr) 10 MG TABLET 1 TAB PO DAILY ANXIETY (Reported) Clonidine HCl 0.1 MG TABLET 1 TAB PO QPM HIGH BLOOD PRESSURE (Reported) Ferrous Sulfate 325 MG (65 MG IRON) TABLET 1 TAB PO DAILY BLOOD HEALTH Metolazone 2.5 MG TABLET 1 TAB PO DAILY KIDNEY HEALTH (Reported) Metoprolol Tartrate 50 MG TABLET 1 TAB PO BID HIGH BLOOD PRESSURE (Reported) Sevelamer Carbonate (Renvela) 800 MG TABLET 2 TAB PO TID ESRD (Reported) Torsemide 20 MG TABLET 1 TAB PO DAILY DIURETIC (Reported) Warfarin Sodium (Coumadin) 1 MG TABLET 1 TAB PO DAILY BLOOD THINNER (Reported ) 1 TAB THU- THURSDAY 0.5 TAB THU AND Past History Medical History Blood Transfusion Hx: Yes Neurological: NONE EENT: NONE Cardiovascular: AFIB, hypertension, ?CHF Respiratory: NONE Gastrointestinal: NONE Hepatic: NONE Renal: ESRD Musculoskeletal: NONE Psychiatric: depression Endocrine: NONE Blood Disorders: NONE Cancer(s): NONE CONCRETE SCULPTOR/Reproductive: NONE Surgical History Pertinent Surgical History: 1 Family History Relations & Conditions If Any: FATHER Coronary artery bypass graft MOTHER Pacemaker Psychosocial History Where Do You Live? Home Services at Home: None Smoking Status: Never Smoked Functional Ability ADLs Independent: dressing, eating, toileting, bathing. Ambulation: independent Exam & Diagnostic Data Vital Signs and I&O Vital Signs Date Time Temp Pulse Resp B/P B/P Pulse O2 O2 Flow FiO2 Mean Ox Delivery Rate 03/03 0000 95 Nasal 2.0L Cannula 03/02 2143 97.8 107 18 150/90 93 Nasal 2.0L Cannula 03/02 2037 110 146/88 03/02 2037 110 146/88 03/02 1648 120 160/98 03/02 1648 122 160/98 03/02 1647 98.6 112 20 160/98 93 Room Air 03/02 1600 93 Room Air Intake & Output 03/03 1600 03/03 0800 03/03 0000 03/02 1600 03/02 0800 03/02 0000 Intake Total 240 800 360 120 240 Output Total 200 300 200 250 Balance 40 500 360 -80 -10 Intake, IV 240 Intake, Oral 800 360 120 240 Output, Urine 200 300 200 250 Patient 278 lb 225 lb Weight Weight Bed scale Measurement Method Physical Exam: The patient was actually seen by one of the surgical PAs with no redness no erythema around the knee joint. Some mild discomfort with range of motion. No gross instabilities. X-rays that I reviewed show some early degenerative changes in the knee joint. Neurovascularly intact. Assessment/Plan Assessment/Plan Patient has a long history of gout involving his knees. Due to fact that he has no signs of any infectious process with a normal white count there is no reason to have any interventional tapping of his knee. The patient should be treated with a Medrol Dosepak over the next 6 days due to fact that he is on anticoagulants. He should also have icing to the knee 2-3 times a day. 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 Consult Acknowledgment - Thank you for your consult request. Attending MD Review Statement Attending Statement Attending MD Statement: discuss w/resident/PA/RETAIL CLIENT SOLUTIONS ANALYST
--- NOTE | 2018-03-03 12:45 | PN- Cardiology ---
Subjective Subjective: doing okay. Clinically much better. Awaiting line placement. Objective Vital Signs and I&Os Vital Signs Date Time Temp Pulse Resp B/P B/P Pulse O2 O2 Flow FiO2 Mean Ox Delivery Rate 03/03 0800 94 Nasal 2.0L Cannula 03/03 0000 95 Nasal 2.0L Cannula 03/02 2143 97.8 107 18 150/90 93 Nasal 2.0L Cannula 03/02 2037 110 146/88 03/02 2037 110 146/88 03/02 1648 120 160/98 03/02 1648 122 160/98 03/02 164 98.6 112 20 160/98 93 Room Air 03/02 1600 93 Room Air Intake & Output 03/03 1600 03/03 0800 03/03 0000 03/02 1600 03/02 0803/02 0000 Intake Total 240 800 360 120 240 Output Total 200 300 200 250 Balance 40 500 360 -80 -10 Intake, IV 240 Intake, Oral 800 360 120 240 Output, Urine 200 300 200 250 Patient 278 lb 225 lb Weight Weight Bed scale Measurement Method Current Medications: Current Medications Sig/Milagros Start time Last Medication Dose Route Stop Time Status Admin Acetaminophen 1,000 MG ONCE ONE 03/03 0845 DC N/A 1 UNIT IV 03/03 0859 Acetaminophen 650 MG Q8P PRN 02/28 1830 AC 03/02 PO 0545 Amlodipine Besylate 10 MG DAILY 02/28 1000 AC 03/02 PO 1648 Celecoxib 100 MG BID 03/03 1241 UNVr PO Celecoxib 100 MG BID 03/03 1000 DC PO Celecoxib 100 MG ONCE ONE 03/02 1600 DC 03/02 PO 03/02 1601 1650 Citalopram 10 MG DAILY 02/28 1000 AC 03/02 Hydrobromide PO 1648 Clonidine 0.1 MG QPM 02/28 2200 AC 03/02 PO 2037 Diclofenac Sodium 1 CAROLYNE 4 TIMES/DAY PRN 03/02 1030 AC 03/03 TOP 1222 Epoetin Toribio 6,000 UNIT MoWeFr PRN 03/05 0921 AC IV Epoetin Toribio 6,000 UNIT TUES THURS SAT PRN 03/02 1000 DC IV Ferrous Sulfate 325 MG DAILY 02/28 1000 AC 03/02 PO 1650 Guaifenesin 600 MG Q12 02/28 1000 AC 03/02 PO 2035 Heparin Sodium 0 .STK-MED ONE 03/03 1158 DC (Porcine) IV Heparin Sodium 5,050 UNIT ONCE ONE 03/03 0030 DC 03/03 (Porcine) IV 03/03 0031 0048 Heparin Sodium 5,000 UNIT ONCE ONE 03/02 1330 DC 03/02 (Porcine) IV 03/02 1331 1650 Heparin Sodium 25,000 UNIT Q24H 03/02 1330 DC 03/02 (Porcine) IV 03/03 0900 1649 Sodium Chloride 500 ML Lidocaine 0 .STK-MED ONE 03/03 115 DC .ROUTE Lidocaine/Epinephrine 0 .STK-MED ONE 03/03 1158 DC .ROUTE Metoprolol Tartrate 100 MG BID 03/01 1000 AC 03/02 PO 203 Multivitamins 1 TAB DAILY 03/01 1000 AC 03/02 PO 1648 Pantoprazole Sodium 40 MG DAILY 03/04 1000 AC IV Prednisone 40 MG DAILY 03/03 1218 DC PO 03/08 1001 Sevelamer Carbonate 1,600 MG 0800,1200,1700 03/01 1700 AC 03/02 PO 1747 Torsemide 20 MG DAILY 02/28 1000 AC 03/02 PO 1648 Tramadol HCl 50 MG Q8P PRN 03/02 1030 AC 03/03 PO 0441 Zolpidem Tartrate 5 MG AT BEDTIME 02/28 2200 AC 03/02 PO 2035 Results Last 48 Hrs of Labs/Mics: Laboratory Tests 03/03/18 0800: Anion Gap 15, Estimated GFR 10 L, BUN/Creatinine Ratio 9.0, Glucose 87, Calcium 8.9, Phosphorus 6.4 H, Magnesium 1.9, Albumin 3.3 L, PT Pending, INR Pending, APTT 92 H, CBC w Diff NO MAN DIFF REQ, RBC 2.84 L, MCV 85.4, MCH 28.6, MCHC 33.5, RDW 15.9 H, MPV 8.6, Gran % 76.3 H, Lymphocytes % 7.0 L, Monocytes % 13.7 H, Eosinophils % 2.6, Basophils % 0.4, Absolute Granulocytes 7.4 H, Absolute Lymphocytes 0.7 L, Absolute Monocytes 1.3 H, Absolute Eosinophils 0.3 , Absolute Basophils 0 03/03/18 0703: APTT 50 H, CBC w Diff NO MAN DIFF REQ, RBC 2.91 L, MCV 85.3, MCH 28.9, MCHC 33.9, RDW 16.1 H, MPV 8.5, Gran % 73.1, Lymphocytes % 6.5 L, Monocytes % 15.1 H, Eosinophils % 4.4, Basophils % 0.9, Absolute Granulocytes 7.0 H, Absolute Lymphocytes 0.6 L, Absolute Monocytes 1.5 H, Absolute Eosinophils 0.4, Absolute Basophils 0.1 03/02/18 2229: APTT 45 H 03/02/18 1320: Anion Gap 17 H, Estimated GFR 7 L, BUN/Creatinine Ratio 10.6, Glucose 99, Calcium 8.1 L, CBC w Diff NO MAN DIFF REQ, RBC 2.71 L, MCV 85.8, MCH 29.0, MCHC 33.8, RDW 16.4 H, MPV 8.9, Gran % 76.6 H, Lymphocytes % 4.9 L, Monocytes % 13.6 H, Eosinophils % 4.4, Basophils % 0.5, Absolute Granulocytes 7.6 H, Absolute Lymphocytes 0.5 L, Absolute Monocytes 1.4 H, Absolute Eosinophils 0.4 , Absolute Basophils 0 03/02/18 0650: PT 17.2 H, INR 1.57 H, CBC w Diff NO MAN DIFF REQ, RBC 2.60 L, MCV 85.6, MCH 29.6, MCHC 34.6, RDW 16.2 H, MPV 8.6, Gran % 74.4, Lymphocytes % 6.8 L, Monocytes % 12.9 H, Eosinophils % 5.2 H, Basophils % 0.7, Absolute Granulocytes 6.8 H, Absolute Lymphocytes 0.6 L, Absolute Monocytes 1.2 H, Absolute Eosinophils 0.5, Absolute Basophils 0.1 Assessment/Plan Assessment/Plan Assessment: 1. End-stage renal disease started on dialysis 2. Paroxysmal atrial fibrillation and atrial flutter, rate under control 3. Small pericardial effusion secondary to uremia Plan: -Continue metoprolol for rate control -Dialysis as per nephrology -Start IV heparin per protocol. Restart warfarin once no further procedures are planned Continue telemetry? Yes
[2018-03-03 12:49] LABS: PT 16.9 SEC (9.4-12.5)
[2018-03-03 15:49] VITALS: BP 148/90
--- NOTE | 2018-03-03 16:16 | INTERVENTIONAL RADIOLOGY RPT ---
PROCEDURE: Conversion of temporary hemodialysis catheter to tunneled hemodialysis catheter with fluoroscopic guidance CLINICAL INFORMATION: Long-term access required for dialysis. MEDICATION: -150 mcg of fentanyl was administered in divided doses by a dedicated radiology nurse under my direct supervision. - Lidocaine 1% was used subcutaneously. -Lidocaine with epinephrine was utilized subcutaneously. ACCESS: Previously accessed site of the right internal jugular vein was utilized. IMAGING: fluoroscopy. FLUOROSCOPY TIME: 1 minute DOSE AREA PRODUCT: 54.7 mGy-m2 (milligray-meter squared) DESCRIPTION: Informed consent was obtained from the patient prior to the procedure. During this process, the procedure and potential alternatives were explained, along with the intended outcome and benefits. The risks of the procedure, as well as the risks of not doing the procedure, were discussed. The patient was given the opportunity to ask questions regarding the procedure and appeared competent to make medical decisions. A signed consent form which documents this discussion was placed in the medical record. The patient was placed on the procedure table. A final timeout was called. The right chest wall and neck and existing catheter were prepped in a sterile fashion with maximal barrier protection. Initial fluoroscopic imaging demonstrated proper positioning of the temporary hemodialysis catheter. The right upper chest was anesthetized using lidocaine and lidocaine with epinephrine. After measurements were taken the new tunneled hemodialysis catheter was tunneled subcutaneously using blunt dissection from the upper right chest to the venotomy site. A wire was placed through the existing temporary hemodialysis catheter and the old catheter was removed. The tract was dilated and a peel-away sheath was placed The inner dilator and wire were removed, and the new 23 cm tip to cuff tunneled hemodialysis catheter was advanced through the sheath. The sheath was peeled away. The catheter was tested, flushed, and sutured to the skin with its tip in the right atrium. The catheter ports were packed with heparin per routine protocol. A sterile bandage was placed. The venotomy site was closed with dermabond. IMPRESSION: Successful and uncomplicated conversion of temporary hemodialysis catheter to tunneled 23 cm tip to cuff hemodialysis catheter. Catheter ready to use at this time.
[2018-03-03 23:15] LABS: PTT 37 SEC (25-37)
[2018-03-03 23:23] VITALS: BP 162/98
[2018-03-04 06:38] VITALS: BP 140/96
--- NOTE | 2018-03-04 07:20 | PN- Housestaff ---
Sabina Tripp 03/04/18 0719: Subjective Follow-up For: ESRD with anion gap metabolic acidosis ACute hypoxic resp failure A fib with RVR HTN anxiety R knee pain with swelling Complaints: no complaints Tele-Events Since Last Visit: Afib [id number] Subjective: Patient seen and exmained at bedside. He offers no compliants. Got a tuneled catheter yesterday. No complaints. Sattes that his knee pain is much better Review of Systems Constitutional: Denies: chills, fever, weakness. EENTM: Denies: visual changes. Cardiovascular: Denies: chest pain, orthopena, palpitations. Respiratory: Denies: cough, hemoptysis, short of breath, sputum production. Gastrointestinal: Denies: abdominal pain, nausea, vomiting. Genitourinary: Reports: no symptoms. Musculoskeletal: Reports: joint swelling. Denies: joint pain. Neurological/Psychological: Denies: headache, numbness, tingling, tremors. Objective Last 24 Hrs of Vital Signs/I&O Vital Signs Date Time Temp Pulse Resp B/P B/P Pulse O2 O2 Flow FiO2 Mean Ox Delivery Rate 03/04 0638 98.0 105 20 140/96 97 Nasal Cannula 03/04 0000 Nasal 2.0L Cannula 03/03 2323 98.5 128 18 162/98 90 Room Air 03/03 2256 104 03/03 2255 112 162/98 03/03 1636 118 148/100 03/03 1636 118 148/100 03/03 1600 94 Room Air 03/03 1549 98.1 121 16 148/90 94 Room Air 03/03 0800 94 Nasal 2.0L Cannula 03/03 0735 97.8 103 20 145/76 96 Nasal 2.0L Cannula Intake & Output 03/04 0800 03/04 0000 03/03 1600 Intake Total 564.8 350 80 Output Total 3200 Balance 564.8 350 -3120 Intake, IV 324.8 80 Intake, Oral 240 350 Output, 3000 Dialysate Output, Urine 200 Patient 263 lb 278 lb Weight Physical Exam General Appearance: Alert, Oriented X3, Cooperative, No Acute Distress HEENT: Atraumatic, PERRLA, EOMI, Mucous Membr. moist/pink Neck: Supple, No JVD, No LAD Cardiovascular: Normal S1, Normal S2, No Murmurs, irregularly irregular Lungs: Clear to Auscultation, Normal Air Movement Abdomen: Normal Bowel Sounds, Soft, No Tenderness Neurological: Normal Speech, Strength at 5/5 X4 Ext, Normal Tone, Sensation Intact, Cranial Nerves 3-12 NL, Reflexes 2+ Extremities: No Edema Current Medications: Current Medications Sig/Milagros Start time Last Medication Dose Route Stop Time Status Admin Acetaminophen 1,000 MG ONCE ONE 03/03 0845 DC N/A 1 UNIT IV 03/03 0859 Acetaminophen 650 MG Q8P PRN 02/28 1830 AC 03/02 PO 0545 Amlodipine Besylate 10 MG DAILY 02/28 1000 AC 03/03 PO 1636 Celecoxib 100 MG BID 03/03 1241 AC 03/03 PO 1634 Celecoxib 100 MG BID 03/03 1000 DC PO Citalopram 10 MG DAILY 02/28 1000 AC 03/03 Hydrobromide PO 1632 Clonidine 0.1 MG QPM 02/28 2200 AC 03/03 PO 2256 Diclofenac Sodium 1 CAROLYNE 4 TIMES/DAY PRN 03/02 1030 AC 03/03 TOP 1222 Epoetin Toribio 6,000 UNIT MoWeFr PRN 03/05 0921 AC IV Epoetin Toribio 6,000 UNIT TUES THURS SAT PRN 03/02 1000 DC IV Fentanyl Citrate 0 .STK-MED ONE 03/03 1450 DC .ROUTE Fentanyl Citrate 0 .STK-MED ONE 03/03 1417 DC .ROUTE Ferrous Sulfate 325 MG DAILY 02/28 1000 AC 03/03 PO 1632 Guaifenesin 600 MG Q12 02/28 1000 AC 03/03 PO 2256 Heparin Sodium 8,962 UNIT BOLUS ONE 03/04 0000 DC 03/04 (Porcine) IV 03/04 0001 0104 Heparin Sodium 25,000 UNIT Q24H 03/03 1630 AC 03/03 (Porcine) IV 1700 Sodium Chloride 500 ML Heparin Sodium 0 .STK-MED ONE 03/03 1158 DC (Porcine) IV Heparin Sodium 25,000 UNIT Q24H 03/02 1330 DC 03/02 (Porcine) IV 03/03 0900 1649 Sodium Chloride 500 ML Lidocaine 0 .STK-MED ONE 03/03 1158 DC .ROUTE Lidocaine/Epinephrine 0 .STK-MED ONE 03/03 1158 DC .ROUTE Metoprolol Tartrate 100 MG BID 03/01 1000 AC 03/03 PO 2255 Multivitamins 1 TAB DAILY 03/01 1000 AC 03/03 PO 1633 Pantoprazole Sodium 40 MG DAILY 03/04 1000 AC IV Prednisone 40 MG DAILY 03/03 1218 DC PO 03/08 1001 Sevelamer Carbonate 1,600 MG 0800,1200,1700 03/01 1700 AC 03/03 PO 1633 Torsemide 20 MG DAILY 02/28 1000 AC 03/03 PO 1633 Tramadol HCl 50 MG Q8P PRN 03/02 1030 AC 03/03 PO 2256 Warfarin Sodium 1 MG COUMADIN 1700 ONE 03/03 1700 DC 03/03 PO 03/03 1701 1634 Zolpidem Tartrate 5 MG AT BEDTIME 02/28 2200 AC 03/03 PO 2256 Last 24 Hrs of Lab/Jorden Results Last 24 Hrs of Labs/Mics: Laboratory Tests 03/04/18 0650: Sodium Pending, Potassium Pending, Chloride Pending, Carbon Dioxide Pending, Anion Gap Pending, BUN Pending, Creatinine Pending, BUN/Creatinine Ratio Pending , PT Pending, INR Pending, APTT Pending, CBC w Diff Pending, WBC Pending, RBC Pending, Hgb Pending, Hct Pending, MCV Pending, MCH Pending, MCHC Pending, RDW Pending, Plt Count Pending, MPV Pending 03/03/18 2225: APTT 37 03/03/18 0800: Anion Gap 15, Estimated GFR 10 L, BUN/Creatinine Ratio 9.0, Glucose 87, Calcium 8.9, Phosphorus 6.4 H, Magnesium 1.9, Albumin 3.3 L, PT 16.9 H, INR 1.54 H, APTT 92 H, CBC w Diff NO MAN DIFF REQ, RBC 2.84 L, MCV 85.4, MCH 28.6, MCHC 33.5, RDW 15.9 H, MPV 8.6, Gran % 76.3 H, Lymphocytes % 7.0 L, Monocytes % 13.7 H, Eosinophils % 2.6, Basophils % 0.4, Absolute Granulocytes 7.4 H, Absolute Lymphocytes 0.7 L, Absolute Monocytes 1.3 H, Absolute Eosinophils 0.3 , Absolute Basophils 0 Assessment/Plan Assessment: 52 year old with PMH of HTN, CKD followed by Dr. Louie Sky, Hypertensive nephropathy, a fib on coumadin, b/l lower ext edema, was recently discharged for CAP and anemia requiring blood transfusion. He was also noted to be volume overloaded at that time. He was discharged on metolazone and torsemide to control his volume status. Patient came back to emergency department and was admitted on telemetry floor for the management of acute hypoxemic respiratory failure/volume overload and elevated anion gap metabolic acidosis. Patient also found to be in atrial fibrillation with rapid ventricular rate. Vitals in ED noted, BP 148/90, HR of 130, RR of 28. patient appears to be in mild respiratory distress. Awake, alert. Cardiovascular - S1, S2 tachycardic irregular, Bilateral expiratory wheeze on respiratory examination, no focal neurological deficits noted, abdomen soft, non tender, pulses bilaterally intact. Labs significant for Leukocytosis up to 11.5, H&H 8.3 and 25, INR 1.8( subtherapeutic). Sodium, potassium, and magnesium are within normal limits. Creatinine 11.2 and BUN 147. Anion gap 24 and carbon dioxide 12. BNP 85006, amylase 170 and lipase 752. CXR showed, Interstitial prominence with increased bibasilar opacities. Patient was admitted and managed on Telemetry for the following medical problems MARJAN on CKD/and end-stage renal disease on hemodialysis/elevated anion gap metabolic acidosis/ Patient is following following since 2009 for hypertensive nephropathy. He needed AVF placement as outpatient and had an appointment in the near future for placement of an aVF. Patient was dialyzed on admission by nephrology on an urgent basis with an emergent temporary hemodialysis catheter via the right internal jugular vein secondary to a faint pericardial rub and concerns for urmeic paricarditis. Patient received another 4 round of dialysis while hospitalized with gradual improvement of his BUN and Cr numbers. Clinically he felt much better and there was no pericardial rub on examination the 2nd day of admission. Patient was also started on bicarbonate drip which was discontinued soon. Patient was also started on erythropoietin and Sevelamer. Patient got a tunneled catheter yesterday. DOsed his Coumadin acc to INR. Outpatient F/U with vascular surgeon for AVF. Next HD on Sat as per Nephro. Has OP dialysis slot in [place] on Sat. Did a repeat Echo to ensure that his pericardial effsuion has not worsened. Spoke with Dr. Javier, pericardial effuion is stable, patient is ok to be discharged. A.fib with rapid regular rate Patient has past medical history significant for atrial fibrillation. He was noted to have increased heart rate during this admission. He was initially started on Cardizem drip that was titrated and then stopped soon. His beta randall dose was increased by cardiology 100 mg twice a day. Patient's anticoagulation was Coumadin. It was on hold as per nephrology for concerns of pericarditis and later on restarted after 2 days with IV heparin. Echocardiogram was also ordered to r/o any significant pericardial effusion. It showed small pericardial effusion is present which is hemodynamically insignificant. Dosed Coumain acc to INR. Patient will rpeeat INR in AM. Goal INR o be 2-3. Acute hypoxemic respiratory failure Likely secondary to volume overload. Patient received broad-spectrum antibiotics on admission which were discontinued during hospitalization. Currently patient is off antibiotics and remains afebrile. History of hypertension Patient is on clonidine 0.1 mg and amlodipine 10 mg for hypertension. Right knee pain with history of gout Patient has history of gout and was on allopurinol he stopped a month ago because of concerns for his renal function. X-ray knee was ordered that showed , large right knee effusion, placed ortho consult for draininage. Recommended prednisone, (b/c of GI bleeding concerns and nephrotoxicity) dw with nephro, and placed himm on celebrix Patient is on Coumadin for DVT prophylaxis Patient is full code Patient is on renal dialysis diet Problem List: 1. ESRD needing dialysis 2. Atrial fibrillation with rapid ventricular response Pain Ratin Pain Location: NA Pain Goal: Remain pain free Pain Plan: CELEBRIX Tomorrow's Labs & Rationales: N/A Consulting Request: Consulting Specialty: Nephrology Discharge Plan Discharge Disposition: home Stable for Discharge? Yes Anticipated Discharge (Day): today If Discharged Today/In 24 Hrs: CMR done Nerissa Linton 03/04/18 1146: Attending MD Review Statement Attending Statement Attending MD Statement: examined this patient, discuss w/resident/PA/ELIGIBILITY SPECIALIST, agreed w/resident/PA/ELIGIBILITY SPECIALIST, discussed with family, reviewed EMR data (avail), discussed with nursing, discussed with case mgmt, reviewed images, amended to note Attending Assessment/Plan: 52 o/m with Acute renal failure with ESRD and fluid overlaod needing emergent dialysis. Nephrology consulted and patient found to have pericardial friction rub. Cr 11.2 and BUN 147. K 4.7 INR 1.8 on coumadin on admission. Patient received vit K 5 mg. Patient no new complaints. Vitals stable. Overall clinical improvement. S/P IR for tunnel catheter placement yesterday. Access for dialysis as per nephro, consulted vascualr surgery for fistula which will follow outpatient. Follow nephrology recommendation. Anemia of chronic disease s/p transfusion of prbc. H/h stable. afib couamdin restarted. INR 1.6 continue and monitor outpatient. knee pain local gel application with relief. Discharge planning with outpatient [facility]. F/u case managment. Anticipate dc soon.
[2018-03-04 07:47] LABS: ABSOLUTE BASOPHIL COUNT 0 /CUMM (0.0-0.2); ABSOLUTE EOSINOPHIL COUNT 0.6 /CUMM (0.0-0.7); ABSOLUTE GRANULOCYTE CT 6.5 /CUMM (1.4-6.5); ABSOLUTE LYMPH COUNT 0.8 /CUMM (1.2-3.4); ABSOLUTE MONOCYTE COUNT 1.4 /CUMM (0.10-0.60); BASOPHIL % 0.4 % (0.0-2.0); EOSINOPHIL % 6.2 % (0-5); GRANULOCYTE % 70.5 % (42.2-75.2); HEMATOCRIT 25.3 % (42-52); MEAN CORPUSCULAR HGB 28.6 PG (27.0-31.0); MEAN CORPUSCULAR HGB CONC 33.2 G/DL (33.0-37.0); MEAN CORPUSCULAR VOLUME 86.1 FL (80.0-94.0); MEAN PLATELET VOLUME 8.2 FL (7.4-10.4); PLATELET COUNT 233 /CUMM (130-400); RBC DISTRIBUTION WIDTH 16.2 % (11.5-14.5); RED BLOOD CELL CT 2.94 /CUMM (4.70-6.10); WHITE BLOOD CELL COUNT 9.3 /CUMM (4.8-10.8)
[2018-03-04 08:24] VITALS: BP 140/74
[2018-03-04 08:28] LABS: PT 18.1 SEC (9.4-12.5); PTT 46 SEC (25-37)
--- NOTE | 2018-03-04 09:39 | PN- Nephrology ---
Assessment/Plan Nephrology Assessment: 1. ESRD: no HD today; OK for d/c from renal perspective to outpt HD 2. Pericarditis: presumed uremic; + friction rub again but w/o sx; well dialyzed & on NSAID. Would check w cardiology re anticoagulation 3. Volume overload: improved 4. A fib: on heparin --> warfarin per card 5. R knee arthritis: presumed gout; improving 6. Anemia: continue LIYAH Suggestion: 1. card f/u 2. next HD Sat to coordinate w outpt schedule Subjective Subjective: Feeling well w/o CP or SOB No uremic sx Had tunneled IJ HD cath placed yesterday Has outpt HD seat @ [facility] starting Sat R knee improved Objective Vital Signs and I&Os Vital Signs Date Time Temp Pulse Resp B/P B/P Pulse O2 O2 Flow FiO2 Mean Ox Delivery Rate 03/04 0906 97 Nasal 2.0L Cannula 03/04 0824 140/74 03/04 0823 138/74 03/04 0638 98.0 105 20 140/96 97 Nasal Cannula 03/04 0000 Nasal 2.0L Cannula 03/03 2323 98.5 128 18 162/98 90 Room Air 03/03 2256 104 03/03 2255 112 162/98 03/03 1636 118 148/100 03/03 1636 118 148/100 03/03 1600 94 Room Air 03/03 1549 98.1 121 16 148/90 94 Room Air Intake & Output 03/04 1600 03/04 0400 03/03 1600 03/03 0400 03/02 1600 03/02 0400 Intake Total 564.8 350 320 800 480 240 Output Total 3400 300 200 250 Balance 564.8 350 -3080 500 280 -10 Intake, IV 324.8 320 Intake, Oral 240 350 800 480 240 Output, 3000 Dialysate Output, Urine 400 300 200 250 Patient 263 lb 278 lb 278 lb 225 lb Weight Weight Bed scale Measurement Method Physical Exam General Appearance: well developed/nourished, no apparent distress, alert Head: atraumatic Ears, Nose, Throat: normal ENT inspection Neck: R IJ cath Respiratory: normal breath sounds, no respiratory distress, quiet respiration, lungs clear Cardiovascular: friction rub, irregularly irregular Abdomen: soft, non-tender, no organomegaly Extremities: no edema Neurologic/Psychiatric: awake, alert, oriented x 3 Skin: intact Lymphatic: no anterior cervical bina Current Medications: Current Medications Sig/Milagros Start time Last Medication Dose Route Stop Time Status Admin Acetaminophen 650 MG Q8P PRN 02/28 1830 AC 03/02 PO 0545 Amlodipine Besylate 10 MG DAILY 02/28 1000 AC 03/04 PO 0824 Celecoxib 100 MG BID 03/03 1241 AC 03/04 PO 0822 Celecoxib 100 MG BID 03/03 1000 DC PO Citalopram 10 MG DAILY 02/28 1000 AC 03/04 Hydrobromide PO 0823 Clonidine 0.1 MG QPM 02/28 2200 AC 03/03 PO 2256 Diclofenac Sodium 1 CAROLYNE 4 TIMES/DAY PRN 03/02 1030 AC 03/03 TOP 1222 Epoetin Toribio 6,000 UNIT MoWeFr PRN 03/05 0921 AC IV Fentanyl Citrate 0 .STK-MED ONE 03/03 1450 DC .ROUTE Fentanyl Citrate 0 .STK-MED ONE 03/03 1417 DC .ROUTE Ferrous Sulfate 325 MG DAILY 02/28 1000 AC 03/04 PO 0824 Guaifenesin 600 MG Q12 02/28 1000 AC 03/04 PO 0824 Heparin Sodium 8,962 UNIT BOLUS ONE 03/04 0000 DC 03/04 (Porcine) IV 03/04 0001 0104 Heparin Sodium 25,000 UNIT Q24H 03/03 1630 AC 03/03 (Porcine) IV 1700 Sodium Chloride 500 ML Heparin Sodium 0 .STK-MED ONE 03/03 1158 DC (Porcine) IV Lidocaine 0 .STK-MED ONE 03/03 1158 DC .ROUTE Lidocaine/Epinephrine 0 .STK-MED ONE 03/03 1158 DC .ROUTE Metoprolol Tartrate 100 MG BID 03/01 1000 AC 03/04 PO 0823 Multivitamins 1 TAB DAILY 03/01 1000 AC 03/04 PO 0824 Pantoprazole Sodium 40 MG DAILY 03/04 1000 AC IV Prednisone 40 MG DAILY 03/03 1218 DC PO 03/08 1001 Sevelamer Carbonate 1,600 MG 0800,1200,1700 03/01 1700 AC 03/04 PO 0822 Torsemide 20 MG DAILY 02/28 1000 AC 03/04 PO 0822 Tramadol HCl 50 MG Q8P PRN 03/02 1030 AC 03/03 PO 2256 Warfarin Sodium 1 MG COUMADIN 1700 ONE 03/03 1700 DC 03/03 PO 03/03 1701 1634 Zolpidem Tartrate 5 MG AT BEDTIME 02/28 2200 AC 03/03 PO 2256 Results Pertinent Lab Results: Laboratory Tests 03/04 03/03 0650 2225 Chemistry Sodium (137 - 145 mmol/L) 139 Potassium (3.5 - 5.1 mmol/L) 4.1 Chloride (98 - 107 mmol/L) 100 Carbon Dioxide (22 - 30 mmol/L) 24 Anion Gap (5 - 16) 15 BUN (9 - 20 mg/dL) 40 H Creatinine (0.7 - 1.2 mg/dL) 4.9 H Estimated GFR (>60 ml/min) 13 L BUN/Creatinine Ratio (7 - 25 %) 8.2 Coagulation PT (9.4 - 12.5 SEC) 18.1 H INR (0.90 - 1.17) 1.65 H APTT (25 - 37 SEC) 46 H 37 Hematology CBC w Diff NO MAN DIFF REQ WBC (4.8 - 10.8 /CUMM) 9.3 RBC (4.70 - 6.10 /CUMM) 2.94 L Hgb (14.0 - 18.0 G/DL) 8.4 L Hct (42 - 52 %) 25.3 L MCV (80.0 - 94.0 FL) 86.1 MCH (27.0 - 31.0 PG) 28.6 MCHC (33.0 - 37.0 G/DL) 33.2 RDW (11.5 - 14.5 %) 16.2 H Plt Count (130 - 400 /CUMM) 233 MPV (7.4 - 10.4 FL) 8.2 Gran % (42.2 - 75.2 %) 70.5 Lymphocytes % (20.5 - 51.1 %) 8.3 L Monocytes % (1.7 - 9.3 %) 14.6 H Eosinophils % (0 - 5 %) 6.2 H Basophils % (0.0 - 2.0 %) 0.4 Absolute Granulocytes (1.4 - 6.5 /CUMM) 6.5 Absolute Lymphocytes (1.2 - 3.4 /CUMM) 0.8 L Absolute Monocytes (0.10 - 0.60 /CUMM) 1.4 H Absolute Eosinophils (0.0 - 0.7 /CUMM) 0.6 Absolute Basophils (0.0 - 0.2 /CUMM) 0 03/03 03/03 0800 0703 Chemistry Sodium (137 - 145 mmol/L) 140 Potassium (3.5 - 5.1 mmol/L) 3.9 Chloride (98 - 107 mmol/L) 100 Carbon Dioxide (22 - 30 mmol/L) 24 Anion Gap (5 - 16) 15 BUN (9 - 20 mg/dL) 55 H Creatinine (0.7 - 1.2 mg/dL) 6.1 *H Estimated GFR (>60 ml/min) 10 L BUN/Creatinine Ratio (7 - 25 %) 9.0 Glucose (65 - 99 mg/dL) 87 Calcium (8.4 - 10.2 mg/dL) 8.9 Phosphorus (2.5 - 4.5 mg/dL) 6.4 H Magnesium (1.6 - 2.3 mg/dL) 1.9 Albumin (3.5 - 5.0 g/dL) 3.3 L Coagulation PT (9.4 - 12.5 SEC) 16.9 H INR (0.90 - 1.17) 1.54 H APTT (25 - 37 SEC) 92 H 50 H Hematology CBC w Diff NO MAN DIFF REQ NO MAN DIFF REQ WBC (4.8 - 10.8 /CUMM) 9.7 9.6 RBC (4.70 - 6.10 /CUMM) 2.84 L 2.91 L Hgb (14.0 - 18.0 G/DL) 8.1 L 8.4 L Hct (42 - 52 %) 24.3 L 24.8 L MCV (80.0 - 94.0 FL) 85.4 85.3 MCH (27.0 - 31.0 PG) 28.6 28.9 MCHC (33.0 - 37.0 G/DL) 33.5 33.9 RDW (11.5 - 14.5 %) 15.9 H 16.1 H Plt Count (130 - 400 /CUMM) 222 209 MPV (7.4 - 10.4 FL) 8.6 8.5 Gran % (42.2 - 75.2 %) 76.3 H 73.1 Lymphocytes % (20.5 - 51.1 %) 7.0 L 6.5 L Monocytes % (1.7 - 9.3 %) 13.7 H 15.1 H Eosinophils % (0 - 5 %) 2.6 4.4 Basophils % (0.0 - 2.0 %) 0.4 0.9 Absolute Granulocytes (1.4 - 6.5 /CUMM) 7.4 H 7.0 H Absolute Lymphocytes (1.2 - 3.4 /CUMM) 0.7 L 0.6 L Absolute Monocytes (0.10 - 0.60 /CUMM) 1.3 H 1.5 H Absolute Eosinophils (0.0 - 0.7 /CUMM) 0.3 0.4 Absolute Basophils (0.0 - 0.2 /CUMM) 0 0.1 03/02 03/02 2229 1320 Chemistry Sodium (137 - 145 mmol/L) 139 Potassium (3.5 - 5.1 mmol/L) 3.9 Chloride (98 - 107 mmol/L) 99 Carbon Dioxide (22 - 30 mmol/L) 23 Anion Gap (5 - 16) 17 H BUN (9 - 20 mg/dL) 85 H Creatinine (0.7 - 1.2 mg/dL) 8.0 *H Estimated GFR (>60 ml/min) 7 L BUN/Creatinine Ratio (7 - 25 %) 10.6 Glucose (65 - 99 mg/dL) 99 Calcium (8.4 - 10.2 mg/dL) 8.1 L Coagulation APTT (25 - 37 SEC) 45 H Hematology CBC w Diff NO MAN DIFF REQ WBC (4.8 - 10.8 /CUMM) 9.9 RBC (4.70 - 6.10 /CUMM) 2.71 L Hgb (14.0 - 18.0 G/DL) 7.9 L Hct (42 - 52 %) 23.3 L MCV (80.0 - 94.0 FL) 85.8 MCH (27.0 - 31.0 PG) 29.0 MCHC (33.0 - 37.0 G/DL) 33.8 RDW (11.5 - 14.5 %) 16.4 H Plt Count (130 - 400 /CUMM) 199 MPV (7.4 - 10.4 FL) 8.9 Gran % (42.2 - 75.2 %) 76.6 H Lymphocytes % (20.5 - 51.1 %) 4.9 L Monocytes % (1.7 - 9.3 %) 13.6 H Eosinophils % (0 - 5 %) 4.4 Basophils % (0.0 - 2.0 %) 0.5 Absolute Granulocytes (1.4 - 6.5 /CUMM) 7.6 H Absolute Lymphocytes (1.2 - 3.4 /CUMM) 0.5 L Absolute Monocytes (0.10 - 0.60 /CUMM) 1.4 H Absolute Eosinophils (0.0 - 0.7 /CUMM) 0.4 Absolute Basophils (0.0 - 0.2 /CUMM) 0 04/10 0650 Coagulation PT (9.4 - 12.5 SEC) 17.2 H INR (0.90 - 1.17) 1.57 H Hematology CBC w Diff NO MAN DIFF REQ WBC (4.8 - 10.8 /CUMM) 9.2 RBC (4.70 - 6.10 /CUMM) 2.60 L Hgb (14.0 - 18.0 G/DL) 7.7 L Hct (42 - 52 %) 22.2 L MCV (80.0 - 94.0 FL) 85.6 MCH (27.0 - 31.0 PG) 29.6 MCHC (33.0 - 37.0 G/DL) 34.6 RDW (11.5 - 14.5 %) 16.2 H Plt Count (130 - 400 /CUMM) 180 MPV (7.4 - 10.4 FL) 8.6 Gran % (42.2 - 75.2 %) 74.4 Lymphocytes % (20.5 - 51.1 %) 6.8 L Monocytes % (1.7 - 9.3 %) 12.9 H Eosinophils % (0 - 5 %) 5.2 H Basophils % (0.0 - 2.0 %) 0.7 Absolute Granulocytes (1.4 - 6.5 /CUMM) 6.8 H Absolute Lymphocytes (1.2 - 3.4 /CUMM) 0.6 L Absolute Monocytes (0.10 - 0.60 /CUMM) 1.2 H Absolute Eosinophils (0.0 - 0.7 /CUMM) 0.5 Absolute Basophils (0.0 - 0.2 /CUMM) 0.1 Imaging/Other Studies: Echo: smalll hemodynamically insignificant pericardial effusion
[2018-03-04] MEDS ORDERED: CELEBREX100 M1 PO ×2 (09:49→15:15)
[2018-03-04] MEDS ORDERED: NEPHRO-VITE TA0.8 MG PO ×2 (09:49→15:15)
--- NOTE | 2018-03-04 09:54 | Patient Discharge Instructions ---
Discharge Instructions General Discharge Information You were seen/treated for: -Acute on chronic renal failure - Afib with RVR You had these procedures: - Placement of dialysis catheter Special Instructions: Please follow up iwth your primary care physician in one week. Please follow up iwth your grain distributor in one week. Please follow uop with your percussion welding machine operator in one week. Please have a repeat INR tomorrow 03/04/18 - Goal INR: 2-3 Diet Recommended Diet: Renal Dialysis Activity Activity Self Limited: Yes Acute Coronary Syndrome Inclusion Criteria At DC or during hospital stay patient has or had the following: ACS DIAGNOSIS No Discharge Core Measures Meds if any: Prescribed or Continued at Discharge Meds if any: NOT Prescribed or Continued at Discharge Congestive Heart Failure Inclusion Criteria At DC or during hospital stay patient has or had the following: CHF DIAGNOSIS No Discharge Core Measures Meds if any: Prescribed or Continued at Discharge Meds if any: NOT Prescribed or Continued at Discharge Cerebrovascular accident Inclusion Criteria At DC or during hospital stay patient has or had the following: CVA/TIA Diagnosis No Discharge Core Measures Meds if any: Prescribed or Continued at Discharge Meds if any: NOT Prescribed or Continued at Discharge Venous thromboembolism Inclusion Criteria VTE Diagnosis No VTE Type NONE VTE Confirmed by (Test) NONE Discharge Core Measures - Per Current guidelines, there needs to be overlap - treatment for the first 5 days of Warfarin therapy. - If discharged on Warfarin prior to 5 days of - overlap therapy, the patient will need to be - assessed for post discharge needs including - *Post discharge parental anticoagulation - *Warfarin and/or parental anticoagulation education - *Follow up date to check INR post discharge At least 5 days overlap therapy as Inpatient No Meds if any: Prescribed or Continued at Discharge Note: Overlap Therapy is Warfarin and Anticoagulant Meds if any: NOT Prescribed or Continued at Discharge
[2018-03-04] MEDS ORDERED: VOLTAREN100 GM TOP ×2 (10:44→15:15)
[2018-03-04] MEDS ORDERED: PROCRIT3000 UNIT/ IV (15:55)
[2018-03-04] MEDS ORDERED: METOPROLOL TART50 M1 PO (16:28)
--- NOTE | 2018-03-04 16:54 | PN- Cardiology ---
Subjective Subjective: Clinically unchanged with no new cardiac symptoms. Objective Vital Signs and I&Os Clinically unchanged. No new cardiac symptoms.Vital Signs Date Time Temp Pulse Resp B/P B/P Pulse O2 O2 Flow FiO2 Mean Ox Delivery Rate 03/04 0906 97 Nasal 2.0L Cannula 03/04 0824 140/74 03/04 0823 138/74 03/04 0638 98.0 105 20 140/96 97 Nasal Cannula 03/04 0000 Nasal 2.0L Cannula 03/03 2323 98.5 128 18 162/98 90 Room Air 03/03 2256 104 03/03 2255 112 162/98 Intake & Output 03/04 1600 03/04 0800 03/04 0000 03/03 1600 03/03 0800 03/03 0000 Intake Total 520 564.8 350 80 240 800 Output Total 450 3200 200 300 Balance 70 564.8 350 -3120 40 500 Intake, IV 120 324.8 80 240 Intake, Oral 400 240 350 800 Output, 3000 Dialysate Output, Urine 450 200 200 300 Patient 263 lb 278 lb 278 lb Weight Weight Bed scale Measurement Method Current Medications: Current Medications Sig/Milagros Start time Last Medication Dose Route Stop Time Status Admin Acetaminophen 650 MG Q8P PRN 02/28 1830 AC 03/02 PO 0545 Amlodipine Besylate 10 MG DAILY 02/28 1000 AC 03/04 PO 0824 Celecoxib 100 MG BID 03/03 1241 AC 03/04 PO 0822 Citalopram 10 MG DAILY 02/28 1000 AC 03/04 Hydrobromide PO 0823 Clonidine 0.1 MG QPM 02/28 2200 AC 03/03 PO 2256 Diclofenac Sodium 1 CAROLYNE 4 TIMES/DAY PRN 03/02 1030 AC 03/03 TOP 1222 Epoetin Toribio 6,000 UNIT MoWeFr PRN 03/05 0921 AC IV Ferrous Sulfate 325 MG DAILY 02/28 1000 AC 03/04 PO 0824 Guaifenesin 600 MG Q12 02/28 1000 AC 03/04 PO 0824 Heparin Sodium 4,776 UNIT ONCE ONE 03/04 0941 DC (Porcine) IV 03/04 0942 Heparin Sodium 8,962 UNIT BOLUS ONE 03/04 0000 DC 03/04 (Porcine) IV 03/04 0001 0104 Heparin Sodium 25,000 UNIT Q24H 03/03 1630 DC 03/04 (Porcine) IV 0934 Sodium Chloride 500 ML Metoprolol Tartrate 100 MG BID 03/01 1000 AC 03/04 PO 0823 Multivitamins 1 TAB DAILY 03/01 1000 AC 03/04 PO 0824 Pantoprazole Sodium 40 MG DAILY 03/04 1000 AC IV Patient Medication 1 ED ONE ONE 03/04 0945 DC Teaching ED 03/04 946 Sevelamer Carbonate 1,600 MG 0800,1200,1700 03/01 1700 AC 03/04 PO 1300 Torsemide 20 MG DAILY 02/28 1000 DC 03/04 PO 0822 Tramadol HCl 50 MG Q8P PRN 03/02 1030 AC 03/03 PO 2256 Warfarin Sodium 1 MG COUMADIN 1700 ONE 03/04 1700 AC PO 03/04 1701 Warfarin Sodium 1 MG COUMADIN 1700 ONE 03/03 1700 DC 03/03 PO 03/03 1701 1634 Zolpidem Tartrate 5 MG AT BEDTIME 02/28 2200 AC 03/03 PO 2256 Results Last 48 Hrs of Labs/Mics: Laboratory Tests 03/04/18 1530: APTT Cancelled 03/04/18 0650: Anion Gap 15, Estimated GFR 13 L, BUN/Creatinine Ratio 8.2, PT 18.1 H, INR 1.65 H, APTT 46 H, CBC w Diff NO MAN DIFF REQ, RBC 2.94 L, MCV 86.1, MCH 28.6 , MCHC 33.2, RDW 16.2 H, MPV 8.2, Gran % 70.5, Lymphocytes % 8.3 L, Monocytes % 14.6 H, Eosinophils % 6.2 H, Basophils % 0.4, Absolute Granulocytes 6.5, Absolute Lymphocytes 0.8 L, Absolute Monocytes 1.4 H, Absolute Eosinophils 0.6 , Absolute Basophils 0 03/03/18 2225: APTT 37 03/03/18 0800: Anion Gap 15, Estimated GFR 10 L, BUN/Creatinine Ratio 9.0, Glucose 87, Calcium 8.9, Phosphorus 6.4 H, Magnesium 1.9, Albumin 3.3 L, PT 16.9 H, INR 1.54 H, APTT 92 H, CBC w Diff NO MAN DIFF REQ, RBC 2.84 L, MCV 85.4, MCH 28.6, MCHC 33.5, RDW 15.9 H, MPV 8.6, Gran % 76.3 H, Lymphocytes % 7.0 L, Monocytes % 13.7 H, Eosinophils % 2.6, Basophils % 0.4, Absolute Granulocytes 7.4 H, Absolute Lymphocytes 0.7 L, Absolute Monocytes 1.3 H, Absolute Eosinophils 0.3 , Absolute Basophils 0 03/03/18 0703: APTT 50 H, CBC w Diff NO MAN DIFF REQ, RBC 2.91 L, MCV 85.3, MCH 28.9, MCHC 33.9, RDW 16.1 H, MPV 8.5, Gran % 73.1, Lymphocytes % 6.5 L, Monocytes % 15.1 H, Eosinophils % 4.4, Basophils % 0.9, Absolute Granulocytes 7.0 H, Absolute Lymphocytes 0.6 L, Absolute Monocytes 1.5 H, Absolute Eosinophils 0.4, Absolute Basophils 0.1 03/02/18 2229: APTT 45 H Assessment/Plan Assessment/Plan Assessment: 1. End-stage renal disease started on dialysis 2. Paroxysmal atrial fibrillation and atrial flutter, rate under control 3. Small pericardial effusion secondary to uremia Plan: -Continue metoprolol for rate control -Dialysis as per nephrology -Start IV heparin per protocol. Restart warfarin once no further procedures are planned -Follow-up echocardiogram shows persistent small pericardial effusion with no synovial change from previously. Continue warfarin as planned. Continue telemetry? Yes
--- NOTE | 2018-03-04 20:28 | ECHOCARDIOGRAM REPORT ---
SAMRA PERALTA Age: 52 : 1965 Gender: M Exam Date: 03/04/2018 10:54 Exam Location: [facility] Ht (in): 71 Wt (lb): 263 BSA: 2.49 BP: 140 / 74 Ordering Physician: Sabina Tripp MD Referring Physician: Sabina Tripp MD Technologist: Hiro Glass [facility] Room Number: [id number] Indications: PERICARDIAL EFFUSION Rhythm: Sinus Technical Quality: fair FINDINGS Left Ventricle Normal size left ventricle. Normal left ventricular ejection fraction estimated at 55-60%. Right Ventricle Right ventricle not well visualized, grossly normal. Right Atrium Normal right atrial size. Left Atrium Left atrial dilatation. Mitral Valve Mitral valve thickened. Aortic Valve Trileaflet aortic valve. Diffuse thickening (sclerosis) of the aortic valve cusps without reduced excursion. Tricuspid Valve Tricuspid valve not well visualized, grossly normal. Pulmonic Valve Pulmonic valve not well visualized. Pericardium Small pericardial effusion. Great Vessels Aortic root and proximal ascending aorta not well visualized. CONCLUSIONS 1. This was a limited followup examination performed to reassess the size of the pericardial effusion present. 2. Aortic sclerosis is present. 3. Mitral leaflet thickening is present. 4. A small pericardial effusion is present which is hemodynamically insignificant 5. The left ventricular chamber size and systolic function appear normal 6. The RV systolic pressure could not be assessed on this examination. Sarthak Small M.D. (Electronically Signed) Final Date: 04 March 2018 20:28 MEASUREMENTS (Male / Female) Normal Values
== END 2018-03-04 17:00 | DRG 682 ==
LOC: ERH 02:59 → 1NO 04:16 → ERHI 04:16 → EDBEDREQ 04:48 → ENRESERV 05:33 → 1NO 06:46 → ENPENDDIS 03-04 16:43 → ENTRNSPT 03-04 16:45 → 1NO 03-04 17:00 → CMPTRNSPT 03-04 17:07
PROVIDERS: Emergency Medicine; Internal Medicine; Internal Medicine Infectious Disease; Internal Medicine Nephrology; Student in an Organized Health Care Education/Training Program
PROC: 5A1D70Z Performance of Urinary Filtration, Intermittent, Less than 6 Hours Per Day (ICD-10-PCS; 2018-02-28)
PROC: 30233N1 Transfusion of Nonautologous Red Blood Cells into Peripheral Vein, Percutaneous Approach (ICD-10-PCS; 2018-03-01)
PROC: 02H633Z Insertion of Infusion Device into Right Atrium, Percutaneous Approach (ICD-10-PCS; principal; 2018-03-03)
PROC: B2141ZZ Fluoroscopy of Right Heart using Low Osmolar Contrast (ICD-10-PCS; 2018-03-03)
DX: N17.9 Acute kidney failure, unspecified (principal); J96.01 Acute respiratory failure with hypoxia; I13.2 Hypertensive heart and chronic kidney disease with heart failure and with stage 5 chronic kidney disease, or end stage renal disease; E66.01 Morbid (severe) obesity due to excess calories; E87.2 Acidosis; I31.3 Pericardial effusion (noninflammatory); I12.0 Hypertensive chronic kidney disease with stage 5 chronic kidney disease or end stage renal disease; I48.92 Unspecified atrial flutter; Z68.41 Body mass index [BMI] 40.0-44.9, adult; I50.32 Chronic diastolic (congestive) heart failure; I31.9 Disease of pericardium, unspecified; I48.0 Paroxysmal atrial fibrillation; N18.6 End stage renal disease; Z99.2 Dependence on renal dialysis; Z79.01 Long term (current) use of anticoagulants; D64.9 Anemia, unspecified; R60.0 Localized edema; F32.9 Major depressive disorder, single episode, unspecified; R14.0 Abdominal distension (gaseous); F41.9 Anxiety disorder, unspecified; D72.829 Elevated white blood cell count, unspecified; E87.70 Fluid overload, unspecified; M17.11 Unilateral primary osteoarthritis, right knee; M10.9 Gout, unspecified
CPT/HCPCS: 04007; 1NP; 36592; 71045; 73560-RT; 77001; 77002; 81001; 82436; 86920; 87040; 87070; 87804; 87804-59; 93005; 93010; 93306; 93308; 93321; 96374; 96375; 99291; C1752; C1769; J0131; J0456; J0713; J0885; J1642; J1644; J1940; J2405; J2765; J3370; J7060; P9016